=== PATIENT | female | born 1985 | race Caucasian/White ===

== ENCOUNTER 2020-06-10 09:20 | Emergency (ER) | payer BC, OTHER ==
--- OUTSIDE RECORDS SUMMARY | 2020-06-10 09:24 | XMS REPORT | Summary of Care ---
:1985 Author Organization [facility] Address [address] [place] [id number] Care Team Providers Name Role Phone Terrence Christianson MD Primary Care Provider Reason for Referral (STAT) Status Reason Specialty Diagnoses / Referred By Referred To Procedures Contact Contact New Request Psychiatry Diagnoses Alcoholism Mixed anxiety and depressive disorder Doris Christianson Web-Psychiatry Procedures CONSULT/REFERRAL PSYCHOLOGY MD Terrence Staff [address] [place] [address] [address] [facility], [address] [address] [place], [place] Phone: [phone] Phone: Fax: (STAT) Status Reason Specialty Diagnoses / Referred By Referred To Procedures Contact Contact New Request Psychiatry Diagnoses Alcoholism Mixed anxiety and depressive disorder Doris Christianson Web-Psychiatry Procedures CONSULT/REFERRAL PSYCHIATRY ADULT MD Terrence Staff [address] [place] [address] [address] [facility], [address] [address] [place], [place] Phone: [phone] Phone: Fax: Reason for Visit Reason Comments Assessment Encounter Details Date Type Department Care Team Description 05/04/2020 Telephone [facility] Family Medicine Doris Norton MD Assessment - [address] jefferson [place] [id number] [place] [address] [phone] Allergies Active Allergy Reactions Severity Noted Date Comments Cefaclor Hives 03/24/2019 Kiwi Hives 03/24/2019 documented as of this encounter (statuses as of 05/05/2020) Medications Medication Sig Dispensed Refills Start Date End Date Status insulin degludec inject 19 Units 0 Active (TRESIBA FLEXTOUCH under the skin U-100 SC) every morning. NOVOLOG U-100 INSULIN inject under the 0 Active ASPART SC skin. Per SSI (2 units for each 50 above a glucose of 200) traZODone 50 mg tablet Take 50-100 mg by 0 Active mouth at bedtime as needed for Insomnia. albuterol (PROAIR HFA) Inhale 2 Puffs 8.5 g 2 01/12/2020 Active 90 mcg/actuation every 6 (six) inhalerIndications: hours as needed Uncomplicated asthma, for Wheezing or unspecified asthma Shortness of severity, unspecified Breath. whether persistent blood sugar diagnostic Use as directed 100 Strip 1 02/13/2020 Active (ACCU-CHEK JOAQUÍN PLUS for twice a day TEST STRP) blood glucose stripIndications: Type monitoring for 1 diabetes mellitus ICD E10.42 with diabetic polyneuropathy GABAPENTIN 600 mg TAKE 2 TABLETS BY 540 tablet 1 03/01/2020 Active tabletIndications: MOUTH 3 (THREE) Unspecified TIMES DAILY. mononeuropathy of bilateral lower limbs escitalopram oxalate Take 1 tablet by 30 tablet 2 03/02/2020 Active 20 mg mouth daily. tabletIndications: Mixed anxiety and depressive disorder BUSPIRONE 15 mg TAKE 1 TABLET BY 270 tablet 0 03/02/2020 Active tabletIndications: MOUTH 3 TIMES A Mixed anxiety and DAY NEEDED FOR depressive disorder ANXIETY documented as of this encounter (statuses as of 05/05/2020) Active Problems Problem Noted Date Mixed anxiety and depressive disorder 12/22/2019 Chronic diarrhea 12/22/2019 History of alcoholism 11/11/2019 Anxiety 08/22/2019 Type 1 diabetes mellitus with diabetic polyneuropathy 04/01/2019 Asthma documented as of this encounter (statuses as of 05/05/2020) Resolved Problems Problem Noted Date Resolved Date Alcohol abuse 11/11/2019 12/22/2019 documented as of this encounter (statuses as of 05/05/2020) Social History Tobacco Use Types Packs/Day Years Used Date Former Smoker Smokeless Tobacco: Never Used Alcohol Use Drinks/Week oz/Week Comments Not Currently sober for 3 aristides hs, history of alcoholism Sex Assigned at Date Recorded Not on file documented as of this encounter Last Filed Vital Signs Not on filedocumented in this encounter Miscellaneous Notes Telephone Encounter - Grecthen Cota - 05/05/2020 4:07 PM CDTReferral Team has already sent this for approval elephone Encounter - Doris Christianson MD - 05/05/2020 10:51 AM CDTPlease assist with these referrals. She needs to see someone soon. Please reach out to her mother if we are allowed. elephone Encounter - Diya Zepeda - 05/05/2020 10:29 AM CDTPlease review elephone Encounter - Ara Flores - 05/04/2020 4:[address] Christianson - send message under Edelmira's Chart. Her mother sent a [employer] message on behalf of her daughter Telephone Encounter - Ara Flores - 05/04/2020 4:38 PM ANGELTDr. Christianson, This message is in regards to my daughter Edelmira. Her drinking has increased. I desperately need contact information for a counselor that we can start sessions to try and identify the cause for her addiction to alcohol. I would greatly appreciate your recommendation(s). Edelmira does a great job at work, but her refusal to keep her room or herself clean is deplorable. My concern grows daily. Your adviceand recommendations would be greatly appreciated. Gratefully, Alix Stackectronically signed by Ara Flores at 05/04/2020 4:40 PM CDTdocumented in this encounter Plan of Treatment Health Maintenance Due Date Last Done Comments HgA1C 1987 VARICELLA VACCINES (1 of 2 - 2-dose 1987 childhood series) PNEUMOCOCCAL 0-64 YEARS COMBINED SERIES (1 1992 of 1 - PPSV23) EYE EXAM 1996 LDL-C 1996 URINE MICROALBUMIN 1996 Depression Screening 1998 FOOT EXAM 2004 DTaP,Tdap,and Td Vaccines (1 - Tdap) 2005 PAP SMEAR 2007 INFLUENZA VACCINE (#1) 2020 CREATININE (SERUM) 09/30/2020 09/30/2019, 03/24/2019 documented as of this encounter Results Not on filedocumented in this encounter Visit Diagnoses Diagnosis Alcoholism - Primary Other and unspecified alcohol dependence , unspecified drinking behavior Mixed anxiety and depressive disorder Dysthymic disorder documented in this encounter Insurance Payer Benefit Plan Subscriber ID Effective Dates Phone Address Type / Group BCBS OF [facility] [id number] 2018-Renzo [phone] [address] PPO/[place] - OUT OF t 7 [id number] [place] [address] documented as of this encounter
--- OUTSIDE RECORDS SUMMARY | 2020-06-10 09:24 | XMS REPORT | Summary of Care ---
:1985 Author Organization [facility] Address [address] [place] [address] Care Team Providers Name Role Phone Terrence Christianson MD Primary Care Provider Reason for Visit Reason Comments Refill Request Encounter Details Date Type Department Care Team Description 03/18/2020 Refill [facility] Pediatric and Doris Bean MD Refill Request Adult Primary Care- [address] [place] [address] [place] [address], [address] [place] [address] Allergies Active Allergy Reactions Severity Noted Date Comments Cefaclor Hives 03/24/2019 Kiwi Hives 03/24/2019 documented as of this encounter (statuses as of 03/18/2020) Medications Medication Sig Dispensed Refills Start Date [...] as of this encounter (statuses as of 03/18/2020) Active Problems Problem Noted Date Mixed anxiety and depressive disorder 12/22/2019 Chronic diarrhea 12/22/2019 History of alcoholism 11/11/2019 Anxiety 08/22/2019 Type 1 diabetes mellitus with diabetic polyneuropathy 04/01/2019 Asthma documented as of this encounter (statuses as of 03/18/2020) Resolved Problems Problem Noted Date Resolved Date Alcohol abuse 11/11/2019 12/22/2019 documented as of this encounter (statuses as of 03/18/2020) Social History Tobacco Use Types Packs/Day Years Used Date Former Smoker Smokeless Tobacco: Never Used Alcohol Use Drinks/Week oz/Week Comments Not Currently sober for 3 aristides hs, history of alcoholism Sex Assigned at Date Recorded Not on file documented as of this encounter Last Filed Vital Signs Not on filedocumented in this encounter Plan of Treatment Date Type Specialty Care Team Description 03/19/2020 Office Visit Gastroenterology Tiffany Tobar MD [address] [facility] [address] [place] [address] Health Maintenance Due Date Last Done Comments HgA1C 1987 VARICELLA VACCINES (1 of 2 - 2-dose 1987 childhood series) PNEUMOCOCCAL 0-64 YEARS COMBINED SERIES (1 1992 of 1 - PPSV23) EYE EXAM 1996 LDL-C 1996 URINE MICROALBUMIN 1996 FOOT EXAM 2004 DTaP,Tdap,and Td Vaccines (1 - Tdap) 2005 PAP SMEAR 2007 INFLUENZA VACCINE (#1) 2020 Depression Screening 04/21/2020 04/21/2019 CREATININE (SERUM) 09/30/2020 09/30/2019, 03/24/2019 documented as of this encounter Results Not on filedocumented in this encounter Visit Diagnoses Diagnosis Uncomplicated asthma, unspecified asthma severity, unspecified whether persistent documented in this encounter Insurance Payer Benefit Plan Subscriber ID Effective Dates Phone Address Type / Group BCBS OF [facility] [id number] 2018-Renzo [phone] [address] PPO/[place] - OUT OF t 7 [id number] [place] [address] documented as of this encounter
--- OUTSIDE RECORDS SUMMARY | 2020-06-10 09:24 | XMS REPORT | Summary of Care ---
:1985 Author Organization [facility] [employer] Address [address] [place] [address] Care Team Providers Name Role Phone Terrence Christianson MD Primary Care Provider Reason for Visit Reason Comments Refill Request Encounter Details Date Type Department Care Team Description 05/18/2020 Refill [facility] Family Medicine Doris Norton MD Refill Request - [address] [place] [address] [place] [address] [phone] Allergies Active Allergy Reactions Severity Noted Date Comments Cefaclor Hives 03/24/2019 Kiwi Hives 03/24/2019 documented as of this encounter (statuses as of 05/18/2020) Medications Medication Sig Dispensed Refills Start Date End Date Status insulin degludec inject 19 Units 0 Active (TRESIBA FLEXTOUCH under the skin U-100 SC) every morning. NOVOLOG U-100 inject under 0 Ac tive INSULIN ASPART SC the skin. Per SSI (2 units for each 50 above a glucose of 200) traZODone 50 mg Take 50-100 mg 0 Active tablet by mouth at bedtime as needed for Insomnia. albuterol (PROAIR Inhale 2 Puffs 8.5 g 2 01/12/2020 Active HFA) 90 every 6 (six) mcg/actuation hours as needed inhalerIndications: for Wheezing or Uncomplicated Shortness of asthma, unspecified Breath. asthma severity, unspecified whether persistent GABAPENTIN 600 mg TAKE 2 TABLETS 540 tablet 1 03/01/2020 Active tabletIndications: BY MOUTH 3 Unspecified (THREE) TIMES mononeuropathy of DAILY. bilateral lower limbs escitalopram Take 1 tablet 30 tablet 2 03/02/2020 Ac tive oxalate 20 mg by mouth daily. tabletIndications: Mixed anxiety and depressive disorder BUSPIRONE 15 mg TAKE 1 TABLET 270 tablet 0 03/02/2020 Active tabletIndications: BY MOUTH 3 Mixed anxiety and TIMES A DAY depressive disorder NEEDED FOR ANXIETY blood sugar USE DIRECTED 100 Strip 1 05/18/2020 A ctive diagnostic TWICE A DAY (ACCU-CHEK JOAQUÍN PLUS TEST STRP) stripIndications: Type 1 diabetes mellitus with diabetic polyneuropathy blood sugar Use as directed 100 Strip 1 02/13/2020 D iscontinued diagnostic for twice a day 0 (ACCU-CHEK JOAQUÍN blood glucose PLUS TEST STRP) monitoring for stripIndications: ICD E10.42 Type 1 diabetes mellitus with diabetic polyneuropathy documented as of this encounter (statuses as of 05/18/2020) Active Problems Problem Noted Date Mixed anxiety and depressive disorder 12/22/2019 Chronic diarrhea 12/22/2019 History of alcoholism 11/11/2019 Anxiety 08/22/2019 Type 1 diabetes mellitus with diabetic polyneuropathy 04/01/2019 Asthma documented as of this encounter (statuses as of 05/18/2020) Resolved Problems Problem Noted Date Resolved Date Alcohol abuse 11/11/2019 12/22/2019 documented as of this encounter (statuses as of 05/18/2020) Social History Tobacco Use Types Packs/Day Years Used Date Former Smoker Smokeless Tobacco: Never Used Alcohol Use Drinks/Week oz/Week Comments Not Currently sober for 3 aristides hs, history of alcoholism Sex Assigned at Date Recorded Not on file documented as of this encounter Last Filed Vital Signs Not on filedocumented in this encounter Plan of Treatment Health [...] filedocumented in this encounter Visit Diagnoses Diagnosis Type 1 diabetes mellitus with diabetic p olyneuropathy Type I (juvenile type) diabetes mellitus with neurological manifestations, not stated as uncontrolled documented in this encounter Insurance Payer Benefit Plan Subscriber ID Effective Dates Phone Address Type / Group BCBS OF [facility] [id number] 2018-Renzo [phone] [address] PPO/[place] - OUT OF t 7 [id number] [place] [address] documented as of this encounter
--- OUTSIDE RECORDS SUMMARY | 2020-06-10 09:25 | XMS REPORT | Continuity of Care Document ---
:1985 Author Organization [facility] t Address [address] [place] [address] Care Team Providers Name Role Phone Terrence Christianson MD Attending Clinician Rossi Rhodes Attending Clinician Amadou NARAYANAN Attending Clinician Problems This patient has no known problems. Allergies, Adverse Reactions, Alerts This patient has no known allergies or adverse reactions. Medications This patient has no known medications. Procedures This patient has no known procedures. Encounters Start End Encounter Admission Attending Care Care Encounter Source Date/Time Date/Time Type Type Clinicians Facility Department ID 2020-05-18 2020-05-18 [id number] 00:00:00 00:00:00 [facility] [id number] [place] [id number] Professio [phone] [place] [address] Office [address] One 2020-05-04 2020-05-04 Telephone Sammy [facility] [id number] 00:00:00 00:00:00 [facility] [id number] [place] [id number] Professio [phone] nal [facility] Office Building One 2020-03-18 2020-03-18 [facility] [id number] 00:00:00 00:00:00 [facility] [place] [id number] [place] [id number] Professio [phone] [address] 2020-03-02 2020-03-02 Refill Sammy, [facility] [id number] 00:00:00 00:00:00 [facility] [id number] [place] [id number] Professio [phone] [place] [address] [facility] 2020-03-02 2020-03-02 Refill Sammy, [facility] [id number] 00:00:00 00:00:00 [facility] [place] [id number] [place] [id number] Professio [phone] [address] 2020-03-01 2020-03-01 Refill Raymond, [facility] [id number] 00:00:00 00:00:00 [place] [place] [id number] [place] [id number] Professio [phone] [address] 2020-02-13 2020-02-13 Telephone Sammy, [facility] [id number] 00:00:00 00:00:00 [facility] [id number] [place] [id number] Professio [phone] [address] 2020-02-04 2020-02-04 Emergency Rosemarie De Leon [facility] [id number] 11:05:10 12:03:00 Rossi [place] [id number] [place] [id number] [place] [phone] 2020-02-03 2020-02-03 Refill Raymond, [facility] [id number] 00:00:00 00:00:00 [place] [place] [id number] [place] [id number] Professio [phone] [address] 2020-01-29 2020-01-29 Telephone [place], [facility] [id number] 00:00:00 00:00:00 Tiffany SPECIALTY [id number] CARE [id number] CENTER AT [phone] LAWANDA Davis [facility] 2020-01-29 2020-01-29 [facility] [id number] 00:00:00 00:00:00 [place] A [place] [id number] [place] [id number] Professio [phone] [place] [address] Building 2020-01-26 2020-01-26 [facility] [id number] 10:14:00 23:59:00 Encounter Tiffany SPECIALTY [id number] CARE [id number] CENTER AT [phone] LAWANDA Meek [facility] 2020-01-14 2020-01-14 [facility] 1.2.840.114 [id number] 00:00:00 00:00:00 [place] A [place] [id number] [place] [id number] Professio [phone] [address] 2020-01-13 2020-01-[address] [facility] [id number] 00:00:00 00:00:00 [facility] [id number] [place] [id number] Professio [phone] [place] [address] Office [address] One 2020-01-08 2020-01-08 [facility] [id number] 00:00:00 00:00:00 [place] A [place] [id number] [place] [id number] Professio [phone] [address] Results This patient has no known results.
[2020-06-10] MEDS ORDERED: ONDANSETRON 4 MG/2 ML VIAL ONE (10:17)
[2020-06-10] MEDS ORDERED: LORazepam 2 MG/ML VIAL ONE ×2 (10:17→11:53)
[2020-06-10] MEDS ORDERED: NA CHLORIDE 0.9% 1,000 ML ONE (10:27)
--- NOTE | 2020-06-10 11:31 | ER ---
Nurse's Notes [facility] Name: Edelmira Pal Age: 35 yrs Sex: Female : 1985 Arrival Date: 06/10/2020 Time: :22 Bed 15 Private MD: Diagnosis: Anxiety disorder, unspecified Presentation: 06/10 09:58 Chief complaint: Patient states: Been having major anxiety since 430 this morning. Took ca1 my Buspirone, no relief. Reports N/V. Coronavirus screen: Client denies travel out of the [place] in the last 14 days. nausea, vomiting. Client presents with at least one sign or symptom that may indicate coronavirus-19. Standard/surgical mask placed on the client. Provider contacted for isolation considerations. Ebola Screen: Patient negative for fever greater than or equal to 101.5 degrees Fahrenheit, and additional compatible Ebola Virus Disease symptoms Patient denies exposure to infectious person. Patient denies travel to an Ebola-affected area in the 21 days before illness onset. No symptoms or risks identified at this time. Initial Sepsis Screen: Does the patient meet any 2 criteria? No. Patient's initial sepsis screen is negative. Does the patient have a suspected source of infection? No. Patient's initial sepsis screen is negative. Risk Assessment: Do you want to hurt yourself or someone else? Patient reports no desire to harm self or others. Onset of symptoms was June 10, 2020 at 04:30. 09:58 Method Of Arrival: Ambulatory ca1 09:58 Acuity: BELTRAN 3 ca1 Triage Assessment: 10:00 General: Appears in no apparent distress. uncomfortable, Behavior is anxious. Pain: ca1 Complains of pain in all over. EENT: No deficits noted. No signs and/or symptoms were reported regarding the EENT system. Neuro: Level of Consciousness is awake, alert, obeys commands, Oriented to person, place, time, situation. Cardiovascular: Heart tones S1 S2 present Capillary refill < 3 seconds Patient's skin is warm and dry. Respiratory: Airway is patent Respiratory effort is even, unlabored, Respiratory pattern is regular, symmetrical, Breath sounds are clear bilaterally. GI: Abdomen is flat, non-distended, Bowel sounds present X 4 quads. Abd is soft and non tender X 4 quads. Reports nausea, vomiting, since 0430 today. : No signs and/or symptoms were reported regarding the genitourinary system. Derm: Skin is intact, is healthy with good turgor, Skin is pink, warm \\T\\ dry. Musculoskeletal: Circulation, motion, and sensation intact. Capillary refill < 3 seconds. Historical: - Allergies: 10:00 Ceclor; ca1 - PMHx: 10:00 Diabetes - IDDM; Anxiety; Alcoholism; Asthma; ca1 - PSHx: 10:00 None; ca1 - Immunization history:: Adult Immunizations up to date, Flu vaccine is not up to date. Patient has never been vaccinated. - Social history:: Smoking status: Patient reports the use of cigarette tobacco products, smokes one-half pack cigarettes per day. Screenin:01 Abuse screen: Denies threats or abuse. Denies injuries from another. Nutritional ca1 screening: No deficits noted. Tuberculosis screening: No symptoms or risk factors identified. Fall Risk None identified. Assessment: 10:01 Reassessment: see triage notes. ca1 11:04 Reassessment: Patient appears in no apparent distress at this time. Patient and/or ca1 family updated on plan of care and expected duration. Pain level reassessed. Patient is alert, oriented x 3, equal unlabored respirations, skin warm/dry/pink. General: Appears in no apparent distress. comfortable, Behavior is calm, cooperative, appropriate for age. 12:00 Reassessment: Patient appears in no apparent distress at this time. Patient and/or ca1 family updated on plan of care and expected duration. Pain level reassessed. Patient is alert, oriented x 3, equal unlabored respirations, skin warm/dry/pink. 12:36 Reassessment: Pt states, "I will just have Insulin shot on the belly, I will recheck my ca1 blood sugar at home and I have Novolog pen if I need it. 400 is normal to me. I really want to go home now". Vital Signs: 09:58 BP 153 / 92; Pulse 97; Resp 16 S; Temp 97.3(TE); Pulse Ox 100% on R/A; Weight 56.7 kg ca1 (R); Height 5 ft. 3 in. (160.02 cm) (R); 10:18 BP 138 / 97; ca1 11:04 BP 120 / 80; Pulse 99; Resp 16 S; Pulse Ox 99% on R/A; ca1 12:00 BP 126 / 82; Pulse 89; Resp 16 S; Pulse Ox 99% on R/A; ca1 09:58 Body Mass Index 22.14 (56.70 kg, 160.02 cm) ca1 ED Course: 09:22 Patient arrived in ED. ag5 09:57 Austyn Velasquez MD is Attending Physician. kdr 09:58 Kena Mann, ISSA is Primary Nurse. ca1 09:59 Triage completed. ca1 10:00 Arm band placed on right wrist. ca1 10:01 Patient has correct armband on for positive identification. Bed in low position. Call ca1 light in reach. Side rails up X2. Adult w/ patient. Pulse ox on. NIBP on. Door closed. Noise minimized. Lights dimmed. Warm blanket given. 10:12 Initial lab(s) drawn, by me, held in ED. Inserted saline lock: 22 gauge in right ca1 antecubital area, using aseptic technique. Blood collected. 11:30 Wilfrid Hoagn MD is Referral Physician. kdr 11:30 No provider procedures requiring assistance completed. ca1 11:45 IV discontinued, intact, bleeding controlled, No redness/swelling at site. Pressure ca1 dressing applied. Administered Medications: 10:12 Drug: Zofran (Ondansetron) 4 mg Route: IVP; Site: right antecubital; ca1 11:00 Follow up: Response: No adverse reaction; Nausea is decreased ca1 10:14 Drug: Ativan 1 mg Route: IVP; Site: right antecubital; ca1 11:00 Follow up: Response: No adverse reaction; Anxiety decreased ca1 10:18 Drug: NS 0.9% 500 ml Route: IV; Rate: bolus; Site: right antecubital; ca1 11:00 Follow up: Response: No adverse reaction; IV Status: Completed infusion; IV Intake: ca1 1000ml 12:40 Follow up: Response: No adverse reaction; IV Status: Completed infusion; IV Intake: ca1 500ml 11:40 Drug: Ativan 1 mg Route: IVP; Site: right antecubital; ca1 12:30 Follow up: Response: No adverse reaction; Marked relief of symptoms; Anxiety decreased ca1 12:30 Drug: Insulin Regular Human 10 units {Co-Signature: iw (Charis Baires RN).} Route: ca1 Sub-Q; Site: right lower abdomen; 12:40 Follow up: Response: No adverse reaction; Medication administered at discharge. ca1 Intake: 11:00 IV: 1000ml; Total: 1000ml. ca1 12:40 IV: 500ml; Total: 1500ml. ca1 Outcome: 11:31 Discharge ordered by MD. kdr 12:40 Discharged to home ambulatory, with family. ca1 12:40 Condition: stable 12:40 Discharge instructions given to patient, family, Instructed on discharge instructions, follow up and referral plans. no drinking with medication, no driving heavy equipment, medication usage, Demonstrated understanding of instructions, follow-up care, medications, Prescriptions given X 2. 12:41 Patient left the ED. ca1 Signatures: Austyn Velasquez MD MD kdr Kena Mann RN RN ca1 Marylou Costello 5 Charis Baires RN iw Corrections: (The following items were deleted from the chart) 12:39 11:30 IV discontinued, intact, bleeding controlled, No redness/swelling at site. ca1 Pressure dressing applied, ca1 12:41 12:36 Reassessment: Pt states, "I will just have Insulin shot on the belly, I will ca1 recheck my blood sugar at home and I have Novolog pen if I need it. I really want to go home now" ca1
--- NOTE | 2020-06-10 11:32 | EDPHYS ---
Physician Documentation [facility] Name: Edelmira Pal Age: 35 yrs Sex: Female : 1985 Arrival Date: 06/10/2020 Time: : Bed 15 Private MD: ED Physician Austyn Velasquez HPI: 06/10 16:33 This 35 yrs old Female presents to ER via Ambulatory with complaints of kdr Anxiety. 16:33 The patient presents to the emergency department with anxiety, over unknown kdr circumstances. Onset: The symptoms/episode began/occurred suddenly, at 04:30. Past psychiatric history: Prior diagnosis: Generalized anxiety disorder. Associated signs and symptoms: Pertinent positives; nausea, vomiting. Severity of symptoms: At their worst the symptoms were moderate incapacitating in the emergency department the symptoms are unchanged. The patient has experienced similar episodes in the past. The patient has not recently seen a physician. Historical: - Allergies: 10:00 Ceclor; ca1 - PMHx: 10:00 Diabetes - IDDM; Anxiety; Alcoholism; Asthma; ca1 - PSHx: 10:00 None; ca1 - Immunization history:: Adult Immunizations up to date, Flu vaccine is not up to date. Patient has never been vaccinated. - Social history:: Smoking status: Patient reports the use of cigarette tobacco products, smokes one-half pack cigarettes per day. ROS: 16:33 Constitutional: Negative for fever, chills, and weight loss, Eyes: Negative for injury, kdr pain, redness, and discharge, ENT: Negative for injury, pain, and discharge, Neck: Negative for injury, pain, and swelling, Cardiovascular: Negative for chest pain, palpitations, and edema, Respiratory: Negative for shortness of breath, cough, wheezing, and pleuritic chest pain, Abdomen/GI: Negative for abdominal pain, nausea, vomiting, diarrhea, and constipation, Back: Negative for injury and pain, : Negative for injury, bleeding, discharge, and swelling, MS/Extremity: Negative for injury and deformity, Skin: Negative for injury, rash, and discoloration, Neuro: Negative for headache, weakness, numbness, tingling, and seizure activity. Allergy/Immunology: Negative for hives, rash, and allergies, Endocrine: Negative for neck swelling, polydipsia, polyuria, polyphagia, and marked weight changes, Hematologic/Lymphatic: Negative for swollen nodes, abnormal bleeding, and unusual bruising. 16:33 Psych: Positive for anxiety, Negative for depression, drug dependence, alcohol dependence, auditory hallucinations, visual hallucinations, homicidal ideation, insomnia, suicide gesture, suicidal ideation. Exam: 16:37 Constitutional: This is a well developed, well nourished patient who is awake, alert, kdr and in moderate distress. Head/Face: Normocephalic, atraumatic. Eyes: Pupils equal round and reactive to light, extra-ocular motions intact. Lids and lashes normal. Conjunctiva and sclera are non-icteric and not injected. Cornea within normal limits. Periorbital areas with no swelling, redness, or edema. Neck: Trachea midline, no thyromegaly or masses palpated, and no cervical lymphadenopathy. Supple, full range of motion without nuchal rigidity, or vertebral point tenderness. No Meningismus. Chest/axilla: Normal chest wall appearance and motion. Nontender with no deformity. No lesions are appreciated. Cardiovascular: Regular rate and rhythm with a normal S1 and S2. No gallops, murmurs, or rubs. Normal PMI, no JVD. No pulse deficits. Respiratory: Lungs have equal breath sounds bilaterally, clear to auscultation and percussion. No rales, rhonchi or wheezes noted. No increased work of breathing, no retractions or nasal flaring. Abdomen/GI: Soft, non-tender, with normal bowel sounds. No distension or tympany. No guarding or rebound. No evidence of tenderness throughout. Back: No spinal tenderness. No costovertebral tenderness. Full range of motion. Skin: Warm, dry with normal turgor. Normal color with no rashes, no lesions, and no evidence of cellulitis. MS/ Extremity: Pulses equal, no cyanosis. Neurovascular intact. Full, normal range of motion. Neuro: Awake and alert, GCS 15, oriented to person, place, time, and situation. Cranial nerves II-XII grossly intact. Motor strength 5/5 in all extremities. Sensory grossly intact. Cerebellar exam normal. Normal gait. 16:37 Psych: Behavior/mood is cooperative, anxious, inappropriate for age, Affect is animated, Oriented to person, place, time, Patient has no thoughts/intents to harm self or others. Judgement / Insight is normal. Memory is normal. Delusions/hallucinations are not present. Vital Signs: 09:58 BP 153 / 92; Pulse 97; Resp 16 S; Temp 97.3(TE); Pulse Ox 100% on R/A; Weight 56.7 kg ca1 (R); Height 5 ft. 3 in. (160.02 cm) (R); 10:18 BP 138 / 97; ca1 11:04 BP 120 / 80; Pulse 99; Resp 16 S; Pulse Ox 99% on R/A; ca1 12:00 BP 126 / 82; Pulse 89; Resp 16 S; Pulse Ox 99% on R/A; ca1 09:58 Body Mass Index 22.14 (56.70 kg, 160.02 cm) ca1 MDM: 11:31 Patient medically screened. kdr 16:37 Data reviewed: vital signs, nurses notes, lab test result(s), radiologic studies. kdr Counseling: I had a detailed discussion with the patient and/or guardian regarding: the historical points, exam findings, and any diagnostic results supporting the discharge/admit diagnosis, lab results, the need for outpatient follow up. 16:37 ED course: The patient refused to wait for any intervention with regard to her blood kdr sugar.. 11 10:30 Order name: Glucose, Ancillary Testing EDMS 06/10 12:01 Order name: Glucose, Ancillary Testing EDMS Administered Medications: 10:12 Drug: Zofran (Ondansetron) 4 mg Route: IVP; Site: right antecubital; ca1 11:00 Follow up: Response: No adverse reaction; Nausea is decreased ca1 10:14 Drug: Ativan 1 mg Route: IVP; Site: right antecubital; ca1 11:00 Follow up: Response: No adverse reaction; Anxiety decreased ca1 10:18 Drug: NS 0.9% 500 ml Route: IV; Rate: bolus; Site: right antecubital; ca1 11:00 Follow up: Response: No adverse reaction; IV Status: Completed infusion; IV Intake: ca1 1000ml 12:40 Follow up: Response: No adverse reaction; IV Status: Completed infusion; IV Intake: ca1 500ml 11:40 Drug: Ativan 1 mg Route: IVP; Site: right antecubital; ca1 12:30 Follow up: Response: No adverse reaction; Marked relief of symptoms; Anxiety decreased ca1 12:30 Drug: Insulin Regular Human 10 units {Co-Signature: iw (Charis Baires RN).} Route: ca1 Sub-Q; Site: right lower abdomen; 12:40 Follow up: Response: No adverse reaction; Medication administered at discharge. ca1 Disposition: 06/10/20 11:31 Discharged to Home. Impression: Anxiety disorder, unspecified. - Condition is Stable. - Discharge Instructions: Panic Attacks, [id number], Generalized Anxiety Disorder. - Prescriptions for Ativan 1 mg Oral Tablet - take 1 tablet by ORAL route every 8 hours As needed; 6 tablet. Zofran 4 mg Oral Tablet - take 1 tablet by ORAL route every 4-6 hours As needed; 12 tablet. - Medication Reconciliation Form, Thank You Letter form. - Follow up: Private Physician; When: 2 - 3 days; Reason: If symptoms return, Further diagnostic work-up, Recheck today's complaints, Continuance of care, Re-evaluation by your physician. Follow up: Wilfrid Hogan MD; When: 2 - 3 days; Reason: If symptoms return, Further diagnostic work-up, Recheck today's complaints, Continuance of care, Re-evaluation by your physician. - Problem is an acute exacerbation. - Symptoms have improved. Signatures: Dispatcher [employer] EDMS Austyn Velasquez MD MD [facility] Kena Mann RN RN ca1 Charis valero Corrections: (The following items were deleted from the chart) 12:41 11:31 06/10/2020 11:31 Discharged to Home. Impression: Anxiety disorder, unspecified. ca1 Condition is Stable. Forms are Medication Reconciliation Form, Thank You Letter, Antibiotic Education, Prescription Opioid Use. Follow up: Private Physician; When: 2 - 3 days; Reason: If symptoms return, Further diagnostic work-up, Recheck today's complaints, Continuance of care, Re-evaluation by your physician. Follow up: Wilfrid Hogan; When: 2 - 3 days; Reason: If symptoms return, Further diagnostic work-up, Recheck today's complaints, Continuance of care, Re-evaluation by your physician. Problem is an acute exacerbation. Symptoms have improved. kdr
[2020-06-10] MEDS ORDERED: INSULIN -REGULAR HUMAN 50 UNIT/0.5 ML ML ONE (12:14)
[2020-06-10 13:49] VITALS: TEMP 97.3
[2020-06-10 13:52] VITALS: O2SAT 99
[2020-06-10 13:54] VITALS: BP 126/82
== END 2020-06-10 12:41 | disposition home or self-care (01) ==
LOC: ER 09:20
DX: F41.9 Anxiety disorder, unspecified (principal); F10.20 Alcohol dependence, uncomplicated; F17.210 Nicotine dependence, cigarettes, uncomplicated; Z88.1 Allergy status to other antibiotic agents
CPT/HCPCS: 96361; 82947 ×2; 96375; 96372; 96374; 99284; J7030; J2405

== ENCOUNTER 2020-06-20 05:22 | Emergency (ER) | payer BC ==
--- OUTSIDE RECORDS SUMMARY | 2020-06-20 05:24 | XMS REPORT | Summary of Care ---
:1985 Author Organization [facility] - [facility] Address [address] [place] [id number] Care Team Providers Name Role Phone Terrence Amaro MD Primary Care Provider Reason for Referral (STAT) Status Reason Specialty Diagnoses / Procedures Referred By Darell angulo To Contact Contact New Request Gastroenterology Diagnoses Chronic diarrhea Chronic abdominal pain Ulcerative colitis with complication, unspecified location Incontinence of feces with fecal urgency Sammy, Procedures CONSULT/REFERRAL GASTROENTEROLOGY Doris Ocampo MD [address] [place] [address] [facility] [place] [place] [address] Reason for Visit Reason Comments Depression Anxiety Diarrhea Encounter Details Date Type Department Care Team Description 06/11/2020 Office Visit [facility] Family Doris Amaro [employer] zhane diarrhea (Primary Dx); [facility] - Ana Ocampo MD Anxiety and depression; [address] [place] [address] Chronic abdominal pain; [address] [place], [place] Ulcerative colitis with comp lication, unspecified location; [place] [address] Incontinence of feces with fecal urgency ; [id number] History of alcoholism [phone] Allergies Active Allergy Reactions Severity Noted Date Comments Cefaclor Hives 03/24/2019 Kiwi Hives 03/24/2019 documented as of this encounter (statuses as of 06/13/2020) Medications Medication Sig Dispensed Refills Start Date [...] Shortness of severity, unspecified Breath. whether persistent GABAPENTIN 600 mg TAKE 2 TABLETS BY [...] and DAY NEEDED FOR depressive disorder ANXIETY blood sugar diagnostic USE DIRECTED 100 Strip 1 05/18/2020 Active (ACCU-CHEK JOAQUÍN PLUS TWICE A DAY TEST STRP) stripIndications: Type 1 diabetes mellitus with diabetic polyneuropathy LORazepam 1 mg Take 1 tablet by 10 tablet 0 06/11/2020 Active tabletIndications: mouth every 8 Anxiety and depression (eight) hours as needed for Anxiety or Agitation. DR. AMARO WILL NOT REFILL. documented as of this encounter (statuses as of 06/13/2020) Active Problems Problem Noted Date Ulcerative colitis with complication, unspecified loca tion 06/13/2020 Incontinence of feces with fecal urgency 06/13/2020 Mixed anxiety and depressive disorder 12/22/2019 Chronic diarrhea 12/22/2019 History of alcoholism 11/11/2019 Anxiety 08/22/2019 Type 1 diabetes mellitus with diabetic polyneuropathy 04/01/2019 Asthma documented as of this encounter (statuses as of 06/13/2020) Resolved Problems Problem Noted Date Resolved Date Alcohol abuse 11/11/2019 12/22/2019 documented as of this encounter (statuses as of 06/13/2020) Social History Tobacco Use Types Packs/Day Years Used Date Former Smoker Smokeless Tobacco: Never Used Alcohol Use Drinks/Week oz/Week Comments Not Currently sober for 3 aristides hs, history of alcoholism Sex Assigned at Date Recorded Not on file documented as of this encounter Last Filed Vital Signs Vital Sign Reading Time Taken Comments Blood Pressure 133/92 06/11/2020 1:17 PM TAPE STRINGER Pulse 104 06/11/2020 1:17 PM TAPE STRINGER Temperature 37.1 C (98.7 F) 06/11/2020 1:17 PM TAPE STRINGER Respiratory Rate 20 06/11/2020 1:17 PM TAPE STRINGER Oxygen Saturation - - Inhaled Oxygen Concentration - - Weight 64.5 kg (142 lb 3.2 oz) 06/11/2020 1:17 PM TAPE STRINGER Height 160 cm (5' 3") 06/11/2020 1:17 PM TAPE STRINGER Body Mass Index 25.19 06/11/2020 1:17 PM TAPE STRINGER documented in this encounter Patient Instructions Patient InstructionsDoris Amaro MD - 06/11/2020 1:00 PM [facility] [address] [place] [id number] [email or web address] Patient Education Depression: Tips to Help Yourself As your healthcare providers help treat your depression, you can also help yourself. Keep in mind that your illness affects you emotionally, physically, mentally, and socially. So full recovery will take time. Take care of your body and your soul, and be patient with yourself as you get better. Self-care Educate yourself. Read about treatment and medicine options. If you have the energy, attend localconferences or support groups. Keep a list of useful websites and helpful books and use them as needed. This illness is not your fault. Dont blame yourself for your depression. Manage early symptoms. If you notice symptoms returning, experience triggers, or identify other factors that may lead to a depressive episode, get help as soon as possible. Ask trusted friends and family to monitor your behavior and let you know if they see anything of concern. Work with your provider. Find a provider you can trust. Communicate honestly with that person andshare information on your treatment for depression and your reaction to medicines. Be prepared for a crisis. Know what to do if you experience a crisis. Keep the phone number of a crisis hotline and know the location of your community's urgent care centers and the closest emergency department. Hold off on big decisions. Depression can cloud your judgment. So wait until you feel better before making major life decisions, such as changing jobs, moving, or getting or . Be patient. Recovering from depression is a process. Dont be discouraged if it takes some timeto feel better. Keep it simple. Depression saps your energy and concentration. So you wont be able to do all the things you used to do. Set small goals and do what you can. Be with others. Dont isolate yourselfyoull only feel worse. Try to be with other people.And take part in fun activities when you can. Go to a movie, Basysgame, muslim service, or social event. Talk openly with people you can trust. And accept help when its offered. Take care of your body People with depression often lose the desire to take care of themselves. That only makes their problems worse. During treatment and afterward, make a point to: Exercise. Its a great way to take care of your body. And studies have shown that exercise helps fight depression. Aim for 30 minutes of moderate activity a day. Walking in small blocks of time (5-10 minutes) is a good way to start, but anything that gets you moving (gardening, house cleaning) counts. Don't use drugs and alcohol. These may ease the pain in the short term. But theyll only make your problems worse in the long run. Get relief from stress. Ask your healthcare provider for relaxation exercises and techniques to help relieve stress. Consider activities like meditation, yoga, or Delvin Chi. Eat right. A balanced and healthy diet helps keep your body healthy. Get adequate sleep. Aim for 8 hours per night. Too much or too little sleep can cause other physical and emotional problems. LookIt last reviewed this educational content on 07/06/201919990514-6354 The [employer]. All rights reserved. This information is not intended as a substitute for professional medical care. Always follow your healthcare professional's instructions. STRINGER documented in this encounter Progress Notes Leatha Rick - 06/11/2020 1:00 PM CSTSatab Pal is a 35 year old female comes to clinic independent in ambulation for depression, anxiety and diarrhea. Pt comes accompanied by mother . Pt in NAD w/ pain reported 0/10. Pt preferred language is Kinyarwanda. Pt. denies fall in last 12 months. Allergies and medications reviewed and updated. [id number] [place], [place] - [facility] [address] [facility] Leatha Rick 06/11/2020 1:17 PM Doris Shoemaker MD - 06/11/2020 1:00 PM CST CC: Chief Complaint Patient presents with Depression Anxiety Diarrhea HPI Edelmira Pal is a 35 year old female who presents for anxiety/depression and diarrhea. She is accompanied by her mother for today's visit. Anxiety/Depression, History of alcoholism follow-up Psychotropic medications and their effectiveness: Escitalopram, buspirone, and trazodone have not been controlling her anxiety. She reports severe anxiety lately including restlessness, fidgeting, nervousness, and panic attacks. She recently went to the ER at [facility] and was prescribed lorazepam 1mg q8hrs PRN which actually calms her enough that she is able to function somewhat. She says she wouldn't have been able to come to today's appointment if she didn't take the lorazepam. She only has about 3-4 pills left and requests a refill so she can use it until she is able to get in with a Psychiatrist. Current psychosocial stressors: She is trying to stay sober (h/o alcoholism s/p rehab s tila in the late Summer/early Fall). Current support: Mother. In counseling?: No. Denies manic symptoms, delusions, hallucinations, SI or HI. She has been referred to Psychiatry multiple times butshe has not made an appointment. Diarrhea Quality: Watery, copious, mucous and bloody Severity: Severe Duration: over a year. Timing: Constant Progression: Worsening Relieved by: None tried Ineffective treatments: None tried Associated symptoms: abdominal pain (severe cramping) Associated symptoms: no arthralgias, no chills, no recent cough, no diaphoresis, no fever, no headaches, no myalgias, no URI and no vomiting Associated symptoms comment: + fecal incontinence and fecal urgency Risk factors: no suspicious food intake and no travel to endemic areas She went to [facility] on 05/21/20 with severe diarrhea. Labs and a CT of her abdomen were performed and she was diagnosed with "ulcerative colitis". She was told to see a GI specialist. Allergies Allergen Reactions Ceclor [Cefaclor] Hives Kiwi Hives Current Outpatient Medications: LORazepam 1 mg tablet, Take 1 tablet by mouth every 8 (eight) hours as needed for Anxiety or Agitation., Disp: tablet, Rfl: 0 blood sugar diagnostic (ACCU-CHEK JOAQUÍN PLUS TEST STRP) strip, USE DIRECTED TWICE A DAY, Disp: 100 Strip, Rfl: 1 BUSPIRONE 15 mg tablet, TAKE 1 TABLET BY MOUTH 3 TIMES A DAY NEEDED FOR ANXIETY, Disp: 270 tablet, Rfl: 0 escitalopram oxalate 20 mg tablet, Take 1 tablet by mouth daily., Disp: 30 tablet, Rfl: 2 GABAPENTIN 600 mg tablet, TAKE 2 TABLETS BY MOUTH 3 (THREE) TIMES DAILY., Disp: 540 tablet, Rfl: 1 albuterol (PROAIR HFA) 90 mcg/actuation inhaler, Inhale 2 Puffs every 6 (six) hours as needed for Wheezing or Shortness of Breath., Disp: 8.5 g, Rfl: 2 traZODone 50 mg tablet, Take 50-100 mg by mouth at bedtime as needed for Insomnia., Disp: , Rfl: insulin degludec (TRESIBA FLEXTOUCH U-100 SC), inject 19 Units under the skin every morning., Disp: , Rfl: NOVOLOG U-100 INSULIN ASPART SC, inject under the skin. Per SSI (2 units for each 50 above a glucose of 200), Disp: , Rfl: Past Medical History: Diagnosis Date Anxiety 08/22/2019 Asthma History of alcoholic gastritis History of alcoholism 11/11/2019 Type 1 diabetes mellitus with diabetic polyneuropathy 04/01/2019 History reviewed. No pertinent surgical history. Family History Problem Relation Age of Onset No Significant Medical Problems Father Diabetes Mother Hypertension Mother Hyperlipidemia Mother Coronary Heart Disease Mother Social History Socioeconomic History Marital status: Single Spouse name: Not on file Number of children: Not on file Years of education: Not on file Highest education level: Not on file Occupational History Not on file Social Needs Financial resource strain: Not on file Food insecurity Worry: Not on file Inability: Not on file Transportation needs Medical: Not on file Non-medical: Not on file Tobacco Use Smoking status: Former Smoker Smokeless tobacco: Never Used Substance and Sexual Activity Alcohol use: Not Currently Comment: sober for 3 months, history of alcoholism Drug use: Not Currently Sexual activity: Not on file Lifestyle Physical activity Days per week: Not on file Minutes per session: Not on file Stress: Not on file Relationships Social connections Talks on phone: Not on file Gets together: Not on file Attends muslim service: Not on file Active member of club or organization: Not on file Attends meetings of clubs or organizations: Not on file Relationship status: Not on file Intimate partner violence Fear of current or ex partner: Not on file Emotionally abused: Not on file Physically abused: Not on file Forced sexual activity: Not on file Other Topics Concern Not on file Social History Narrative 12/22/2019: Recently moved from [place] to [place] where her mother resides. Review of Systems Constitutional: Negative. Negative for chills, diaphoresis and fever. HENT: Negative. Eyes: Negative. Respiratory: Negative. Cardiovascular: Negative. Gastrointestinal: Positive for abdominal pain (severe cramping) and diarrhea. Negative for vomiting. Genitourinary: Negative. Musculoskeletal: Negative. Negative for arthralgias and myalgias. Skin: Negative. Neurological: Negative. Negative for headaches. Psychiatric/Behavioral: Positive for agitation, decreased concentration and sleep disturbance. The patient is nervous/anxious. Endocrine: Endocrine negative Vital signs BP (!) 133/92 (BP Location: Left arm, Patient Position: Sitting, BP CUFF SIZE: Adult Medium) | Pulse 104 | Temp 37.1 C (98.7 F) (Oral) | Resp 20 | Ht 5' 3" (1.6 m) | Wt 142 lb 3.2 oz (64.5 kg) | BMI 25.19 kg/m Physical Exam Vitals signs and nursing note reviewed. Constitutional: Appearance: She is well-developed. Eyes: General: No scleral icterus. Conjunctiva/sclera: Conjunctivae normal. Pupils: Pupils are equal, round, and reactive to light. Neck: Musculoskeletal: Neck supple. Thyroid: No thyromegaly. Vascular: No carotid bruit. Cardiovascular: Rate and Rhythm: Normal rate and regular rhythm. Heart sounds: Normal heart sounds. No murmur. No friction rub. No gallop. Pulmonary: Effort: Pulmonary effort is normal. Breath sounds: Normal breath sounds. No wheezing, rhonchi or rales. Abdominal: General: Bowel sounds are normal. There is no distension. Palpations: Abdomen is soft. There is no mass. Tenderness: There is no abdominal tenderness. Musculoskeletal: Right lower leg: No edema. Left lower leg: No edema. Lymphadenopathy: Cervical: No cervical adenopathy. Skin: General: Skin is warm and dry. Coloration: Skin is not jaundiced or pale. Findings: No rash. Neurological: General: No focal deficit present. Mental Status: She is alert and oriented to person, place, and time. Psychiatric: Attention and Perception: Attention and perception normal. Mood and Affect: Mood is anxious and depressed. Thought Content: Thought content normal. Cognition and Memory: Cognition and memory normal. Judgment: Judgment normal. LABS: CBC CMP WBC (10*3/L) Date Value 02/04/2020 8.67 NA (mmol/L) Date Value 09/30/2019 135 RBC (10*6/L) Date Value 02/04/2020 4.20 K (mmol/L) Date Value 09/30/2019 2.8 (LL) PLT (10*3/L) Date Value 02/04/2020 522 (H) CALCIUM (mg/dL) Date Value 09/30/2019 9.0 HGB (g/dL) Date Value 02/04/2020 12.4 CL (mmol/L) Date Value 09/30/2019 97 (L) HCT (%) Date Value 02/04/2020 38.6 BUN (mg/dL) Date Value 09/30/2019 5 (L) LIPID PANEL CREATININE (mg/dL) Date Value 09/30/2019 0.55 No results found for: CHOL GLUCOSE (mg/dL) Date Value 09/30/2019 152 (H) No results found for: LDL CO2 TOTAL (mmol/L) Date Value 09/30/2019 29 No results found for: HDL ALBUMIN Date Value Ref Range Status 09/30/2019 4.0 3.5 - 5.0 g/dL Final No results found for: TRIG T PROTEIN Date Value Ref Range Status 09/30/2019 7.0 6.3 - 8.2 g/dL Final TSH TOTAL BILI Date Value Ref Range Status 09/30/2019 0.8 0.1 - 1.1 mg/dL Final No results found for: TSH No components found for: BILIUNCOM BILI CONJ Date Value Ref Range Status 03/24/2019 0.0 0.0 - 0.3 mg/dL Final ALT(SGPT) Date Value Ref Range Status 03/24/2019 35 9 - 51 U/L Final ALTv Date Value Ref Range Status 09/30/2019 15 5 - 35 U/L Final AST(SGOT) Date Value Ref Range Status 09/30/2019 27 13 - 40 U/L Final ALK PHOS Date Value Ref Range Status 09/30/2019 69 34 - 122 U/L Final ASSESSMENT/PLAN Diagnoses and all orders for this visit: Chronic diarrhea; Chronic abdominal pain; Ulcerative colitis with complication, unspecified location; Incontinence of feces with fecal urgency I recommended evaluation and management by a GI specialist and a referral was initiated. - CONSULT/REFERRAL GASTROENTEROLOGY Anxiety and depression, History of alcoholism A refill of lorazepam was granted given the patient has failed other non- controlled medications and shows no evidence of abuse/misuse or diversion of controlled substances (the patient's controlled substance prescription medication history was reviewed in the [place] [employer] system). The patient voiced understanding that lorazepam has habit-forming potential and other possible serious side effects, and she agrees to use it only as needed. I explicitly explained to the patient and her mother that I will not refill this medication. She has to take control of her situation and get established with an outpatient Psychiatrist as I have recommended multiple times in the past. She voiced understanding. - LORazepam 1 mg tablet; Take 1 tablet by mouth every 8 (eight) hours as needed for Anxiety or Agitation. DR. AMARO WILL NOT REFILL. Plan of care, desired health behaviors, goals, Ddx, and any prescribed medications were discussed with the patient. This visit did not involve counseling and coordination that comprised more than 50% of the visit time. Education resources and self-management tools were provided/reviewed with the AVS. Patient/guardian/family verbalized understanding and agrees to the plan of care. Barriers to care: None. Ability to manage care: Good. Advanced care planning (living will) information was not given/offered to the patient to review for discussion at a future visit. If applicable, the [place] PMPdatabase was accessed to review any controlled substance prescription claims data. If the patient is taking prescribed medications, the [employer] prescription claims data in [employer] was reviewed to assess patient compliance with the medication treatment plan. Follow-up: Return if symptoms worsen or fail to improve. Recommended an annual wellness physical for preventive health maintenance. Scribe Attestation Hung, Yessi Haynes , am scribing for, and in the presence of, Doris Amaro MD who performed the services described here-in. Yessi Haynes, June 11, 2020, 1:09 PM Physician Attestation I, Doris Amaro MD, personally performed the services described in this documentation , as scribed by, Yessi Haynes in my presence and it is both accurate and complete. Doris Amaro MD June 11, 2020, 1:09 PM STRINGER documented in this encounter Plan of Treatment Date Type Specialty Care Team Description 06/28/2020 Office Visit Gastroenterology Gou, Ihsan mccallum MD [address] [place] [address] 555 Health Maintenance Due Date Last Done Comments HgA1C 1987 VARICELLA VACCINES (1 of 2 - 1987 2-dose childhood series) PNEUMOCOCCAL 0-64 YEARS 1992 COMBINED SERIES (1 of 1 - PPSV23) EYE EXAM 1996 LDL-C 1996 URINE MICROALBUMIN 1996 FOOT EXAM 2004 DTaP,Tdap,and Td Vaccines (1 2005 - Tdap) PAP SMEAR 2007 CREATININE (SERUM) 09/30/2020 09/30/2019, 03/24/2019 INFLUENZA VACCINE (#1) 2021 Postponed from 04/06/2020 (Refused) Depression Screening 06/11/2021 06/11/2020, 06/11/2020 documented as of this encounter Results Not on filedocumented in this encounter Visit Diagnoses Diagnosis Chronic diarrhea - Primary Diarrhea Anxiety and depression Dysthymic disorder Chronic abdominal pain Abdominal pain, unspecified site Ulcerative colitis with complication, un specified location Incontinence of feces with fecal urgency History of alcoholism Personal history of alcoholism documented in this encounter Insurance Payer Benefit Plan Subscriber ID Effective Dates Phone Address Type / Group BCBS [facility] [id number] 2018-Renzo [phone] [address] P[place] - OUT OF t [id number] [place] [address] [phone] [id number] (Work) documented as of this encounter
--- OUTSIDE RECORDS SUMMARY | 2020-06-20 05:24 | XMS REPORT | Summary of Care ---
:1985 Author Organization [facility] - [facility] Address [address] [place] [id number] Care Team Providers Name Role Phone Terrence Amaro MD Primary Care Provider Reason for Referral (STAT) Status Reason Specialty Diagnoses / Procedures Referred By Darell angulo To Contact Contact New Request Gastroenterology Diagnoses Chronic diarrhea Chronic abdominal pain Ulcerative colitis with complication, unspecified location Incontinence of feces with fecal urgency Sammy, Procedures CONSULT/REFERRAL GASTROENTEROLOGY Doris Ocapmo MD [address] [place] [address] [facility] [place] [place] [address] Reason for Visit Reason Comments Depression Anxiety Diarrhea Encounter Details Date Type Department Care Team Description 06/11/2020 Office Visit [facility] Family Doris Amaro Pipeline Superintendent Division zhane diarrhea (Primary Dx); [facility] - Ana Ocampo MD Anxiety and depression; [address] [place] [address] Chronic abdominal pain; [address] [place], [place] Ulcerative colitis with comp lication, unspecified location; [place] [address] Incontinence of feces with fecal urgency ; [id number] History of alcoholism [phone] Allergies Active Allergy Reactions Severity Noted Date [...] Comments Blood Pressure 133/92 06/11/2020 1:17 PM MERCHANDISE PRESENTATION MANAGER Pulse 104 06/11/2020 1:17 PM MERCHANDISE PRESENTATION MANAGER Temperature 37.1 C (98.7 F) 06/11/2020 1:17 PM MERCHANDISE PRESENTATION MANAGER Respiratory Rate 20 06/11/2020 1:17 PM MERCHANDISE PRESENTATION MANAGER Oxygen Saturation - - Inhaled Oxygen Concentration - - Weight 64.5 kg (142 lb 3.2 oz) 06/11/2020 1:17 PM MERCHANDISE PRESENTATION MANAGER Height 160 cm (5' 3") 06/11/2020 1:17 PM MERCHANDISE PRESENTATION MANAGER Body Mass Index 25.19 06/11/2020 1:17 PM MERCHANDISE PRESENTATION MANAGER documented in this encounter Patient Instructions Patient InstructionsDoris Amaro MD - 06/11/2020 1:00 PM [facility] [address] [place] [id number] [email or web address] Patient Education Depression: Tips to Help Yourself [...] when you can. Go to a movie, [employer], restorationist service, or social event. Talk openly with [...] can cause other physical and emotional problems. [employer] last reviewed this educational content on 07/06/201919993390-4032 [employer]. All rights reserved. This information is not intended as a substitute for professional medical care. Always follow your healthcare professional's instructions. HANDISE PRESENTATION MANAGER documented in this encounter Progress Notes Leatha Rick - 06/11/2020 1:00 PM CSTSatab Pal is a 35 year old female comes to clinic independent in ambulation for depression, anxiety and diarrhea. Pt comes accompanied by mother . Pt in NAD w/ pain reported 0/10. Pt preferred language is Armenian. Pt. denies fall in last 12 months. Allergies and medications reviewed and updated. [id number] [place], [place] - [facility] [address] AT [facility] Leatha Rick 06/11/2020 1:17 PM Doris Shoemaker [...] She recently went to the ER at [facility] and was prescribed lorazepam 1mg q8hrs PRN [...] travel to endemic areas She went to [facility] on 05/21/20 with severe diarrhea. [...] file Gets together: Not on file Attends restorationist service: Not on file Active member of [...] Social History Narrative 12/22/2019: Recently moved from [place] to [place] where her mother resides. Review of Systems [...] prescription medication history was reviewed in the [place] [employer] system). The patient voiced understanding that lorazepam [...] at a future visit. If applicable, the [place] PMPdatabase was accessed to review any controlled substance prescription claims data. If the patient is taking prescribed medications, the [employer] prescription claims data in [employer] was reviewed to assess patient compliance with [...] Amaro MD June 11, 2020, 1:09 PM HANDISE PRESENTATION MANAGER documented in this encounter Plan of Treatment Date Type Specialty Care Team Description 06/28/2020 Office Visit Gastroenterology Gou, Ihsan mccallum MD [address] [place] [address] 555 Health Maintenance Due Date Last Done [...] Dates Phone Address Type / Group BCBS [facility] [id number] 2018-Renzo [phone] [address] PPO/POS [place] - OUT OF t 7 [id number] [place] [address] [phone] (Work) documented as of this encounter
--- OUTSIDE RECORDS SUMMARY | 2020-06-20 05:25 | XMS REPORT | Summary of Care ---
:1985 Author Organization [facility] Address [address] [place] [address] Care Team Providers Name Role Phone Terrence Amaro MD Primary Care Provider Reason for Visit Reason Comments Refill Request Encounter Details Date Type Department Care Team Description 06/15/2020 Telephone [facility] Family Marizol Amaro MD Refill Request [address] [place] [address] [place] [address] [phone] Allergies Active Allergy Reactions Severity Noted Date Comments Cefaclor Hives 03/24/2019 Kiwi Hives 03/24/2019 documented as of this encounter (statuses as of 06/16/2020) Medications Medication Sig Dispensed Refills Start Date [...] as of this encounter (statuses as of 06/16/2020) Active Problems Problem Noted Date Ulcerative colitis with complication, unspecified loca tion 06/13/2020 Incontinence of feces with fecal urgency 06/13/2020 Mixed anxiety and depressive disorder 12/22/2019 Chronic diarrhea 12/22/2019 History of alcoholism 11/11/2019 Anxiety 08/22/2019 Type 1 diabetes mellitus with diabetic polyneuropathy 04/01/2019 Asthma documented as of this encounter (statuses as of 06/16/2020) Resolved Problems Problem Noted Date Resolved Date Alcohol abuse 11/11/2019 12/22/2019 documented as of this encounter (statuses as of 06/16/2020) Social History Tobacco Use Types Packs/Day Years Used Date Former Smoker Smokeless Tobacco: Never Used Alcohol Use Drinks/Week oz/Week Comments Not Currently sober for 3 aristides hs, history of alcoholism Sex Assigned at Date Recorded Not on file documented as of this encounter Last Filed Vital Signs Not on filedocumented in this encounter Miscellaneous Notes Telephone Encounter - Diya Zepeda - 06/16/2020 2:38 PM CSTPatient notified and verbalized understanding elephone Encounter - Doris Amaro MD - 06/15/2020 5:21 PM CSTShe needs to stretch the pills I gave her. I indicated I can not refill them. elephone Encounter - Lima Potter - 06/15/2020 10:03 AM CSTPatient is requesting 5 pills of the Lorazepam, she will run out before her appointment 06/24/[address] Xiao [id number] - [place], [place] - [address] AT [address] [address] documented in this encounter Plan of Treatment Date Type Specialty Care Team Description 06/28/2020 Office Visit Gastroenterology Gou, Ihsan mccallum MD [address] [place] [address] 77 555 Health Maintenance Due Date Last Done [...] Results Not on filedocumented in this encounter Insurance Payer Benefit Plan Subscriber ID Effective Dates Phone Address Type / Group BCBS OF [employer] [place] [id number] 2018-Renzo [phone] [address] [place] PPO/[place] - OUT OF t 7 [id number] [place] [address] documented as of this encounter
[2020-06-20] MEDS ORDERED: LORazepam 2 MG/ML VIAL ONE ×2 (06:08→08:04)
[2020-06-20] MEDS ORDERED: NA CHLORIDE 0.9% 1,000 ML ONE ×2 (06:09→09:06)
[2020-06-20] MEDS ORDERED: PROMETHAZINE INJ 25 MG/ML AMP ONE (06:09)
[2020-06-20 06:16] LABS: Absolute Lymphocytes (CBC) 1.6 K/uL (0.7-4.9); Basophils % 0.5 % (0-1.3); Hematocrit 39.2 % (36.0-45.0); Lymphocytes % 15.2 % (15.3-44.8); MPV 7.1 fL (7.6-11.3); RBC Red Blood Cell Count 4.35 M/uL (3.86-4.86)
[2020-06-20 06:31] LABS: ALT/SGPT 22 U/L (12-78); AST/SGOT 15 U/L (15-37); Albumin 3.5 g/dL (3.4-5.0); Alkaline Phosphatase 81 U/L (45-117); BUN Blood Urea Nitrogen 12 mg/dL (7-18); Bicarbonate 24 mmol/L (21-32); Bilirubin Direct < 0.1 mg/dL (0-0.2); Bilirubin Total 0.2 mg/dL (0.2-1.0); Glucose Level 283 mg/dL (74-106); Lipase 92 U/L (73-393); Protein, Total 8.7 g/dL (6.4-8.2); Sodium Level 138 mmol/L (136-145)
[2020-06-20 06:55] LABS: Urine Blood 2+ (NEG); Urine Glucose 2+ (NEG); Urine Protein NEGATIVE (NEG); Urine Specific Gravity 1.015 (1.005-1.030)
[2020-06-20 06:57] LABS: Urine Specific Gravity 1.015 (1.005-1.030)
[2020-06-20 07:04] LABS: Barbiturates NEGATIVE (NEGATIVE); Benzodiazepines NEGATIVE (NEGATIVE); Cocaine NEGATIVE (NEGATIVE); METHAMPHETAM NEGATIVE (NEGATIVE); Methadone NEGATIVE (NEGATIVE); Opiates NEGATIVE (NEGATIVE); Phencyclidine NEGATIVE (NEGATIVE); THC Cannibis NEGATIVE (NEGATIVE)
[2020-06-20] MEDS ORDERED: AZITHROMYCIN 250 MG TAB ONE (07:39)
[2020-06-20] MEDS ORDERED: ACYCLOVIR 400 MG TABLET ONE (07:39)
[2020-06-20] MEDS ORDERED: HYDROCODONE/APAP 10/325 TAB ONE (08:13)
--- NOTE | 2020-06-20 09:01 | RAD REPORT ---
EXAM DESCRIPTION: CT - Abdomen Pelvis W Contrast - 06/20/2020 8:31 am CLINICAL HISTORY: Abdominal pain COMPARISON: none. TECHNIQUE: Computed axial tomography of the abdomen pelvis was obtained. 100 cc Isovue-300 was admin istered intravenously. Oral contrast was not requested which limits evaluation of bowel. All CT scans are performed using dose optimization technique as appropriate and may include automated exposure control or mA/KV adjustment according to patient size. FINDINGS: The liver, spleen, pancreas, adrenal and kidneys appear unremarkable. There is no evidence of diverticulitis. Normal appendix 2 centimeter irregularly-shaped right ovarian cyst without significant free fluid Cholelithiasis IMPRESSION: 2 centimeter irregularly-shaped right ovarian cyst without significant free fluid Cholelithiasis
--- NOTE | 2020-06-20 09:33 | ER ---
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 Coronavirus screen: Client denies travel out of the [place] in the last 14 days. At this time, the client does not indicate any symptoms associated with coronavirus-19. Ebola Screen: No symptoms or risks identified at this time. Initial Sepsis Screen: Does the patient meet any 2 criteria? No. Patient's initial sepsis screen is negative. Does the patient have a suspected source of infection? No. Patient's initial sepsis screen is negative. Risk Assessment: Do you want to hurt yourself or someone else? Patient reports no desire to harm self or others. Onset of symptoms was June 19, 2020. 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 - Social history:: Smoking status: Patient reports the use of cigarette tobacco products, smokes one-half pack cigarettes per day. Screenin:52 Abuse screen: Denies threats or abuse. Denies injuries from another. Nutritional lp1 screening: No deficits noted. Tuberculosis screening: No symptoms or risk factors identified. Fall Risk None identified. Assessment: 05:50 General: Appears uncomfortable, Behavior is anxious, crying. Pain: Complains of pain in lp1 groin Pain currently is 10 out of 10 on a pain scale. Noted to be crying, restless. Neuro: Level of Consciousness is awake, alert, obeys commands, Oriented to person, place, time, situation. Cardiovascular: Patient's skin is warm and dry. Respiratory: Respiratory effort is even, Respiratory pattern is hyperventilation. GI: Abdomen is non-distended. : Reports burning with urination, inability to void, vaginal itching. EENT: No signs and/or symptoms were reported regarding the EENT system. Derm: Skin is pink, warm \T\ dry. Musculoskeletal: No deficits noted. 06:00 Reassessment: Provider notified of patient with anxiety, crying, hyperventilating; lp1 verbal order for Ativan 1mg IV now. 07:00 General: Appears in no apparent distress. uncomfortable, Behavior is cooperative, sv anxious. Pain: Complains of pain in anus and vaginal area Pain currently is 10 out of 10 on a pain scale. Neuro: Level of Consciousness is awake, alert, obeys commands, Oriented to person, place, time, situation, Moves all extremities. Full function. Respiratory: Respiratory effort is even, unlabored, Respiratory pattern is regular, symmetrical. Derm: Skin is pink, warm \T\ dry. 07:50 Reassessment: Informed Dr Waggoner pt is c/o anxiety and is requesting anxiety meds. sv Medication order received. 07:57 Reassessment: Patient appears in no apparent distress at this time. No changes from sv previously documented assessment. Patient and/or family updated on plan of care and expected duration. Pain level reassessed. Patient is alert, oriented x 3, equal unlabored respirations, skin warm/dry/pink. 08:50 Reassessment: Patient appears in no apparent distress at this time. Patient and/or sv family updated on plan of care and expected duration. Pain level reassessed. Pt asleep on entry to the room. Mother at the bedside. Pt reports that her anxiety has decreased but is still hurting in her rectal area. Vital Signs: 05:46 BP 134 / 94; Pulse 116; Resp 20; Temp 98.5(O); Pulse Ox 98% on R/A; Weight 64.41 kg lp1 (R); Height 5 ft. 3 in. (160.02 cm); Pain 10/10; 08:00 BP 140 / 100; Pulse 99; Resp 20; Pulse Ox 100% ; sv 08:50 BP 81 / 48; Pulse 102; Resp 16; Pulse Ox 95% ; sv 09:27 BP 99 / 63; Pulse 88; Resp 16; Pulse Ox 100% ; sv 05:46 Body Mass Index 25.15 (64.41 kg, 160.02 cm) lp1 08:[address] Waggoner of vitals, medication order received. sv ED Course: 05:23 Patient arrived in ED. am2 05:29 Wild Hanks MD is Attending Physician. mh7 05:46 Alissa Zepeda, RN is Primary Nurse. lp1 05:48 Triage completed. lp1 05:48 Arm band placed on. lp1 05:52 Patient has correct armband on for positive identification. lp1 06:05 Inserted saline lock: 22 gauge in right forearm, using aseptic technique. Blood ds4 collected. 06:30 Assist provider with pelvic exam: Set up pelvic tray. Performed by Wild Hanks MD. lp1 08:07 Primary Nurse role handed off by Alissa Zepeda, RN sv 08:07 Verona Pennington, ISSA is Primary Nurse. sv 08:26 CT Abd/Pelvis - IV Contrast Only Sent. sv 08:32 CT Abd/Pelvis - IV Contrast Only In Process Unspecified. EDMS 08:44 Awaiting radiology results. Awaiting re-evaluation by ER provider. sv 09:29 Attending Physician role handed off by Wild Hanks MD rn 09:29 Jeff Waggoner MD is Attending Physician. rn 09:49 IV discontinued, intact, bleeding controlled, No redness/swelling at site. Pressure sv dressing applied. Administered Medications: 06:10 Drug: NS 0.9% 1000 ml Route: IV; Rate: 1000 ml; Site: right forearm; lp1 07:00 Follow up: Response: No adverse reaction; IV Status: Completed infusion; IV Intake: sv 1000ml 06:10 Drug: Phenergan 12.5 mg Route: IVP; Site: right forearm; lp1 07:00 Follow up: Response: No adverse reaction sv 06:10 Drug: Ativan 1 mg {Note: Verbal order per Dr. Hanks.} Route: IVP; Site: right forearm; lp1 07:00 Follow up: Response: No adverse reaction sv 07:56 Drug: AZITHromycin 1 grams Route: PO; sv 08:04 Follow up: Response: No adverse reaction sv 07:56 Drug: Acyclovir 400 mg Route: PO; sv 08:04 Follow up: Response: No adverse reaction sv 07:57 Drug: Ativan 1 mg Route: IVP; Site: right forearm; sv 08:04 Follow up: Response: No adverse reaction sv 08:04 Drug: [place] 10 mg-325 mg 1 tabs {Note: rass2.} Route: PO; sv 08:56 Follow up: Response: No adverse reaction; RASS: Light sedation (-2) sv 08:56 Drug: NS 0.9% 1000 ml Route: IV; Rate: 1000 ml; Site: left forearm; sv 09:49 Follow up: Response: No adverse reaction; IV Status: Completed infusion; IV Intake: sv 500ml Intake: 07:00 IV: 1000ml; Total: 1000ml. sv 09:49 IV: 500ml; Total: 1500ml. sv Outcome: 09:32 Discharge ordered by . rn 09:49 Patient left the ED. sv 09:49 Discharged to home ambulatory, with family. sv 09:49 Condition: stable 09:49 Discharge instructions given to patient, Instructed on discharge instructions, follow up and referral plans. no drinking with medication, no driving heavy equipment, medication usage, Demonstrated understanding of instructions, follow-up care, medications, Prescriptions given X 3. Signatures: Dispatcher [employer] EDMS Verona Pennington RN RN sv Jeff Waggoner MD MD rn Pena, Laura, RN RN lp1 Swanson, Donovan ds4 Dania Gonzales Maurice, MD MD mh7 Corrections: (The following items were deleted from the chart) 07:32 06:42 URINE DRUG SCREEN+CHEM UR.LAB.BRZ drawn and sent. ds4 EDMS 09:27 08:00 BP 140 / 100; Resp 20bpm; Pulse Ox 100%; sv sv
--- NOTE | 2020-06-20 09:33 | EDPHYS ---
Physician Documentation [facility] Name: Edelmira Pal Age: 35 yrs Sex: Female : 1985 Arrival Date: 06/20/2020 Time: 05:23 Bed 18 Private MD: ED Physician Jeff Waggoner HPI: 06/20 06:04 This 35 yrs old Female presents to ER via Ambulatory with complaints of mh7 Vaginal Pain - rash, Anxiety. 06:04 The patient presents with Vaginal Pain. Onset: The symptoms/episode began/occurred 3 mh7 day(s) ago. Modifying factors: The symptoms are alleviated by nothing, the symptoms are aggravated by nothing. Associated signs and symptoms: Pertinent positives: constipation, dysuria, nausea, vaginal discharge, vomiting, Pertinent negatives: cramping, diarrhea, dyspareunia, fever, hematuria, urinary frequency, vaginal bleeding. Severity of symptoms: At their worst the symptoms were moderate, yesterday, in the emergency department the symptoms are unchanged. 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 - Social history:: Smoking status: Patient reports the use of cigarette tobacco products, smokes one-half pack cigarettes per day. ROS: 06:04 Constitutional: Negative for fever, chills, and weight loss, Eyes: Negative for injury, mh7 pain, redness, and discharge, ENT: Negative for injury, pain, and discharge, Neck: Negative for injury, pain, and swelling, Cardiovascular: Negative for chest pain, palpitations, and edema, Respiratory: Negative for shortness of breath, cough, wheezing, and pleuritic chest pain, Back: Negative for injury and pain, MS/Extremity: Negative for injury and deformity, Neuro: Negative for headache, weakness, numbness, tingling, and seizure, Allergy/Immunology: Negative for hives, rash, and allergies, Endocrine: Negative for neck swelling, polydipsia, polyuria, polyphagia, and marked weight changes, Hematologic/Lymphatic: Negative for swollen nodes, abnormal bleeding, and unusual bruising. Exam: 06:04 Head/Face: Normocephalic, atraumatic. Eyes: Pupils equal round and reactive to light, mh7 extra-ocular motions intact. Lids and lashes normal. Conjunctiva and sclera are non-icteric and not injected. Cornea within normal limits. Periorbital areas with no swelling, redness, or edema. Neck: Trachea midline, no thyromegaly or masses palpated, and no cervical lymphadenopathy. Supple, full range of motion without nuchal rigidity, or vertebral point tenderness. No Meningismus. Chest/axilla: Normal chest wall appearance and motion. Nontender with no deformity. No lesions are appreciated. 06:04 Respiratory: Lungs have equal breath sounds bilaterally, clear to auscultation and percussion. No rales, rhonchi or wheezes noted. No increased work of breathing, no retractions or nasal flaring. Back: No spinal tenderness. No costovertebral tenderness. Full range of motion. MS/ Extremity: Pulses equal, no cyanosis. Neurovascular intact. Full, normal range of motion. Neuro: Awake and alert, GCS 15, oriented to person, place, time, and situation. Cranial nerves II-XII grossly intact. Motor strength 5/5 in all extremities. Sensory grossly intact. Cerebellar exam normal. Normal gait. 06:04 Constitutional: The patient appears in no acute distress, alert, awake, anxious, uncomfortable. 06:04 Cardiovascular: Rate: tachycardic, Rhythm: regular, Pulses: no pulse deficits are appreciated, Heart sounds: normal, normal S1and S2, Edema: is not appreciated, JVD: is not appreciated. 06:04 Psych: Behavior/mood is cooperative, anxious, Affect is animated, Oriented to person, place, time, Patient has no thoughts/intents to harm self or others. Judgement / Insight is normal. Memory is normal. Delusions/hallucinations are not present. 06/21 02:13 : CVA tenderness, is absent, Pelvic Exam: External exam: erythema is noted, herpes mh7 lesions noted, Speculum exam: cervicitis present, os that is closed, bimanual exam reveals no cervical motion tenderness, os that is closed, discharge, white, the nurse was present for the exam, Bladder: is normal, Rectal exam: is refused by patient or guardian. Vital Signs: 06/20 05:46 BP 134 / 94; Pulse 116; Resp 20; Temp 98.5(O); Pulse Ox 98% on R/A; Weight 64.41 kg lp1 (R); Height 5 ft. 3 in. (160.02 cm); Pain 10/10; 08:00 BP 140 / 100; Pulse 99; Resp 20; Pulse Ox 100% ; sv 08:50 BP 81 / 48; Pulse 102; Resp 16; Pulse Ox 95% ; sv 09:27 BP 99 / 63; Pulse 88; Resp 16; Pulse Ox 100% ; sv 05:46 Body Mass Index 25.15 (64.41 kg, 160.02 cm) lp1 08:[address] Waggoner of [facility], medication order received. sv MDM: 05:42 Patient medically screened. mh7 09:29 Differential diagnosis: kidney stone, ovarian cyst, pelvic inflammatory disease, rn urinary tract infection, vaginosis, herpes. Data reviewed: vital signs, nurses notes, lab test result(s), radiologic studies, CT scan, and as a result, I will discharge patient. Counseling: I had a detailed discussion with the patient and/or guardian regarding: the historical points, exam findings, and any diagnostic results supporting the discharge/admit diagnosis, lab results, radiology results, the need for outpatient follow up, to return to the emergency department if symptoms worsen or persist or if there are any questions or concerns that arise at home. Response to treatment: the patient's symptoms have markedly improved after treatment, and as a result, I will discharge patient. Special discussion: I discussed with the patient/guardian in detail that at this point there is no indication for admission to the hospital. It is understood, however, that if the symptoms persist or worsen the patient needs to return immediately for re-evaluation. Based on the history and exam findings, there is no indication for further emergent testing or inpatient evaluation. I discussed with the patient/guardian the need to see the OB Gyne specialist for further evaluation of the symptoms. I discussed with the patient/guardian the need to see the primary care provider for further evaluation of the symptoms. ED course: Anastasiya dout to me by Dr. Hanks pending ct imaging of abdomen. CT no acute findings. Shows gallstones and ovarian cyst, patient denies abd pain. Reports came in for rash and pain in perineum. Plan per Dr. Hanks was to dc home with acyclovir if ct abdomen neg.. 06/20 05:47 Order name: Basic Metabolic Panel; Complete Time: 06:34 7 06/20 05:47 Order name: CBC with Diff; Complete Time: 06:34 7 06/20 05:47 Order name: Hepatic Function; Complete Time: 06:34 7 06/20 05:47 Order name: Lipase; Complete Time: 06:34 [facility] 06/20 06:42 Order name: Urine Dipstick--Ancillary (enter results); Complete Time: 07:01 ds4 06/20 06:47 Order name: CT Abd/Pelvis - IV Contrast Only; Complete Time: 09:11 7 06/20 06:52 Order name: Urine Drug Screen; Complete Time: 07:11 EDMS 06/20 06:52 Order name: Urine --Ancillary (enter results); Complete Time: 07:01 sg 06/20 07:01 Order name: Ketone, Serum; Complete Time: 09:11 7 06/20 05:47 Order name: IV Saline Lock; Complete Time: 06:13 7 06/20 05:47 Order name: Labs collected and sent; Complete Time: 06:13 7 06/20 05:47 Order name: Urine Dipstick-Ancillary (obtain specimen); Complete Time: 06:41 7 06/20 05:47 Order name: Urine Test (obtain specimen); Complete Time: 06:41 mh7 Administered Medications: 06:10 Drug: NS 0.9% 1000 ml Route: IV; Rate: 1000 ml; Site: right forearm; lp1 07:00 Follow up: Response: No adverse reaction; IV Status: Completed infusion; IV Intake: sv 1000ml 06:10 Drug: Phenergan 12.5 mg Route: IVP; Site: right forearm; lp1 07:00 Follow up: Response: No adverse reaction sv 06:10 Drug: Ativan 1 mg {Note: Verbal order per Dr. Hanks.} Route: IVP; Site: right forearm; lp1 07:00 Follow up: Response: No adverse reaction sv 07:56 Drug: AZITHromycin 1 grams Route: PO; sv 08:04 Follow up: Response: No adverse reaction sv 07:56 Drug: Acyclovir 400 mg Route: PO; sv 08:04 Follow up: Response: No adverse reaction sv 07:57 Drug: Ativan 1 mg Route: IVP; Site: right forearm; sv 08:04 Follow up: Response: No adverse reaction sv 08:04 Drug: Leola 10 mg-325 mg 1 tabs {Note: rass2.} Route: PO; sv 08:56 Follow up: Response: No adverse reaction; RASS: Light sedation (-2) sv 08:56 Drug: NS 0.9% 1000 ml Route: IV; Rate: 1000 ml; Site: left forearm; sv 09:49 Follow up: Response: No adverse reaction; IV Status: Completed infusion; IV Intake: sv 500ml Disposition: 06/20/20 09:32 Discharged to Home. 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 - Condition is Stable. - Discharge Instructions: Genital Herpes, Ovarian Cyst, Cholelithiasis. - Prescriptions for Acyclovir 200 mg Oral Capsule - take 1 capsule by ORAL route 5 times per day; 50 capsule. Diflucan 150 mg Oral Tablet - take 1 tablet by ORAL route once daily for 3 days; 3 tablet. Tylenol- Codeine #3 300-30 mg Oral Tablet - take 1 tablet by ORAL route every 6 hours As needed; 15 tablet. - Medication Reconciliation Form, Thank You Letter, Antibiotic Education, Prescription Opioid Use, Work release form form. - Follow up: Private Physician; When: As needed; Reason: Recheck today's complaints, Re-evaluation by your physician. - Problem is new. - Symptoms have improved. Signatures: Dispatcher [employer] Verona Knapp RN RN sv Nieto, Roman, MD MD rn Pena, Laura, RN RN lp1 Wild Hanks MD MD mh7 Corrections: (The following items were deleted from the chart) 07:32 05:47 URINE DRUG SCREEN+CHEM UR.LAB.BRZ ordered. EDMS EDMS 09:49 09:32 06/20/2020 09:32 Discharged to Home. Impression: Herpesviral infection of sv perianal skin and rectum; Unspecified ovarian cysts; Cholelithiasis. Condition is Stable. Forms are Medication Reconciliation Form, Thank You Letter, Antibiotic Education, Prescription Opioid Use. Follow up: Private Physician; When: As needed; Reason: Recheck today's complaints, Re-evaluation by your physician. Problem is new. Symptoms have improved. rn
[2020-06-20 10:31] VITALS: TEMP 98.5
[2020-06-20 10:38] VITALS: BP 99/63; O2SAT 100
== END 2020-06-20 09:49 | disposition home or self-care (01) ==
LOC: ER 05:22
DX: A60.1 Herpesviral infection of perianal skin and rectum (principal); N83.209 Unspecified ovarian cyst, unspecified side; K80.20 Calculus of gallbladder without cholecystitis without obstruction; Z88.1 Allergy status to other antibiotic agents; J45.909 Unspecified asthma, uncomplicated; F41.9 Anxiety disorder, unspecified; E11.9 Type 2 diabetes mellitus without complications; F17.210 Nicotine dependence, cigarettes, uncomplicated
CPT/HCPCS: 96361; 85025; 80048; 36415; 82010; 81025; 80076; 80307 ×8; 81003; 83690; 74177; 96375; 96374; 99284; Q9967; J2550; J7030 ×2

== ENCOUNTER 2020-06-22 08:11 | Emergency (ER) | payer BC ==
[2020-06-22] MEDS ORDERED: PROMETHAZINE INJ 25 MG/ML AMP ONE (08:41)
[2020-06-22] MEDS ORDERED: NA CHLORIDE 0.9% 1,000 ML ONE (08:41)
[2020-06-22] MEDS ORDERED: LORazepam 2 MG/ML VIAL ONE (08:41)
--- NOTE | 2020-06-22 10:34 | ER ---
Nurse's Notes [facility] Name: Edelmira Pal Age: 35 yrs Sex: Female : 1985 Arrival Date: 06/22/2020 Time: 08:13 Bed 20 Private MD: Diagnosis: Alcohol abuse;Alcohol abuse with intoxication;Anxiety disorder, unspecified;Nausea and vomiting Presentation: 06/22 08:22 Chief complaint: Patient states: i am having some withdrawals, i havent drank in tw2 several months but i drank last night \\T\\ my anxiety is acting up, i just need some ativan and zofran, i have a psychiatrist appt on with Dr. Xiao. Coronavirus screen: At this time, the client does not indicate any symptoms associated with coronavirus-19. Ebola Screen: Patient denies travel to an Ebola-affected area in the 21 days before illness onset. Initial Sepsis Screen: Does the patient meet any 2 criteria? HR > 90 bpm. No. Patient's initial sepsis screen is negative. Does the patient have a suspected source of infection? No. Patient's initial sepsis screen is negative. Risk Assessment: Do you want to hurt yourself or someone else? Patient reports no desire to harm self or others. Onset of symptoms was June 22, 2020. 08:22 Method Of Arrival: Ambulatory tw2 08:22 Acuity: BELTRAN 3 tw2 08:24 Note provider at bedside at this time. tw2 Triage Assessment: 08:23 General: Appears slender, well groomed, Behavior is anxious. Pain: Complains of pain in tw2 abdomen. GI: Reports nausea. 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 - Social history:: Smoking status: . Screenin:26 Abuse screen: Denies threats or abuse. Nutritional screening: No deficits noted. tw2 Tuberculosis screening: No symptoms or risk factors identified. Fall Risk None identified. Assessment: 08:40 General: Appears in no apparent distress. slender, well groomed, Behavior is anxious. tw2 Neuro: Level of Consciousness is awake, alert, obeys commands, Oriented to person, place, time, situation. Cardiovascular: Heart tones S1 S2 Patient's skin is warm and dry. Respiratory: Airway is patent Respiratory effort is even, unlabored, Respiratory pattern is regular, symmetrical, Breath sounds are clear bilaterally. GI: Abdomen is flat, Bowel sounds present X 4 quads. Reports nausea. : No signs and/or symptoms were reported regarding the genitourinary system. EENT: No signs and/or symptoms were reported regarding the EENT system. Derm: No signs and/or symptoms reported regarding the dermatologic system. Musculoskeletal: Range of motion: intact in all extremities. 09:26 Reassessment: No changes from previously documented assessment. Patient and/or family tw2 updated on plan of care and expected duration. Pain level reassessed. Patient is alert, oriented x 3, equal unlabored respirations, skin warm/dry/pink. provider notified pt reports "my anxiety is still bad" Patient states symptoms have not improved. 09:28 Reassessment: lab at bedside for recollect lab work at this time. tw2 09:40 Reassessment: senior label specialist notified me that pt refused 2nd attempt for blood at this time, tw2 provider notified and medicated as ordered. 09:44 Reassessment: pt agreeable to addition attempts for blood at this time, tech states tw2 will send another tech down to try again, charge nurse Ariadna and provider notified. 10:00 Reassessment: lab at bedside attempting bloodwork, x1 attempt, pt refusing further tw2 attempts states "i just am ready for discharge", provider notified. 10:12 Reassessment: pt encouraged to let lab continue for blood attempt at this time. pt tw2 refusing, states "im just ready for discharge" provider notified. 10:20 Reassessment: No changes from previously documented assessment. Patient and/or family tw2 updated on plan of care and expected duration. Pain level reassessed. Patient is alert, oriented x 3, equal unlabored respirations, skin warm/dry/pink. charge nurse ISSA Rosenthal at bedside at this time, unable to get IV to draw blood at this time, pt states "i am just anxious in my mind, can you let him know", provider notified. 10:29 Reassessment: ISSA Boyd at bedside at this time attempting blood work recollect, tw2 provider aware of situation. 11:42 Reassessment: Patient appears in no apparent distress at this time. Patient and/or tw2 family updated on plan of care and expected duration. Pain level reassessed. Patient is alert, oriented x 3, equal unlabored respirations, skin warm/dry/pink. 11:42 Reassessment: Patient states feeling better. tw2 11:46 Reassessment: provider at bedside at this time., provider aware urine still tw2 outstanding, provider states its not needed at this time. Vital Signs: 08:22 BP 125 / 82; Pulse 95; Resp 17; Temp 98.5(O); Pulse Ox 100% on R/A; Weight 64.41 kg tw2 (R); Height 5 ft. 3 in. (160.02 cm); Pain 8/10; 09:26 BP 133 / 93; Pulse 91; Resp 16; Pulse Ox 100% on R/A; tw2 10:26 BP 129 / 84; Pulse 64; Resp 17; Pulse Ox 100% on R/A; tw2 11:42 BP 121 / 84; Pulse 95; Resp 17; Pulse Ox 97% on R/A; tw2 08:22 Body Mass Index 25.15 (64.41 kg, 160.02 cm) tw2 ED Course: 08:13 Patient arrived in ED. mr 08:17 Bed in low position. Call light in reach. clerical support on. Pulse ox on. NIBP on. tw2 Warm blanket given. 08:19 Austyn Velasquez MD is Attending Physician. kdr 08:22 Sharri Moreno, ISSA is Primary Nurse. tw2 08:23 Triage completed. tw2 08:24 Arm band placed on. tw2 08:45 Missed attempt(s): 20 gauge in left antecubital area. Bleeding controlled, band aid tw2 applied, catheter tip intact. Missed attempt(s): 22 gauge in right antecubital area. blood collected. Bleeding controlled, band aid applied, catheter tip intact. 08:52 Inserted saline lock: 24 gauge in right hand, using aseptic technique. tw2 10:41 EKG done, by ED staff, reviewed by Austyn Vealsquez MD. mh5 10:44 Lab(s) recollected, by ED staff, sent to lab. tw2 10:46 Awaiting lab results, Awaiting: prior to discharge. tw2 11:37 Missed attempt(s): 22 gauge in left forearm. Bleeding controlled, band aid applied, tw2 catheter tip intact. Inserted saline lock: 24 gauge in left forearm, using aseptic technique. Blood collected. 11:50 No provider procedures requiring assistance completed. IV discontinued, intact, tw2 bleeding controlled, No redness/swelling at site. Pressure dressing applied. Administered Medications: 08:50 Drug: Phenergan 12.5 mg Route: IVP; Site: right hand; tw2 09:12 Follow up: Response: No adverse reaction; Nausea is decreased tw2 08:52 Drug: Ativan 1 mg Route: IVP; Site: right hand; tw2 09:12 Follow up: Response: No adverse reaction; No change in condition; No change in tw2 condition, provider notified 08:52 Drug: NS 0.9% 1000 ml Route: IV; Rate: 1 bolus; Site: right hand; tw2 10:46 Follow up: Response: No adverse reaction; IV Status: Completed infusion; IV Intake: tw2 1000ml 09:40 Drug: Ativan 1 mg Route: IVP; Site: right hand; tw2 10:46 Follow up: Response: No adverse reaction; No change in condition; No change in tw2 condition, provider aware 10:43 Drug: Librium - chlordiazePOXIDE 50 mg Route: PO; tw2 11:49 Follow up: Response: No adverse reaction; Marked relief of symptoms tw2 Intake: 10:46 IV: 1000ml; Total: 1000ml. tw2 Outcome: 10:34 Discharge ordered by . kdr 11:50 Discharged to home ambulatory, with significant other. tw2 11:50 Condition: stable 11:50 Discharge instructions given to patient, significant other, Instructed on discharge instructions, follow up and referral plans. no drinking with medication, no driving heavy equipment, medication usage, Demonstrated understanding of instructions, follow-up care, medications, Prescriptions given X 3. 11:50 Patient left the ED. tw2 Signatures: Austyn Velasquez MD MD [facility] HagenGrace mr Sharri Moreno RN RN 2 Diya Long [facility] Corrections: (The following items were deleted from the chart) 10:30 10:20 Reassessment: Patient appears in no apparent distress at this time. Patient tw2 and/or family updated on plan of care and expected duration. Pain level reassessed. Patient is alert, oriented x 3, equal unlabored respirations, skin warm/dry/pink. charge nurse ISSA Rosenthal at bedside at this time, unable to get IV to draw blood at this time, provider notified. tw2
--- NOTE | 2020-06-22 10:34 | EDPHYS ---
Physician Documentation [facility] Name: Edelmira Pal Age: 35 yrs Sex: Female : 1985 Arrival Date: 06/22/2020 Time: 08:13 Bed 20 Private MD: ED Physician Austyn Velasquez HPI: 06/22 08:27 This 35 yrs old Female presents to ER via Ambulatory with complaints of kdr Alcohol Withdrawal. 08:27 The patient has a history of alcohol abuse and withdrawal. States that she drank last kdr night ( a handle) and now feels very anxious and can't stop vomiting. Onset: The symptoms/episode began/occurred this morning, at 04:00. Severity of symptoms: At their worst the symptoms were moderate severe incapacitating in the emergency department the symptoms are unchanged. The patient has experienced similar episodes in the past, several times. The patient has not recently seen a physician. 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 - Social history:: Smoking status: . ROS: 08:27 Constitutional: Negative for fever, chills, and weight loss, Eyes: Negative for injury, kdr pain, redness, and discharge, ENT: Negative for injury, pain, and discharge, Neck: Negative for injury, pain, and swelling, Cardiovascular: Negative for chest pain, palpitations, and edema, Respiratory: Negative for shortness of breath, cough, wheezing, and pleuritic chest pain, Back: Negative for injury and pain, : Negative for injury, bleeding, discharge, and swelling, MS/Extremity: Negative for injury and deformity, Skin: Negative for injury, rash, and discoloration, Neuro: Negative for headache, weakness, numbness, tingling, and seizure activity. Allergy/Immunology: Negative for hives, rash, and allergies, Endocrine: Negative for neck swelling, polydipsia, polyuria, polyphagia, and marked weight changes, Hematologic/Lymphatic: Negative for swollen nodes, abnormal bleeding, and unusual bruising. 08:27 Abdomen/GI: Positive for nausea and vomiting, Negative for 08:27 Psych: Positive for anxiety. Exam: 08:27 Constitutional: This is a well developed, well nourished patient who is awake, alert, kdr and in mild distress. Head/Face: Normocephalic, atraumatic. Eyes: Pupils equal round and reactive to light, extra-ocular motions intact. Lids and lashes normal. Conjunctiva and sclera are non-icteric and not injected. Cornea within normal limits. Periorbital areas with no swelling, redness, or edema. Neck: Trachea midline, no thyromegaly or masses palpated, and no cervical lymphadenopathy. Supple, full range of motion without nuchal rigidity, or vertebral point tenderness. No Meningismus. Chest/axilla: Normal chest wall appearance and motion. Nontender with no deformity. No lesions are appreciated. Cardiovascular: Regular rate and rhythm with a normal S1 and S2. No gallops, murmurs, or rubs. Normal PMI, no JVD. No pulse deficits. Respiratory: Lungs have equal breath sounds bilaterally, clear to auscultation and percussion. No rales, rhonchi or wheezes noted. No increased work of breathing, no retractions or nasal flaring. Abdomen/GI: Soft, non-tender, with normal bowel sounds. No distension or tympany. No guarding or rebound. No evidence of tenderness throughout. Back: No spinal tenderness. No costovertebral tenderness. Full range of motion. Skin: Warm, dry with normal turgor. Normal color with no rashes, no lesions, and no evidence of cellulitis. MS/ Extremity: Pulses equal, no cyanosis. Neurovascular intact. Full, normal range of motion. Neuro: Awake and alert, GCS 15, oriented to person, place, time, and situation. Cranial nerves II-XII grossly intact. Motor strength 5/5 in all extremities. Sensory grossly intact. Cerebellar exam normal. Normal gait. 08:27 Psych: Behavior/mood is cooperative, anxious, Affect is flat, Oriented to person, kdr place, time, Patient has no thoughts/intents to harm self or others. Judgement / Insight is normal. Memory is normal. Delusions/hallucinations are not present. 09:20 ECG was reviewed by the Attending Physician. kdr Vital Signs: 08:22 BP 125 / 82; Pulse 95; Resp 17; Temp 98.5(O); Pulse Ox 100% on R/A; Weight 64.41 kg tw2 (R); Height 5 ft. 3 in. (160.02 cm); Pain 8/10; 09:26 BP 133 / 93; Pulse 91; Resp 16; Pulse Ox 100% on R/A; tw2 10:26 BP 129 / 84; Pulse 64; Resp 17; Pulse Ox 100% on R/A; tw2 11:42 BP 121 / 84; Pulse 95; Resp 17; Pulse Ox 97% on R/A; tw2 08:22 Body Mass Index 25.15 (64.41 kg, 160.02 cm) tw2 MDM: 10:12 ED course: Nurses and lab were unable to get blood that was sufficient to analyze. The kdr patient was feeling better and wanted to be discharged without further treatment or intervention. Nursing was going to try and get blood from the current IV. 10:34 Patient medically screened. kdr 11:45 Data reviewed: vital signs, nurses notes, lab test result(s). Counseling: I had a kdr detailed discussion with the patient and/or guardian regarding: the historical points, exam findings, and any diagnostic results supporting the discharge/admit diagnosis, lab results, the need for outpatient follow up. 06/22 08:20 Order name: Acetaminophen [facility] 06/22 08:20 Order name: Basic Metabolic Panel [facility] 06/22 08:20 Order name: CBC with Diff kdr 06/22 08:20 Order name: ETOH Level kdr 06/22 08:20 Order name: Hepatic Function [facility] 06/22 08:20 Order name: PT-INR kdr 06/22 08:20 Order name: Ptt, Activated kdr 06/22 08:20 Order name: Salicylate kdr 06/22 08:50 Order name: Glucose, Ancillary Testing; Complete Time: 09:20 EDMS 06/22 08:20 Order name: EKG; Complete Time: 08:21 kdr 06/22 08:20 Order name: EKG - Nurse/Tech; Complete Time: 09:25 kdr 06/22 08:20 Order name: IV Saline Lock; Complete Time: 09:25 kdr 06/22 08:20 Order name: Labs collected and sent; Complete Time: 08:55 kdr 06/22 08:56 Order name: Labs - recollect needed: recollect all labs; Complete Time: 10:46 bd EC:20 Rate is 81 beats/min. Rhythm is regular, Normal Sinus Rhythm with No ectopy, PACs. QRS kdr [place] is Normal. SD interval is normal. QRS interval is normal. QT interval is normal. Clinical impression: NSR w/ Non-specific ST/T Changes and Sinus arrythmia. Administered Medications: 08:50 Drug: Phenergan 12.5 mg Route: IVP; Site: right hand; tw2 09:12 Follow up: Response: No adverse reaction; Nausea is decreased tw2 08:52 Drug: Ativan 1 mg Route: IVP; Site: right hand; tw2 09:12 Follow up: Response: No adverse reaction; No change in condition; No change in tw2 condition, provider notified 08:52 Drug: NS 0.9% 1000 ml Route: IV; Rate: 1 bolus; Site: right hand; tw2 10:46 Follow up: Response: No adverse reaction; IV Status: Completed infusion; IV Intake: tw2 1000ml 09:40 Drug: Ativan 1 mg Route: IVP; Site: right hand; tw2 10:46 Follow up: Response: No adverse reaction; No change in condition; No change in tw2 condition, provider aware 10:43 Drug: Librium - chlordiazePOXIDE 50 mg Route: PO; tw2 11:49 Follow up: Response: No adverse reaction; Marked relief of symptoms tw2 Disposition: 06/22/20 10:34 Discharged to Home. Impression: Alcohol abuse, Alcohol abuse with intoxication, Anxiety disorder, unspecified, Nausea and vomiting. - Condition is Stable. - Discharge Instructions: Panic Attacks, Alcohol Use Disorder, Nausea and Vomiting, Adult, Mqpo-[id number]-Wrxs, Alcohol Abuse and Nutrition, Alcohol Withdrawal, Eymz-bi-Rtav, Generalized Anxiety Disorder. - Prescriptions for chlordiazepoxide HCl 25 mg Oral capsule - take 2 capsule by ORAL route 3-4 times daily As needed up to 300 mg/day; 20 capsule. Pepcid 20 mg Oral Tablet - take 1 tablet by ORAL route once daily; 20 tablet. promethazine 25 mg Oral Tablet - take 1 tablet by ORAL route every 6 hours As needed; 20 tablet. - Medication Reconciliation Form, Thank You Letter form. - Follow up: Private Physician; When: 2 - 3 days; Reason: If symptoms return, Further diagnostic work-up, Recheck today's complaints, Continuance of care, Re-evaluation by your physician. - Problem is new. - Symptoms have improved. Signatures: Dispatcher [employer] EDMS Fatmata Dugan Kevin, MD MD kdr Sharri Moreno RN RN tw2 Corrections: (The following items were deleted from the chart) 08:33 08:27 Constitutional: This is a well developed, well nourished patient who is awake, kdr alert, and in mild distress. Head/Face: Normocephalic, atraumatic. Eyes: Pupils equal round and reactive to light, extra-ocular motions intact. Lids and lashes normal. Conjunctiva and sclera are non-icteric and not injected. Cornea within normal limits. Periorbital areas with no swelling, redness, or edema. Neck: Trachea midline, no thyromegaly or masses palpated, and no cervical lymphadenopathy. Supple, full range of motion without nuchal rigidity, or vertebral point tenderness. No Meningismus. Chest/axilla: Normal chest wall appearance and motion. Nontender with no deformity. No lesions are appreciated. Cardiovascular: Regular rate and rhythm with a normal S1 and S2. No gallops, murmurs, or rubs. Normal PMI, no JVD. No pulse deficits. Respiratory: Lungs have equal breath sounds bilaterally, clear to auscultation and percussion. No rales, rhonchi or wheezes noted. No increased work of breathing, no retractions or nasal flaring. Abdomen/GI: Soft, non-tender, with normal bowel sounds. No distension or tympany. No guarding or rebound. No evidence of tenderness throughout. Back: No spinal tenderness. No costovertebral tenderness. Full range of motion. Skin: Warm, dry with normal turgor. Normal color with no rashes, no lesions, and no evidence of cellulitis. MS/ Extremity: Pulses equal, no cyanosis. Neurovascular intact. Full, normal range of motion. Neuro: Awake and alert, GCS 15, oriented to person, place, time, and situation. Cranial nerves II-XII grossly intact. Motor strength 5/5 in all extremities. Sensory grossly intact. Cerebellar exam normal. Normal gait. Psych: Awake, alert, with orientation to person, place and time. Behavior, mood, and affect are within normal limits. kdr 11:50 10:34 06/22/2020 10:34 Discharged to Home. Impression: Alcohol abuse; Alcohol abuse tw2 with intoxication; Anxiety disorder, unspecified; Nausea and vomiting. Condition is Stable. Forms are Medication Reconciliation Form, Thank You Letter, Antibiotic Education, Prescription Opioid Use. Follow up: Private Physician; When: 2 - 3 days; Reason: If symptoms return, Further diagnostic work-up, Recheck today's complaints, Continuance of care, Re-evaluation by your physician. Problem is new. Symptoms have improved. kdr
[2020-06-22 10:54] LABS: Absolute Lymphocytes (CBC) 1.7 K/uL (0.7-4.9); Basophils % 0.6 % (0-1.3); Hematocrit 39.2 % (36.0-45.0); Lymphocytes % 11.6 % (15.3-44.8); MPV 7.2 fL (7.6-11.3); RBC Red Blood Cell Count 4.35 M/uL (3.86-4.86)
[2020-06-22] MEDS ORDERED: chlordiazePOXIDE HCl 25 MG CAP ONE (10:54)
[2020-06-22 10:57] LABS: Protime INR 1.07
[2020-06-22 11:21] LABS: ALT/SGPT 19 U/L (12-78); AST/SGOT 16 U/L (15-37); Albumin 3.3 g/dL (3.4-5.0); Alkaline Phosphatase 70 U/L (45-117); BUN Blood Urea Nitrogen 12 mg/dL (7-18); Bicarbonate 24 mmol/L (21-32); Bilirubin Direct < 0.1 mg/dL (0-0.2); Bilirubin Total 0.3 mg/dL (0.2-1.0); Glucose Level 99 mg/dL (74-106); Potassium 3.6 mmol/L (3.5-5.1); Protein, Total 8.2 g/dL (6.4-8.2); Sodium Level 139 mmol/L (136-145)
--- NOTE | 2020-06-22 12:33 | EKG ---
Test Date: 2020-06-22 Test Time: 09:13:58 Flux Plant Operator: JAIDEN MEASUREMENT RESULTS: Intervals: Rate: 81 WI: 156 QRSD: 66 QT: 382 QTc: 443 Dola: P: 59 WI: 156 QRS: 68 T: 71 INTERPRETIVE STATEMENTS: Sinus rhythm with marked sinus arrhythmia Low voltage QRS Borderline ECG No previous ECG available for comparison Electronically Signed On 06-22-20 12:33:00 ADVERTISING TRAFFIC MANAGER by Miguel Hardy
[2020-06-22 16:31] VITALS: TEMP 98.5
[2020-06-22 16:39] VITALS: BP 121/84; O2SAT 97
== END 2020-06-22 11:50 | disposition home or self-care (01) ==
LOC: ER 08:11
DX: F10.229 Alcohol dependence with intoxication, unspecified (principal); F41.9 Anxiety disorder, unspecified; E11.9 Type 2 diabetes mellitus without complications; Z88.1 Allergy status to other antibiotic agents
CPT/HCPCS: 96361; 93005; 85025; 80048; 36415; 80320; 80329 ×2; 85610; 82947; 80076; 85730; 96375; 96374; 99284; J2550; J7030

== ENCOUNTER 2020-07-29 01:27 | Emergency (ER) | payer BC, SELFPAY ==
--- OUTSIDE RECORDS SUMMARY | 2020-07-29 01:31 | XMS REPORT | Summary of Care ---
:1985 Author Organization [facility] Address [address] [place] [address] Care Team Providers Name Role Phone Terrence Amaro MD Primary Care Provider Reason for Visit Reason Comments Refill Request Encounter Details Date Type Department Care Team Description 07/05/2020 Refill [facility] Pediatric and Doris Bean MD Refill Request Adult Primary Care- [address] [place] [address] [place] [address], [phone] [address] [place] [address] Allergies Active Allergy Reactions Severity Noted Date Comments Cefaclor Hives 03/24/2019 Kiwi Hives 03/24/2019 documented as of this encounter (statuses as of 07/05/2020) Medications Medication Sig Dispensed Refills Start Date End Date Status insulin degludec inject 19 0 Act ronny (TRESIBA FLEXTOUCH Units under U-100 SC) the skin every morning. NOVOLOG U-100 inject under 0 Ac tive INSULIN ASPART SC the skin. Per SSI (2 units for each 50 above a glucose of 200) traZODone 50 mg Take 50-100 mg 0 Active tablet by mouth at bedtime as needed for Insomnia. GABAPENTIN 600 mg TAKE 2 TABLETS 540 tablet 1 03/01/2020 Active tabletIndications: BY MOUTH 3 Unspecified (THREE) TIMES mononeuropathy of DAILY. bilateral lower limbs escitalopram oxalate Take 1 tablet 30 tablet 2 03/02/2020 Active 20 mg by mouth tabletIndications: daily. Mixed anxiety and depressive disorder blood sugar USE 100 Strip 1 05/18/2020 Active diagnostic DIRECTED TWICE (ACCU-CHEK JOAQUÍN A DAY PLUS TEST STRP) stripIndications: Type 1 diabetes mellitus with diabetic polyneuropathy LORazepam 1 mg Take 1 tablet 10 tablet 0 06/11/2020 Active tabletIndications: by mouth every Anxiety and 8 (eight) depression hours as needed for Anxiety or Agitation. DR. AMARO WILL NOT REFILL. BUSPIRONE 15 mg TAKE 1 TABLET 15 tablet 0 06/21/2020 Active tabletIndications: BY MOUTH 3 Mixed anxiety and TIMES A DAY depressive disorder NEEDED FOR ANXIETY ALBUTEROL 90 INHALE 2 PUFFS 1 Each 1 07/05/2020 A ctive mcg/actuation BY MOUTH EVERY inhalerIndications: 6 HOURS Uncomplicated NEEDED FOR asthma, unspecified WHEEZE OR FOR asthma severity, SHORTNESS OF unspecified whether BREATH persistent albuterol (PROAIR Inhale 2 Puffs 8.5 g 2 01/12/2020 Discontinued HFA) 90 every 6 (six) 0 mcg/actuation hours as inhalerIndications: needed for Uncomplicated Wheezing or asthma, unspecified Shortness of asthma severity, Breath. unspecified whether persistent documented as of this encounter (statuses as of 07/05/2020) Active Problems Problem Noted Date Ulcerative colitis with complication, unspecified loca tion 06/13/2020 Incontinence of feces with fecal urgency 06/13/2020 Mixed anxiety and depressive disorder 12/22/2019 Chronic diarrhea 12/22/2019 History of alcoholism 11/11/2019 Anxiety 08/22/2019 Type 1 diabetes mellitus with diabetic polyneuropathy 04/01/2019 Asthma documented as of this encounter (statuses as of 07/05/2020) Resolved Problems Problem Noted Date Resolved Date Alcohol abuse 11/11/2019 12/22/2019 documented as of this encounter (statuses as of 07/05/2020) Social History Tobacco Use Types Packs/Day Years Used Date Former Smoker Smokeless Tobacco: Never Used Alcohol Use Drinks/Week oz/Week Comments Not Currently sober for 3 aristides hs, history of alcoholism Sex Assigned at Date Recorded Not on file documented as of this encounter Last Filed Vital Signs Not on filedocumented in this encounter Plan of Treatment Date Type Specialty Care Team Description 08/02/2020 Office Visit Gastroenterology Gou, Ihsan Winso ns, MD [address] [place], [place] [address] [phone] Health Maintenance Due Date Last Done Comments [...] Effective Dates Phone Address Type / Group [facility] [id number] 2018-Renzo [phone] [address] PPO/POS [place] - OUT OF t 7 [id number] [place] [address] documented as of this encounter
--- OUTSIDE RECORDS SUMMARY | 2020-07-29 01:31 | XMS REPORT | Summary of Care ---
:1985 Author Organization [facility] Address [address] [place] [address] Care Team Providers Name Role Phone Terrence Amaro MD Primary Care Provider Encounter Details Date Type Department Care Team Description 06/25/2020 Orders Only [facility] Doctor Unassigned, No [address] [facility] [place] [address] [address] [place] [id number] Allergies Active Allergy Reactions Severity Noted Date Comments Cefaclor Hives 03/24/2019 Kiwi Hives 03/24/2019 documented as of this encounter (statuses as of 06/25/2020) Medications Medication Sig Dispensed Refills Start Date [...] daily. tabletIndications: Mixed anxiety and depressive disorder blood sugar diagnostic USE DIRECTED 100 Strip [...] REFILL. BUSPIRONE 15 mg TAKE 1 TABLET BY 15 tablet 0 06/21/2020 Active tabletIndications: MOUTH 3 TIMES A Mixed anxiety and DAY NEEDED FOR depressive disorder ANXIETY documented as of this encounter (statuses as of 06/25/2020) Active Problems Problem Noted Date Ulcerative colitis with complication, unspecified loca tion 06/13/2020 Incontinence of feces with fecal urgency 06/13/2020 Mixed anxiety and depressive disorder 12/22/2019 Chronic diarrhea 12/22/2019 History of alcoholism 11/11/2019 Anxiety 08/22/2019 Type 1 diabetes mellitus with diabetic polyneuropathy 04/01/2019 Asthma documented as of this encounter (statuses as of 06/25/2020) Resolved Problems Problem Noted Date Resolved Date Alcohol abuse 11/11/2019 12/22/2019 documented as of this encounter (statuses as of 06/25/2020) Social History Tobacco Use Types Packs/Day Years [...] Office Visit Gastroenterology Gou, Ihsan mccallum MD [address] [place] [address] Health Maintenance Due Date Last Done [...] 06/11/2020, 06/11/2020 documented as of this encounter Procedures Procedure Name Priority Date/Time Associated Diagnosis Comme nts EXTERNAL PROVIDER Routine 06/25/2020 12:01 AM 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
--- OUTSIDE RECORDS SUMMARY | 2020-07-29 01:31 | XMS REPORT | Continuity of Care Document ---
:1985 Author Organization [facility] Address [address] [place] [address] Phone Care Team Providers Name Role Phone [facility] PHYSICIAN, OUT OF Primary Care Provider Unavailable [facility] Emergency Provider Allergies, Adverse Reactions, Alerts No known allergies. Medications No medication information available. Problems No problem information available. Procedures No procedure information available. Relevant Diagnostic Tests and/or Laboratory Data Laboratory Results Test Date/Time Result Interpretation Reference Result Comment Performing Range Site Bedside June 335 mg/dL 70-100 *[facility] - ER Services, [address] Glucose 2019 [place] [address] 8:40am Sodium Level June 140 136-145 [facility] StJ oseph [facility], [address] 2019 mmol/[place] [address] 6:00am Potassium June 3.6 3.5-5.1 [facility], [address] Level 2019 mmol/[place] [address] 6:00am Chloride Level June 104 98-107 [facility] tJoseph [facility], [address] 2019 mmol/[place] [address] 6:00am Carbon Dioxide June 17 mmol/L 22-29 [facility] S tJoseph [facility], [address] Level 2019 [place] [address] 6:00am Anion Gap June 23 mmol/L 10-20 [facility], [address] 2019 [place] [address] 6:00am Blood Urea June 7 mg/dL 7.0-18.7 [facility], [address] Nitrogen 2019 [place] [address] 6:00am Creatinine June 0.88 0.6-1.1 [facility] eph [facility], [address] 2019 mg/[place] [address] 6:00am Estimated GFR June 74 Reference Range [facility], [address] (MDRD) 2019 [place] [address] 6:00am GFR: Greater than 90 mL/min/1.73 m2 NOTE:The MDRD equation has not been validated for use with theelderly (over 70 years of age), women, patientswith serious comorbid condition or persons with extremes ofbody size, muscle mass, or nutritional status. Glucose Level June 396 mg/dL 70-105 [facility], [address] 2019 [facility] [address] 6:00am Calcium Level June 8.9 mg/dL 7.8-10.44 [facility], [address] 2019 [facility] [address] 6:00am Total June 0.3 mg/dL 0.2-1.2 [facility], [address] Bilirubin 2019 [facility] [address] 6:00am Serum Total June 8.6 g/dL 6.0-8.3 [facility], [address] Protein 2019 [facility] [address] 6:00am Albumin June 4.1 g/dL 3.5-5.0 [facility] Lab, [address] 2019 [facility] [address] 6:00am Globulin June 4.5 g/dL 2.4-3.5 [facility], [address] 2019 [facility] [address] 6:00am Albumin/Globul June 0.9 g/dL 1.2-2.2 [facility] S tJoseph [facility], [address] in Ratio 2019 [facility] [address] 6:00am Alkaline June 84 U/L 40-110 [facility] Lab, [address] Phosphatase 2019 [place] x [address] 6:00am Aspartate June 20 U/L 5-34 [facility], [address] Amino Transf 2019 [place] [address] (AST/SGOT) 6:00am Alanine June 20 U/L 8-55 [facility] Lab, [address] Aminotransfera 2019 [place] [address] se (ALT/SGPT) 6:00am Lipase June 26 U/L 8-78 [facility] Lab, [address] [place] [address] 6:00am Serum November Negative NEGATIVE Method of [facility] Lab, [address] 2019 [place] [address] Test, 6:00am Indeterminant: Qualitative results should be repeated after 48-72 hrs Positive: results may be detected as early as 1 day after the first missed menses. Acetaminophen June Less than 10.0-30.0 Therapeutic [facility], [address] Level 2019 6.0 Range: 10.0 [place] [address] 6:00am mcg/mL 30.0 ug/mLToxic Range: Possible toxicity: 150 - 200 ug/mL Probable toxicity: Greater than 200 ug/mL*IMPORTANT TESTING INFORMATION* The half-life of NAC is 2 hours. The total NAC clearance is 5.6 hours for adults and 11 hours for Newborns. Testing acetaminophen levels prior to a reasonable time frame for clearance can cause falsely decreased acetaminophen levels. Plasma Alcohol June 162 mg/dL Less than The [facility], [address] 2019 [address] [place] [address] 6:00am response to blood alcohol levels may vary from individual to individual. Negative: Less than 10 mg/dL Toxic: 50 - 100 mg/dL Depression of [employer]ATOR: Greater than 100 mg/dL Fatalities reported: Greater than 400 mg/dL Salicylates November Less than 15.0-30.0 [facility], [address] Level 2019 8.0 [place] [address] 6:00am mg/dL White Blood June 12.5 4.8-10.8 [facility], [address] Count 2019 thou/[place] [address] 6:00am Red Blood June 4.72 4.20-5.40 [facility], [address] Count 2019 mill/[place] [address] 6:00am Hemoglobin June 14.2 g/dL 12.0-16.0 [facility], [address] [place] [address] 6:00am Hematocrit June 43.0 % 36.0-47.0 [facility] Lab, [address] [place] [address] 6:00am Mean June 91.1 fL 78.0-98.0 [facility], [address] Corpuscular 2019 [place] x [address] Volume 6:00am Mean June 30.1 pg 27.0-31.0 [facility], [address] Corpuscular 2019 [place] [address] Hemoglobin 6:00am Mean June 33.0 g/dL 32.0-36.0 [facility] Lab, [address] Corpuscular 2019 [place] x [address] Hemoglobin 6:00am Concent Red Cell June 11.9 % 11.5-14.5 [facility] Lab, [address] Distribution 2019 [place] [address] Width 6:00am Platelet Count June 617 130-400 [facility] Lab, [address] 2019 thou/[place] [address] 6:00am Mean Platelet June 6.4 fL 7.4-10.4 [facility] Lab, [address] Volume 2019 [place] [address] 6:00am Neutrophils % June 74.5 % 42.0-75.0 [facility], [address] [place] [address] 6:00am Lymphocytes % November 18.9 % 21.0-51.0 [facility], [address] [facility] [address] 6:00am Monocytes % November 3.9 % 0.0-10.0 [facility] Lab, [address] [facility] [address] 6:00am Eosinophils % November 1.8 % 0.0-10.0 [facility], [address] [facility] [address] 6:00am Basophils % November 0.9 % 0.0-1.0 [facility], [address] [facility] [address] 6:00am Neutrophils # June 9.3 1.40-6.50 [facility], [address] 2019 [facility] [address] 6:00am Lymphocytes # June 2.4 1.20-3.40 [facility], [address] [facility] [address] 6:00am Monocytes # June 0.5 0.11-0.59 [facility] Lab, [address] [facility] [address] 6:00am Eosinophils # June 0.2 0.0-0.7 [facility], [address] [facility] [address] 6:00am Basophils # June 0.1 0.0-0.2 [facility], [address] [facility] [address] 6:00am Urine Color June Light-Yel Yellow [facility] Lab, [address] 2019 [facility] [address] 6:55am Urine Clarity June Clear Clear [facility], [address] [facility] [address] 6:55am Urine Specific November 1.035 1.002-1.03 [facility] Lab, [address] 2019 6 [facility] [address] 6:55am Urine pH June 5.5 5.0-9.[address] [facility], [address] [place] [address] 6:55am Urine November Negative Negative [facility], [address] Leukocyte 2019 Nick/[place] [address] Esterase 6:55am Urine Nitrite November Negative Negative [facility] Lab, [address] [place] [address] 6:55am Urine Protein June Negative Neg-Trace [facility], [address] 2019 mg/[place] [address] 6:55am Urine Glucose June Greater Negative [facility] Lab, [address] (UA) 2019 than [address] [place] [address] 6:55am mg/dL Urine Ketones June 10 mg/dL Negative [facility], [address] 2019 [facility] [address] 6:55am Urine November Normal Less than [facility] StJose ph [facility], [address] Urobilinogen 2019 mg/dL 2 [place] [address] 6:55am Urine November Negative Negative [facility], [address] Bilirubin 2019 [place] [address] 6:55am Urine Blood November Negative Negative [facility], [address] 2019 [place] [address] 6:55am Bedside Venous November 7.390 7.320-7.43 *[facility] - ER Services, [address] pH 2019 [address] [place] [address] 8:47am Venous Blood November 33.0 mmHg 40.0-50.0 *[facility] ER Services, [address] Partial 2019 [place] [address] Pressure CO2 8:47am Venous Blood November 24.3 mmHg 35.0-45.0 *[facility] ER Services, [address] Partial [address] [place] [address] Pressure O2 8:47am POC June 20.0 22.0-28.0 *[facility] - ER Services, [address] Bicarbonate 2019 mmol/[place] [address] Calc (Blood 8:47am Gas) Bedside Venous November -4.2 -2.0-3.0 *[facility] ER Services, [address] Blood Base 2019 mmol/[place] [address] Excess 8:47am POC Venous O2 November 43.9 % 60.0-85.0 *[facility] - ER Services, [address] Saturation 2019 [place] [address] (Calc) 8:47am POC Venous November 38.0 % 36.0-47.0 *[facility] ER Services, [address] Hematocrit 2019 [place] [address] 8:47am POC Venous June 12.8 g/dL 12.0-16.0 *[facility] ER Services, [address] Hemoglobin 2019 [place] [address] (Calc) 8:47am POC Venous June 142 138-145 *[facility] - ER Services, [address] Sodium 2019 mmol/[place] [address] 8:47am POC Venous November 3.3 3.5-5.1 *[facility] ER Services, [address] Potassium 2019 mmol/[place] [address] 8:47am POC Venous June 110 98-107 *[facility] - ER Services, [address] Chloride 2019 mmol/[place] [address] 8:47am POC Venous November 21.0 22.0-28.0 *[facility] - ER Services, [address] Blood CO2 2019 mmol/[place] [address] (Calc) 8:47am POC Venous June 1.01 1.15-1.33 *[facility] - ER Services, [address] Ionized 2019 mmol/[place] [address] Calcium 8:47am POC Venous June 15 mmol/L 10-20 *[facility] - ER Services, [address] Anion Gap 2019 [place] [address] Calculation 8:47am Health Concerns Health Concerns may be documented in an alternate section. Encounters Encounter Location(s) Arrival/Admit Date Discharge/Depart Date Provider(s) Departed [place] July 01, July 01, 2020 [facility] 2019 5:25am 9:45am Ctr-EMERGENCY SERVICES Assessments No Assessments Information Available Functional Status No Functional Status information available Goals Goals may be documented in an alternate section. Immunizations No Immunization Information Available Mental Status No Mental Status Information Available Medical Equipment No Medical Equipment Information available Insurance Providers Payer Policy Id Coverage Id Subscriber's Subscriber Id Effective E xpiration Name Date Date UNINSURED [id number] 2020 Social History Assigned Sex Female Vital Signs No vital signs result information available.
--- OUTSIDE RECORDS SUMMARY | 2020-07-29 01:31 | XMS REPORT | Summary of Care ---
:1985 Author Organization [facility] Address [address] [place] [address] Care Team Providers Name Role Phone Terrence Amaro MD Primary Care Provider Reason for Visit Reason Comments Refill Request Encounter Details Date Type Department Care Team Description 06/19/2020 Refill [facility] Pediatric and Doris Bean MD Refill Request Adult Primary Care- [address] [place] [address] [place] [address], [phone] [address] [place] [address] Allergies Active Allergy Reactions Severity Noted Date Comments Cefaclor Hives 03/24/2019 Kiwi Hives 03/24/2019 documented as of this encounter (statuses as of 06/21/2020) Medications Medication Sig Dispensed Refills Start Date [...] 90 every 6 (six) mcg/actuation hours as inhalerIndications: needed for Uncomplicated Wheezing or asthma, unspecified Shortness of asthma severity, Breath. unspecified whether persistent GABAPENTIN 600 mg TAKE [...] A DAY depressive disorder NEEDED FOR ANXIETY BUSPIRONE 15 mg TAKE 1 TABLET 270 tablet 0 03/02/2020 06/21/20 2 Discontinued tabletIndications: BY MOUTH 3 0 Mixed anxiety and TIMES A DAY depressive disorder NEEDED FOR ANXIETY documented as of this encounter (statuses as of 06/21/2020) Active Problems Problem Noted Date Ulcerative colitis with complication, unspecified loca tion 06/13/2020 Incontinence of feces with fecal urgency 06/13/2020 Mixed anxiety and depressive disorder 12/22/2019 Chronic diarrhea 12/22/2019 History of alcoholism 11/11/2019 Anxiety 08/22/2019 Type 1 diabetes mellitus with diabetic polyneuropathy 04/01/2019 Asthma documented as of this encounter (statuses as of 06/21/2020) Resolved Problems Problem Noted Date Resolved Date Alcohol abuse 11/11/2019 12/22/2019 documented as of this encounter (statuses as of 06/21/2020) Social History Tobacco Use Types Packs/Day Years Used Date Former Smoker Smokeless Tobacco: Never Used Alcohol Use Drinks/Week oz/Week Comments Not Currently sober for 3 aristides hs, history of alcoholism Sex Assigned at Date Recorded Not on file documented as of this encounter Last Filed Vital Signs Not on filedocumented in this encounter Miscellaneous Notes Telephone Encounter - Heydi Herzog MA - 06/21/2020 8:20 AM CSTPlease review and sign if appropriate. GER BILLING documented in this encounter Plan of Treatment Date Type Specialty Care Team Description 06/28/2020 Office Visit Gastroenterology Gou, Ihsan mccallum MD [address] [place] [address] 77 555 [phone] Health Maintenance Due Date Last Done Comments [...] filedocumented in this encounter Visit Diagnoses Diagnosis Mixed anxiety and depressive disorder Dysthymic disorder documented in this encounter Insurance Payer Benefit Plan Subscriber ID Effective Dates Phone Address Type / Group BCBS OF [facility] [id number] 2018-Renzo [phone] [address] PPO/POS [place] - OUT OF t [id number] [place] [address] documented as of this encounter
[2020-07-29] MEDS ORDERED: ONDANSETRON 4 MG/2 ML VIAL ONE (01:56)
[2020-07-29] MEDS ORDERED: LORazepam 2 MG/ML VIAL ONE (01:56)
[2020-07-29] MEDS ORDERED: NA CHLORIDE 0.9% 1,000 ML ONE (02:54)
--- NOTE | 2020-07-29 02:56 | EDPHYS ---
Physician Documentation [facility] Name: Edelmira Pal Age: 35 yrs Sex: Female : 1985 Arrival Date: 07/29/2020 Time: 01:28 Bed 2 Private MD: ED Physician Chuy Mackey HPI: 07/29 01:54 This 35 yrs old Female presents to ER via Ambulatory with complaints of ma2 Anxiety, Alcohol Withdrawal. 01:54 Onset: The symptoms/episode began/occurred gradually, 1 week(s) ago. Severity of ma2 symptoms: At their worst the symptoms were moderate in the emergency department the symptoms are unchanged. The patient has not experienced similar symptoms in the past. HHA: 03:04 lmp ynknown mg2 Historical: - Allergies: 01:41 Ceclor; mg2 - Home Meds: 01:41 Novolog 100 unit/mL Sub-Q soln [Active]; Albuterol Inhl [Active]; Tresiba FlexTouch mg2 U-100 100 unit/mL (3 mL) subcutaneous inpn 24 unit daily [Active]; Buspirone Oral [Active]; - PMHx: 01:41 Alcoholism; Anxiety; Asthma; Diabetes - IDDM; mg2 - PSHx: 01:41 left knee sx; mg2 - Immunization history:: Flu vaccine status is unknown. - Social history:: Smoking status: unknown Patient uses alcohol, Patient uses Patient/guardian denies using alcohol, street drugs, The patient lives with family. - Family history:: not pertinent. ROS: 01:54 Constitutional: Negative for fever, chills, and weight loss. ma2 01:54 All other systems are negative. Exam: 01:54 Constitutional: This is a well developed, well nourished patient who is awake, alert, ma2 and in no acute distress. Chest/axilla: Normal chest wall appearance and motion. Nontender with no deformity. No lesions are appreciated. Cardiovascular: Regular rate and rhythm with a normal S1 and S2. No gallops, murmurs, or rubs. Normal PMI, no JVD. No pulse deficits. Respiratory: Lungs have equal breath sounds bilaterally, clear to auscultation and percussion. No rales, rhonchi or wheezes noted. No increased work of breathing, no retractions or nasal flaring. Abdomen/GI: Soft, non-tender, with normal bowel sounds. No distension or tympany. No guarding or rebound. No evidence of tenderness throughout. MS/ Extremity: Pulses equal, no cyanosis. Neurovascular intact. Full, normal range of motion. Neuro: Awake and alert, GCS 15, oriented to person, place, time, and situation. Cranial nerves II-XII grossly intact. Motor strength 5/5 in all extremities. Sensory grossly intact. Cerebellar exam normal. Normal gait. Vital Signs: 01:37 BP 131 / 93; Pulse 120; Resp 18; Temp 98; Pulse Ox 99% on R/A; Weight 64.41 kg; Height mg2 5 ft. 3 in. (160.02 cm); Pain 0/10; 02:37 BP 118 / 82; Pulse 120 RA; Resp 18; Pulse Ox 100% on R/A; mg2 03:03 Pulse 105; mg2 01:37 Body Mass Index 25.15 (64.41 kg, 160.02 cm) mg2 MDM: 01:54 Patient medically screened. ma2 01:54 Differential Diagnosis anxiety vs alcohol withdrawal . ma2 02:55 Data reviewed: vital signs, nurses notes. Counseling: I had a detailed discussion with ma2 the patient and/or guardian regarding: the historical points, exam findings, and any diagnostic results supporting the discharge/admit diagnosis, the presence of at least one elevated blood pressure reading (>120/80) during this emergency department visit, the need for outpatient follow up. Response to treatment: the patient's symptoms have markedly improved after treatment. Administered Medications: 01:51 Drug: Ativan 1 mg Route: IVP; Site: left wrist; rv 02:37 Follow up: Response: No adverse reaction; Marked relief of symptoms mg2 01:51 Drug: Zofran (Ondansetron) 4 mg Route: IVP; Site: right wrist; rv 02:37 Follow up: Response: No adverse reaction; Marked relief of symptoms mg2 02:38 Drug: NS 0.9% 1000 ml Route: IV; Rate: 1000 ml; Site: right hand; mg2 03:02 Follow up: Response: No adverse reaction; IV Status: Order to discontinue infusion; IV mg2 Intake: 300ml Disposition: 07/29/20 02:55 Discharged to Home. Impression: Anxiety disorder, unspecified. - Condition is Stable. - Prescriptions for Zofran 4 mg Oral Tablet - take 1 tablet by ORAL route every 12 hours As needed; 20 tablet. - Medication Reconciliation Form, Thank You Letter, Antibiotic Education, Prescription Opioid Use form. - Follow up: Private Physician; When: Tomorrow; Reason: If symptoms return, Continuance of care. Signatures: Chuy Mackey MD MD ma2 Roderick Malhotra RN RN mg2 Mono Hernandez RN RN rv Corrections: (The following items were deleted from the chart) 03:04 02:55 07/29/2020 02:55 Discharged to Home. Impression: Anxiety disorder, unspecified. mg2 Condition is Stable. Prescriptions for Zofran 4 mg Oral Tablet - take 1 tablet by ORAL route every 12 hours As needed; 20 tablet. and Forms are Medication Reconciliation Form, Thank You Letter, Antibiotic Education, Prescription Opioid Use. Follow up: Private Physician; When: Tomorrow; Reason: If symptoms return, Continuance of care. [email or web address]
--- NOTE | 2020-07-29 02:56 | ER ---
Nurse's Notes [facility] Name: Edelmira Pal Age: 35 yrs Sex: Female : 1985 Arrival Date: 07/29/2020 Time: 01:28 Bed 2 Private MD: Diagnosis: Anxiety disorder, unspecified Presentation: 07/29 01:37 Chief complaint: Patient states: i have anxiety attack yesterday and I had fireball and mg2 6 shots \T\ 2 pm yesterday and now i have nausea,vomiting and dizziness. denies pain. i only need zofran and ativan and i will be ok. Coronavirus screen: Client denies travel out of the [place] in the last 14 days. At this time, the client does not indicate any symptoms associated with coronavirus-19. Ebola Screen: No symptoms or risks identified at this time. Initial Sepsis Screen: Does the patient meet any 2 criteria? No. Patient's initial sepsis screen is negative. Does the patient have a suspected source of infection? No. Patient's initial sepsis screen is negative. Risk Assessment: Do you want to hurt yourself or someone else? Patient reports no desire to harm self or others. Onset of symptoms was July 28, 2020. 01:37 Method Of Arrival: Ambulatory mg2 01:37 Acuity: BELTRAN 3 mg2 Triage Assessment: 01:41 General: Appears in no apparent distress. comfortable, Behavior is anxious. Pain: mg2 Denies pain. EENT: No signs and/or symptoms were reported regarding the EENT system. Neuro: Level of Consciousness is awake, alert, obeys commands, Oriented to person, place, time, situation. Cardiovascular: Capillary refill < 3 seconds Patient's skin is warm and dry. Respiratory: Airway is patent Respiratory effort is even, unlabored, Respiratory pattern is regular, symmetrical. GI: Reports nausea, vomiting. : No signs and/or symptoms were reported regarding the genitourinary system. Derm: Skin is intact, is healthy with good turgor. Musculoskeletal: Circulation, motion, and sensation intact. Capillary refill < 3 seconds. 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 - Social history:: Smoking status: unknown Patient uses alcohol, Patient uses Patient/guardian denies using alcohol, street drugs, The patient lives with family. - Family history:: not pertinent. Screenin:42 Abuse screen: Denies threats or abuse. Denies injuries from another. Nutritional mg2 screening: No deficits noted. Tuberculosis screening: No symptoms or risk factors identified. Fall Risk IV access (20 points). Assessment: 01:42 General: see triage assessment. mg2 03:00 Reassessment: Patient states feeling better. Patient states symptoms have improved. mg2 Vital Signs: 01:37 BP 131 / 93; Pulse 120; Resp 18; Temp 98; Pulse Ox 99% on R/A; Weight 64.41 kg; Height mg2 5 ft. 3 in. (160.02 cm); Pain 0/10; 02:37 BP 118 / 82; Pulse 120 RA; Resp 18; Pulse Ox 100% on R/A; mg2 03:03 Pulse 105; mg2 01:37 Body Mass Index 25.15 (64.41 kg, 160.02 cm) mg2 ED Course: 01:28 Patient arrived in ED. bp1 01:33 Mono Hernandez RN is Primary Nurse. rv 01:40 Triage completed. mg2 01:41 Arm band placed on. mg2 01:42 Patient has correct armband on for positive identification. Door closed. Warm blanket mg2 given. 01:43 No provider procedures requiring assistance completed. mg2 01:50 Inserted saline lock: 22 gauge in right wrist, using aseptic technique. rv 01:54 Chuy Mackey MD is Attending Physician. ma2 03:03 IV discontinued, intact, bleeding controlled, No redness/swelling at site. Pressure mg2 dressing applied. Administered Medications: 01:51 Drug: Ativan 1 mg Route: IVP; Site: left wrist; rv 02:37 Follow up: Response: No adverse reaction; Marked relief of symptoms mg2 01:51 Drug: Zofran (Ondansetron) 4 mg Route: IVP; Site: right wrist; rv 02:37 Follow up: Response: No adverse reaction; Marked relief of symptoms mg2 02:38 Drug: NS 0.9% 1000 ml Route: IV; Rate: 1000 ml; Site: right hand; mg2 03:02 Follow up: Response: No adverse reaction; IV Status: Order to discontinue infusion; IV mg2 Intake: 300ml Intake: 03:02 IV: 300ml; Total: 300ml. mg2 Outcome: 01:50 Condition: good rv 02:55 Discharge ordered by . neal 03:03 Discharged to home ambulatory. mg2 03:03 Discharge instructions given to patient, Instructed on discharge instructions, follow up and referral plans. medication usage, Demonstrated understanding of instructions, follow-up care, medications, Prescriptions given X 1. 03:04 Patient left the ED. mg2 Signatures: Chuy Mackey MD MD nd2 Roderick Malhotra RN RN mg2 Mono Hernandez RN RN rv Ana Paulino
[2020-07-29 03:17] VITALS: TEMP 98
[2020-07-29 03:18] VITALS: BP 118/82; O2SAT 100
== END 2020-07-29 03:04 | disposition home or self-care (01) ==
LOC: ER 01:27
DX: F41.9 Anxiety disorder, unspecified (principal); F10.20 Alcohol dependence, uncomplicated; E11.9 Type 2 diabetes mellitus without complications; Z79.4 Long term (current) use of insulin; Z88.8 Allergy status to other drugs, medicaments and biological substances
CPT/HCPCS: 99283; J2405; J7030

== ENCOUNTER 2020-08-17 08:05 | Emergency (ER) | payer SELFPAY ==
--- NOTE | 2020-08-17 10:46 | ER ---
Nurse's Notes [facility] Name: Edelmira aPl Age: 35 yrs Sex: Female : 1985 Arrival Date: 08/17/2020 Time: 08:07 Bed Waiting Private MD: Diagnosis: Presentation: 08/17 08:22 Chief complaint: Patient states: "I had a few drinks last night for the first time in two months and I am having a little bit of withdrawal and anxiety. I usually just take some Zofran and Ativan and I'm fine." Pt reports she does not have Zofran or Ativan at home, but took a Temazepam last night, but it did not seem to help. Coronavirus screen: Client denies travel out of the [place] in the last 14 days. Ebola Screen: Patient denies exposure to infectious person. Patient denies travel to an Ebola-affected area in the 21 days before illness onset. Initial Sepsis Screen: Does the patient meet any 2 criteria? No. Patient's initial sepsis screen is negative. Does the patient have a suspected source of infection? No. Patient's initial sepsis screen is negative. Risk Assessment: Do you want to hurt yourself or someone else? Patient reports no desire to harm self or others. Onset of symptoms was August 16, 2020. 08:22 Method Of Arrival: Ambulatory 08:22 Acuity: BELTRAN 3 ss Historical: - Allergies: 08:25 Ceclor; ss - PMHx: 08:25 Alcoholism; Anxiety; Asthma; Diabetes - IDDM; ss - PSHx: 08:25 left knee sx; ss - Immunization history:: Adult Immunizations up to date. - Social history:: Smoking status: Patient reports the use of cigarette tobacco products, denies chronic smoking, but will smoke occasionally, Patient uses alcohol, had drink last night first time in two months. . Assessment: 10:44 Reassessment: ED registration staff reports that patient decided to leave for unknown reason 1 hour ago. Vital Signs: 08: BP 133 / 97; Pulse 104; Resp 18; Temp 97.7(TE); Pulse Ox 100% on R/A; Weight 63.5 kg; ss Height 5 ft. 3 in. (160.02 cm); Pain 0/10; 08:22 Body Mass Index 24.80 (63.50 kg, 160.02 cm) ss ED Course: 08:07 Patient arrived in ED. as 08:24 Triage completed. ss 08:25 Arm band placed on right wrist. ss 09:06 Angelika Eduardo FNP-C is [facility]. kb 09:06 Chapito Sanders MD is Attending Physician. kb 10:43 No provider procedures requiring assistance completed. ss Administered Medications: No medications were administered Outcome: 10:45 Eloped from waiting room. ss 10:45 unknown 10:45 Patient left the ED. ss Signatures: Angelika Eduardo FNP-C FNP-Ckb Martinez, Amelia as Smirch, Shelby, RN RN ss
[2020-08-17 10:52] VITALS: BP 133/97; TEMP 97.7; O2SAT 100
== END 2020-08-17 10:45 | disposition left against medical advice (07) ==
LOC: ER 08:05
DX: Z02.9 Encounter for administrative examinations, unspecified (principal)
CPT/HCPCS: 99281

== ENCOUNTER 2020-09-10 07:48 | Emergency (ER) | payer SELFPAY ==
--- NOTE | 2020-09-10 08:22 | ER ---
Nurse's Notes [facility] Name: Edelmira Pal Age: 35 yrs Sex: Female : 1985 Arrival Date: 09/10/2020 Time: 07:49 Bed Waiting Private MD: Diagnosis: ED Course: 09/10 07:49 Patient arrived in ED. as 08:21 Charis Baires, RN is Primary Nurse. iw Administered Medications: No medications were administered Outcome: 08:21 Eloped from waiting room. iw 08:22 Patient left the ED. iw Signatures: Sienna Long as Charis Baires, RN RN iw
== END 2020-09-10 08:22 | disposition left against medical advice (07) ==
LOC: ER 07:48
DX: Z02.9 Encounter for administrative examinations, unspecified (principal)

== ENCOUNTER 2020-09-11 01:03 | Emergency (ER) | payer OTHER, SELFPAY ==
[2020-09-11 01:47] LABS: Absolute Lymphocytes (CBC) 2.8 K/uL (0.7-4.9); Basophils % 0.8 % (0-1.3); Lymphocytes % 18.3 % (15.3-44.8); MPV 7.5 fL (7.6-11.3)
[2020-09-11] MEDS ORDERED: LORazepam 2 MG/ML VIAL ONE (01:57)
[2020-09-11] MEDS ORDERED: NA CHLORIDE 0.9% 1,000 ML ONE ×2 (01:57→02:58)
[2020-09-11] MEDS ORDERED: ONDANSETRON 4 MG/2 ML VIAL ONE (01:57)
[2020-09-11 02:06] LABS: ALT/SGPT 15 U/L (12-78); AST/SGOT 11 U/L (15-37); Alkaline Phosphatase 98 U/L (45-117); BUN Blood Urea Nitrogen 12 mg/dL (7-18); Bicarbonate 28 mmol/L (21-32); Bilirubin Direct < 0.1 mg/dL (0-0.2); Bilirubin Total 0.3 mg/dL (0.2-1.0); Glucose Level 192 mg/dL (74-106); Lipase 73 U/L (73-393); Potassium 3.3 mmol/L (3.5-5.1); Protein, Total 9.1 g/dL (6.4-8.2); Sodium Level 140 mmol/L (136-145)
[2020-09-11 02:56] LABS: Urine Blood NEGATIVE (NEG); Urine Glucose TRACE (NEG); Urine Protein 2+ (NEG)
[2020-09-11] MEDS ORDERED: FAMOTIDINE 20 MG/2 ML VIAL IV ONE (02:58)
--- NOTE | 2020-09-11 03:51 | EDPHYS ---
Physician Documentation [facility] Name: Edelmira Pal Age: 35 yrs Sex: Female : 1985 Arrival Date: 09/11/2020 Time: 01:04 Bed 19 Private MD: ED Physician Wild Hanks HPI: 09/11 01:54 This 35 yrs old Female presents to ER via Ambulatory with complaints of mh7 Alcohol Withdrawal, Anxiety. 01:54 The patient presents to the emergency department with nausea, that is moderate, mh7 vomiting, that is intermittent. Onset: The symptoms/episode began/occurred yesterday. Possible causes: Alcohol Use. The symptoms are aggravated by alcohol, The symptoms are alleviated by nothing. Associated signs and symptoms: Pertinent positives: nausea, vomiting, Anxiety, Pertinent negatives: abdominal pain, anorexia, belching, constipation, diarrhea, dysuria, fever, flatulence, GI bleeding, hematuria, vaginal discharge. Severity of symptoms: At their worst the symptoms were moderate yesterday, in the emergency department the symptoms are unchanged. The patient has experienced similar episodes in the past, multiple times. States that she drank several shots of Fireball yesterday but before that has not drank in over a month. States that she has been feeling anxious.. 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 - Social history:: Smoking status: Patient reports the use of cigarette tobacco products, denies chronic smoking, but will smoke occasionally. ROS: 01:54 Constitutional: Negative for fever, chills, and weight loss, Eyes: Negative for injury, mh7 pain, redness, and discharge, ENT: Negative for injury, pain, and discharge, Neck: Negative for injury, pain, and swelling, Cardiovascular: Negative for chest pain, palpitations, and edema, Respiratory: Negative for shortness of breath, cough, wheezing, and pleuritic chest pain, Back: Negative for injury and pain, : Negative for injury, bleeding, discharge, and swelling, MS/Extremity: Negative for injury and deformity, Skin: Negative for injury, rash, and discoloration, Neuro: Negative for headache, weakness, numbness, tingling, and seizure, Allergy/Immunology: Negative for hives, rash, and allergies. 01:54 Endocrine: Negative for neck swelling, polydipsia, polyuria, polyphagia, and marked weight changes, Hematologic/Lymphatic: Negative for swollen nodes, abnormal bleeding, and unusual bruising. 01:54 Psych: Negative for depression, auditory hallucinations, visual hallucinations, homicidal ideation, insomnia, suicide gesture, suicidal ideation. Exam: 01:54 Head/Face: Normocephalic, atraumatic. Eyes: Pupils equal round and reactive to light, mh7 extra-ocular motions intact. Lids and lashes normal. Conjunctiva and sclera are non-icteric and not injected. Cornea within normal limits. Periorbital areas with no swelling, redness, or edema. Neck: Trachea midline, no thyromegaly or masses palpated, and no cervical lymphadenopathy. Supple, full range of motion without nuchal rigidity, or vertebral point tenderness. No Meningismus. Chest/axilla: Normal chest wall appearance and motion. Nontender with no deformity. No lesions are appreciated. 01:54 Respiratory: Lungs have equal breath sounds bilaterally, clear to auscultation and percussion. No rales, rhonchi or wheezes noted. No increased work of breathing, no retractions or nasal flaring. Abdomen/GI: Soft, non-tender, with normal bowel sounds. No distension or tympany. No guarding or rebound. No evidence of tenderness throughout. Back: No spinal tenderness. No costovertebral tenderness. Full range of motion. Skin: Warm, dry with normal turgor. Normal color with no rashes, no lesions, and no evidence of cellulitis. MS/ Extremity: Pulses equal, no cyanosis. Neurovascular intact. Full, normal range of motion. Neuro: Awake and alert, GCS 15, oriented to person, place, time, and situation. Cranial nerves II-XII grossly intact. Motor strength 5/5 in all extremities. Sensory grossly intact. Cerebellar exam normal. Normal gait. 01:54 Constitutional: The patient appears in no acute distress, alert, awake, anxious. 01:54 Cardiovascular: Rate: tachycardic, Rhythm: regular, Pulses: no pulse deficits are appreciated, Heart sounds: normal, normal S1and S2, Edema: is not appreciated, JVD: is not appreciated. 01:54 Psych: Behavior/mood is anxious, Affect is calm, Oriented to person, place, time, Patient has no thoughts/intents to harm self or others. Judgement / Insight is normal. Memory is normal. Delusions/hallucinations are not present. Vital Signs: 01:24 BP 140 / 92; Pulse 131; Resp 18; Temp 98.2(O); Pulse Ox 99% on R/A; Weight 58.97 kg lp1 (R); Height 5 ft. 3 in. (160.02 cm); 01:30 BP 122 / 99; Pulse 120; Resp 20; Pulse Ox 99% ; sf 02:00 BP 123 / 100; Pulse 106; Resp 18; Pulse Ox 100% ; sf 02:31 BP 122 / 106; Pulse 99; Resp 18; Pulse Ox 99% ; sf 03:00 BP 148 / 118; Pulse 100; Resp 16; Pulse Ox 98% ; sf 03:30 BP 107 / 62; Pulse 107; Resp 16; Pulse Ox 100% ; sf 01:24 Body Mass Index 23.03 (58.97 kg, 160.02 cm) lp1 MDM: 03:48 Differential diagnosis: gastritis. Data reviewed: vital signs, nurses notes, [facility] medical records, lab test result(s), CBC, electrolytes, urinalysis, UPT: negative EKG. Data interpreted: Pulse oximetry: on room air is 100 %. Interpretation: normal. Counseling: I had a detailed discussion with the patient and/or guardian regarding: the historical points, exam findings, and any diagnostic results supporting the discharge/admit diagnosis, lab results, to return to the emergency department if symptoms worsen or persist or if there are any questions or concerns that arise at home. Response to treatment: the patient's symptoms have resolved after treatment, the patient's blood pressure is in an acceptable range, mental status has returned to baseline, the patient no longer shows bradycardia, the patient is not short of breath, the patient is not tachycardic, the patient's pain is gone, the patient's temperature has normalized. 03:51 Patient medically screened. 7 09/11 01:32 Order name: CBC with Diff; Complete Time: 02:14 7 09/11 01:32 Order name: Basic Metabolic Panel; Complete Time: 02:30 7 09/11 01:32 Order name: LFT's; Complete Time: 02:30 7 09/11 01:32 Order name: Lipase; Complete Time: 02:30 7 09/11 02:32 Order name: ETOH Level; Complete Time: 03:37 7 09/11 02:42 Order name: Urine --Ancillary (enter results) ds4 09/11 02:42 Order name: Urine Dipstick--Ancillary (enter results) 4 09/11 02:43 Order name: Urine --Ancillary; Complete Time: 03:01 EDMS 09/11 02:43 Order name: Urine Dipstick-Ancillary; Complete Time: 03:01 EDMS 09/11 01:32 Order name: Urine Dipstick-Ancillary (obtain specimen); Complete Time: 02:41 7 09/11 01:32 Order name: Urine Test (obtain specimen); Complete Time: 02:41 7 09/11 01:32 Order name: EKG - Nurse/Tech; Complete Time: 01:59 mh7 Administered Medications: 01:41 Drug: NS 0.9% 1000 ml Route: IV; Rate: 1000 ml; Site: right antecubital; sf 02:00 Follow up: IV Status: Completed infusion; IV Intake: 1000ml sf 01:43 Drug: Zofran (Ondansetron) 4 mg Route: IVP; Site: right antecubital; sf 01:43 Drug: Ativan 1 mg Route: IVP; Site: right antecubital; sf 02:40 Follow up: Response: No adverse reaction; Anxiety decreased sf 02:41 Drug: NS 0.9% 1000 ml Route: IV; Rate: 1 bolus; Site: right antecubital; sf 03:30 Follow up: Response: No adverse reaction; IV Status: Completed infusion; IV Intake: sf 1000ml 02:42 Drug: Ativan 1 mg Route: IVP; Site: right antecubital; sf 03:30 Follow up: Response: No adverse reaction; Anxiety decreased sf 02:43 Drug: Pepcid 20 mg Route: IVP; Site: right antecubital; sf 03:30 Follow up: Response: No adverse reaction sf 03:52 Drug: Cipro 500 mg Route: PO; sf 04:00 Follow up: Response: No adverse reaction sf Disposition: 09/11/20 03:51 Discharged to Home. Impression: Alcohol abuse, Anxiety disorder, unspecified, Urinary tract infection, site not specified, Nausea and vomiting. - Condition is Stable. - Discharge Instructions: Alcohol Use Disorder, Urinary Tract Infection, Adult, [id number], Generalized Anxiety Disorder. - Prescriptions for Zofran ODT 4 mg Oral tablet,disintegrating - place 1 tablet by TRANSLINGUAL route every 8 hours As needed; 6 tablet. Cipro 500 mg Oral Tablet - take 1 tablet by ORAL route every 12 hours for 7 days; 14 tablet. - Medication Reconciliation Form, Thank You Letter, Antibiotic Education, Prescription Opioid Use form. - Follow up: Private Physician; When: 1 - 2 days; Reason: Worsening of condition, Recheck today's complaints, Continuance of care, Re-evaluation by your physician. - Problem is an acute exacerbation. - Symptoms have improved. Signatures: Dispatcher [employer] EDMS Alissa Zepeda RN RN lp1 Wild Hanks MD MD 7 Gabriel Leblanc RN RN sf Corrections: (The following items were deleted from the chart) 04:03 03:51 09/11/2020 03:51 Discharged to Home. Impression: Alcohol abuse; Anxiety disorder, sf unspecified; Urinary tract infection, site not specified; Nausea and vomiting. Condition is Stable. Forms are Medication Reconciliation Form, Thank You Letter, Antibiotic Education, Prescription Opioid Use. Follow up: Private Physician; When: 1 - 2 days; Reason: Worsening of condition, Recheck today's complaints, Continuance of care, Re-evaluation by your physician. Problem is an acute exacerbation. Symptoms have improved. mh7
--- NOTE | 2020-09-11 03:51 | ER ---
Nurse's Notes [facility] Name: Edelmira Pal Age: 35 yrs Sex: Female : 1985 Arrival Date: 09/11/2020 Time: 01:04 Bed 19 Private MD: Diagnosis: Alcohol abuse;Anxiety disorder, unspecified;Urinary tract infection, site not specified;Nausea and vomiting Presentation: 09/11 01:19 Acuity: BELTRAN 2 lp1 01:24 Chief complaint: Patient states: Reports drinking 7-8 shots of fireball whiskey about lp1 24hrs ago after being sober since 07/30/20; Denies any other drugs. Reports feeling nauseous, shaky, heart racing since 0800 this morning; States "I just need some Zofran and Ativan and I am going to go back to rehab". Coronavirus screen: Client denies travel out of the [place] in the last 14 days. At this time, the client does not indicate any symptoms associated with coronavirus-19. Ebola Screen: No symptoms or risks identified at this time. Initial Sepsis Screen: Does the patient meet any 2 criteria? HR > 90 bpm. Does the patient have a suspected source of infection? No. Patient's initial sepsis screen is negative. Risk Assessment: Do you want to hurt yourself or someone else? Patient reports no desire to harm self or others. Onset of symptoms was September 11, 2020. 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 - Social history:: Smoking status: Patient reports the use of cigarette tobacco products, denies chronic smoking, but will smoke occasionally. Screenin:32 Abuse screen: Denies threats or abuse. Denies injuries from another. Nutritional lp1 screening: No deficits noted. Tuberculosis screening: No symptoms or risk factors identified. Fall Risk None identified. Assessment: 01:30 General: Appears uncomfortable, well developed, well nourished, Behavior is sf cooperative, agitated, anxious, restless, Smells of alcohol. Pain: Denies pain. Neuro: Level of Consciousness is awake, alert, Oriented to person, place, time, situation, Appropriate for age Reports headache. Cardiovascular: Capillary refill < 3 seconds Patient's skin is warm and dry. Rhythm is sinus tachycardia. Respiratory: No deficits noted. Airway is patent Respiratory effort is even, unlabored, Respiratory pattern is regular, symmetrical. GI: Abdomen is non-distended, Reports nausea, vomiting. 01:42 Reassessment: CIWA-Ar: Nausea/Vomiting (2), Tremor (1), Paroxysmal sweats (0), Tactile sf disturbance (0), Auditory Disturbance (0), Visual disturbance (0), Anxiety (7), Agitation (4), Headache, fullness in head (2), Orientation and clouding of sensorium (0); TOTAL SCORE: 16. 02:30 Reassessment: Patient appears in no apparent distress at this time. Patient and/or sf family updated on plan of care and expected duration. Pain level reassessed. Patient reports resolution of nausea, no vomiting during visit. Patient appears less anxious and less restless. Updated on plan of care. Given ice chips and water with extra blanket per request. Patient states feeling better. Patient states symptoms have improved. 03:30 Reassessment: Patient appears in no apparent distress at this time. Patient and/or sf family updated on plan of care and expected duration. Pain level reassessed. CIWA-Ar: Nausea/Vomiting (0), Tremor (0), Paroxysmal sweats (0), Tactile disturbance (0), Auditory disturbance (0), Visual disturbance (0), Anxiety (2), Agitation (1), Headache, fullness in head (0), Orientation and clouding of sensorium (0); TOTAL SCORE: 3 Patient states feeling better. Patient states symptoms have improved. Vital Signs: 01:24 BP 140 / 92; Pulse 131; Resp 18; Temp 98.2(O); Pulse Ox 99% on R/A; Weight 58.97 kg lp1 (R); Height 5 ft. 3 in. (160.02 cm); 01:30 BP 122 / 99; Pulse 120; Resp 20; Pulse Ox 99% ; sf 02:00 BP 123 / 100; Pulse 106; Resp 18; Pulse Ox 100% ; sf 02:31 BP 122 / 106; Pulse 99; Resp 18; Pulse Ox 99% ; sf 03:00 BP 148 / 118; Pulse 100; Resp 16; Pulse Ox 98% ; sf 03:30 BP 107 / 62; Pulse 107; Resp 16; Pulse Ox 100% ; sf 01:24 Body Mass Index 23.03 (58.97 kg, 160.02 cm) lp1 Vitals: 03:00 Cardiac Rhythm Assessment Sinus rhythm. sf ED Course: 01:04 Patient arrived in ED. am2 01:18 Gabriel Leblanc, ISSA is Primary Nurse. sf 01:19 Wild Hanks MD is Attending Physician. [facility] 01:19 Triage completed. lp1 01:29 Arm band placed on. lp1 01:30 Inserted saline lock: 20 gauge in right antecubital area, using aseptic technique. sf 01:30 Initial lab(s) drawn, by ny, sent to lab. sf 01:35 Placed in gown. Bed in low position. Call light in reach. Side rails up X 1. Cardiac sf monitor on. Pulse ox on. NIBP on. 01:55 EKG done, by ED staff, reviewed by Wild Hanks MD. sf 02:00 Door closed. Noise minimized. Lights dimmed. Warm blanket given. sf 02:30 Urine collected: clean catch specimen, cloudy. sf 02:48 Urine Dipstick--Ancillary (enter results) Sent. sf 02:48 Urine --Ancillary (enter results) Sent. sf 02:55 Warm blanket given. PO fluids given. Verbal reassurance given. sf 03:54 No provider procedures requiring assistance completed. IV discontinued, intact, sf bleeding controlled, No redness/swelling at site. Pressure dressing applied. Administered Medications: 01:41 Drug: NS 0.9% 1000 ml Route: IV; Rate: 1000 ml; Site: right antecubital; sf 02:00 Follow up: IV Status: Completed infusion; IV Intake: 1000ml sf 01:43 Drug: Zofran (Ondansetron) 4 mg Route: IVP; Site: right antecubital; sf 01:43 Drug: Ativan 1 mg Route: IVP; Site: right antecubital; sf 02:40 Follow up: Response: No adverse reaction; Anxiety decreased sf 02:41 Drug: NS 0.9% 1000 ml Route: IV; Rate: 1 bolus; Site: right antecubital; sf 03:30 Follow up: Response: No adverse reaction; IV Status: Completed infusion; IV Intake: sf 1000ml 02:42 Drug: Ativan 1 mg Route: IVP; Site: right antecubital; sf 03:30 Follow up: Response: No adverse reaction; Anxiety decreased sf 02:43 Drug: Pepcid 20 mg Route: IVP; Site: right antecubital; sf 03:30 Follow up: Response: No adverse reaction sf 03:52 Drug: Cipro 500 mg Route: PO; sf 04:00 Follow up: Response: No adverse reaction sf Intake: 02:00 IV: 1000ml; Total: 1000ml. sf 03:30 IV: 1000ml; Total: 2000ml. sf Outcome: 03:51 Discharge ordered by . Sherri 04:01 Discharged to home ambulatory. sf 04:01 Condition: stable 04:01 Discharge instructions given to patient, Instructed on discharge instructions, follow up and referral plans. safety practices, Demonstrated understanding of instructions, follow-up care, medications, Prescriptions given X 2. 04:03 Patient left the ED. sf Signatures: Alissa Zepeda RN RN lp1 Dania Gonzales am2 Wild Hanks MD MD 7 Gabriel Leblanc RN RN sf Corrections: (The following items were deleted from the chart) 01:29 01:24 Chief complaint: Patient states: Reports drinking 7-8 shots of fireball whiskey lp1 about 24hrs ago after being sober since 07/30/20. Reports feeling nauseous, shaky, heart racing since 0800 this morning; States "I just need some Zofran and Ativan and I am going to go back to rehab" lp1 02:13 01:30 Neuro: Level of Consciousness is awake, alert, Oriented to person, place, time, sf situation, Appropriate for age sf
[2020-09-11] MEDS ORDERED: CIPROFLOXACIN HCL 500 MG TAB ONE (04:04)
[2020-09-11 04:07] VITALS: TEMP 98.2
[2020-09-11 04:13] VITALS: BP 107/62; O2SAT 100
== END 2020-09-11 04:03 | disposition home or self-care (01) ==
LOC: ER 01:03
DX: F10.20 Alcohol dependence, uncomplicated (principal); N39.0 Urinary tract infection, site not specified; R11.2 Nausea with vomiting, unspecified; E11.9 Type 2 diabetes mellitus without complications; F17.210 Nicotine dependence, cigarettes, uncomplicated; Z79.4 Long term (current) use of insulin; Z88.1 Allergy status to other antibiotic agents
CPT/HCPCS: 36415; 80048; 80076; 80320; 81003; 81025; 83690; 85025; 93005; 96361; 96374; 96375; 99284; J2405; J7030

== ENCOUNTER 2020-09-24 09:25 | Emergency (ER) | payer OTHER, SELFPAY ==
[2020-09-24 10:23] LABS: Absolute Lymphocytes (CBC) 1.4 K/uL (0.7-4.9); Basophils % 0.3 % (0-1.3); Hematocrit 42.1 % (36.0-45.0); Lymphocytes % 10.2 % (15.3-44.8); MPV 7.5 fL (7.6-11.3); RBC Red Blood Cell Count 4.82 M/uL (3.86-4.86)
[2020-09-24 10:25] LABS: Urine Blood NEGATIVE (NEG); Urine Glucose 3+ (NEG); Urine Protein TRACE (NEG); Urine Specific Gravity 1.025 (1.005-1.030)
[2020-09-24 10:32] LABS: Protime INR 0.9
[2020-09-24] MEDS ORDERED: NA CHLORIDE 0.9% 1,000 ML ONE (10:36)
[2020-09-24] MEDS ORDERED: ONDANSETRON 4 MG/2 ML VIAL ONE ×2 (10:36→11:52)
[2020-09-24] MEDS ORDERED: LORazepam 2 MG/ML VIAL ONE (10:36)
[2020-09-24 10:38] LABS: Barbiturates NEGATIVE (NEGATIVE); Benzodiazepines NEGATIVE (NEGATIVE); Cocaine NEGATIVE (NEGATIVE); METHAMPHETAM NEGATIVE (NEGATIVE); Methadone NEGATIVE (NEGATIVE); Opiates NEGATIVE (NEGATIVE); Phencyclidine NEGATIVE (NEGATIVE); THC Cannibis NEGATIVE (NEGATIVE)
[2020-09-24 10:40] LABS: ALT/SGPT 18 U/L (12-78); AST/SGOT 14 U/L (15-37); Albumin 4.3 g/dL (3.4-5.0); Alkaline Phosphatase 91 U/L (45-117); BUN Blood Urea Nitrogen 10 mg/dL (7-18); Bicarbonate 25 mmol/L (21-32); Bilirubin Direct < 0.1 mg/dL (0-0.2); Bilirubin Total 0.2 mg/dL (0.2-1.0); Glucose Level 282 mg/dL (74-106); Potassium 3.9 mmol/L (3.5-5.1); Protein, Total 9.3 g/dL (6.4-8.2); Sodium Level 140 mmol/L (136-145)
--- NOTE | 2020-09-24 12:02 | EDPHYS ---
Physician Documentation [facility] Name: Edelmira Pal Age: 35 yrs Sex: Female : 1985 Arrival Date: 09/24/2020 Time: 09:27 Bed 18 Private MD: ED Physician Austyn Velasquez HPI: 09/24 09:44 This 35 yrs old Female presents to ER via Ambulatory with complaints of kb Alcohol Withdrawal, Anxiety. 09:44 Onset: The symptoms/episode began/occurred gradually, today, and became worse this kb morning. Associated signs and symptoms: Pertinent positives: vomiting, Dizziness. Patient reports drinking for past 2 days after a duration of sobriety. She states she has anxiety, dizziness, and vomiting that is only fixed with ativan and zofran. She reports that she does not want to start drinking again to fix current condition. . 11:17 Modifying factors: The patient symptoms are alleviated by nothing, the patient symptoms kb are aggravated by nothing. The patient has experienced similar episodes in the past, several times. The patient has been recently seen at the [facility], a couple of weeks ago, for similar complaints labs were performed. 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 - Social history:: Smoking status: Patient reports the use of cigarette tobacco products, denies chronic smoking, but will smoke occasionally. ROS: 09:47 Respiratory: Negative for shortness of breath, cough, wheezing, and pleuritic chest kb pain. 09:47 Cardiovascular: Negative for chest pain, palpitations, and edema. 09:47 Abdomen/GI: Positive for nausea, vomiting. 09:52 Neuro: Positive for dizziness. kb 11:17 Constitutional: Negative for fever, chills, and weight loss, MS/Extremity: Negative for kb injury and deformity, Skin: Negative for injury, rash, and discoloration. 11:17 Psych: Positive for anxiety, Negative for depression, auditory hallucinations, visual hallucinations, suicide gesture, suicidal ideation. Exam: 09:49 MS/ Extremity: Pulses equal, no cyanosis. Neurovascular intact. Full, normal range kb of motion. Neuro: Awake and alert, GCS 15, oriented to person, place, time, and situation. Cranial nerves II-XII grossly intact. Motor strength 5/5 in all extremities. Sensory grossly intact. Cerebellar exam normal. Normal gait. 09:49 Head/Face: Normocephalic, atraumatic. Abdomen/GI: Soft, non-tender, with normal bowel sounds. No distension or tympany. No guarding or rebound. No evidence of tenderness throughout. Skin: Warm, dry with normal turgor. Normal color with no rashes, no lesions, and no evidence of cellulitis. MS/ Extremity: Pulses equal, no cyanosis. Neurovascular intact. Full, normal range of motion. 09:49 Cardiovascular: Rate: tachycardic, Rhythm: regular, Pulses: Heart sounds: normal. 09:49 Respiratory: the patient does not display signs of respiratory distress, Respirations: tachypnea, 24 11:17 Constitutional: The patient appears alert, awake, anxious. Vital Signs: 10:00 BP 134 / 92; Pulse 82; Resp 16; Temp 97.8; Pulse Ox 98% on R/A; iw 11:00 BP 109 / 67; Pulse 93; Resp 16; Pulse Ox 98% on R/A; iw MDM: 09:38 Patient medically screened. 09:52 Data reviewed: vital signs, nurses notes, lab test result(s), EKG. kb 11:19 Data interpreted: Pulse oximetry: on room air is 98 %. Interpretation: normal. kb 12:00 Counseling: I had a detailed discussion with the patient and/or guardian regarding: the historical points, exam findings, and any diagnostic results supporting the discharge/admit diagnosis, lab results, the need for outpatient follow up, a family practitioner, to return to the emergency department if symptoms worsen or persist or if there are any questions or concerns that arise at home. ED course: Pt requests her discharge papers. States 2 doses of medication is normally all she needs and her boyfriend is already here to pick her up. . 09/24 09:46 Order name: Acetaminophen; Complete Time: 10:50 kb 09/24 09:46 Order name: Basic Metabolic Panel; Complete Time: 10:50 kb 09/24 09:46 Order name: CBC with Diff; Complete Time: 10:31 kb 09/24 09:46 Order name: ETOH Level; Complete Time: 10:31 kb 09/24 09:46 Order name: Hepatic Function; Complete Time: 10:50 kb 09/24 09:46 Order name: PT-INR; Complete Time: 10:33 kb 09/24 09:46 Order name: Ptt, Activated; Complete Time: 10:33 kb 09/24 09:46 Order name: Salicylate; Complete Time: 10:52 kb 09/24 09:46 Order name: Urine Drug Screen; Complete Time: 10:50 kb 09/24 10:19 Order name: Urine Dipstick--Ancillary (enter results); Complete Time: 10:31 eb 09/24 10:19 Order name: Urine --Ancillary (enter results); Complete Time: 10:31 eb 09/24 09:46 Order name: EKG; Complete Time: 09:47 kb 09/24 09:46 Order name: EKG - Nurse/Tech kb 09/24 09:46 Order name: IV Saline Lock; Complete Time: 10:30 kb 09/24 09:46 Order name: Labs collected and sent; Complete Time: 10:30 kb 09/24 09:46 Order name: Urine Dipstick-Ancillary (obtain specimen); Complete Time: 10:30 kb Administered Medications: 10:26 Drug: Ativan 1 mg Route: IVP; Site: right antecubital; iw 10:28 Drug: NS 0.9% 1000 ml Route: IV; Rate: 1000 ml; Site: right antecubital; iw 10:28 Drug: Zofran (Ondansetron) 4 mg Route: IVP; Site: right antecubital; iw 11:39 Drug: Ativan 1 mg Route: IVP; Site: right antecubital; iw 11:39 Drug: Zofran (Ondansetron) 4 mg Route: IVP; Site: right antecubital; iw Disposition: 12:28 Co-signature as Attending Physician, Austyn Velasquez MD I agree with the assessment and kdr plan of care. Disposition: 09/24/20 12:01 Discharged to Home. Impression: Anxiety disorder, unspecified. - Condition is Stable. - Discharge Instructions: Panic Attacks, [id number]. - Medication Reconciliation Form, Thank You Letter, Antibiotic Education, Prescription Opioid Use form. - Follow up: Emergency Department; When: As needed; Reason: Worsening of condition. Follow up: Private Physician; When: 2 - 3 days; Reason: Recheck today's complaints, Continuance of care, Re-evaluation by your physician. Signatures: Dispatcher [employer] EDMS Angelika Eduardo, SPECIALTY FINISHING UTILITY PERSON-C SPECIALTY FINISHING UTILITY PERSON-Ckb Austyn Velasquez MD MD kdr Charis Baires RN RN iw Bridgett Goldman RN RN aa5 Corrections: (The following items were deleted from the chart) 11:18 09:47 Cardiovascular: Positive for kb kb 11:19 09:49 Abdomen/GI: Soft, non-tender, with normal bowel sounds. No distension or tympany. kb No guarding or rebound. No evidence of tenderness throughout. Skin: Warm, dry with normal turgor. Normal color with no rashes, no lesions, and no evidence of cellulitis. MS/ Extremity: Pulses equal, no cyanosis. Neurovascular intact. Full, normal range of motion. kb 12:06 12:01 09/24/2020 12:01 Discharged to Home. Impression: Anxiety disorder, unspecified. iw Condition is Stable. Forms are Medication Reconciliation Form, Thank You Letter, Antibiotic Education, Prescription Opioid Use. Follow up: Emergency Department; When: As needed; Reason: Worsening of condition. Follow up: Private Physician; When: 2 - 3 days; Reason: Recheck today's complaints, Continuance of care, Re-evaluation by your physician. kb
--- NOTE | 2020-09-24 12:02 | ER ---
Nurse's Notes [facility] Name: Edelmira Pal Age: 35 yrs Sex: Female : 1985 Arrival Date: 09/24/2020 Time: 09:27 Bed 18 Private MD: Diagnosis: Anxiety disorder, unspecified Presentation: 09/24 09:38 Chief complaint: Patient states: "I am a recovering alcoholic and I drank the last 2 aa5 nights and now I am having anxiety, I feel like I am sweaty and like I am going to pass out and I know I need Ativan and Zofran". Pt also reports nausea and vomiting. 09:38 Onset of symptoms was September 24, 2020. aa5 09:38 Acuity: BELTRAN 2 aa5 09:38 Method Of Arrival: Ambulatory aa5 10:00 Coronavirus screen: At this time, the client does not indicate any symptoms associated iw with coronavirus-19. Ebola Screen: Patient negative for fever greater than or equal to 101.5 degrees Fahrenheit, and additional compatible Ebola Virus Disease symptoms Patient denies exposure to infectious person. Patient denies travel to an Ebola-affected area in the 21 days before illness onset. No symptoms or risks identified at this time. Initial Sepsis Screen: Does the patient meet any 2 criteria? No. Patient's initial sepsis screen is negative. Does the patient have a suspected source of infection? No. Patient's initial sepsis screen is negative. Risk Assessment: Do you want to hurt yourself or someone else? Patient reports no desire to harm self or others. 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 - Social history:: Smoking status: Patient reports the use of cigarette tobacco products, denies chronic smoking, but will smoke occasionally. Screenin:31 Abuse screen: Denies threats or abuse. Denies injuries from another. Nutritional iw screening: No deficits noted. Tuberculosis screening: No symptoms or risk factors identified. Fall Risk None identified. Assessment: 10:30 General: Appears in no apparent distress. Behavior is anxious, restless. Pain: Denies iw pain. Neuro: Level of Consciousness is awake, alert, obeys commands, Oriented to person, place, time, situation, Moves all extremities. Full function. Cardiovascular: Patient's skin is warm and dry. Respiratory: Respiratory effort is even, unlabored, Respiratory pattern is regular, symmetrical. GI: Abdomen is flat, non-distended, Reports nausea, vomiting. Derm: Skin is intact, is healthy with good turgor. Musculoskeletal: Range of motion: intact in all extremities. 11:02 Reassessment: pt still very anxious, new orders placed. iw Vital Signs: 10:00 BP 134 / 92; Pulse 82; Resp 16; Temp 97.8; Pulse Ox 98% on R/A; iw 11:00 BP 109 / 67; Pulse 93; Resp 16; Pulse Ox 98% on R/A; iw ED Course: 09:27 Patient arrived in ED. ag5 09:38 Angel[facility] Eduardo [facility]C [facility] kb 09:38 Austyn Velasquez MD is Attending Physician. kb 09:38 Arm band placed on Patient placed in an exam room, on a stretcher. aa5 09:51 Triage completed. aa5 09:51 Charis Baires, RN is Primary Nurse. iw 10:10 Initial lab(s) drawn, by me, sent to lab. Urine collected: clean catch specimen, clear. iw Inserted saline lock: 20 gauge in right antecubital area, using aseptic technique. Blood collected. 10:32 Patient has correct armband on for positive identification. Bed in low position. Pulse iw ox on. NIBP on. 12:03 No provider procedures requiring assistance completed. IV discontinued, intact, iw bleeding controlled, No redness/swelling at site. Pressure dressing applied. Administered Medications: 10:26 Drug: Ativan 1 mg Route: IVP; Site: right antecubital; iw 10:28 Drug: NS 0.9% 1000 ml Route: IV; Rate: 1000 ml; Site: right antecubital; iw 10:28 Drug: Zofran (Ondansetron) 4 mg Route: IVP; Site: right antecubital; iw 11:39 Drug: Ativan 1 mg Route: IVP; Site: right antecubital; iw 11:39 Drug: Zofran (Ondansetron) 4 mg Route: IVP; Site: right antecubital; iw Outcome: 12:01 Discharge ordered by . guerita 12:05 Discharged to home ambulatory, with family. iw 12:05 Condition: good 12:05 Discharge instructions given to patient, Instructed on discharge instructions, follow up and referral plans. Demonstrated understanding of instructions, follow-up care. 12:06 Patient left the ED. iw Signatures: Angelika Eduardo, BRIDGE CREW MEMBER-C BRIDGE CREW MEMBER-CkCharis Morris RN RN Bridgett Magallon RN RN aa5 Marylou Costello 5
[2020-09-24 12:10] VITALS: TEMP 97.8; O2SAT 98
[2020-09-24 12:11] VITALS: BP 109/67
== END 2020-09-24 12:06 | disposition home or self-care (01) ==
LOC: ER 09:25
DX: F41.9 Anxiety disorder, unspecified (principal); Z88.1 Allergy status to other antibiotic agents; F10.20 Alcohol dependence, uncomplicated; F17.210 Nicotine dependence, cigarettes, uncomplicated
CPT/HCPCS: 36415; 80048; 80076; 80307; 80320; 80329; 81003; 81025; 85025; 85610; 85730; 96374; 96375; 99284; J2405; J7030

== ENCOUNTER 2020-10-12 22:14 | Emergency (ER) | payer SELFPAY ==
[2020-10-12] MEDS ORDERED: ONDANSETRON 4 MG/2 ML VIAL ONE (22:44)
[2020-10-12] MEDS ORDERED: DIAZEPAM 10 MG/2 ML INJ SYRINGE ONE (22:44)
[2020-10-12] MEDS ORDERED: NA CHLORIDE 0.9% 1,000 ML ONE (22:44)
[2020-10-12 22:57] LABS: Absolute Lymphocytes (CBC) 3.3 K/uL (0.7-4.9); Basophils % 0.6 % (0-1.3); Lymphocytes % 21.6 % (15.3-44.8); MPV 7.6 fL (7.6-11.3); RBC Red Blood Cell Count 4.86 M/uL (3.86-4.86)
[2020-10-12] MEDS ORDERED: LORazepam 2 MG/ML VIAL ONE (23:15)
[2020-10-12 23:41] LABS: ALT/SGPT 23 U/L (12-78); AST/SGOT 15 U/L (15-37); Albumin 4.2 g/dL (3.4-5.0); Alkaline Phosphatase 90 U/L (45-117); BUN Blood Urea Nitrogen 11 mg/dL (7-18); Bicarbonate 24 mmol/L (21-32); Bilirubin Direct < 0.1 mg/dL (0-0.2); Bilirubin Total 0.2 mg/dL (0.2-1.0); Glucose Level 237 mg/dL (74-106); Potassium 3.5 mmol/L (3.5-5.1); Protein, Total 9.2 g/dL (6.4-8.2); Sodium Level 140 mmol/L (136-145)
--- NOTE | 2020-10-13 00:22 | ER ---
Nurse's Notes [facility] Name: Edelmira Pal Age: 35 yrs Sex: Female : 1985 Arrival Date: 10/12/2020 Time: 22:15 Bed 2 Private MD: Diagnosis: Anxiety disorder, unspecified;Alcohol abuse Presentation: 10/12 22:25 Chief complaint: Patient states: I am having anxiety attack, vomiting all day, tremors rr5 and having alcohol withdrawal. I have been drinking for 4 days, my last intake was 0200H today. I have been sober for 2 months. 22:25 Coronavirus screen: Client denies travel out of the [place] in the last 14 days. At this rr5 time, the client does not indicate any symptoms associated with coronavirus-19. Ebola Screen: Patient negative for fever greater than or equal to 101.5 degrees Fahrenheit, and additional compatible Ebola Virus Disease symptoms Patient denies exposure to infectious person. Patient denies travel to an Ebola-affected area in the 21 days before illness onset. Initial Sepsis Screen: Does the patient meet any 2 criteria? No. Patient's initial sepsis screen is negative. Does the patient have a suspected source of infection? No. Patient's initial sepsis screen is negative. Risk Assessment: Do you want to hurt yourself or someone else? Patient reports no desire to harm self or others. Onset of symptoms was October 12, 2020. 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 - Social history:: Smoking status: Patient reports the use of cigarette tobacco products, denies chronic smoking, but will smoke occasionally, Patient uses alcohol, patient/guardian reports recent binge of alcohol consumption. Patient/guardian denies using street drugs. Screenin:33 Abuse screen: Denies threats or abuse. Denies injuries from another. Nutritional rr5 screening: No deficits noted. Tuberculosis screening: No symptoms or risk factors identified. Fall Risk IV access (20 points). Total Strauss Fall Scale indicates No Risk (0-24 pts). Assessment: 22:35 General: Appears in no apparent distress. uncomfortable, Behavior is anxious. Pain: rr5 Denies pain. Neuro: Level of Consciousness is awake, alert, obeys commands, Oriented to person, place, time, situation. Cardiovascular: Capillary refill < 3 seconds Patient's skin is warm and dry. Respiratory: Airway is patent Respiratory effort is even, unlabored, Respiratory pattern is regular, symmetrical. GI: Reports nausea, vomiting. : No signs and/or symptoms were reported regarding the genitourinary system. EENT: No signs and/or symptoms were reported regarding the EENT system. Derm: Skin is intact, is healthy with good turgor, Skin temperature is warm. Musculoskeletal: Capillary refill < 3 seconds, mild tremors. 10/13 00:18 Reassessment: Patient appears in no apparent distress at this time. patient is calmer. mg2 00:34 Reassessment: Patient denies pain at this time. Patient states feeling better. Patient mg2 states symptoms have improved. Vital Signs: 10/12 22:25 BP 140 / 105; Pulse 132; Resp 20; Temp 98.8; Pulse Ox 99% ; Weight 58.97 kg; Height 5 rr5 ft. 3 in. (160.02 cm); Pain 0/10; 23:38 Pulse 122; Resp 20; Pulse Ox 100% on R/A; mg2 10/13 00:17 BP 122 / 84; Pulse 109; Resp 18; Pulse Ox 100% on R/A; mg2 10/12 22:25 Body Mass Index 23.03 (58.97 kg, 160.02 cm) rr5 ED Course: 10/12 22:15 Patient arrived in ED. cl3 22:20 Marquez Mora PA is PHCP. jmm 22:21 Wild Hanks MD is Attending Physician. [facility] 22:27 Rolan Coley, ISSA is Primary Nurse. rr5 22:30 Triage completed. rr5 22:30 EKG done, by ED staff, reviewed by Marquez SAN. rr5 22:32 Arm band placed on right wrist. rr5 22:32 No provider procedures requiring assistance completed. Inserted saline lock: 20 gauge rr5 in left antecubital area, using aseptic technique. ,using aseptic technique. inserted linda PARSONS Blood collected. 22:36 Patient has correct armband on for positive identification. Placed in gown. Bed in low rr5 position. Call light in reach. Side rails up X2. potline monitor on. Pulse ox on. NIBP on. 23:32 Warm blanket given. PO fluids given. Verbal reassurance given. jp3 03 00:34 IV discontinued, intact, bleeding controlled, No redness/swelling at site. Pressure mg2 dressing applied. Administered Medications: 03 22:32 Drug: Zofran (Ondansetron) 4 mg Route: IVP; Site: left antecubital; rr5 03 00:34 Follow up: Response: No adverse reaction mg2 03 22:34 Drug: NS 0.9% 1000 ml Route: IV; Rate: 1 bolus; Site: left antecubital; rr5 10/13 00:34 Follow up: Response: No adverse reaction; IV Status: Completed infusion; IV Intake: mg2 1000ml 03 22:35 Drug: Valium 5 mg Route: IVP; Site: left antecubital; rr5 10/13 00:34 Follow up: Response: No adverse reaction; Marked relief of symptoms mg2 10/12 23:00 Drug: Ativan 1 mg Route: IVP; Site: left antecubital; mg2 10/13 00:33 Follow up: Response: No adverse reaction; Marked relief of symptoms mg2 10/12 23:34 Drug: Ativan 1 mg Route: IVP; Site: left antecubital; mg2 10/13 00:33 Follow up: Response: No adverse reaction; Marked relief of symptoms mg2 00:11 Drug: Ativan 0.5 mg Route: IVP; Site: left antecubital; mg2 00:33 Follow up: Response: No adverse reaction; Marked relief of symptoms mg2 00:17 Drug: Zofran (Ondansetron) 4 mg Route: IVP; Site: left antecubital; mg2 00:33 Follow up: Response: No adverse reaction mg2 Intake: 00:34 IV: 1000ml; Total: 1000ml. mg2 Outcome: 00:21 Discharge ordered by MD. klein 00:34 Discharged to home via wheelchair. mg2 00:34 Condition: stable 00:34 Discharge instructions given to patient, Instructed on discharge instructions, follow up and referral plans. medication usage, Demonstrated understanding of instructions, follow-up care, medications, Prescriptions given X 2. 00:35 Patient left the ED. mg2 Signatures: Marquez Mora PA PA jmm Gardose, Michele, RN RN mg2 Pete Colvin jp3 Rolan Coley RN RN rr5 Melly Flores cl3
--- NOTE | 2020-10-13 00:22 | EDPHYS ---
Physician Documentation [facility] Name: Edelmira Pal Age: 35 yrs Sex: Female : 1985 Arrival Date: 10/12/2020 Time: 22:15 Bed 2 Private MD: ED Physician Wild Hanks HPI: 10/12 22:46 This 35 yrs old Female presents to ER via Ambulatory with complaints of jmm Alcohol Withdrawal, Anxiety. 22:46 Onset: The symptoms/episode began/occurred today. Associated signs and symptoms: jmm Pertinent positives: nausea, anxiety. Modifying factors: The patient symptoms are alleviated by nothing, the patient symptoms are aggravated by nothing. This is a 35 year old female with a history of alcoholism, anxiety, asthma, DM, that presents to the ED with complaints of nausea. Patient states she last drank around 11 am. Patient states alcohol helps her with anxiety. . 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 - Social history:: Smoking status: Patient reports the use of cigarette tobacco products, denies chronic smoking, but will smoke occasionally, Patient uses alcohol, patient/guardian reports recent binge of alcohol consumption. Patient/guardian denies using street drugs. ROS: 22:46 Constitutional: Negative for fever, chills, and weight loss, Cardiovascular: Negative jmm for chest pain, palpitations, and edema, Respiratory: Negative for shortness of breath, cough, wheezing, and pleuritic chest pain. 22:46 Abdomen/GI: Positive for nausea. 22:46 All other systems are negative. Exam: 22:46 Constitutional: This is a well developed, well nourished patient who is awake, alert, jmm and in no acute distress. Head/Face: atraumatic. Eyes: EOMI, no conjunctival erythema appreciated ENT: Moist Mucus Membranes Neck: Trachea midline, Supple Chest/axilla: Normal chest wall appearance and motion. Cardiovascular: Regular rate and rhythm. No edema appreciated Respiratory: Normal respirations, no respiratory distress appreciated Abdomen/GI: Non distended, soft Back: Normal ROM Skin: General appearance color normal MS/ Extremity: Moves all extremities, no obvious deformities appreciated, no edema noted to the lower extremities Neuro: Awake and alert, normal gait Psych: Behavior is normal, Mood is normal, Patient is cooperative and pleasant Vital Signs: 22:25 BP 140 / 105; Pulse 132; Resp 20; Temp 98.8; Pulse Ox 99% ; Weight 58.97 kg; Height 5 rr5 ft. 3 in. (160.02 cm); Pain 0/10; 23:38 Pulse 122; Resp 20; Pulse Ox 100% on R/A; mg2 10/13 00:17 BP 122 / 84; Pulse 109; Resp 18; Pulse Ox 100% on R/A; mg2 10/12 22:25 Body Mass Index 23.03 (58.97 kg, 160.02 cm) rr5 MDM: 10/12 22:30 Patient medically screened. [facility] 10/13 00:19 Data reviewed: vital signs, nurses notes. Counseling: I had a detailed discussion with latoya the patient and/or guardian regarding: the historical points, exam findings, and any diagnostic results supporting the discharge/admit diagnosis, lab results, the need for outpatient follow up, to return to the emergency department if symptoms worsen or persist or if there are any questions or concerns that arise at home. ED course: Patient states feeling much better. Will follow up with her counselor. Patient is otherwise given strict return precautions. Patient understood and agrees with the plan of care. . 10/12 22:36 Order name: Acetaminophen; Complete Time: 23:48 mg2 10/12 22:36 Order name: Basic Metabolic Panel; Complete Time: 23:48 mg2 10/12 22:36 Order name: CBC with Diff; Complete Time: 23:16 mg2 10/12 22:36 Order name: ETOH Level; Complete Time: 23:29 mg2 10/12 22:36 Order name: Hepatic Function; Complete Time: 23:48 mg2 10/12 22:36 Order name: Salicylate; Complete Time: 23:29 mg2 10/12 22:45 Order name: Glucose, Ancillary Testing; Complete Time: 22:48 EDMS 10/12 22:35 Order name: EKG - Nurse/Tech; Complete Time: 22:35 rr5 10/12 22:36 Order name: EKG; Complete Time: 22:38 mg2 10/12 22:36 Order name: IV Saline Lock; Complete Time: 22:37 mg2 10/12 22:36 Order name: Labs collected and sent; Complete Time: 22:37 mg2 Administered Medications: 10/12 22:32 Drug: Zofran (Ondansetron) 4 mg Route: IVP; Site: left antecubital; rr5 10/13 00:34 Follow up: Response: No adverse reaction mg2 10/12 22:34 Drug: NS 0.9% 1000 ml Route: IV; Rate: 1 bolus; Site: left antecubital; rr5 10/13 00:34 Follow up: Response: No adverse reaction; IV Status: Completed infusion; IV Intake: mg2 1000ml 10/12 22:35 Drug: Valium 5 mg Route: IVP; Site: left antecubital; rr5 03 00:34 Follow up: Response: No adverse reaction; Marked relief of symptoms mg2 10/12 23:00 Drug: Ativan 1 mg Route: IVP; Site: left antecubital; mg2 03 00:33 Follow up: Response: No adverse reaction; Marked relief of symptoms mg2 10/12 23:34 Drug: Ativan 1 mg Route: IVP; Site: left antecubital; mg2 03 00:33 Follow up: Response: No adverse reaction; Marked relief of symptoms mg2 00:11 Drug: Ativan 0.5 mg Route: IVP; Site: left antecubital; mg2 00:33 Follow up: Response: No adverse reaction; Marked relief of symptoms mg2 00:17 Drug: Zofran (Ondansetron) 4 mg Route: IVP; Site: left antecubital; mg2 00:33 Follow up: Response: No adverse reaction mg2 Disposition: 07:16 Co-signature as Attending Physician, Wild Hanks MD. mh7 Disposition: 10/13/20 00:21 Discharged to Home. Impression: Anxiety disorder, unspecified, Alcohol abuse. - Condition is Stable. - Discharge Instructions: Panic Attacks, Alcohol Abuse and Nutrition. - Prescriptions for Zofran ODT 4 mg Oral tablet,disintegrating - place 1 tablet by TRANSLINGUAL route every 4-6 hours; 20 tablet. Hydroxyzine HCl 50 mg Oral Tablet - take 1 tablet by ORAL route every 8 hours As needed; 20 tablet. - Medication Reconciliation Form, Thank You Letter, Antibiotic Education, Prescription Opioid Use form. - Follow up: Private Physician; When: 2 - 3 days; Reason: Recheck today's complaints, Continuance of care, Re-evaluation by your physician. Signatures: Dispatcher [employer] EDMS Marquez Mora PA PA jmm Gardose, Michele RN RN mg2 Rolan Coley RN RN rr5 Wild Hanks MD MD 7 Corrections: (The following items were deleted from the chart) 00:35 00:21 10/13/2020 00:21 Discharged to Home. Impression: Anxiety disorder, unspecified; mg2 Alcohol abuse. Condition is Stable. Forms are Medication Reconciliation Form, Thank You Letter, Antibiotic Education, Prescription Opioid Use. Follow up: Private Physician; When: 2 - 3 days; Reason: Recheck today's complaints, Continuance of care, Re-evaluation by your physician. latoya
[2020-10-13] MEDS ORDERED: LORazepam 2 MG/ML VIAL ONE (00:24)
[2020-10-13] MEDS ORDERED: ONDANSETRON 4 MG/2 ML VIAL ONE (00:30)
[2020-10-13 16:13] VITALS: TEMP 98.8
[2020-10-13 16:14] VITALS: O2SAT 100
[2020-10-13 16:15] VITALS: BP 122/84
--- NOTE | 2020-10-14 05:16 | EKG ---
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
== END 2020-10-13 00:35 | disposition home or self-care (01) ==
LOC: ER 22:14
DX: F10.20 Alcohol dependence, uncomplicated (principal); F41.9 Anxiety disorder, unspecified; F17.210 Nicotine dependence, cigarettes, uncomplicated; E11.9 Type 2 diabetes mellitus without complications; Z79.4 Long term (current) use of insulin; J45.909 Unspecified asthma, uncomplicated; Y90.6 Blood alcohol level of 120-199 mg/100 ml
CPT/HCPCS: 36415; 80048; 80076; 80320; 80329; 82947; 85025; 93005; 96361; 96374; 96375; 99284; J2405; J3360; J7030

== ENCOUNTER 2020-10-23 09:29 | Emergency (ER) | payer OTHER, SELFPAY ==
[2020-10-23] MEDS ORDERED: HYDROCODONE/APAP 7.5/325 MG TAB ONE (10:22)
--- NOTE | 2020-10-23 11:16 | RAD REPORT ---
EXAM DESCRIPTION: RAD - Tib Fib Right - 10/23/2020 10:36 am CLINICAL HISTORY: fall;Pain COMPARISON: No comparisons FINDINGS: Oblique fracture is seen involving the distal fibula. Small knee joint effusion is present .
--- NOTE | 2020-10-23 11:24 | ER ---
Nurse's Notes [facility] Name: Edelmira Pal Age: 35 yrs Sex: Female : 1985 Arrival Date: 10/23/2020 Time: 09:31 Bed 19 Private MD: Diagnosis: Sprain of other specified parts of right knee;Nondisplaced fracture of lateral malleolus of right fibula Presentation: 10/23 09:48 Chief complaint: Chief complaint: Patient states: right ankle and right knee pain after aa5 fall last night. 09:48 Onset of symptoms was October 23, 2020. aa5 09:48 Acuity: BELTRAN 4 aa5 09:48 Method Of Arrival: Ambulatory aa 09:48 Coronavirus screen: At this time, the client does not indicate any symptoms associated aa5 with coronavirus-19. Ebola Screen: Patient negative for fever greater than or equal to 101.5 degrees Fahrenheit, and additional compatible Ebola Virus Disease symptoms. Initial Sepsis Screen: Does the patient meet any 2 criteria? No. Patient's initial sepsis screen is negative. Does the patient have a suspected source of infection? No. Patient's initial sepsis screen is negative. Risk Assessment: Do you want to hurt yourself or someone else? Patient reports no desire to harm self or others. Historical: - Allergies: 09:55 Ceclor; aa5 09:55 kiwi; aa5 - PMHx: 09:55 Alcoholism; Anxiety; Asthma; Type 1 Diabetes; aa5 - PSHx: 09:55 Knee surgery; aa5 - Immunization history:: Adult Immunizations unknown. - Social history:: Smoking status: Patient reports the use of cigarette tobacco products, denies chronic smoking, but will smoke occasionally. Screenin:55 Abuse screen: Denies threats or abuse. Nutritional screening: No deficits noted. rb3 Tuberculosis screening: No symptoms or risk factors identified. Fall Risk Fall in past 12 months (25 points). Secondary diagnosis (15 points) impaired mobility, No IV (0 pts). Ambulatory Aid- None/Bed Rest/Nurse Assist (0 pts). Gait- Impaired (20 pts.). Mental Status- Oriented to own ability (0 pts). Total Strauss Fall Scale indicates High Risk Score (45 or more points). Fall prevention measures have been instituted. Side Rails Up X 2 As available patient and family educated on Fall Prevention Program and Strategies. Assessment: 09:55 General: Appears uncomfortable, Behavior is calm, cooperative. Pain: Complains of pain rb3 in right ankle, right knee Pain currently is 9 out of 10 on a pain scale. Neuro: Level of Consciousness is awake, alert, obeys commands, Oriented to person, place, time, situation. Cardiovascular: Capillary refill < 3 seconds is brisk toes Patient's skin is warm and dry. Respiratory: Airway is patent Respiratory effort is even, unlabored, Respiratory pattern is regular, symmetrical. GI: No signs and/or symptoms were reported involving the gastrointestinal system. : No signs and/or symptoms were reported regarding the genitourinary system. Musculoskeletal: Range of motion: limited in right ankle Reports pain when bearing weight. 10:22 Reassessment: X-ray at the bedside. rb3 11:21 Reassessment: Patient appears in no apparent distress at this time. Patient and/or rb3 family updated on plan of care and expected duration. Pain level reassessed. Patient is alert, oriented x 3, equal unlabored respirations, skin warm/dry/pink. 12:00 Reassessment: Patient appears in no apparent distress at this time. No changes from rb3 previously documented assessment. Vital Signs: 09:48 BP 126 / 86; Pulse 98; Resp 18 S; Temp 98.0(TE); Pulse Ox 100% on R/A; Weight 63.5 kg aa5 (R); Height 5 ft. 3 in. (160.02 cm) (R); Pain 9/10; 10:00 BP 125 / 100; Pulse 95; Resp 16; Pulse Ox 100% ; rb3 11:03 BP 115 / 93; Pulse 59; Pulse Ox 99% on R/A; rb3 12:00 BP 117 / 95; Pulse 71; Resp 17; Pulse Ox 100% ; rb3 09:48 Body Mass Index 24.80 (63.50 kg, 160.02 cm) aa5 ED Course: 09:31 Patient arrived in ED. am2 09:47 Chapito Whipple PA is PHCP. cp 09:48 Chapito Sanders MD is Attending Physician. cp 09:48 Arm band placed on Patient placed in an exam room, on a stretcher. aa5 09:51 Triage completed. aa5 09:55 Patient has correct armband on for positive identification. Bed in low position. Call rb3 light in reach. Side rails up X 1. Warm blanket given. 10:02 Sharon Morataya, RN is Primary Nurse. rb3 10:36 XRAY Tib Fib RIGHT In Process Unspecified. EDMS 11:22 XRAY Ankle RIGHT 3 view In Process Unspecified. EDMS 11:22 Ruddy Jean MD is Referral Physician. cp 12:01 Crutch training done. Orthoglass splint: Posterior long leg splint applied on right mh5 leg. stirrup splint applied on right leg. 12:10 No provider procedures requiring assistance completed. Patient did not have IV access rb3 during this emergency room visit. Administered Medications: 10:09 Drug: Hydrocodone-Acetaminophen (7.5 mg-325 mg) 1 tabs Route: PO; rb3 10:47 Follow up: Response: No adverse reaction; Pain is decreased rb3 Outcome: 11:24 Discharge ordered by MD. cp 12:10 Discharged to home via wheelchair, with crutches. rb3 12:10 Condition: stable 12:10 Discharge instructions given to patient, Instructed on discharge instructions, follow up and referral plans. medication usage, Demonstrated understanding of instructions, follow-up care, medications, Prescriptions given X 2. 12:15 Patient left the ED. rb3 Signatures: Dispatcher [employer] Bridgett Machado, RN RN aa5 Chapito Whipple PA PA cp Martinez, [facility] Dania Gonzales [facility] Sharon Morataya, RN RN rb3
--- NOTE | 2020-10-23 11:25 | EDPHYS ---
Physician Documentation [facility] Name: Edelmira Pal Age: 35 yrs Sex: Female : 1985 Arrival Date: 10/23/2020 Time: 09:31 Bed 19 Private MD: PHILOMENA Physician Chapito Sanders HPI: 10/23 09:56 This 35 yrs old Female presents to ER via Ambulatory with complaints of Ankle cp Injury, Knee Injury. 09:56 The patient presents with an injury, pain, that is acute. The complaints affect the cp right knee and right ankle. Context: resulted from the patient falling, the patient is not able to bear weight, must have assistance. Onset: The symptoms/episode began/occurred last night. Associated signs and symptoms: Pertinent negatives numbness. Treatment prior to arrival includes: no previous treatment. Historical: - Allergies: 09:55 Ceclor; aa5 09:55 kiwi; aa5 - PMHx: 09:55 Alcoholism; Anxiety; Asthma; Type 1 Diabetes; aa5 - PSHx: 09:55 Knee surgery; aa5 - Immunization history:: Adult Immunizations unknown. - Social history:: Smoking status: Patient reports the use of cigarette tobacco products, denies chronic smoking, but will smoke occasionally. ROS: 10:00 MS/extremity: Positive for pain, tenderness, of the right lower leg, injury, Negative cp for decreased range of motion, deformity, paresthesias. 10:00 Constitutional: Negative for fever, poor PO intake. cp 10:00 All other systems are negative. Exam: 10:10 Constitutional: The patient appears in no acute distress, alert, awake, well developed, cp well nourished, uncomfortable. 10:10 Head/Face: Normocephalic, atraumatic. cp 10:10 Neck: ROM/movement: is normal, is supple, without pain, no range of motions limitations. 10:10 Chest/axilla: Inspection: normal. 10:10 Cardiovascular: Rate: normal. 10:10 Respiratory: the patient does not display signs of respiratory distress, Respirations: normal, no use of accessory muscles. 10:10 Abdomen/GI: Inspection: abdomen appears normal. 10:10 Back: pain, is absent, ROM is normal. 10:10 Musculoskeletal/extremity: Extremities: grossly normal except: noted in the right ankle and right knee: pain, swelling, tenderness, painful ROM, There is no evidence of deformity, Pulses: noted to be 2+ in the right dorsalis pedis artery, Sensation intact. No pain to palpation noted proximal right fifth metatarsal, Achilles tendon palpated and intact. 10:10 Neuro: Orientation: to person, place \T\ time. Mentation: is normal. Vital Signs: 09:48 BP 126 / 86; Pulse 98; Resp 18 S; Temp 98.0(TE); Pulse Ox 100% on R/A; Weight 63.5 kg aa5 (R); Height 5 ft. 3 in. (160.02 cm) (R); Pain 9/10; 10:00 BP 125 / 100; Pulse 95; Resp 16; Pulse Ox 100% ; rb3 11:03 BP 115 / 93; Pulse 59; Pulse Ox 99% on R/A; rb3 12:00 BP 117 / 95; Pulse 71; Resp 17; Pulse Ox 100% ; rb3 09:48 Body Mass Index 24.80 (63.50 kg, 160.02 cm) aa5 Procedures: 12:10 Splinting: Splint applied to right lower extremity using Orthoglass splint, posterior cp long leg and stirrup type. applied by tech. Examined by me, post splint application: neurovascular intact, Patient tolerated well. 12:10 Crutch training provided to patient and/or family. Return demonstration given. cp MDM: 09:49 Patient medically screened. cp 11:00 Differential diagnosis: dislocation, closed fracture, sprain, strain. cp 11:11 Data reviewed: vital signs, nurses notes, radiologic studies, plain films. Test cp interpretation: by ED physician or midlevel provider: xrays of ankle show distal right fibula fracture. Counseling: I had a detailed discussion with the patient and/or guardian regarding: the historical points, exam findings, and any diagnostic results supporting the discharge/admit diagnosis, radiology results, the need for outpatient follow up, for definitive care, a orthopedic surgeon, to return to the emergency department if symptoms worsen or persist or if there are any questions or concerns that arise at home. 11:29 ED course: Review of [place] prescription website: narcotic score of 240, sedative score cp of 341 and overdose risk score of 400. 10/23 09:56 Order name: XRAY Tib Fib RIGHT cp 10/23 10:51 Order name: XRAY Ankle RIGHT 3 view cp 10/23 11:10 Order name: Splint - Long Leg: Posterior w/ Stirrup; Complete Time: 12:01 cp 10/23 11:10 Order name: Crutches; Complete Time: 12:01 cp Administered Medications: 10:09 Drug: Hydrocodone-Acetaminophen (7.5 mg-325 mg) 1 tabs Route: PO; rb3 10:47 Follow up: Response: No adverse reaction; Pain is decreased rb3 Disposition: 12:20 Chart complete. cp 10/24 01:18 Co-signature as Attending Physician, Chapito Sanders MD I agree with the assessment and jamel plan of care. Disposition: 10/23/20 11:24 Discharged to Home. Impression: Sprain of other specified parts of right knee, Nondisplaced fracture of lateral malleolus of right fibula. - Condition is Stable. - Discharge Instructions: Fibular Ankle Fracture Treated With or Without Immobilization, Adult, Knee Sprain. - Prescriptions for Ibuprofen 800 mg Oral Tablet - take 1 tablet by ORAL route every 8 hours As needed take with food; 30 tablet. Tylenol- Codeine #3 300-30 mg Oral Tablet - take 2 tablets by ORAL route every 4-6 hours As needed; 20 tablet. - Medication Reconciliation Form, Thank You Letter, Antibiotic Education, Prescription Opioid Use form. - Follow up: Ruddy Jean MD; When: 2 - 3 days; Reason: right distal fibula fracture. Signatures: Dispatcher [employer] Chapito Lopez MD MD cha Calderon, Audri, RN RN aa5 Chapito Whipple PA PA cp Barber, Rebecca, RN RN rb3 Corrections: (The following items were deleted from the chart) 10/23 12:15 11:24 10/23/2020 11:24 Discharged to Home. Impression: Sprain of other specified parts rb3 of right knee; Nondisplaced fracture of lateral malleolus of right fibula. Condition is Stable. Forms are Medication Reconciliation Form, Thank You Letter, Antibiotic Education, Prescription Opioid Use. Follow up: Ruddy Jean; When: 2 - 3 days; Reason: right distal fibula fracture. cp
--- NOTE | 2020-10-23 11:30 | RAD REPORT ---
EXAM DESCRIPTION: RAD - Ankle Right 3 View - 10/23/2020 11:22 am CLINICAL HISTORY: Pain;Swelling COMPARISON: No comparisons FINDINGS: Oblique fracture is seen involving the distal fibula. Mild soft tissue swelling is present involving the ankle. No dislocation evident.
[2020-10-23 12:19] VITALS: TEMP 98
[2020-10-23 12:23] VITALS: BP 117/95; O2SAT 100
== END 2020-10-23 12:15 | disposition home or self-care (01) ==
LOC: ER 09:29
PROC: 2W3LX1Z Immobilization of Right Lower Extremity using Splint (ICD-10-PCS; principal; 2020-10-23)
DX: S82.64XA Nondisplaced fracture of lateral malleolus of right fibula, initial encounter for closed fracture (principal); W19.XXXA Unspecified fall, initial encounter; Y93.9 Activity, unspecified; Y92.9 Unspecified place or not applicable; F10.20 Alcohol dependence, uncomplicated; F17.210 Nicotine dependence, cigarettes, uncomplicated; Z88.1 Allergy status to other antibiotic agents; Z91.018 Allergy to other foods
CPT/HCPCS: 99284

== ENCOUNTER 2020-11-02 04:42 | Emergency (ER) | payer OTHER, SELFPAY ==
[2020-11-02] MEDS ORDERED: NA CHLORIDE 0.9% 1,000 ML ONE ×2 (05:11→07:12)
[2020-11-02] MEDS ORDERED: LORazepam 2 MG/ML VIAL ONE ×2 (05:11→07:12)
[2020-11-02 05:14] LABS: Absolute Lymphocytes (CBC) 1.6 K/uL (0.7-4.9); Basophils % 0.9 % (0-1.3); Hematocrit 37.8 % (36.0-45.0); Lymphocytes % 15.9 % (15.3-44.8); MPV 7.1 fL (7.6-11.3); RBC Red Blood Cell Count 4.23 M/uL (3.86-4.86)
[2020-11-02] MEDS ORDERED: ONDANSETRON 4 MG/2 ML VIAL ONE (05:32)
[2020-11-02 05:35] LABS: Protime INR 1.03
[2020-11-02 05:42] LABS: ALT/SGPT 21 U/L (12-78); AST/SGOT 16 U/L (15-37); Albumin 3.6 g/dL (3.4-5.0); Alkaline Phosphatase 73 U/L (45-117); BUN Blood Urea Nitrogen 9 mg/dL (7-18); Bicarbonate 24 mmol/L (21-32); Bilirubin Direct < 0.1 mg/dL (0-0.2); Bilirubin Total 0.2 mg/dL (0.2-1.0); Glucose Level 282 mg/dL (74-106); Potassium 4.1 mmol/L (3.5-5.1); Protein, Total 8.7 g/dL (6.4-8.2); Sodium Level 142 mmol/L (136-145)
--- NOTE | 2020-11-02 07:09 | ER ---
Nurse's Notes [facility] Name: Edelmira Pal Age: 35 yrs Sex: Female : 1985 Arrival Date: 11/02/2020 Time: 04:44 Bed 7 Private MD: Diagnosis: Anxiety disorder, unspecified;Alcohol abuse;Alcohol abuse with intoxication Presentation: 11/02 04:45 Chief complaint: EMS states: called out for someone having an anxiety attack, hx of em drinking, last had whiskey at 1600 yesterday, reports Ativan helps her anxiety. Coronavirus screen: Client denies travel out of the [place] in the last 14 days. Ebola Screen: Patient negative for fever greater than or equal to 101.5 degrees Fahrenheit, and additional compatible Ebola Virus Disease symptoms Patient denies exposure to infectious person. Patient denies travel to an Ebola-affected area in the 21 days before illness onset. No symptoms or risks identified at this time. Initial Sepsis Screen: Does the patient meet any 2 criteria? HR > 90 bpm. No. Patient's initial sepsis screen is negative. Does the patient have a suspected source of infection? No. Patient's initial sepsis screen is negative. Risk Assessment: Do you want to hurt yourself or someone else? Patient reports no desire to harm self or others. Onset of symptoms was November 02, 2020. 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 - Social history:: Smoking status: Patient denies any tobacco usage or history of. Screenin:49 Abuse screen: Denies threats or abuse. Nutritional screening: No deficits noted. em Tuberculosis screening: No symptoms or risk factors identified. Fall Risk Fall in past 12 months (25 points). Secondary diagnosis (15 points) impaired mobility, Total Strauss Fall Scale indicates Low Risk Score (25-44 pts). Side Rails Up X 2 Placed close to Nursing Station. Assessment: 04:48 General: Appears uncomfortable, Behavior is anxious, restless. General: Smells of ea alcohol. Pain: Complains of pain in abdomen. Neuro: Level of Consciousness is awake, alert, obeys commands, Oriented to person, place, time. Respiratory: Airway is patent Respiratory effort is even, unlabored, Respiratory pattern is regular, symmetrical. Derm: Skin is pink, warm \T\ dry. 07:00 Reassessment: RECD REPORT FROM LEXIS PARSONS. 35YO WF P/W ETOH ABUSE AND ANXIETY. DISPO rr5 PENDING. 08:32 Reassessment: Patient appears in no apparent distress at this time. No changes from tw2 previously documented assessment. Patient and/or family updated on plan of care and expected duration. Pain level reassessed. Patient is alert, oriented x 3, equal unlabored respirations, skin warm/dry/pink. Vital Signs: 04:45 BP 127 / 84; Pulse 130; Resp 18; Temp 98.9; Pulse Ox 100% on R/A; Weight 65.77 kg; em Height 5 ft. 3 in. (160.02 cm); Pain 7/10; 05:24 Pulse 112; Resp 18; Pulse Ox 99% on R/A; ea 04:45 Body Mass Index 25.69 (65.77 kg, 160.02 cm) em ED Course: 04:44 Patient arrived in ED. ea 04:47 Triage completed. em 04:48 Arm band placed on. em 04:49 Arya Laura MD is Attending Physician. tw4 04:49 Patient has correct armband on for positive identification. Placed in gown. Bed in low em position. Call light in reach. Side rails up X2. Seizure precautions initiated. Pulse ox on. NIBP on. 04:52 Lexis Lynch RN is Primary Nurse. ea 05:21 Inserted saline lock: 18 gauge in right hand, using aseptic technique. ,using aseptic ea technique. per Vikas PARSONS. 07:15 Awaiting: completion of IV fluids prior to discharge. tw2 07:18 Primary Nurse role handed off by Lexis Lynch RN 08:19 Sharri Moreno, RN is Primary Nurse. tw2 08:19 No provider procedures requiring assistance completed. tw2 08:32 IV discontinued, intact, bleeding controlled, No redness/swelling at site. Pressure tw2 dressing applied. Administered Medications: 04:59 Drug: NS 0.9% 1000 ml Route: IV; Rate: 1000 ml; Site: right hand; ea 05:00 Drug: Ativan 1 mg Route: IVP; Site: right hand; ea 05:18 Follow up: Response: No adverse reaction ea 05:17 Drug: Zofran (Ondansetron) 4 mg Route: IVP; Site: right hand; ea 05:18 Follow up: Response: No adverse reaction ea 05:17 CANCELLED (Duplicate Order): Zofran (Ondansetron) 4 mg IVP once; over 2 minutes ea 06:59 Drug: Ativan 1 mg Route: IVP; Site: right hand; ea 08:00 Follow up: Response: No adverse reaction tw2 06:59 Drug: NS 0.9% 1000 ml Route: IV; Rate: 1 bolus; Site: right hand; ea 08:00 Follow up: Response: No adverse reaction; IV Status: Completed infusion; IV Intake: tw2 1000ml Intake: 08:00 IV: 1000ml; Total: 1000ml. tw2 Outcome: 07:08 Discharge ordered by . tw4 08:32 Discharged to home via wheelchair. tw2 08:32 Condition: stable 08:32 Discharge instructions given to patient, Instructed on discharge instructions, follow up and referral plans. Demonstrated understanding of instructions, follow-up care. 08:32 Patient left the ED. tw2 Signatures: Fatmata Dguan Edgar RN ISSA em Sharri Moreno RN RN tw2 Lexis Lynch, Arya Corona RN, ea, MD MD tw4 Rolan Coley RN RN rr5
--- NOTE | 2020-11-02 07:09 | EDPHYS ---
Physician Documentation [facility] Name: Edelmira Pal Age: 35 yrs Sex: Female : 1985 Arrival Date: 11/02/2020 Time: 04:44 Bed 7 Private MD: ED Physician Arya Laura HPI: 11/02 06:49 This 35 yrs old Female presents to ER via EMS with complaints of anxiety tw4 alcohol wihtdrawal. 06:49 This 35 yrs old Female presents to ER via EMS with unknown complaint. tw4 06:49 This 35 yrs old Female presents to ER via EMS with complaints of anxiety and tw4 alcohol withdrawal. 06:49 The patient presents to the emergency department with anxiety, over unknown tw4 circumstances, a history of substance abuse, Type: vodka. Onset: The symptoms/episode began/occurred just prior to arrival, today. Past psychiatric history: Prior diagnosis: no previous psychiatric diagnosis known. The patient has experienced similar episodes in the past, multiple times. 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 - Social history:: Smoking status: Patient denies any tobacco usage or history of. ROS: 06:49 Constitutional: Negative for fever, chills, and weight loss, Eyes: Negative for injury, tw4 pain, redness, and discharge, Cardiovascular: Negative for chest pain, palpitations, and edema, Respiratory: Negative for shortness of breath, cough, wheezing, and pleuritic chest pain, Abdomen/GI: Negative for abdominal pain, nausea, vomiting, diarrhea, and constipation, Back: Negative for injury and pain, MS/Extremity: Negative for injury and deformity, Skin: Negative for injury, rash, and discoloration, Neuro: Negative for headache, weakness, numbness, tingling, and seizure. 06:49 Psych: Positive for anxiety, alcohol dependence. Exam: 06:49 Head/Face: Normocephalic, atraumatic. Chest/axilla: Normal chest wall appearance and tw4 motion. Nontender with no deformity. No lesions are appreciated. 06:49 Respiratory: Lungs have equal breath sounds bilaterally, clear to auscultation and percussion. No rales, rhonchi or wheezes noted. No increased work of breathing, no retractions or nasal flaring. Abdomen/GI: Soft, non-tender, with normal bowel sounds. No distension or tympany. No guarding or rebound. No evidence of tenderness throughout. Back: No spinal tenderness. No costovertebral tenderness. Full range of motion. MS/ Extremity: Pulses equal, no cyanosis. Neurovascular intact. Full, normal range of motion. Neuro: Awake and alert, GCS 15, oriented to person, place, time, and situation. Cranial nerves II-XII grossly intact. Motor strength 5/5 in all extremities. Sensory grossly intact. Cerebellar exam normal. Normal gait. 06:49 Constitutional: The patient appears anxious, in obvious distress, mildly distressed. 06:49 Cardiovascular: Rate: tachycardic, actual rate is 123 bpm, Rhythm: regular. 06:49 Psych: Behavior/mood is cooperative, anxious, Affect is animated, Oriented to person, place, time, Patient has no thoughts/intents to harm self or others. Vital Signs: 04:45 BP 127 / 84; Pulse 130; Resp 18; Temp 98.9; Pulse Ox 100% on R/A; Weight 65.77 kg; em Height 5 ft. 3 in. (160.02 cm); Pain 7/10; 05:24 Pulse 112; Resp 18; Pulse Ox 99% on R/A; ea 04:45 Body Mass Index 25.69 (65.77 kg, 160.02 cm) em MDM: 04:49 Patient medically screened. tw4 11/02 04:50 Order name: Acetaminophen 11/02 04:50 Order name: Basic Metabolic Panel 11/02 04:50 Order name: CBC with Diff 11/02 04:50 Order name: ETOH Level; Complete Time: 05:52 ea 11/02 05:52 Interpretation: Abnormal: ETOH 117. tw4 11/02 04:50 Order name: Hepatic Function; Complete Time: 05:52 ea 11/02 05:52 Interpretation: Normal except: TP 8.7; GLOB 5.1; A/G 0.7. tw4 11/02 04:50 Order name: PT-INR; Complete Time: 05:52 ea 11/02 05:52 Interpretation: Within normal limits: PT 11.9. 11/02 04:50 Order name: Ptt, Activated; Complete Time: 05:52 ea 11/02 05:53 Interpretation: Within normal limits: PTT 25.8. 11/02 04:51 Order name: Acetaminophen Level; Complete Time: 05:52 EDMS 11/02 05:52 Interpretation: Within normal limits: ACETA < 2.0. 11/02 04:51 Order name: Basic Metabolic Panel; Complete Time: 05:52 EDMS 11/02 05:52 Interpretation: Normal except: GLUC 282; GFR 79. 11/02 04:51 Order name: CBC with Automated Diff; Complete Time: 05:52 EDMS 11/02 05:52 Interpretation: Normal except: MPV 7.1; RENE% 77.2; PLT 541. 4 11/02 07:38 Order name: Urine Dipstick--Ancillary (enter results) em1 11/02 07:39 Order name: Urine Dipstick-Ancillary EDKS 11/02 04:50 Order name: EKG; Complete Time: 04:51 ea 11/02 04:50 Order name: EKG - Nurse/Tech; Complete Time: 05:13 ea 11/02 04:50 Order name: IV Saline Lock; Complete Time: 05:00 ea 11/02 04:50 Order name: Labs collected and sent; Complete Time: 05:00 ea 11/02 04:50 Order name: Urine Dipstick-Ancillary (obtain specimen); Complete Time: 07:37 ea EC:47 Rate is 120 beats/min. Rhythm is regular. QRS [place] is Normal. OR interval is normal. tw4 QRS interval is normal. QT interval is normal. No Q waves. T waves are Normal. No ST changes noted. Clinical impression: Sinus tachycardia. Interpreted by me. Reviewed by me. Administered Medications: 04:59 Drug: NS 0.9% 1000 ml Route: IV; Rate: 1000 ml; Site: right hand; ea 05:00 Drug: Ativan 1 mg Route: IVP; Site: right hand; ea 05:18 Follow up: Response: No adverse reaction ea 05:17 Drug: Zofran (Ondansetron) 4 mg Route: IVP; Site: right hand; ea 05:18 Follow up: Response: No adverse reaction ea 05:17 CANCELLED (Duplicate Order): Zofran (Ondansetron) 4 mg IVP once; over 2 minutes ea 06:59 Drug: Ativan 1 mg Route: IVP; Site: right hand; ea 08:00 Follow up: Response: No adverse reaction tw2 06:59 Drug: NS 0.9% 1000 ml Route: IV; Rate: 1 bolus; Site: right hand; ea 08:00 Follow up: Response: No adverse reaction; IV Status: Completed infusion; IV Intake: tw2 1000ml Disposition: 11/02/20 07:08 Discharged to Home. Impression: Anxiety disorder, unspecified, Alcohol abuse, Alcohol abuse with intoxication. - Condition is Stable. - Discharge Instructions: Alcohol Intoxication, Alcohol Abuse and Nutrition, Social Anxiety Disorder, Generalized Anxiety Disorder. - Work release form, Medication Reconciliation Form, Thank You Letter, Antibiotic Education, Prescription Opioid Use form. - Follow up: Private Physician; When: Upon discharge from the Emergency Department; Reason: Recheck today's complaints, Continuance of care, Re-evaluation by your physician. - Problem is new. - Symptoms have improved. Signatures: Dispatcher [employer] EDMahad Castillo RN Sharri Acevedo RN RN tw2 Lexis Lynch RN RN ea Wadley, Terrence, MD MD tw4 Corrections: (The following items were deleted from the chart) 05:17 05:14 Zofran (Ondansetron) 4 mg IVP once; over 2 minutes ordered. tw4 ea 06:51 06:47 Constitutional: This is a well developed, well nourished patient who is awake, tw4 alert, and in no acute distress. Head/Face: Normocephalic, atraumatic. Chest/axilla: Normal chest wall appearance and motion. Nontender with no deformity. No lesions are appreciated. Cardiovascular: Regular rate and rhythm with a normal S1 and S2. No gallops, murmurs, or rubs. Normal PMI, no JVD. No pulse deficits. Skin: Warm, dry with normal turgor. Normal color with no rashes, no lesions, and no evidence of cellulitis. MS/ Extremity: Pulses equal, no cyanosis. Neurovascular intact. Full, normal range of motion. Neuro: Awake and alert, GCS 15, oriented to person, place, time, and situation. Cranial nerves II-XII grossly intact. Motor strength 5/5 in all extremities. Sensory grossly intact. Cerebellar exam normal. Normal gait. tw4 08:32 07:08 11/02/2020 07:08 Discharged to Home. Impression: Anxiety disorder, unspecified; tw2 Alcohol abuse; Alcohol abuse with intoxication. Condition is Stable. Discharge Instructions: Alcohol Intoxication, Alcohol Abuse and Nutrition, Social Anxiety Disorder, Generalized Anxiety Disorder. Forms are Medication Reconciliation Form, Thank You Letter, Antibiotic Education, Prescription Opioid Use. Follow up: Private Physician; When: Upon discharge from the Emergency Department; Reason: Recheck today's complaints, Continuance of care, Re-evaluation by your physician. Problem is new. Symptoms have improved. tw4
[2020-11-02 08:05] LABS: Urine Blood NEGATIVE (Negative); Urine Glucose 2+ (Negative); Urine Protein NEGATIVE (NEG); Urine pH 7.5 (5.0-7.0)
[2020-11-02 08:37] VITALS: BP 127/84; TEMP 98.9
[2020-11-02 08:39] VITALS: O2SAT 99
--- NOTE | 2020-11-03 17:04 | EKG ---
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
== END 2020-11-02 08:32 | disposition home or self-care (01) ==
LOC: ER 04:42
DX: F10.229 Alcohol dependence with intoxication, unspecified (principal); E10.9 Type 1 diabetes mellitus without complications; Z79.4 Long term (current) use of insulin; Z88.1 Allergy status to other antibiotic agents; Z91.018 Allergy to other foods
CPT/HCPCS: 36415; 80048; 80076; 80320; 80329; 81003; 85025; 85610; 85730; 93005; 96361; 96374; 96375; 99284; J2405; J7030

== ENCOUNTER 2020-11-14 23:30 | Emergency (ER) | payer OTHER, SELFPAY ==
[2020-11-15] MEDS ORDERED: ONDANSETRON 4 MG/2 ML VIAL ONE (00:13)
[2020-11-15] MEDS ORDERED: NA CHLORIDE 0.9% 1,000 ML ONE (00:13)
[2020-11-15] MEDS ORDERED: LORazepam 2 MG/ML VIAL ONE ×2 (00:13→06:35)
[2020-11-15 00:19] LABS: ALT/SGPT 20 U/L (12-78); AST/SGOT 12 U/L (15-37); Alkaline Phosphatase 87 U/L (45-117); BUN Blood Urea Nitrogen 10 mg/dL (7-18); Bicarbonate 26 mmol/L (21-32); Bilirubin Direct < 0.1 mg/dL (0-0.2); Bilirubin Total 0.2 mg/dL (0.2-1.0); Glucose Level 189 mg/dL (74-106); Potassium 3.4 mmol/L (3.5-5.1); Protein, Total 9.3 g/dL (6.4-8.2); Sodium Level 138 mmol/L (136-145)
[2020-11-15 00:21] LABS: Absolute Lymphocytes (CBC) 3.8 K/uL (0.7-4.9); Basophils % 1.1 % (0-1.3); Hematocrit 42.5 % (36.0-45.0); Lymphocytes % 33.2 % (15.3-44.8); MPV 7.1 fL (7.6-11.3); RBC Red Blood Cell Count 4.82 M/uL (3.86-4.86)
[2020-11-15 00:27] LABS: Protime INR 1.01
[2020-11-15] MEDS ORDERED: POTASSIUM 25 MEQ EFFERV TAB ONE (01:36)
[2020-11-15 05:18] LABS: Urine Blood Negative (Negative); Urine Glucose Trace (Negative); Urine Protein Trace (Negative); Urine Specific Gravity 1.025 (1.005-1.030)
[2020-11-15 05:49] LABS: Barbiturates NEGATIVE (NEGATIVE); Benzodiazepines NEGATIVE (NEGATIVE); Cocaine NEGATIVE (NEGATIVE); METHAMPHETAM NEGATIVE (NEGATIVE); Methadone NEGATIVE (NEGATIVE); Opiates NEGATIVE (NEGATIVE); Phencyclidine NEGATIVE (NEGATIVE); THC Cannibis NEGATIVE (NEGATIVE)
[2020-11-15 06:00] LABS: Urine Specific Gravity/Preg 1.025 (1.005-1.030)
--- NOTE | 2020-11-15 06:16 | EDPHYS ---
Physician Documentation [facility] Name: Edelmira Pal Age: 35 yrs Sex: Female : 1985 Arrival Date: 11/14/2020 Time: 23:32 Bed 17 Private MD: ED Physician Chuy Mackey HPI: 11/14 23:42 This 35 yrs old Female presents to ER via Unassigned with complaints of cp Alcohol Intoxication. 23:42 The patient presents to the emergency department with a history of substance abuse, cp Type: whisky, suicide ideation, but the patient has no formulated plan. Onset: The symptoms/episode began/occurred today. Past psychiatric history: Prior diagnosis: addiction history, alcohol. 23:42 Associated signs and symptoms: Pertinent positives; anxiety, suicide ideation, cp Pertinent negatives: abdominal pain, delusions, hallucinations, homicidal ideation. 23:42 Severity of symptoms: in the emergency department the symptoms are unchanged despite cp EMS interventions. 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 - Social history:: Smoking status: Patient denies any tobacco usage or history of. Patient uses alcohol, on a daily basis. Patient/guardian denies using street drugs, IV drugs. ROS: 23:45 Constitutional: Negative for fever. cp 23:45 Cardiovascular: Negative for chest pain. cp 23:45 Respiratory: Negative for cough, shortness of breath, wheezing. 23:45 Abdomen/GI: Negative for abdominal pain, vomiting, diarrhea, constipation. 23:45 Neuro: Negative for altered mental status, headache, seizure activity, weakness. 23:45 Psych: Positive for anxiety, alcohol dependence, suicidal ideation. 23:45 All other systems are negative. Exam: 23:50 Constitutional: The patient appears in no acute distress, alert, awake, cp non-diaphoretic, non-toxic, well developed, well nourished. 23:50 Head/Face: Normocephalic, atraumatic. cp 23:50 Eyes: Periorbital structures: appear normal, Pupils: equal, round, and reactive to light and accomodation, Extraocular movements: intact throughout, Conjunctiva: normal, no exudate, no injection, Sclera: no appreciated abnormality, Lids and lashes: appear normal, bilaterally. 23:50 ENT: External ear(s): are unremarkable, Nose: is normal, Mouth: Lips: moist, Oral mucosa: moist, Posterior pharynx: Airway: no evidence of obstruction, patent. 23:50 Chest/axilla: Inspection: normal. 23:50 Cardiovascular: Rate: tachycardic, Rhythm: regular. 23:50 Respiratory: the patient does not display signs of respiratory distress, Respirations: normal, no use of accessory muscles, no retractions, labored breathing, is not present, Breath sounds: are clear throughout, no decreased breath sounds. 23:50 Abdomen/GI: Exam negative for discomfort, distension, guarding, Inspection: abdomen appears normal. 23:50 Neuro: Orientation: to person, place, situation, Mentation: able to follow commands, Motor: moves all fours, strength is normal. 23:50 Psych: Behavior/mood is anxious, Affect is animated, Judgement / Insight is impaired. Delusions/hallucinations are not present. 11/15 00:52 ECG was reviewed by the Attending Physician. cp Vital Signs: 11/14 23:33 BP 122 / 87; Pulse 120; Resp 20; Temp 98.6; Pulse Ox 99% ; Weight 63.5 kg; Height 5 ft. sf 3 in. (160.02 cm); Pain 0/10; 11/15 06:55 BP 114 / 90; Pulse 98; Resp 16; Temp 98.5; Pulse Ox 99% ; sf 11/14 23:33 Body Mass Index 24.80 (63.50 kg, 160.02 cm) sf MDM: 11/14 23:33 Patient medically screened. cp 11/15 01:16 Differential diagnosis: drug withdrawal. acute psychotic break, depression, psychosis cp secondary to non-compliance. Data reviewed: vital signs, nurses notes, lab test result(s), EKG. Response to treatment: the patient's symptoms have markedly improved after treatment. 11/14 23:33 Order name: Acetaminophen cp 11/14 23:33 Order name: Basic Metabolic Panel cp 11/14 23:33 Order name: CBC with Diff 11/14 23:33 Order name: ETOH Level cp 11/14 23:33 Order name: Hepatic Function; Complete Time: 01:10 cp 11/15 01:11 Interpretation: Normal except: AST 12; TP 9.3; GLOB 5.3; A/G 0.8. cp 11/14 23:33 Order name: PT-INR; Complete Time: 01:10 cp 11/14 23:33 Order name: Ptt, Activated; Complete Time: 01:10 cp 11/14 23:33 Order name: Salicylate; Complete Time: 01:10 cp 11/14 23:33 Order name: Urine Drug Screen; Complete Time: 06:13 cp 11/14 23:34 Order name: Acetaminophen Level; Complete Time: 01:10 EDMS 11/14 23:34 Order name: Basic Metabolic Panel; Complete Time: 01:10 EDMS 11/15 01:11 Interpretation: Normal except: K 3.4; GLUC 189. cp 11/14 23:34 Order name: CBC with Automated Diff; Complete Time: 01:10 EDMS 11/15 01:11 Interpretation: Normal except: WBC 11.40; PLT 763; MPV 7.1. 11/14 23:34 Order name: Alcohol Serum/Plasma; Complete Time: 01:10 EDMS 11/15 01:11 Interpretation: Abnormal: ETOH 314. 11/14 23:33 Order name: Suicide Precautions; Complete Time: 23:52 11/14 23:33 Order name: Urine Test (obtain specimen); Complete Time: 05:20 cp 11/14 23:33 Order name: EKG; Complete Time: 23:34 cp 11/14 23:33 Order name: EKG - Nurse/Tech; Complete Time: 00:54 cp 11/15 01:08 Order name: SARS-COV-2 RT PCR; Complete Time: 01:10 EDMS 11/15 05:18 Order name: Urine Dipstick-Ancillary EDUT 11/15 05:18 Order name: Urine --Ancillary (enter results); Complete Time: 06:13 mw2 11/15 05:34 Order name: ETOH Level bb 04/12 05:35 Order name: Alcohol Serum/Plasma; Complete Time: 06:13 EDMS 11/14 23:33 Order name: IV Saline Lock; Complete Time: 23:52 cp 11/14 23:33 Order name: Labs collected and sent; Complete Time: 23:52 cp 11/14 23:33 Order name: Suicide Screening ([place]); Complete Time: 23:52 cp 11/14 23:33 Order name: Urine Dipstick-Ancillary (obtain specimen); Complete Time: 05:20 cp EC:52 Rate is 101 beats/min. Rhythm is regular. NH interval is normal. QRS interval is cp normal. QT interval is normal. T waves are Inverted in lead aVR. Interpreted by me. Reviewed by me. Administered Medications: 00:00 Drug: NS 0.9% 1000 ml Route: IV; Rate: 1 bolus; Site: right antecubital; sf 01:00 Follow up: IV Status: Completed infusion; IV Intake: 1000ml sf 01:00 Follow up: Response: No adverse reaction sf 00:00 Drug: Zofran (Ondansetron) 4 mg Route: IVP; Site: right antecubital; sf 00:54 Follow up: Response: No adverse reaction; Nausea is decreased sf 00:00 Drug: Ativan 1 mg Route: IVP; Site: right antecubital; sf 00:54 Follow up: Response: No adverse reaction; Anxiety unchanged sf 00:53 Drug: Ativan 1 mg Route: IVP; Site: right antecubital; sf 01:23 Follow up: Response: No adverse reaction sf 01:23 Drug: Potassium Effervescent Tablet 50 mEq Route: PO; sf 02:00 Follow up: Response: No adverse reaction sf 06:19 Drug: Ativan 0.5 mg Route: IVP; Site: right antecubital; sf 06:45 Follow up: Response: No adverse reaction; Anxiety decreased sf 07:20 Drug: Valium (diazepam) 5 mg Route: IVP; Site: right antecubital; jd3 07:51 Follow up: Response: No adverse reaction jd3 Disposition: 06:15 Co-signature as Attending Physician, Chuy Mackey MD. ma2 Disposition: 11/15/20 06:14 Discharged to Home. Impression: Anxiety disorder, unspecified, Alcohol abuse with alcohol-induced anxiety disorder. - Condition is Stable. - Discharge Instructions: Alcohol Use Disorder, Generalized Anxiety Disorder. - Prescriptions for buspirone 5 mg Oral tablet - take 1 tablet by ORAL route 3 times per day; 60 tablet. - Medication Reconciliation Form, Thank You Letter, Antibiotic Education, Prescription Opioid Use form. - Follow up: Private Physician; When: Tomorrow; Reason: If symptoms return, Continuance of care. Signatures: Dispatcher [employer] [facility] [place] Chapito Whipple PA PA cp Davies, Jonathon, RN RN jd3 Chuy Mackey MD MD ma2 Gabriel Leblanc RN RN sf Corrections: (The following items were deleted from the chart) 00:13 11/14 23:35 CORONAVIRUS+MR.LAB.BRZ ordered. [facility] 11/15 07:51 06:14 11/15/2020 06:14 Discharged to Home. Impression: Anxiety disorder, unspecified; jd3 Alcohol abuse with alcohol-induced anxiety disorder. Condition is Stable. Forms are Medication Reconciliation Form, Thank You Letter, Antibiotic Education, Prescription Opioid Use. Follow up: Private Physician; When: Tomorrow; Reason: If symptoms return, Continuance of care. ma2
--- NOTE | 2020-11-15 06:16 | ER ---
Nurse's Notes [facility] Name: Edelmira Pal Age: 35 yrs Sex: Female : 1985 Arrival Date: 11/14/2020 Time: 23:32 Bed 17 Private MD: Diagnosis: Anxiety disorder, unspecified;Alcohol abuse with alcohol-induced anxiety disorder Presentation: 11/14 23:33 Chief complaint: EMS states: Has been drinking and is feeling suicidal, hx alcohol sf abuse and SI without intent or plan. Coronavirus screen: Client denies travel out of the [place] in the last 14 days. At this time, the client does not indicate any symptoms associated with coronavirus-19. Ebola Screen: Patient negative for fever greater than or equal to 101.5 degrees Fahrenheit, and additional compatible Ebola Virus Disease symptoms Patient denies exposure to infectious person. Patient denies travel to an Ebola-affected area in the 21 days before illness onset. No symptoms or risks identified at this time. Initial Sepsis Screen: Does the patient meet any 2 criteria? No. Patient's initial sepsis screen is negative. Does the patient have a suspected source of infection? No. Patient's initial sepsis screen is negative. Risk Assessment: Do you want to hurt yourself or someone else? Patient reports desire/thoughts of hurting themselves or someone else. Provider notified. Onset of symptoms was November 14, 2020. 23:33 Method Of Arrival: EMS: [facility] 23:33 Acuity: BELTRAN 2 sf Triage Assessment: 23:33 General: Appears distressed, Behavior is cooperative, anxious, restless, Smells of sf alcohol. Pain: Denies pain. EENT: No deficits noted. No signs and/or symptoms were reported regarding the EENT system. Neuro: No deficits noted. Level of Consciousness is awake, alert, Oriented to person, place, time, situation. Cardiovascular: Patient's skin is warm and dry. Rhythm is sinus tachycardia. Respiratory: No deficits noted. Airway is patent Respiratory effort is even, unlabored, Respiratory pattern is regular, symmetrical. GI: No deficits noted. No signs and/or symptoms were reported involving the gastrointestinal system. : No deficits noted. No signs and/or symptoms were reported regarding the genitourinary system. Derm: No deficits noted. No signs and/or symptoms reported regarding the dermatologic system. Musculoskeletal: No deficits noted. No signs and/or symptoms reported regarding the musculoskeletal system. 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 - Social history:: Smoking status: Patient denies any tobacco usage or history of. Patient uses alcohol, on a daily basis. Patient/guardian denies using street drugs, IV drugs. Screenin:33 Abuse screen: Denies threats or abuse. Denies injuries from another. Nutritional sf screening: No deficits noted. Tuberculosis screening: No symptoms or risk factors identified. Never had TB. Possible symptoms: recent fever, Risk factors: None. Fall Risk Fall in past 12 months (25 points). No secondary diagnosis (0 pts). IV access (20 points). Ambulatory Aid- None/Bed Rest/Nurse Assist (0 pts). Gait- Impaired (20 pts.). Mental Status- Oriented to own ability (0 pts). Total Strauss Fall Scale indicates High Risk Score (45 or more points). Fall prevention measures have been instituted. Side Rails Up X 2 Placed Close to Nursing Station Frequent Obs/Assessments Occuring. Assessment: 23:30 Reassessment: See paper Frit Maker Observation Form for Patients at Risk of Harm sf to Self or Others; Sitter with patient. 23:33 Reassessment: SEE TRIAGE ASSESSMENT. sf 11/15 01:10 Reassessment: Patient appears in no apparent distress at this time. Patient and/or sf family updated on plan of care and expected duration. Pain level reassessed. Patient sleeping. 01:50 Reassessment: Patient appears in no apparent distress at this time. No changes from sf previously documented assessment. Patient and/or family updated on plan of care and expected duration. Pain level reassessed. Patient is alert, oriented x 3, equal unlabored respirations, skin warm/dry/pink. Patient states feeling better. Patient states symptoms have improved. 02:48 Reassessment: Patient appears in no apparent distress at this time. No changes from sf previously documented assessment. Patient and/or family updated on plan of care and expected duration. Pain level reassessed. Patient is alert, oriented x 3, equal unlabored respirations, skin warm/dry/pink. 03:55 Reassessment: Patient appears in no apparent distress at this time. No changes from sf previously documented assessment. Patient and/or family updated on plan of care and expected duration. Pain level reassessed. Patient is alert, oriented x 3, equal unlabored respirations, skin warm/dry/pink. Patient sleeping Patient states feeling better. Patient states symptoms have improved. 05:00 Reassessment: Patient and/or family updated on plan of care and expected duration. Pain sf level reassessed. Patient is alert, oriented x 3, equal unlabored respirations, skin warm/dry/pink. Patient awake, ambulatory to restroom without difficulty, reports "anxiety at about a 9 right now". 05:15 Reassessment: Patient appears in no apparent distress at this time. Patient resting sf quietly at this time. 06:08 Reassessment: Patient and/or family updated on plan of care and expected duration. Pain sf level reassessed. Patient is alert, oriented x 3, equal unlabored respirations, skin warm/dry/pink. Patient now appears restless, reporting anxiety, Dr. Mackey notified. 06:44 Reassessment: Patient appears in no apparent distress at this time. Patient and/or sf family updated on plan of care and expected duration. Pain level reassessed. Patient is alert, oriented x 3, equal unlabored respirations, skin warm/dry/pink. Patient more relaxed, ready for discharge. 06:58 Reassessment: Patient denies suicidal ideation and homicidal ideation, reports anxiety, sf states "I don't feel like I can go home feeling this way" Dr. Mackey notified and at bedside to speak with patient. 07:20 General: Appears in no apparent distress. comfortable, Behavior is cooperative, jd3 appropriate for age, anxious, Reports anxiety Denies suicidal or homicidal thoughts at this time. Pain: Denies pain. Neuro: Level of Consciousness is awake, alert, obeys commands, Oriented to person, place, time, situation. Cardiovascular: Denies chest pain, Capillary refill < 3 seconds Patient's skin is warm and dry. Respiratory: Airway is patent Respiratory effort is even, unlabored, Respiratory pattern is regular, symmetrical, Denies cough, shortness of breath. GI: No signs and/or symptoms were reported involving the gastrointestinal system. : No signs and/or symptoms were reported regarding the genitourinary system. EENT: No signs and/or symptoms were reported regarding the EENT system. Derm: Skin is intact, Skin is dry, Skin is normal, Skin temperature is warm. Musculoskeletal: Circulation, motion, and sensation intact. Range of motion: intact in all extremities. 07:21 Reassessment: awaiting a decrease in pt anxiety prior to discharge. jd3 07:50 Reassessment: Patient appears in no apparent distress at this time. Patient and/or jd3 family updated on plan of care and expected duration. Pain level reassessed. Patient is alert, oriented x 3, equal unlabored respirations, skin warm/dry/pink. pt reported understanding of discharge instructions, even and steady gait to ER lobby to wait for ride. Patient states feeling better. Vital Signs: 11/14 23:33 BP 122 / 87; Pulse 120; Resp 20; Temp 98.6; Pulse Ox 99% ; Weight 63.5 kg; Height 5 ft. sf 3 in. (160.02 cm); Pain 0/10; 11/15 06:55 BP 114 / 90; Pulse 98; Resp 16; Temp 98.5; Pulse Ox 99% ; sf 11/14 23:33 Body Mass Index 24.80 (63.50 kg, 160.02 cm) ED Course: 11/14 23:32 Patient arrived in ED. mw2 23:32 Chapito Whipple PA is PHCP. cp 23:32 Chuy Mackey MD is Attending Physician. cp 23:33 Safety Checks: Personal items have been removed. The door is open or patient has been sf placed in a hallway bed/chair. There are no family/friend visitors at this time Sitter present at this time. 23:33 Arm band placed on. EKG completed in triage. Results shown to MD. sf 23:33 Patient has correct armband on for positive identification. Bed in low position. Call sf light in reach. Side rails up X2. Door closed. Noise minimized. Visitors limited. Lights dimmed. Warm blanket given. Verbal reassurance given. 23:35 Initial lab(s) drawn, by ED staff, sent to lab. COVID swab sent to lab. Inserted saline sf lock: 22 gauge in right antecubital area, using aseptic technique. Blood collected. 23:40 Gabriel Leblanc, RN is Primary Nurse. sf 23:42 Triage completed. sf 23:52 Acetaminophen Sent. sf 23:52 Basic Metabolic Panel Sent. sf 23:52 CBC with Diff Sent. sf 23:52 ETOH Level Sent. sf 04/12 00:00 Awaiting lab results, Awaiting radiology results. sf 00:45 EKG done, by ED staff, reviewed by Chapito SAN. sf 02:00 Awaiting disposition. sf 03:00 Awaiting disposition. sf 04:00 Awaiting disposition. sf 05:00 Awaiting disposition. sf 05:10 Urine collected: clean catch specimen, cloudy. sf 06:05 Awaiting disposition. sf 06:05 No provider procedures requiring assistance completed. sf 06:08 ETOH Level Sent. sf 07:05 Report given to ISSA Mendez. sf 07:19 Matt Bro, RN is Primary Nurse. jd3 07:51 IV discontinued, intact, bleeding controlled, No redness/swelling at site. Pressure jd3 dressing applied. Administered Medications: 00:00 Drug: NS 0.9% 1000 ml Route: IV; Rate: 1 bolus; Site: right antecubital; sf 01:00 Follow up: IV Status: Completed infusion; IV Intake: 1000ml sf 01:00 Follow up: Response: No adverse reaction sf 00:00 Drug: Zofran (Ondansetron) 4 mg Route: IVP; Site: right antecubital; sf 00:54 Follow up: Response: No adverse reaction; Nausea is decreased sf 00:00 Drug: Ativan 1 mg Route: IVP; Site: right antecubital; sf 00:54 Follow up: Response: No adverse reaction; Anxiety unchanged sf 00:53 Drug: Ativan 1 mg Route: IVP; Site: right antecubital; sf 01:23 Follow up: Response: No adverse reaction sf 01:23 Drug: Potassium Effervescent Tablet 50 mEq Route: PO; sf 02:00 Follow up: Response: No adverse reaction sf 06:19 Drug: Ativan 0.5 mg Route: IVP; Site: right antecubital; sf 06:45 Follow up: Response: No adverse reaction; Anxiety decreased sf 07:20 Drug: Valium (diazepam) 5 mg Route: IVP; Site: right antecubital; jd3 07:51 Follow up: Response: No adverse reaction jd3 Intake: 01:00 IV: 1000ml; Total: 1000ml. sf Outcome: 06:14 Discharge ordered by . neal 07:51 Discharged to home ambulatory. jd3 07:51 Condition: stable 07:51 Discharge instructions given to patient, Instructed on discharge instructions, follow up and referral plans. medication usage, Demonstrated understanding of instructions, follow-up care, medications, Prescriptions given X 1. 07:51 Patient left the ED. jd3 Signatures: Chapito Whipple PA PA cp Davies, Jonathon, RN RN jd3 Chuy Mackey MD MD ma2 Carmenza Sesay 2 Gabriel Leblanc RN RN sf Corrections: (The following items were deleted from the chart) 00:03 04/11 23:35 Inserted saline lock: 20 gauge in right antecubital area, using aseptic sf technique. Blood collected. sf 11/15 03:55 01:50 Reassessment: Patient appears in no apparent distress at this time. No changes sf from previously documented assessment. Patient and/or family updated on plan of care and expected duration. Pain level reassessed. Patient is alert, oriented x 3, equal unlabored respirations, skin warm/dry/pink. sf 06:06 05:45 Primary Nurse role handed off by Gabriel Leblanc RN mw2 sf 06:06 06:04 Gabriel Leblanc, ISSA is Primary Nurse. sf sf
--- NOTE | 2020-11-15 07:14 | EKG ---
Test Date: 2020-11-15 Test Time: 00:45:57 Supervisor Cell Maintenance: FLAQUITA MEASUREMENT RESULTS: Intervals: Rate: 101 UT: 162 QRSD: 76 QT: 348 QTc: 451 [place]: P: 44 UT: 162 QRS: 51 T: 65 INTERPRETIVE STATEMENTS: Sinus tachycardia Low voltage QRS Borderline ECG Compared to ECG 11/02/2020 05:06:11 Low QRS voltage now present Electronically Signed On 11-15-20 07:13:52 CDT by Miguel Hardy
[2020-11-15] MEDS ORDERED: DIAZEPAM 10 MG/2 ML INJ SYRINGE ONE (07:28)
[2020-11-15 08:10] VITALS: O2SAT 99
[2020-11-15 08:11] VITALS: BP 114/90; TEMP 98.5
== END 2020-11-15 07:51 | disposition home or self-care (01) ==
LOC: ER 23:30
DX: F10.280 Alcohol dependence with alcohol-induced anxiety disorder (principal); R45.851 Suicidal ideations; E10.9 Type 1 diabetes mellitus without complications; Z20.822 Contact with and (suspected) exposure to COVID-19; Z79.4 Long term (current) use of insulin; Z88.1 Allergy status to other antibiotic agents; Z91.018 Allergy to other foods
CPT/HCPCS: 36415; 80048; 80076; 80307; 80320; 80329; 81003; 81025; 85025; 85610; 85730; 93005; 96361; 96374; 96375; 99284; J3360; U0003

== ENCOUNTER 2021-03-21 05:23 | Emergency (ER) | payer OTHER ==
[2021-03-21] MEDS ORDERED: LORazepam 2 MG/ML VIAL ONE ×2 (06:53→07:51)
[2021-03-21] MEDS ORDERED: NA CHLORIDE 0.9% 1,000 ML ONE (07:03)
[2021-03-21] MEDS ORDERED: ONDANSETRON 4 MG/2 ML VIAL ONE (07:03)
[2021-03-21] MEDS ORDERED: THIAMINE 200 MG/2 ML INJ ONE (07:03)
[2021-03-21] MEDS ORDERED: FOLIC ACID 5 MG/ML VIAL ONE (07:04)
[2021-03-21] MEDS ORDERED: MULTIVITAMINS 10 ML VIAL (INJ) IV ONE (07:04)
[2021-03-21 07:05] LABS: Basophils % 0.3 % (0-1.3); Hematocrit 42.7 % (36.0-45.0); Lymphocytes % 12.2 % (15.3-44.8); MPV 6.9 fL (7.6-11.3); RBC Red Blood Cell Count 4.69 M/uL (3.86-4.86)
[2021-03-21 07:11] LABS: Protime INR 1.04
[2021-03-21 07:34] LABS: ALT/SGPT 25 U/L (12-78); AST/SGOT 31 U/L (15-37); Albumin 3.8 g/dL (3.4-5.0); Alkaline Phosphatase 84 U/L (45-117); BUN Blood Urea Nitrogen 10 mg/dL (7-18); Bicarbonate 24 mmol/L (21-32); Bilirubin Direct < 0.1 mg/dL (0-0.2); Bilirubin Total 0.2 mg/dL (0.2-1.0); Glucose Level 247 mg/dL (74-106); Potassium 3.6 mmol/L (3.5-5.1); Protein, Total 8.8 g/dL (6.4-8.2); Sodium Level 138 mmol/L (136-145)
--- NOTE | 2021-03-21 09:21 | EDPHYS ---
Physician Documentation [facility] Name: Edelmira Pal Age: 35 yrs Sex: Female : 1985 Arrival Date: 03/21/2021 Time: 05:26 Bed 12 Private MD: ED Physician Wild Hanks HPI: 03/21 06:22 This 35 yrs old Female presents to ER via EMS with complaints of Anxiety. pm1 06:22 The patient presents to the emergency department with anxiety. Onset: The pm1 symptoms/episode began/occurred yesterday. Past psychiatric history: Prior diagnosis: Anxiety and alcoholism, Psychiatric medications include: none. Associated signs and symptoms: Pertinent positives; nausea, vomiting, Pertinent negatives: abdominal pain, chest pain, fever, shortness of breath. Severity of symptoms: Pain is currently a 0 / 10. The patient has experienced similar episodes in the past, several times. The patient has not recently seen a physician, has an appointment scheduled, Psychiatrist. Patient presents to the ER with complaints of anxiety. Patient reports she is not currently taking anything for anxiety. Reports history of alcoholism and drinks alcohol for her anxiety. Reports being sober for many months until last night where she felt over anxious and drank 6 shots of alcohol. 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 - Social history:: Smoking status: Patient reports the use of cigarette tobacco products, denies chronic smoking, but will smoke occasionally, Patient uses alcohol, on a daily basis. Patient/guardian denies using street drugs. ROS: 06:22 Constitutional: Negative for fever, chills, and weight loss, Cardiovascular: Negative pm1 for chest pain, palpitations, and edema, Respiratory: Negative for shortness of breath, cough, wheezing, and pleuritic chest pain. 06:22 Back: Negative for injury and pain, : Negative for injury, bleeding, discharge, and swelling, MS/Extremity: Negative for injury and deformity, Skin: Negative for injury, rash, and discoloration, Neuro: Negative for headache, weakness, numbness, tingling, and seizure. 06:22 Abdomen/GI: Positive for nausea, vomiting, Negative for abdominal pain, diarrhea, constipation. 06:22 All other systems are negative. Exam: 06:22 Constitutional: This is a well developed, well nourished patient who is awake, alert, pm1 and in no acute distress. Head/Face: Normocephalic, atraumatic. 06:22 Back: No spinal tenderness. No costovertebral tenderness. Full range of motion. Skin: Warm, dry with normal turgor. Normal color with no rashes, no lesions, and no evidence of cellulitis. MS/ Extremity: Pulses equal, no cyanosis. Neurovascular intact. Full, normal range of motion. 06:22 Eyes: Exam is negative for acute changes, Extraocular movements: intact throughout, Conjunctiva: no acute changes, no injection. 06:22 ENT: Exam is negative for acute changes, Mouth: Lips: normal, Oral mucosa: normal, pink and intact, moist. 06:22 Cardiovascular: Exam negative for acute changes, Rate: tachycardic, actual rate is 101 bpm, Rhythm: regular, Pulses: no pulse deficits are appreciated, Heart sounds: normal, normal S1and S2, Edema: is not appreciated. 06:22 Respiratory: Exam negative for acute changes, respiratory distress, shortness of breath, Breath sounds: are clear throughout. 06:22 Abdomen/GI: Exam negative for acute changes, Inspection: abdomen appears normal, Palpation: abdomen is soft and non-tender, in all quadrants. 06:22 Neuro: Exam negative for acute changes, Orientation: is normal, Mentation: is normal, Motor: is normal, moves all fours, Abnormal movements: intention tremor, is not present, resting tremor, is not present. Vital Signs: 05:56 BP 130 / 100; Pulse 101; Resp 18 S; Temp 98.5(O); Pulse Ox 96% on R/A; Weight 68.04 kg bb (R); Height 5 ft. 3 in. (160.02 cm) (R); Pain 3/10; 07:57 BP 123 / 86; Pulse 100; Resp 17; ll1 09:54 Pulse 88; Resp 16; Pulse Ox 97% ; Pain 0/10; ll1 05:56 Body Mass Index 26.57 (68.04 kg, 160.02 cm) bb MDM: 06:13 Patient medically screened. pm1 09:18 Data reviewed: vital signs. Data interpreted: Pulse oximetry: on room air is 96 %. pm1 Interpretation: normal. Counseling: I had a detailed discussion with the patient and/or guardian regarding: the historical points, exam findings, and any diagnostic results supporting the discharge/admit diagnosis, lab results, the need for outpatient follow up, to return to the emergency department if symptoms worsen or persist or if there are any questions or concerns that arise at home. 09:41 ED course: Reviewed prior ER visit and patient was given a prescription for buspirone. pm1 Asked the patient if buspirone helped her with her anxiety and she reported positive results. Asked if she would like a prescription for buspirone and she would like one. 03/21 06:13 Order name: Acetaminophen pm1 03/21 06:13 Order name: Basic Metabolic Panel pm1 03/21 06:13 Order name: CBC with Diff pm1 03/21 06:13 Order name: ETOH Level; Complete Time: 08:03 pm1 03/21 06:13 Order name: Hepatic Function; Complete Time: 08:03 pm1 03/21 06:13 Order name: PT-INR; Complete Time: 07:15 pm1 03/21 06:13 Order name: Ptt, Activated; Complete Time: 07:15 pm1 03/21 06:14 Order name: Acetaminophen Level; Complete Time: 08:03 EDMS 03/21 06:14 Order name: Basic Metabolic Panel; Complete Time: 08:03 EDMS 03/21 06:14 Order name: CBC with Automated Diff; Complete Time: 07:15 EDMS 03/21 06:13 Order name: EKG; Complete Time: 06:14 pm1 03/21 06:13 Order name: EKG - Nurse/Tech; Complete Time: 09:57 pm1 03/21 06:13 Order name: IV Saline Lock; Complete Time: 06:56 pm1 03/21 06:13 Order name: Labs collected and sent; Complete Time: 06:56 pm1 03/21 06:13 Order name: Suicide Screening ([place]); Complete Time: 09:57 pm1 Administered Medications: 06:36 Drug: Ativan (LORazepam) 1 mg Route: IVP; Site: right antecubital; bb 07:57 Follow up: Response: No adverse reaction; Anxiety unchanged ll1 06:56 Drug: Banana Bag - (NS 0.9% 1000 ml, foLIC Acid 1 mg, Thiamine 100 mg, Multivitamin 1 bb amp) Route: IV; Rate: calculated rate; Site: right antecubital; 09:56 Follow up: Response: No adverse reaction; IV Status: Completed infusion; IV Intake: ll1 1000ml 06:56 Drug: Zofran (Ondansetron) 4 mg Route: IVP; Site: right antecubital; bb 07:57 Follow up: Response: No adverse reaction ll1 07:45 Drug: Ativan (LORazepam) 1 mg Route: IVP; Site: right antecubital; ll1 09:04 Follow up: Response: No adverse reaction ll1 08:55 Drug: Ativan (LORazepam) 1 mg Route: IVP; Site: left antecubital; ll1 09:04 Follow up: Response: No adverse reaction ll1 Disposition Summary: 03/21/21 09:20 Discharge Ordered Location: Home pm1 Problem: new pm1 Symptoms: have improved pm1 Condition: Stable pm1 Diagnosis - Alcohol abuse pm1 - Alcohol use, unspecified with alcohol-induced anxiety disorder pm1 Followup: pm1 - With: Emergency Department - When: As needed - Reason: Worsening of condition Followup: pm1 - With: Private Physician - When: 2 - 3 days - Reason: Recheck today's complaints, Continuance of care, Re-evaluation by your physician Discharge Instructions: - Discharge Summary Sheet pm1 - Alcohol Use Disorder pm1 - Alcohol Abuse and Nutrition pm1 - Managing Anxiety, Adult pm1 - Generalized Anxiety Disorder, Adult pm1 Forms: - Medication Reconciliation Form pm1 - Thank You Letter pm1 - Antibiotic Education pm1 - Prescription Opioid Use pm1 Prescriptions: - buspirone 5 mg Oral tablet - take 1 tablet by ORAL route 3 times per day; 60 tablet; Refills: 0, Product pm1 Selection Permitted Signatures: Dispatcher [employer] EDMS Pollock, Kathryn, RN RN bb Alec Chow, BEHAVIORAL THERAPY COORDINATOR BEHAVIORAL THERAPY COORDINATOR pm1 Deb Flores RN RN ll1 Corrections: (The following items were deleted from the chart) 05:59 05:57 PMHx: Type 1 Diabetes; judy kim 09:22 09:20 Anxiety disorder, unspecified 1 1 57 06:13 Urine Dipstick-Ancillary ordered. [facility]1 06:13 Urine Test ordered. 1 1
--- NOTE | 2021-03-21 09:21 | ER ---
Nurse's Notes [facility] Name: Edelmira Pal Age: 35 yrs Sex: Female : 1985 Arrival Date: 03/21/2021 Time: 05:26 Bed 12 Private MD: Diagnosis: Alcohol abuse;Alcohol use, unspecified with alcohol-induced anxiety disorder Presentation: 03/21 05:56 Chief complaint: Patient states: she is having severe anxiety since 2200 last night bb with possible alcohol withdrawal, vomiting. Coronavirus screen: At this time, the client does not indicate any symptoms associated with coronavirus-19. Ebola Screen: No symptoms or risks identified at this time. Initial Sepsis Screen: Does the patient meet any 2 criteria? No. Patient's initial sepsis screen is negative. Does the patient have a suspected source of infection? No. Patient's initial sepsis screen is negative. Risk Assessment: Do you want to hurt yourself or someone else? Patient reports no desire to harm self or others. Onset of symptoms was March 20, 2021. 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 - Social history:: Smoking status: Patient reports the use of cigarette tobacco products, denies chronic smoking, but will smoke occasionally, Patient uses alcohol, on a daily basis. Patient/guardian denies using street drugs. Screenin:57 Abuse screen: Denies threats or abuse. Nutritional screening: No deficits noted. ll1 Tuberculosis screening: No symptoms or risk factors identified. Fall Risk IV access (20 points). Total Strauss Fall Scale indicates No Risk (0-24 pts). Assessment: 07:00 General: Appears distressed, Behavior is cooperative, appropriate for age, anxious. ll1 Pain: Denies pain. Neuro: Level of Consciousness is awake, alert, obeys commands, Oriented to person, place, time, situation, Appropriate for age Plush Finisher are equal bilaterally Moves all extremities. Full function Gait is steady, Speech is normal, Facial symmetry appears normal, Reports dizziness, headache weakness. Cardiovascular: No deficits noted. Respiratory: No deficits noted. GI: Abdomen is flat, Bowel sounds present X 4 quads. Abd is soft and non tender X 4 quads. Reports nausea, vomiting. 08:00 Reassessment: No changes from previously documented assessment. Patient and/or family ll1 updated on plan of care and expected duration. Pain level reassessed. Patient is alert, oriented x 3, equal unlabored respirations, skin warm/dry/pink. 09:00 Reassessment: No changes from previously documented assessment. Patient and/or family ll1 updated on plan of care and expected duration. Pain level reassessed. Patient is alert, oriented x 3, equal unlabored respirations, skin warm/dry/pink. 09:56 Reassessment: No changes from previously documented assessment. Patient and/or family ll1 updated on plan of care and expected duration. Pain level reassessed. Patient is alert, oriented x 3, equal unlabored respirations, skin warm/dry/pink. Vital Signs: 05:56 BP 130 / 100; Pulse 101; Resp 18 S; Temp 98.5(O); Pulse Ox 96% on R/A; Weight 68.04 kg bb (R); Height 5 ft. 3 in. (160.02 cm) (R); Pain 3/10; 07:57 BP 123 / 86; Pulse 100; Resp 17; ll1 09:54 Pulse 88; Resp 16; Pulse Ox 97% ; Pain 0/10; ll1 05:56 Body Mass Index 26.57 (68.04 kg, 160.02 cm) bb ED Course: 05:26 Patient arrived in ED. mw2 05:57 Triage completed. bb 05:57 Arm band placed on Patient placed in an exam room, on a stretcher, on pulse oximetry. bb 06:12 Alec Chow NP is PHCP. pm1 06:12 Wild Hanks MD is Attending Physician. pm1 06:30 Accessed peripheral vein via ultrasound, utilizing dynamic ultrasound technique using bb 20 g 8 cm power glide. Missed attempt(s): 20 gauge antecubital area. Bleeding controlled, band aid applied, catheter tip intact. 07:20 Deb Flores RN is Primary Nurse. ll1 09:56 No provider procedures requiring assistance completed. IV discontinued, intact, ll1 bleeding controlled, No redness/swelling at site. Pressure dressing applied. 09:57 Patient has correct armband on for positive identification. Call light in reach. Side ll1 rails up X 1. Administered Medications: 06:36 Drug: Ativan (LORazepam) 1 mg Route: IVP; Site: right antecubital; bb 07:57 Follow up: Response: No adverse reaction; Anxiety unchanged ll1 06:56 Drug: Banana Bag - (NS 0.9% 1000 ml, foLIC Acid 1 mg, Thiamine 100 mg, Multivitamin 1 bb amp) Route: IV; Rate: calculated rate; Site: right antecubital; 09:56 Follow up: Response: No adverse reaction; IV Status: Completed infusion; IV Intake: ll1 1000ml 06:56 Drug: Zofran (Ondansetron) 4 mg Route: IVP; Site: right antecubital; bb 07:57 Follow up: Response: No adverse reaction ll1 07:45 Drug: Ativan (LORazepam) 1 mg Route: IVP; Site: right antecubital; ll1 09:04 Follow up: Response: No adverse reaction ll1 08:55 Drug: Ativan (LORazepam) 1 mg Route: IVP; Site: left antecubital; ll1 09:04 Follow up: Response: No adverse reaction ll1 Intake: 09:56 IV: 1000ml; Total: 1000ml. ll1 Outcome: 09:20 Discharge ordered by . pm1 09:57 Discharged to home ambulatory. ll1 09:57 Condition: stable 09:57 Discharge instructions given to patient, Instructed on discharge instructions, follow up and referral plans. medication usage, Demonstrated understanding of instructions, follow-up care, medications, Prescriptions given X 1. 09:58 Patient left the ED. ll1 Signatures: Kathryn Pollock RN RN bb Alec Chow, CINDY TECHNICAL SUPPORT ASSISTANT pm1 Carmenza Sesay 2 Deb Flores RN RN ll1 Corrections: (The following items were deleted from the chart) 05:59 05:57 PMHx: Type 1 Diabetes; bb bb
[2021-03-21 10:05] VITALS: TEMP 98.5
[2021-03-21 10:06] VITALS: BP 123/86
[2021-03-21 10:10] VITALS: O2SAT 97
== END 2021-03-21 09:58 | disposition home or self-care (01) ==
LOC: ER 05:23
DX: F10.280 Alcohol dependence with alcohol-induced anxiety disorder (principal); E11.9 Type 2 diabetes mellitus without complications; F17.210 Nicotine dependence, cigarettes, uncomplicated; Z79.4 Long term (current) use of insulin; Z88.1 Allergy status to other antibiotic agents; Z91.018 Allergy to other foods
CPT/HCPCS: 93005; 85025; 80048; 36415; 80320; 80329; 85610; 80076; 85730; 99284; J3411; J7030; J2405

== ENCOUNTER 2021-03-23 01:46 | Emergency (ER) | payer OTHER ==
--- NOTE | 2021-03-23 04:40 | ER ---
Nurse's Notes [facility] Name: Edelmira Pal Age: 35 yrs Sex: Female : 1985 Arrival Date: 03/23/2021 Time: 01:49 Bed Waiting Private MD: Diagnosis: Alcohol abuse;Anxiety disorder, unspecified Presentation: 03/23 04:20 Chief complaint: Patient states: her anxiety is worse than it was when she was here bb Sunday she has psych appt tomorrow but needs some ativan now. Coronavirus screen: At this time, the client does not indicate any symptoms associated with coronavirus-19. Ebola Screen: No symptoms or risks identified at this time. Initial Sepsis Screen: Does the patient meet any 2 criteria? No. Patient's initial sepsis screen is negative. Does the patient have a suspected source of infection? No. Patient's initial sepsis screen is negative. Risk Assessment: Do you want to hurt yourself or someone else? Patient reports no desire to harm self or others. Onset of symptoms is unknown. 04:20 Method Of Arrival: Ambulatory bb 04:20 Acuity: BELTRAN 5 bb Triage Assessment: 04:22 General: Appears uncomfortable, unkempt, Behavior is agitated, anxious. Neuro: Level of bb Consciousness is awake, alert, obeys commands, Oriented to person, place, time, situation. Cardiovascular: Capillary refill < 3 seconds Patient's skin is warm and dry. Respiratory: Airway is patent Respiratory effort is even, unlabored, Respiratory pattern is regular. GI: Reports nausea. Derm: Skin is dry, Skin is flushed, Skin temperature is warm. Musculoskeletal: Circulation, motion, and sensation intact. Historical: - Allergies: 04:22 Ceclor; bb 04:22 kiwi; bb - Home Meds: 04:22 Albuterol Inhl [Active]; Buspirone Oral [Active]; gabapentin Oral [Active]; Novolog 100 bb unit/mL Sub-Q soln [Active]; temazepam Oral [Active]; Tresiba FlexTouch U-100 subcutaneous [Active]; - PMHx: 04:22 Alcoholism; Anxiety; Asthma; Diabetes - IDDM; bb - Immunization history:: Adult Immunizations unknown. - Social history:: Smoking status: unknown Patient uses alcohol. - Family history:: not pertinent. Assessment: 05:07 Reassessment: pt seen by Dr Sanders in triage, treated and discharged. Pt is A\T\O x 4, bb resp unlabored, verbalized understanding of and agrees to plan of care discharge instructions given pt ambulated with steady gait to exit accompanied by friend. Vital Signs: 04:20 BP 100 / 80; Pulse 102; Resp 20 S; Temp 97.4(TE); Pulse Ox 100% on R/A; Weight 68.04 kg bb (R); Height 5 ft. 3 in. (160.02 cm) (R); 04:20 Body Mass Index 26.57 (68.04 kg, 160.02 cm) bb ED Course: 01:49 Patient arrived in ED. wm 04:22 Triage completed. bb 04:[address] band placed on Dr Sanders in triage for pt evaluation. bb 04:33 Chapito Sanders MD is Attending Physician. jamel 04:38 Wilfrid Hogan MD is Referral Physician. jamel 05:08 No provider procedures requiring assistance completed. Patient did not have IV access bb during this emergency room visit. Administered Medications: 04:51 Drug: Ativan (LORazepam) 2 mg Route: PO; bb 05:08 Follow up: Response: No adverse reaction bb Outcome: 04:39 Discharge ordered by . [facility] 05:08 Discharged to home ambulatory, with friend. bb 05:08 Condition: stable 05:08 Instructed on discharge instructions, follow up and referral plans. medication usage. 05:09 Patient left the ED. bb Signatures: Chapito Sanders MD MD cha Ballard, Brenda, RN RN Cheri Parekh
--- NOTE | 2021-03-23 04:40 | EDPHYS ---
Physician Documentation [facility] Name: Edelmira Pal Age: 35 yrs Sex: Female : 1985 Arrival Date: 03/23/2021 Time: 01:49 Bed Waiting Private MD: PHILOMENA Physician Chapito Sanders HPI: 03/23 04:33 This 35 yrs old Female presents to ER via Ambulatory with complaints of jamel Anxiety. 04:33 The patient presents to the emergency department with anxiety, depression. Onset: The jamel symptoms/episode began/occurred 1 day(s) ago. Past psychiatric history: Prior diagnosis: addiction history, alcohol, Psychiatric medications include: none. Associated signs and symptoms: Pertinent positives; anxiety. Severity of symptoms: At their worst the symptoms were moderate in the emergency department the symptoms are unchanged. The patient has experienced similar episodes in the past, multiple times. Historical: - Allergies: 04:22 Ceclor; bb 04:22 kiwi; bb - Home Meds: 04:22 Albuterol Inhl [Active]; Buspirone Oral [Active]; gabapentin Oral [Active]; Novolog 100 bb unit/mL Sub-Q soln [Active]; temazepam Oral [Active]; Tresiba FlexTouch U-100 subcutaneous [Active]; - PMHx: 04:22 Alcoholism; Anxiety; Asthma; Diabetes - IDDM; bb - Immunization history:: Adult Immunizations unknown. - Social history:: Smoking status: unknown Patient uses alcohol. - Family history:: not pertinent. ROS: 04:33 Constitutional: Negative for fever, chills, and weight loss, Eyes: Negative for injury, jamel pain, redness, and discharge, ENT: Negative for injury, pain, and discharge, Neck: Negative for injury, pain, and swelling, Cardiovascular: Negative for chest pain, palpitations, and edema, Respiratory: Negative for shortness of breath, cough, wheezing, and pleuritic chest pain, Abdomen/GI: Negative for abdominal pain, nausea, vomiting, diarrhea, and constipation, Back: Negative for injury and pain, : Negative for injury, bleeding, discharge, and swelling, MS/Extremity: Negative for injury and deformity, Skin: Negative for injury, rash, and discoloration, Neuro: Negative for headache, weakness, numbness, tingling, and seizure, Allergy/Immunology: Negative for hives, rash, and allergies, Endocrine: Negative for neck swelling, polydipsia, polyuria, polyphagia, and marked weight changes, Hematologic/Lymphatic: Negative for swollen nodes, abnormal bleeding, and unusual bruising. 04:33 Psych: Positive for anxiety. Exam: 04:33 Constitutional: This is a well developed, well nourished patient who is awake, alert, jamel and in no acute distress. Head/Face: Normocephalic, atraumatic. Eyes: Pupils equal round and reactive to light, extra-ocular motions intact. Lids and lashes normal. Conjunctiva and sclera are non-icteric and not injected. Cornea within normal limits. Periorbital areas with no swelling, redness, or edema. ENT: Nares patent. No nasal discharge, no septal abnormalities noted. Tympanic membranes are normal and external auditory canals are clear. Oropharynx with no redness, swelling, or masses, exudates, or evidence of obstruction, uvula midline. Mucous membranes moist. Neck: Trachea midline, no thyromegaly or masses palpated, and no cervical lymphadenopathy. Supple, full range of motion without nuchal rigidity, or vertebral point tenderness. No Meningismus. Chest/axilla: Normal chest wall appearance and motion. Nontender with no deformity. No lesions are appreciated. Cardiovascular: Regular rate and rhythm with a normal S1 and S2. No gallops, murmurs, or rubs. Normal PMI, no JVD. No pulse deficits. Respiratory: Lungs have equal breath sounds bilaterally, clear to auscultation and percussion. No rales, rhonchi or wheezes noted. No increased work of breathing, no retractions or nasal flaring. Abdomen/GI: Soft, non-tender, with normal bowel sounds. No distension or tympany. No guarding or rebound. No evidence of tenderness throughout. Back: No spinal tenderness. No costovertebral tenderness. Full range of motion. Pelvic Exam: Normal external genitalia. Speculum exam with closed cervical os, no discharge or bleeding noted. Bimanual exam with normal adnexa, no adnexal or cervical motion tenderness. Normal uterus. Female : Normal external genitalia. Skin: Warm, dry with normal turgor. Normal color with no rashes, no lesions, and no evidence of cellulitis. MS/ Extremity: Pulses equal, no cyanosis. Neurovascular intact. Full, normal range of motion. Neuro: Awake and alert, GCS 15, oriented to person, place, time, and situation. Cranial nerves II-XII grossly intact. Motor strength 5/5 in all extremities. Sensory grossly intact. Cerebellar exam normal. Normal gait. 04:33 Psych: Behavior/mood is anxious, Affect is animated, Oriented to person, place, time, Not oriented to person place, time, Patient has no thoughts/intents to harm self or others. Judgement / Insight is normal. Memory is normal. Delusions/hallucinations are not present. Vital Signs: 04:20 BP 100 / 80; Pulse 102; Resp 20 S; Temp 97.4(TE); Pulse Ox 100% on R/A; Weight 68.04 kg bb (R); Height 5 ft. 3 in. (160.02 cm) (R); 04:20 Body Mass Index 26.57 (68.04 kg, 160.02 cm) bb MDM: 04:36 Differential diagnosis: drug withdrawal. acute psychotic break, depression, psychosis jamel secondary to non-compliance. Data reviewed: vital signs, nurses notes, lab test result(s), EKG, radiologic studies, CT scan, plain films. 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 Test interpretation: by ED physician or midlevel provider:. Counseling: I had a detailed discussion with the patient and/or guardian regarding: the historical points, exam findings, and any diagnostic results supporting the discharge/admit diagnosis. 04:39 Patient medically screened. jamel Administered Medications: 04:51 Drug: Ativan (LORazepam) 2 mg Route: PO; bb 05:08 Follow up: Response: No adverse reaction bb Disposition Summary: 03/23/21 04:39 Discharge Ordered Location: Home jamel Problem: new jamel Symptoms: have improved jamel Condition: Stable jamel Diagnosis - Alcohol abuse jamel - Anxiety disorder, unspecified jamel Followup: jamel - With: Private Physician - When: 1 - 2 days - Reason: Recheck today's complaints, Continuance of care, Re-evaluation by your physician Followup: jamel - With: Wilfrid Hogan MD - When: As needed - Reason: Recheck today's complaints, Continuance of care, Re-evaluation by your physician Discharge Instructions: - Discharge Summary Sheet jamel - Alcohol Intoxication jamel - Panic Attack jamel - Alcohol Abuse and Nutrition jamel - Panic Attack, [id number] jamel Forms: - Medication Reconciliation Form jamel - Thank You Letter jamel - Antibiotic Education jamel - Prescription Opioid Use jamel Prescriptions: - Hydroxyzine HCl 25 mg Oral Tablet - take 1 tablet by ORAL route every 6 hours As needed; 30 tablet; Refills: 0, jamel Product Selection Permitted Signatures: Chapito Sanders MD MD cha Ballard, Brenda RN RN bb
[2021-03-23 05:14] VITALS: BP 100/80; TEMP 97.4; O2SAT 100
[2021-03-23] MEDS ORDERED: LORAZEPAM 1 MG TABLET ONE (05:16)
== END 2021-03-23 05:09 | disposition home or self-care (01) ==
LOC: ER 01:46
DX: F10.20 Alcohol dependence, uncomplicated (principal); E11.9 Type 2 diabetes mellitus without complications; Z79.4 Long term (current) use of insulin; Z88.1 Allergy status to other antibiotic agents; Z91.018 Allergy to other foods
CPT/HCPCS: 99283

== ENCOUNTER 2021-03-27 15:53 | Emergency (ER) | payer OTHER | END 2021-03-27 17:17 | disposition left against medical advice (07) | LOC: ER 15:53 | DX: Z02.9 Encounter for administrative examinations, unspecified (principal) ==

== ENCOUNTER 2021-03-27 18:09 | Emergency (ER) | payer OTHER ==
[2021-03-27 19:27] LABS: Urine Blood Negative (Negative); Urine Glucose 2+ (Negative); Urine Protein Negative (Negative)
[2021-03-27] MEDS ORDERED: ONDANSETRON 4 MG (ODT) TAB ONE (19:28)
--- NOTE | 2021-03-27 20:59 | RAD REPORT ---
EXAM DESCRIPTION: RAD - Chest Single View - 03/27/2021 8:42 pm CLINICAL HISTORY: SOB, fever, possible COVID COMPARISON: None TECHNIQUE: AP portable chest image was obtained 03/27/2021 8:42 pm . FINDINGS: Lungs are clear. No COVID specific lung parenchymal findings. Heart and vasculature are no rmal. No measurable pleural effusion and no pneumothorax. No acute bony abnormality seen. No acute ao rtic findings suspected. IMPRESSION: No acute cardiopulmonary process.
[2021-03-27] MEDS ORDERED: NA CHLORIDE 0.9% 1,000 ML ONE (22:20)
[2021-03-27] MEDS ORDERED: DIAZEPAM 10 MG/2 ML INJ SYRINGE ONE (22:20)
[2021-03-27 22:24] LABS: Absolute Lymphocytes (CBC) 2.5 K/uL (0.7-4.9); Basophils % 1.4 % (0-1.3); Hematocrit 40.7 % (36.0-45.0); Lymphocytes % 36.3 % (15.3-44.8); MPV 6.8 fL (7.6-11.3); RBC Red Blood Cell Count 4.48 M/uL (3.86-4.86)
[2021-03-27 22:55] LABS: ALT/SGPT 36 U/L (12-78); Albumin 3.9 g/dL (3.4-5.0); Alkaline Phosphatase 75 U/L (45-117); BUN Blood Urea Nitrogen 5 mg/dL (7-18); Bicarbonate 29 mmol/L (21-32); Bilirubin Direct < 0.1 mg/dL (0-0.2); Bilirubin Total 0.4 mg/dL (0.2-1.0); Glucose Level 343 mg/dL (74-106); Lipase 107 U/L (73-393); Sodium Level 136 mmol/L (136-145)
--- NOTE | 2021-03-27 22:59 | ER ---
Nurse's Notes [facility] Name: Edelmira Pal Age: 35 yrs Sex: Female : 1985 Arrival Date: 03/27/2021 Time: 18:09 Bed DX1 Private MD: Diagnosis: Presentation: 03/27 18:54 Chief complaint: Patient states: Fever, chills, nausea, vomiting x 7 days. Coronavirus kg screen: Client denies travel out of the [place] in the last 14 days. At this time, unable to obtain information related to travel outside the [place] At this time, the client does not indicate any symptoms associated with coronavirus-19. Ebola Screen: Patient negative for fever greater than or equal to 101.5 degrees Fahrenheit, and additional compatible Ebola Virus Disease symptoms Patient denies exposure to infectious person. Patient denies travel to an Ebola-affected area in the 21 days before illness onset. No symptoms or risks identified at this time. Initial Sepsis Screen: Does the patient meet any 2 criteria? No. Patient's initial sepsis screen is negative. Does the patient have a suspected source of infection? No. Patient's initial sepsis screen is negative. Risk Assessment: Do you want to hurt yourself or someone else? Patient reports no desire to harm self or others. Onset of symptoms was March 19, 2021. 18:54 Method Of Arrival: Ambulatory kg 18:54 Acuity: BELTRAN 4 kg Triage Assessment: 18:58 General: Appears in no apparent distress. Behavior is anxious, crying. Pain: Complains kg of pain in abdomen Pain currently is 4 out of 10 on a pain scale. at worst was 8 out of 10 on a pain scale. Respiratory: Reports shortness of breath at rest on exertion cough that is productive, Onset: The symptoms/episode began/occurred gradually, the patient has mild shortness of breath. 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 - Social history:: Smoking status: Patient reports the use of cigarette tobacco products, smokes one-half pack cigarettes per day, Patient uses street drugs, marijuana. Screenin:02 Abuse screen: Denies threats or abuse. Denies injuries from another. Nutritional kg screening: No deficits noted. Tuberculosis screening: No symptoms or risk factors identified. Fall Risk None identified. Assessment: 19:02 Respiratory: Airway Respiratory effort is even, unlabored, relaxed. kg Vital Signs: 18:54 BP 124 / 96; Pulse 110; Resp 20; Temp 99.1(O); Pulse Ox 97% on R/A; Weight 70.76 kg kg (R); Height 5 ft. 3 in. (160.02 cm) (R); Pain 3/10; 18:54 Body Mass Index 27.63 (70.76 kg, 160.02 cm) kg ED Course: 18:09 Patient arrived in ED. am2 18:58 Triage completed. kg 18:58 Arm band placed on left wrist. kg 19:02 Patient has correct armband on for positive identification. kg 20:43 Chest Single View In Process Unspecified. EDMS 21:07 Marquez Mora PA is PHCP. m 21:07 Wild Hanks MD is Attending Physician. [facility] 21:19 Mahad Crocker, RN is Primary Nurse. em 22:00 Initial lab(s) drawn, by me, sent to lab. Inserted saline lock: 20 gauge in right em antecubital area, using aseptic technique. Blood collected. Administered Medications: 19:07 Drug: Ondansetron 4 mg Route: PO; kg 21:51 Follow up: Response: No adverse reaction em 22:05 Drug: NS 0.9% 1000 ml Route: IV; Rate: 1 bolus; Site: right antecubital; em 22:58 Follow up: IV Status: Completed infusion; IV Intake: 1000ml em 22:05 Drug: Valium (diazepam) 5 mg Route: IVP; Site: right antecubital; em 22:58 Follow up: Response: No adverse reaction em Intake: 22:58 IV: 1000ml; Total: 1000ml. em Outcome: :58 Patient left the ED. em Signatures: Dispatcher [employer] Marquez Hernandez PA PA jmm Munoz, Edgar, RN RN em Dania Gonzales am2 Lesly Delgado RN RN kg
[2021-03-27 23:01] LABS: AST/SGOT 39 U/L (15-37); Potassium 3.4 mmol/L (3.5-5.1)
[2021-03-27 23:09] VITALS: BP 124/96; TEMP 99.1; O2SAT 97
--- NOTE | 2021-03-28 22:59 | EDPHYS ---
Physician Documentation [facility] Name: Edelmira Pal Age: 35 yrs Sex: Female : 1985 Arrival Date: 03/27/2021 Time: 18:09 Bed DX1 Private MD: ED Physician Wild Hanks HPI: 03/27 19:00 This 35 yrs old Female presents to ER via Ambulatory with complaints of jmm Breathing Difficulty, covid+, Anxiety. 19:00 The patient has shortness of breath at rest. Onset: The symptoms/episode began/occurred jmm gradually, 7 day(s) ago. Duration: The symptoms are continuous. The patient's shortness of breath is aggravated by nothing, is alleviated by nothing. 19:00 This is a 35-year-old female with a history of alcoholism, asthma, diabetes mellitus jmm that presents emerged part with complaints of cough and progressively worsening shortness of breath over the past week. Patient states she was diagnosed with coronavirus and has never felt this short of breath before.. 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 - Social history:: Smoking status: Patient reports the use of cigarette tobacco products, smokes one-half pack cigarettes per day, Patient uses street drugs, marijuana. ROS: 19:00 Cardiovascular: Negative for chest pain, palpitations, and edema. jmm 19:00 Constitutional: Positive for body aches, chills. 19:00 Respiratory: Positive for cough, shortness of breath. 19:00 All other systems are negative. Exam: 19:00 Head/Face: atraumatic. Eyes: EOMI, no conjunctival erythema appreciated ENT: Moist jmm Mucus Membranes Neck: Trachea midline, Supple Chest/axilla: Normal chest wall appearance and motion. Cardiovascular: Regular rate and rhythm. No edema appreciated 19:00 Back: Normal ROM Skin: General appearance color normal 19:00 Neuro: Awake and alert, normal gait Psych: Behavior is normal, Mood is normal, Patient is cooperative and pleasant 19:00 Constitutional: The patient appears alert, awake, anxious. 19:00 Respiratory: mild respiratory distress is noted, Respirations: normal, Breath sounds: are clear throughout. 19:00 Musculoskeletal/extremity: ROM: intact in all extremities. Vital Signs: 18:54 BP 124 / 96; Pulse 110; Resp 20; Temp 99.1(O); Pulse Ox 97% on R/A; Weight 70.76 kg kg (R); Height 5 ft. 3 in. (160.02 cm) (R); Pain 3/10; 18:54 Body Mass Index 27.63 (70.76 kg, 160.02 cm) kg MDM: 21:35 Patient medically screened. [facility] 03/28 00:19 Data reviewed: vital signs, nurses notes. Counseling: I had a detailed discussion with [facility] the patient and/or guardian regarding:. ED course: Patient left against medical advice. 03/27 19:27 Order name: Urine Dipstick-Ancillary; Complete Time: 21:26 [facility] 03/27 19:33 Order name: Urine --Ancillary (enter results) [facility] 03/27 19:33 Order name: Urine --Ancillary; Complete Time: 21:26 [facility] 03/27 21:36 Order name: Basic Metabolic Panel [facility] 03/27 21:36 Order name: CBC with Diff; Complete Time: 22:28 [facility] 03/27 21:36 Order name: Hepatic Function [facility] 03/27 19:13 Order name: Chest Single View; Complete Time: 21:26 [facility] 03/27 19:33 Order name: Urine Dipstick-Ancillary (obtain specimen); Complete Time: 19:33 [facility] 03/27 21:36 Order name: Lipase [facility] 03/27 19:33 Order name: Urine Test (obtain specimen); Complete Time: 19:33 [facility] 03/27 21:36 Order name: IV Saline Lock; Complete Time: 22:08 [facility] 03/27 21:36 Order name: Labs collected and sent; Complete Time: 22:08 veronica Administered Medications: 03/27 19:07 Drug: Ondansetron 4 mg Route: PO; kg 21:51 Follow up: Response: No adverse reaction em 22:05 Drug: NS 0.9% 1000 ml Route: IV; Rate: 1 bolus; Site: right antecubital; em 22:58 Follow up: IV Status: Completed infusion; IV Intake: 1000ml em 22:05 Drug: Valium (diazepam) 5 mg Route: IVP; Site: right antecubital; em 22:58 Follow up: Response: No adverse reaction em Disposition: 03/28 06:36 Co-signature as Attending Physician, Wild Hanks MD. [email or web address] Disposition Summary: 03/27/21 22:58 Left Against Medical Advice Location: Home em Condition: Stable em Signatures: Dispatcher [employer] EDMS Marquez Mora PA PA jmm Munoz, Edgar, RN RN Carmenza Sesay 2 Wild Hanks MD MD 7 Lesly Delgado, ISSA RN kg Corrections: (The following items were deleted from the chart) 03/27 19:13 19:07 Chest Pa And Lat (2 Views)+[email or web address] ordered. PHILOMENATN PHILOMENATN
== END 2021-03-27 22:58 | disposition left against medical advice (07) ==
LOC: ER 18:09
DX: R06.02 Shortness of breath (principal); F41.9 Anxiety disorder, unspecified; F10.20 Alcohol dependence, uncomplicated; E11.9 Type 2 diabetes mellitus without complications; F17.210 Nicotine dependence, cigarettes, uncomplicated; Z86.16 Personal history of COVID-19; Z79.4 Long term (current) use of insulin; Z88.1 Allergy status to other antibiotic agents
CPT/HCPCS: 96361; 85025; 80048; 36415; 81025; 80076; 81003; 83690; 71045; 96374; 99284; J3360; J7030

== ENCOUNTER 2021-03-30 18:48 | Emergency (ER) | payer OTHER ==
--- NOTE | 2021-03-30 22:42 | ER ---
Nurse's Notes [facility] Name: Edelmira Pal Age: 35 yrs Sex: Female : 1985 Arrival Date: 03/30/2021 Time: 18:51 Bed DIS2 Private MD: Diagnosis: Presentation: 03/30 19:03 Chief complaint: EMS states: called out for anxiety. Pt COVID + 3 days ago. Coronavirus sv screen: Client denies travel out of the [place] in the last 14 days. Client reports previous positive COVID test result. Ebola Screen: No symptoms or risks identified at this time. Risk Assessment: Do you want to hurt yourself or someone else? Patient reports no desire to harm self or others. Onset of symptoms was March 30, 2021. 19:03 Method Of Arrival: EMS: [facility] sv 19:03 Acuity: BELTRAN 5 sv 19:04 Initial Sepsis Screen: Does the patient meet any 2 criteria? RR > 20 per min. HR > 90 sv bpm. Yes Does the patient have a suspected source of infection? Yes: Other: COVID. Triage Assessment: 19:04 General: Appears in no apparent distress. comfortable, well developed, Behavior is sv calm, cooperative, appropriate for age. Pain: Denies pain. Neuro: Level of Consciousness is awake, alert, obeys commands, Oriented to person, place, time, situation. Respiratory: Respiratory effort is even, unlabored. Historical: - Allergies: 19:04 Ceclor; sv - PMHx: 19:04 Alcoholism; Anxiety; Asthma; Diabetes - IDDM; sv - PSHx: 19:04 right ankle sx; sv - Immunization history:: Client reports having NOT received the Covid vaccine. - Social history:: Smoking status: Patient reports the use of cigarette tobacco products, denies chronic smoking, but will smoke occasionally. Vital Signs: 19:04 BP 123 / 88; Pulse 94; Resp 22; Temp 98.2(O); Pulse Ox 99% ; Weight 68.04 kg; Height 5 sv ft. 3 in. (160.02 cm); Pain 0/10; 19:04 Body Mass Index 26.57 (68.04 kg, 160.02 cm) sv ED Course: 18:51 Patient arrived in ED. as 19:03 Arm band placed on. sv 19:04 Triage completed. sv 21:45 Ramírez Mccauley MD is Attending Physician. pkl 22:34 Chapito Whipple PA is PHCP. cp 22:34 Ramírez Mccauley MD is Attending Physician. cp 22:41 Patient's name was called from ER lobby. No response. Unable to locate patient. Will bb disposition as left without being seen by a provider. Administered Medications: No medications were administered Outcome: 22:42 Patient left the ED. bb Signatures: Verona Pennington RN RN Ramírez Mccauley MD MD pkSienna Flores as Kathryn oPllock RN RN bb Chapito Whipple PA PA cp Corrections: (The following items were deleted from the chart) 19:05 19:04 68.04 kg; Height 5 ft. 3 in.; BMI: 26.5; Pain 0/10; sv sv 19:06 19:04 68.04 kg; Height 5 ft. 3 in.; BMI: 26.5; Pain 0/10; sv sv 19:06 19:04 BP 123 / 88; Pulse 94bpm; Resp 22bpm; Pulse Ox 99%; 68.04 kg; Height 5 ft. 3 in.; sv BMI: 26.5; Pain 0/10; sv
[2021-03-30 22:56] VITALS: BP 123/88; TEMP 98.2; O2SAT 99
== END 2021-03-30 22:42 | disposition left against medical advice (07) ==
LOC: ER 18:48
DX: Z53.21 Procedure and treatment not carried out due to patient leaving prior to being seen by health care provider (principal)
CPT/HCPCS: 99282

== ENCOUNTER 2021-04-22 01:41 | Emergency (ER) | payer OTHER ==
[2021-04-22 02:27] LABS: Absolute Lymphocytes (CBC) 1.7 K/uL (0.7-4.9); Basophils % 0.4 % (0-1.3); Hematocrit 46.5 % (36.0-45.0); MPV 7.4 fL (7.6-11.3); RBC Red Blood Cell Count 5.11 M/uL (3.86-4.86)
[2021-04-22] MEDS ORDERED: LORazepam 2 MG/ML VIAL ONE ×2 (02:43→05:38)
[2021-04-22] MEDS ORDERED: PROMETHAZINE INJ 25 MG/ML AMP ONE ×2 (02:43→04:41)
[2021-04-22] MEDS ORDERED: NA CHLORIDE 0.9% 1,000 ML ONE (02:44)
[2021-04-22] MEDS ORDERED: METOPROLOL TARTRATE 5 MG/5 ML INJ IV ONE ×2 (02:44→04:10)
[2021-04-22 02:56] LABS: Protime INR 0.98
[2021-04-22 03:00] LABS: ALT/SGPT 48 U/L (12-78); Albumin 4.2 g/dL (3.4-5.0); Alkaline Phosphatase 101 U/L (45-117); BUN Blood Urea Nitrogen 9 mg/dL (7-18); Bicarbonate 32 mmol/L (21-32); Bilirubin Direct 0.1 mg/dL (0-0.2); Bilirubin Total 0.5 mg/dL (0.2-1.0); Glucose Level 173 mg/dL (74-106); Protein, Total 10.1 g/dL (6.4-8.2); Sodium Level 135 mmol/L (136-145)
[2021-04-22 03:01] LABS: AST/SGOT 43 U/L (15-37)
[2021-04-22 03:04] LABS: Potassium 2.8 mmol/L (3.5-5.1)
[2021-04-22 03:16] LABS: Urine Blood Trace-intact (Negative); Urine Glucose Negative (Negative); Urine Protein 3+ (Negative); Urine Specific Gravity >=1.030 (1.005-1.030)
[2021-04-22 03:29] LABS: Urine Specific Gravity/Preg >1.030 (1.005-1.030)
[2021-04-22 03:45] LABS: Barbiturates NEGATIVE (NEGATIVE); Benzodiazepines POSITIVE (NEGATIVE); Cocaine NEGATIVE (NEGATIVE); METHAMPHETAM NEGATIVE (NEGATIVE); Methadone NEGATIVE (NEGATIVE); Opiates NEGATIVE (NEGATIVE); Phencyclidine NEGATIVE (NEGATIVE); THC Cannibis NEGATIVE (NEGATIVE)
[2021-04-22] MEDS ORDERED: ONDANSETRON 4 MG/2 ML VIAL ONE (04:10)
[2021-04-22] MEDS ORDERED: KCL 20 MEQ/100 mL IVPB 20 MEQ/100 ML BAG IV ONE (04:11)
[2021-04-22] MEDS ORDERED: POTASSIUM CL SA 10 MEQ TAB PO ONE (04:56)
[2021-04-22] MEDS ORDERED: POTASSIUM 25 MEQ EFFERV TAB ONE (05:38)
[2021-04-22] MEDS ORDERED: LABETALOL HCL 100 MG/20 ML ONE (06:32)
--- NOTE | 2021-04-22 06:33 | EDPHYS ---
Physician Documentation [facility] Name: Edelmira Pal Age: 35 yrs Sex: Female : 1985 Arrival Date: 04/22/2021 Time: 01:42 Bed 20 Private MD: ED Physician Ramírez Mccauley HPI: 04/22 01:57 This 35 yrs old Female presents to ER via EMS with unknown complaint. pkl 01:57 The patient presents to the emergency department with nausea, that is moderate, pkl vomiting. Onset: The symptoms/episode began/occurred 3 day(s) ago. Possible causes: Patient said she is having alcohol withdrawal. Patient said she last drank alcohol 5 days ago. Patient said she is scheduled for detox next week. The patient has experienced similar episodes in the past, several times. MANAGER RELIABILITY: 06:49 Verified kc4 Historical: - Allergies: 01:46 Ceclor; em - PMHx: 01:46 Alcoholism; Anxiety; Asthma; Diabetes - IDDM; em - PSHx: 01:46 right ankle sx; em - Immunization history:: Adult Immunizations up to date. - Social history:: Patient uses alcohol, on a daily basis. Smoking status: Patient reports the use of cigarette tobacco products, denies chronic smoking, but will smoke occasionally, Patient uses alcohol, on a daily basis. ROS: 01:57 Eyes: Negative for injury, pain, redness, and discharge, ENT: Negative for injury, pkl pain, and discharge, Neck: Negative for injury, pain, and swelling. 01:57 Cardiovascular: Positive for palpitations. 01:57 Respiratory: Negative for cough, shortness of breath. 01:57 Abdomen/GI: Positive for nausea and vomiting. 01:57 Back: Negative for acute changes. 01:57 : Negative for urinary symptoms. 01:57 MS/extremity: Negative for acute changes. 01:57 Skin: Negative for rash. 01:57 Neuro: Negative for altered mental status, loss of consciousness. Exam: 01:57 Head/Face: Normocephalic, atraumatic. Eyes: Pupils equal round and reactive to light, pkl extra-ocular motions intact. Lids and lashes normal. Conjunctiva and sclera are non-icteric and not injected. Cornea within normal limits. Periorbital areas with no swelling, redness, or edema. ENT: Nares patent. No nasal discharge, no septal abnormalities noted. Tympanic membranes are normal and external auditory canals are clear. Oropharynx with no redness, swelling, or masses, exudates, or evidence of obstruction, uvula midline. Mucous membranes moist. Neck: Trachea midline, no thyromegaly or masses palpated, and no cervical lymphadenopathy. Supple, full range of motion without nuchal rigidity, or vertebral point tenderness. No Meningismus. Chest/axilla: Normal chest wall appearance and motion. Nontender with no deformity. No lesions are appreciated. Cardiovascular: Regular rate and rhythm with a normal S1 and S2. No gallops, murmurs, or rubs. Normal PMI, no JVD. No pulse deficits. Respiratory: Lungs have equal breath sounds bilaterally, clear to auscultation and percussion. No rales, rhonchi or wheezes noted. No increased work of breathing, no retractions or nasal flaring. Abdomen/GI: Soft, non-tender, with normal bowel sounds. No distension or tympany. No guarding or rebound. No evidence of tenderness throughout. Back: No spinal tenderness. No costovertebral tenderness. Full range of motion. Skin: Warm, dry with normal turgor. Normal color with no rashes, no lesions, and no evidence of cellulitis. MS/ Extremity: Pulses equal, no cyanosis. Neurovascular intact. Full, normal range of motion. Neuro: Awake and alert, GCS 15, oriented to person, place, time, and situation. Cranial nerves II-XII grossly intact. Motor strength 5/5 in all extremities. Sensory grossly intact. Cerebellar exam normal. Normal gait. Vital Signs: 01:43 BP 148 / 118; Pulse 130; Resp 24; Temp 98.2; Pulse Ox 97% on R/A; em 02:35 BP 130 / 109; Pulse 108; Resp 20; Temp 98.8; Pulse Ox 100% on R/A; kc4 04:29 BP 139 / 106; Pulse 108; Resp 20; Temp 98.8; Pulse Ox 100% on R/A; kc4 05:24 BP 138 / 101; Pulse 98; Resp 20; Temp 98.8; Pulse Ox 100% on R/A; kc4 05:57 BP 121 / 105; Pulse 104; Resp 20; Temp 98.8(O); Pulse Ox 100% on R/A; kc4 06:47 BP 120 / 83; Pulse 100; Resp 18; Temp 98.7; Pulse Ox 100% on R/A; Pain 0/10; kc4 [place] Coma Score: 02:35 Eye Response: spontaneous(4). Verbal Response: oriented(5). Motor Response: obeys kc4 commands(6). Total: 15. MDM: 01:44 Patient medically screened. pkl 03:37 Data reviewed: vital signs, nurses notes, lab test result(s), EKG, radiologic studies, pkl plain films. 06:29 ED course: Patient feeling better. Advised patient to follow up with her PCP in 1 to 2 pkl days. To keep her appt. for detox next week. Patient understood instructions. 04/22 01:56 Order name: Acetaminophen pkl 04/22 01:56 Order name: Basic Metabolic Panel; Complete Time: 03:36 pk 04/22 01:56 Order name: CBC with Diff; Complete Time: 03:36 pk 04/22 01:56 Order name: ETOH Level; Complete Time: 03:36 pk 04/22 01:56 Order name: Hepatic Function; Complete Time: 03:36 pk 04/22 01:56 Order name: PT-INR; Complete Time: 03:36 pk 04/22 01:56 Order name: Ptt, Activated; Complete Time: 03:36 pk 04/22 01:56 Order name: Salicylate; Complete Time: 03:36 pk 04/22 01:56 Order name: Urine Drug Screen; Complete Time: 03:46 pk 04/22 01:56 Order name: Acetaminophen Level; Complete Time: 03:36 EDTN 04/22 03:12 Order name: Urine --Ancillary (enter results) tt3 04/22 03:13 Order name: Urine --Ancillary; Complete Time: 03:36 EDTN 04/22 03:16 Order name: Urine Dipstick-Ancillary EDTN 04/22 01:56 Order name: XRAY CXR (1 view) pk 04/22 04:18 Order name: CT Abd/Pelvis - IV Contrast Only pkl 04/22 01:56 Order name: EKG; Complete Time: 01:57 pk 04/22 01:56 Order name: EKG - Nurse/Tech; Complete Time: 02:52 [facility] 04/22 01:56 Order name: IV Saline Lock; Complete Time: 02:34 [facility] 04/22 01:56 Order name: Labs collected and sent; Complete Time: 02:34 [facility] 04/22 01:56 Order name: Suicide Screening ([place]) [facility] 04/22 01:56 Order name: Urine Dipstick-Ancillary (obtain specimen); Complete Time: 03:12 [facility] 04/22 03:10 Order name: Urine Test (obtain specimen); Complete Time: 03:12 tt3 Administered Medications: 02:32 Drug: Ativan (LORazepam) 1 mg Route: IVP; Site: right antecubital; kc4 03:19 Follow up: Response: No adverse reaction em 04:28 Follow up: Response: No adverse reaction kc4 06:53 Follow up: Response: No adverse reaction kc4 06:54 Follow up: Response: No adverse reaction kc4 02:33 Drug: NS 0.9% 1000 ml Route: IV; Rate: 1000 ml; Site: right antecubital; kc4 02:33 Drug: Phenergan (promethazine) 25 mg Route: IVP; Site: right antecubital; kc4 06:46 Follow up: Response: No adverse reaction kc4 02:33 Drug: Lopressor (metoprolol) 5 mg Route: IVP; Site: right antecubital; kc4 02:38 Drug: Lopressor (metoprolol) 5 mg Route: IVP; Site: right antecubital; em 02:40 Drug: Lopressor (metoprolol) 5 mg Route: IVP; Site: right antecubital; em 06:46 Follow up: Response: Blood pressure is elevated kc4 03:53 Drug: Potassium Chloride 20 mEq Route: IV; Rate: calculated rate; Site: right kc4 antecubital; 05:24 Follow up: Response: No adverse reaction kc4 03:53 Drug: Zofran (Ondansetron) 4 mg Route: IVP; Site: right antecubital; kc4 05:24 Follow up: Response: No adverse reaction kc4 03:53 Drug: Lopressor (metoprolol) 5 mg Route: IVP; Site: right antecubital; kc4 05:23 Follow up: Response: No adverse reaction kc4 04:28 Drug: Phenergan (promethazine) 25 mg Route: IVP; Site: right antecubital; kc4 05:23 Follow up: Response: No adverse reaction kc4 05:07 CANCELLED (Duplicate Order): K-Dur (potassium chloride) 40 mEq PO once pkl 05:22 Drug: Ativan (LORazepam) 1 mg Route: IVP; Site: right antecubital; kc4 05:57 Follow up: BP 121 / 105; Pulse 104 bpm; Resp 20 bpm; Temp 98.8 Oral; Pulse Ox 100% RA; kc4 Response: No adverse reaction 06:31 Follow up: Response: No adverse reaction em 05:23 Drug: K-Lyte (potassium) Effervescent Tablet 50 mEq Route: PO; kc4 06:37 Follow up: Response: No adverse reaction em 06:28 CANCELLED (Duplicate Order): Labetalol 20 mg IVP once over 2 mins pkl Disposition Summary: 04/22/21 06:33 Discharge Ordered Location: Home pkl Problem: new pkl Symptoms: have improved pkl Condition: Stable pkl Diagnosis - Recurrent vomiting. Hypokalemia. Alcohol abuse. Anxiety disorder pkl Followup: pkl - With: Private Physician - When: 1 - 2 days - Reason: Re-evaluation by your physician Discharge Instructions: - Discharge Summary Sheet pkl Forms: - Medication Reconciliation Form pkl - Thank You Letter pkl - Antibiotic Education pkl - Prescription Opioid Use pkl - Work release form eb Prescriptions: - Metoprolol Tartrate 50 mg Oral Tablet - take 1 tablet by ORAL route 2 times per day take with meal; 30 tablet; Refills: pkl 0, Product Selection Permitted - promethazine 25 mg Oral Tablet - take 1 tablet by ORAL route every 6 hours As needed; 20 tablet; Refills: 0, pkl Product Selection Permitted Signatures: Dispatcher [employer] Ramírez Hastings MD MD pkl Mahad Crocker RN RN em Vikas Ng3 Ana Hogan kc4 Corrections: (The following items were deleted from the chart) 05:07 03:38 K-Dur (potassium chloride) 40 mEq PO once ordered. pkl pkl 06:28 06:01 Labetalol 20 mg IVP once over 2 mins ordered. pkl pkl 06:30 05:08 CBC+H.LAB.BRZ ordered. EDMS EDMS 06:30 05:08 BASIC METABOLIC PANEL+C.LAB.BRZ ordered. EDMS EDMS
--- NOTE | 2021-04-22 06:33 | ER ---
Nurse's Notes [facility] Name: Edelmira Pal Age: 35 yrs Sex: Female : 1985 Arrival Date: 04/22/2021 Time: 01:42 Bed 20 Private MD: Diagnosis: Recurrent vomiting. Hypokalemia. Alcohol abuse. Anxiety disorder Presentation: 04/22 01:43 Chief complaint: EMS states: DT, ETOH withdrawal, vomiting. Coronavirus screen: Client em denies travel out of the [place] in the last 14 days. At this time, the client does not indicate any symptoms associated with coronavirus-19. Ebola Screen: No symptoms or risks identified at this time. Initial Sepsis Screen: Does the patient meet any 2 criteria? No. Patient's initial sepsis screen is negative. Does the patient have a suspected source of infection? No. Patient's initial sepsis screen is negative. Risk Assessment: Do you want to hurt yourself or someone else? Patient reports no desire to harm self or others. Onset of symptoms was April 16, 2021. 01:43 Method Of Arrival: EMS: [facility] em 01:43 Acuity: BELTRAN 3 em 05:25 Note pt has increased symptoms of DTs. MD notified for something for anxiety and kc4 vomiting. Triage Assessment: 01:46 General: Appears distressed, unkempt, Behavior is anxious. Pain: Complains of pain in em abdomen. SLIP MAKER: 06:49 Verified kc4 Historical: - Allergies: 01:46 Ceclor; em - PMHx: 01:46 Alcoholism; Anxiety; Asthma; Diabetes - IDDM; em - PSHx: 01:46 right ankle sx; em - Immunization history:: Adult Immunizations up to date. - Social history:: Patient uses alcohol, on a daily basis. Smoking status: Patient reports the use of cigarette tobacco products, denies chronic smoking, but will smoke occasionally, Patient uses alcohol, on a daily basis. Screenin:35 Abuse screen: Denies threats or abuse. Nutritional screening: No deficits noted. Has kc4 had N/V for 3 or more days. Tuberculosis screening: No symptoms or risk factors identified. Never had TB. Possible symptoms: None Risk factors: None. Fall Risk None identified. No fall in past 12 months (0 pts). No secondary diagnosis (0 pts). IV access (20 points). Ambulatory Aid- None/Bed Rest/Nurse Assist (0 pts). Gait- Normal/Bed Rest/Wheelchair (0 pts) Mental Status- Oriented to own ability (0 pts). Total Strauss Fall Scale indicates No Risk (0-24 pts). Assessment: 02:35 General: Appears distressed, uncomfortable, unkempt, Behavior is cooperative, kc4 appropriate for age, restless, Smells of alcohol, Reports chills for fever for feeling ill for fatigue for 12-24 hours. Pain: Denies pain. Neuro: Level of Consciousness is awake, alert, obeys commands, Oriented to person, place, time, situation, Appropriate for age Blast Setter are equal bilaterally Moves all extremities. Gait is steady, Speech is normal, Facial symmetry appears normal, Pupils are PERRLA, Intact Cardiovascular: No deficits noted. Respiratory: No deficits noted. GI: No deficits noted. GI: Abdomen is distended, Pt is actively vomiting bile. : No deficits noted. EENT: No deficits noted. Derm: No deficits noted. Musculoskeletal: No deficits noted. Vital Signs: 01:43 BP 148 / 118; Pulse 130; Resp 24; Temp 98.2; Pulse Ox 97% on R/A; em 02:35 BP 130 / 109; Pulse 108; Resp 20; Temp 98.8; Pulse Ox 100% on R/A; kc4 04:29 BP 139 / 106; Pulse 108; Resp 20; Temp 98.8; Pulse Ox 100% on R/A; kc4 05:24 BP 138 / 101; Pulse 98; Resp 20; Temp 98.8; Pulse Ox 100% on R/A; kc4 05:57 BP 121 / 105; Pulse 104; Resp 20; Temp 98.8(O); Pulse Ox 100% on R/A; kc4 06:47 BP 120 / 83; Pulse 100; Resp 18; Temp 98.7; Pulse Ox 100% on R/A; Pain 0/10; kc4 [place] Coma Score: 02:35 Eye Response: spontaneous(4). Verbal Response: oriented(5). Motor Response: obeys kc4 commands(6). Total: 15. ED Course: 01:42 Patient arrived in ED. em 01:43 Ramírez Mccauley MD is Attending Physician. pkl 01:44 Ana Hogan is Primary Nurse. kc4 01:46 Triage completed. em 02:34 Acetaminophen Sent. kc4 02:40 No provider procedures requiring assistance completed. Inserted saline lock: 20 gauge kc4 in right antecubital area, using aseptic technique. Blood collected. 02:40 Patient has correct armband on for positive identification. Placed in gown. Bed in low kc4 position. Call light in reach. Side rails up X 1. 02:51 XRAY CXR (1 view) Sent. df1 02:55 XRAY CXR (1 view) In Process Unspecified. EDMS 03:15 Urine --Ancillary (enter results) Sent. em 03:15 Urine --Ancillary Sent. em 04:50 CT Abd/Pelvis - IV Contrast Only In Process Unspecified. EDMS 06:47 IV discontinued, intact, bleeding controlled, No redness/swelling at site. Pressure kc4 dressing applied. 06:49 Arm band placed on Emesis basin given. kc4 Administered Medications: 02:32 Drug: Ativan (LORazepam) 1 mg Route: IVP; Site: right antecubital; kc4 03:19 Follow up: Response: No adverse reaction em 04:28 Follow up: Response: No adverse reaction kc4 06:53 Follow up: Response: No adverse reaction kc4 06:54 Follow up: Response: No adverse reaction kc4 02:33 Drug: NS 0.9% 1000 ml Route: IV; Rate: 1000 ml; Site: right antecubital; kc4 02:33 Drug: Phenergan (promethazine) 25 mg Route: IVP; Site: right antecubital; kc4 06:46 Follow up: Response: No adverse reaction kc4 02:33 Drug: Lopressor (metoprolol) 5 mg Route: IVP; Site: right antecubital; kc4 02:38 Drug: Lopressor (metoprolol) 5 mg Route: IVP; Site: right antecubital; em 02:40 Drug: Lopressor (metoprolol) 5 mg Route: IVP; Site: right antecubital; em 06:46 Follow up: Response: Blood pressure is elevated kc4 03:53 Drug: Potassium Chloride 20 mEq Route: IV; Rate: calculated rate; Site: right kc4 antecubital; 05:24 Follow up: Response: No adverse reaction kc4 03:53 Drug: Zofran (Ondansetron) 4 mg Route: IVP; Site: right antecubital; kc4 05:24 Follow up: Response: No adverse reaction kc4 03:53 Drug: Lopressor (metoprolol) 5 mg Route: IVP; Site: right antecubital; kc4 05:23 Follow up: Response: No adverse reaction kc4 04:28 Drug: Phenergan (promethazine) 25 mg Route: IVP; Site: right antecubital; kc4 05:23 Follow up: Response: No adverse reaction kc4 05:07 CANCELLED (Duplicate Order): K-Dur (potassium chloride) 40 mEq PO once pkl 05:22 Drug: Ativan (LORazepam) 1 mg Route: IVP; Site: right antecubital; kc4 05:57 Follow up: BP 121 / 105; Pulse 104 bpm; Resp 20 bpm; Temp 98.8 Oral; Pulse Ox 100% RA; kc4 Response: No adverse reaction 06:31 Follow up: Response: No adverse reaction em 05:23 Drug: K-Lyte (potassium) Effervescent Tablet 50 mEq Route: PO; kc4 06:37 Follow up: Response: No adverse reaction em 06:28 CANCELLED (Duplicate Order): Labetalol 20 mg IVP once over 2 mins pkl Outcome: 06:33 Discharge ordered by . pkl 06:48 Discharged to home ambulatory. kc4 06:48 Condition: stable 06:48 Discharge instructions given to patient, Instructed on discharge instructions, follow up and referral plans. medication usage. 06:54 Patient left the ED. kc4 Signatures: Dispatcher [employer] Ramírez Hastings MD MD pkl Mahad Crocker, RN RN Ana Guzmán kc4 Alice Julian df1
[2021-04-22 07:04] VITALS: O2SAT 100
[2021-04-22 07:10] VITALS: BP 120/83; TEMP 98.7
--- NOTE | 2021-04-22 08:13 | EKG ---
Test Date: 2021-04-22 Test Time: 02:46:54 Senior Staff Consultant: ARLENE MEASUREMENT RESULTS: Intervals: Rate: 100 HI: 162 QRSD: 76 QT: 360 QTc: 464 Sheldahl: P: 64 HI: 162 QRS: 86 T: 75 INTERPRETIVE STATEMENTS: Normal sinus rhythm Normal ECG Compared to ECG 03/21/2021 09:32:05 Sinus tachycardia no longer present Electronically Signed On 04-22-21 08:12:49 CDT by Miguel Hardy
--- NOTE | 2021-04-22 08:42 | RAD REPORT ---
EXAM DESCRIPTION: RAD - Chest Single View - 04/22/2021 2:55 am CLINICAL HISTORY: vomiting COMPARISON: March 27 TECHNIQUE: AP portable chest image was obtained 04/22/2021 2:55 am . FINDINGS: Lungs are clear of focal mass or consolidation. Interstitial pattern matches comparison. H eart and vasculature are normal. No measurable pleural effusion and no pneumothorax. No acute bony ab normality seen. No acute aortic findings suspected. IMPRESSION: No acute cardiopulmonary process. No significant change from comparison study.
--- NOTE | 2021-04-22 11:10 | RAD REPORT ---
EXAM DESCRIPTION: CT - Abdomen Pelvis W Contrast - 04/22/2021 4:50 am COMPARISON: CT abdomen pelvis June 20, 2020 CLINICAL HISTORY: [facility] recurrent vomiting TECHNIQUE: CT of the abdomen and pelvis was acquired with IV contrast material. Coronal and sagitt al reconstructions were obtained. Automated exposure control was utilized on this examination as a dose lowering technique. FINDINGS: Lung bases: Clear. Liver: Mild hepatic steatosis. Gallbladder and biliary: 1.5 cm gallstone. Unremarkable biliary tree. Pancreas: Normal. Spleen: Normal. Adrenal glands: Normal adrenal glands. Kidneys: Normal kidneys Stomach and Small Bowel: Small hiatal hernia. Normal small bowel. Urinary bladder: Normal. Uterus and Adnexa: Normal. Colon and Appendix: Mild colonic wall thickening is present. No evidence of appendicitis. Retroperitoneum and lymph nodes: Normal. Vascular: Unremarkable. Peritoneal cavity: No ascites or free air. Musculoskeletal and soft tissues: Soft tissues are unremarkable. No aggressive bone lesions. No com pression fracture. IMPRESSION: 1. Mild colonic wall thickening may be due to decompression or mild infectious or inflam matory colitis. 2. Mild hepatic steatosis. 3. Cholelithiasis. Electronically signed by: Darrick Zuleta MD 04/22/2021 5:48 AM CDT Due to temporary technical issues with the PACS/Fluency reporting system, reports are being signed by the in house radiologist without review as a courtesy to ensure prompt reporting. The interpreting r adiologist is fully responsible for the content of the report.
== END 2021-04-22 06:54 | disposition home or self-care (01) ==
LOC: ER 01:41
DX: E87.6 Hypokalemia (principal); F10.20 Alcohol dependence, uncomplicated; F41.9 Anxiety disorder, unspecified; F17.210 Nicotine dependence, cigarettes, uncomplicated; Z88.8 Allergy status to other drugs, medicaments and biological substances
CPT/HCPCS: 93005; 85025; 80048; 36415; 80320; 80329 ×2; 81025; 85610; 80076; 85730; 81003; 80307; 74177; 71045; 96375; 96374; 99284; Q9967; J2550 ×2; J3480; J7030; J2405

== ENCOUNTER 2021-05-03 18:48 | Emergency (ER) | payer OTHER ==
[2021-05-03 19:37] LABS: Absolute Lymphocytes (CBC) 2.1 K/uL (0.7-4.9); Basophils % 1.1 % (0-1.3); Hematocrit 44.2 % (36.0-45.0); Lymphocytes % 16.8 % (15.3-44.8); MPV 6.8 fL (7.6-11.3); RBC Red Blood Cell Count 4.76 M/uL (3.86-4.86)
[2021-05-03] MEDS ORDERED: NA CHLORIDE 0.9% 1,000 ML ONE ×3 (19:37→22:54)
[2021-05-03] MEDS ORDERED: LORazepam 2 MG/ML VIAL ONE ×2 (19:38→20:12)
[2021-05-03 19:40] LABS: Protime INR 0.99
[2021-05-03] MEDS ORDERED: FAMOTIDINE 20 MG/2 ML VIAL IV ONE (19:42)
[2021-05-03] MEDS ORDERED: PROMETHAZINE INJ 25 MG/ML AMP ONE (19:42)
[2021-05-03] MEDS ORDERED: THIAMINE 200 MG/2 ML INJ ONE (19:52)
[2021-05-03] MEDS ORDERED: MULTIVITAMINS 10 ML VIAL (INJ) IV ONE (19:53)
[2021-05-03 19:54] LABS: ALT/SGPT 76 U/L (12-78); AST/SGOT 36 U/L (15-37); Albumin 3.9 g/dL (3.4-5.0); Alkaline Phosphatase 95 U/L (45-117); BUN Blood Urea Nitrogen 12 mg/dL (7-18); Bicarbonate 24 mmol/L (21-32); Bilirubin Direct < 0.1 mg/dL (0-0.2); Bilirubin Total 0.1 mg/dL (0.2-1.0); Glucose Level 212 mg/dL (74-106); Lipase 61 U/L (73-393); Potassium 4.1 mmol/L (3.5-5.1); Protein, Total 9.3 g/dL (6.4-8.2); Sodium Level 139 mmol/L (136-145)
[2021-05-03] MEDS ORDERED: FOLIC ACID 5 MG/ML VIAL ONE (19:54)
[2021-05-03 21:28] LABS: Urine Blood Negative (Negative); Urine Glucose 1+ (Negative); Urine Protein 1+ (Negative); Urine Specific Gravity >=1.030 (1.005-1.030)
[2021-05-03 21:54] LABS: Barbiturates NEGATIVE (NEGATIVE); Benzodiazepines POSITIVE (NEGATIVE); Cocaine NEGATIVE (NEGATIVE); METHAMPHETAM NEGATIVE (NEGATIVE); Methadone NEGATIVE (NEGATIVE); Opiates NEGATIVE (NEGATIVE); Phencyclidine NEGATIVE (NEGATIVE); THC Cannibis NEGATIVE (NEGATIVE)
[2021-05-03 22:15] LABS: Urine Specific Gravity/Preg >1.030 (1.005-1.030)
[2021-05-04] MEDS ORDERED: LORazepam 2 MG/ML VIAL ONE (00:09)
--- NOTE | 2021-05-04 00:24 | EDPHYS ---
Physician Documentation [facility] Name: Edelmira Pal Age: 36 yrs Sex: Female : 1985 Arrival Date: 05/03/2021 Time: 18:50 Bed 20 Private MD: ED Physician Wild Hanks HPI: 05/03 19:12 This 36 yrs old Female presents to ER via Ambulatory with complaints of mh7 Anxiety. 19:12 The patient presents to the emergency department with anxiety, over unknown mh7 circumstances. 19:12 Onset: The symptoms/episode began/occurred today. Past psychiatric history: Prior mh7 diagnosis: addiction history, alcohol, Anxiety, Psychiatric medications include: Temazepam, Primary psychiatric physician: Dr. Hagen, the patient has not had a prior suicide gesture, the patient does not have a previous inpatient psychiatric history, the patient's last psychiatric treatment was none. Associated signs and symptoms: Pertinent positives; anxiety, nausea, vomiting, Pertinent negatives: abdominal pain, chest pain, chills, delusions, depression, fever, hallucinations, headache, homicidal ideation, night sweats, palpitations, paranoia, shortness of breath, suicide ideation, tremor. Severity of symptoms: At their worst the symptoms were moderate today, in the emergency department the symptoms are unchanged. The patient has experienced similar episodes in the past, multiple times. Historical: - Immunization history:: Adult Immunizations unknown, Client reports having NOT received the Covid vaccine. - Social history:: Smoking status: Patient uses alcohol, patient/guardian reports chronic longstanding heavy alcohol consumption. patient/guardian reports recent binge of alcohol consumption. ROS: 19:12 Constitutional: Negative for fever, chills, and weight loss, Eyes: Negative for injury, mh7 pain, redness, and discharge, ENT: Negative for injury, pain, and discharge, Neck: Negative for injury, pain, and swelling, Cardiovascular: Negative for chest pain, palpitations, and edema, Respiratory: Negative for shortness of breath, cough, wheezing, and pleuritic chest pain. 19:12 Back: Negative for injury and pain, : Negative for injury, bleeding, discharge, and swelling, MS/Extremity: Negative for injury and deformity, Skin: Negative for injury, rash, and discoloration, Neuro: Negative for headache, weakness, numbness, tingling, and seizure, Allergy/Immunology: Negative for hives, rash, and allergies, Endocrine: Negative for neck swelling, polydipsia, polyuria, polyphagia, and marked weight changes, Hematologic/Lymphatic: Negative for swollen nodes, abnormal bleeding, and unusual bruising. 19:12 Abdomen/GI: Negative for abdominal pain, diarrhea, constipation, abdominal cramps, abdominal distension, anorexia, dysphagia, hematemesis, black/tarry stool, rectal pain, rectal bleeding, bowel incontinence, flatulence. Exam: 19:12 Head/Face: Normocephalic, atraumatic. Eyes: Pupils equal round and reactive to light, mh7 extra-ocular motions intact. Lids and lashes normal. Conjunctiva and sclera are non-icteric and not injected. Cornea within normal limits. Periorbital areas with no swelling, redness, or edema. Neck: Trachea midline, no thyromegaly or masses palpated, and no cervical lymphadenopathy. Supple, full range of motion without nuchal rigidity, or vertebral point tenderness. No Meningismus. Chest/axilla: Normal chest wall appearance and motion. Nontender with no deformity. No lesions are appreciated. 19:12 Abdomen/GI: Soft, non-tender, with normal bowel sounds. No distension or tympany. No guarding or rebound. No evidence of tenderness throughout. Back: No spinal tenderness. No costovertebral tenderness. Full range of motion. Skin: Warm, dry with normal turgor. Normal color with no rashes, no lesions, and no evidence of cellulitis. MS/ Extremity: Pulses equal, no cyanosis. Neurovascular intact. Full, normal range of motion. Neuro: Awake and alert, GCS 15, oriented to person, place, time, and situation. Cranial nerves II-XII grossly intact. Motor strength 5/5 in all extremities. Sensory grossly intact. Cerebellar exam normal. Normal gait. 19:12 Constitutional: The patient appears in no acute distress, alert, awake, anxious. 19:12 Cardiovascular: Rate: tachycardic, Rhythm: regular, Pulses: no pulse deficits are appreciated, Heart sounds: normal, normal S1and S2, Edema: is not appreciated, JVD: is not appreciated. 19:12 Respiratory: the patient does not display signs of respiratory distress, Respirations: tachypnea, that is moderate, Breath sounds: are clear throughout, Respiratory rate: 40 Hyperventilating. 19:12 Psych: Behavior/mood is anxious, Affect is animated, Oriented to person, place, time, Patient has no thoughts/intents to harm self or others. Judgement / Insight is normal. Memory is normal. Delusions/hallucinations are not present. Vital Signs: 18:58 BP 108 / 80; Pulse 150; Resp 40; Temp 97.8; Pulse Ox 100% ; Pain 10/10; ch5 19:02 Weight 81.65 kg; Height 5 ft. 3 in. (160.02 cm); 5 20:00 BP 107 / 82; Pulse 125; Resp 18; Pulse Ox 99% on R/A; 3 21:00 BP 106 / 82; Pulse 128; Resp 18; Pulse Ox 99% on R/A; 3 21:00 BP 125 / 78; Pulse 121; Resp 18; Pulse Ox 98% on R/A; 3 23:04 Pulse 110; Resp 18 S; Pulse Ox 99% ; 3 23:58 Pulse 108; Resp 18; Pulse Ox 99% on R/A; [facility] 05/04 00:44 BP 128 / 90; Pulse 106; Resp 18; Pulse Ox 98% on R/A; [facility] 05/03 19:02 Body Mass Index 31.89 (81.65 kg, 160.02 cm) [facility] MDM: 00:22 Differential diagnosis: drug withdrawal. Alcohol intoxication, anxiety. Data reviewed: [facility] vital signs, nurses notes, old medical records, lab test result(s), CBC, electrolytes, urine drug screen, EKG. Data interpreted: Pulse oximetry: on room air is 99 %. Interpretation: normal. Counseling: I had a detailed discussion with the patient and/or guardian regarding: the historical points, exam findings, and any diagnostic results supporting the discharge/admit diagnosis, lab results, the need for outpatient follow up, to return to the emergency department if symptoms worsen or persist or if there are any questions or concerns that arise at home. Response to treatment: the patient's symptoms have markedly improved after treatment. 00:24 Patient medically screened. [facility] 05/03 19:10 Order name: Acetaminophen [facility] 05/03 19:10 Order name: Basic Metabolic Panel [facility] 05/03 19:10 Order name: CBC with Diff; Complete Time: 20:16 [facility] 05/03 19:10 Order name: ETOH Level; Complete Time: 20:16 [facility] 05/03 19:10 Order name: Hepatic Function; Complete Time: 20:16 [facility] 05/03 19:10 Order name: PT-INR; Complete Time: 20:16 [facility] 05/03 19:10 Order name: Ptt, Activated; Complete Time: 20:16 [facility] 05/03 19:10 Order name: Salicylate; Complete Time: 20:16 [facility] 05/03 19:10 Order name: Urine Drug Screen; Complete Time: 21:58 [facility] 05/03 19:10 Order name: Acetaminophen Level; Complete Time: 20:16 [facility] 05/03 19:10 Order name: Basic Metabolic Panel; Complete Time: 20:16 [facility] 05/03 19:11 Order name: Lipase; Complete Time: 20:16 [facility] 05/03 21:27 Order name: Urine Dipstick-Ancillary; Complete Time: 21:58 [facility] 05/03 21:28 Order name: Urine --Ancillary (enter results); Complete Time: 23:09 [facility] 05/03 19:10 Order name: EKG; Complete Time: 19:11 [facility] 05/03 19:10 Order name: EKG - Nurse/Tech; Complete Time: 19:31 [facility] 05/03 19:10 Order name: IV Saline Lock; Complete Time: 19:31 [facility] 05/03 19:10 Order name: Labs collected and sent; Complete Time: 19:31 [facility] 05/03 19:10 Order name: Suicide Screening ([place]); Complete Time: 20:24 [facility] Administered Medications: 05/03 19:25 Drug: Phenergan (promethazine) 12.5 mg Route: IVP; Site: right hand; sj1 19:27 Follow up: Response: Nausea is decreased sj1 19:25 Drug: Pepcid (famotidine) 20 mg Route: IVP; Site: right hand; sj1 19:27 Follow up: Response: Nausea is decreased sj1 19:26 Drug: NS 0.9% 1000 ml Route: IV; Rate: 1000 ml; Site: right hand; sj1 19:27 Follow up: Response: No adverse reaction sj1 19:26 Drug: Ativan (LORazepam) 1 mg Route: IVP; Site: right hand; sj1 19:27 Follow up: Response: Anxiety decreased sj1 20:00 Drug: Banana Bag - (NS 0.9% 1000 ml, foLIC Acid 1 mg, Thiamine 100 mg, Multivitamin 1 lh3 amp) Route: IV; Rate: calculated rate; Site: right forearm; 22:36 Drug: NS 0.9% 1000 ml Route: IV; Rate: 1000 ml; Site: right forearm; lh3 Disposition Summary: 05/04/21 00:24 Discharge Ordered Location: Home [facility] Problem: an acute exacerbation [facility] Symptoms: have improved [facility] Condition: Stable [facility] Diagnosis - Alcohol abuse with intoxication [facility] - 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 [facility] Followup: [facility] - With: Private Physician - When: 1 - 2 days - Reason: Worsening of condition, Recheck today's complaints, Continuance of care, Re-evaluation by your physician Followup: [facility] - With: Wilfird Hogan MD - When: 1 - 2 days - Reason: Worsening of condition, Recheck today's complaints Discharge Instructions: - Discharge Summary Sheet [facility] - Alcohol Use Disorder [facility] - Alcohol Intoxication, [id number] [facility] - Generalized Anxiety Disorder, Adult [facility] Forms: - Medication Reconciliation Form [facility] - Thank You Letter [facility] - Antibiotic Education [facility] - Prescription Opioid Use [facility] Signatures: Dispatcher [employer] Wild Roca MD MD 7 Sue Maria RN RN 3 Florin Ibanez RN RN ch5 Amada Jacobo RN RN sj1 Corrections: (The following items were deleted from the chart) 19:00 18:59 PMHx: Diabetes - IDDM; 5 5 19:00 18:59 PMHx: Anxiety; ch5 ch5 19:00 18:59 PMHx: Alcoholism; ch5 ch5 19:00 18:59 PMHx: Asthma; ch5 ch5 19:00 18:59 PSHx: right ankle sx; ch5 ch5
--- NOTE | 2021-05-04 00:24 | ER ---
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 drank last night and today and is 5 having an anxiety attack. Coronavirus screen: Vaccine status: Patient reports being unvaccinated. Client denies travel out of the [place] in the last 14 days. Client indicates they have traveled out of the [place] in the last 14 days. At this time, unable to obtain information related to travel outside the [place] Ebola Screen: Patient negative for fever greater than or equal to 101.5 degrees Fahrenheit, and additional compatible Ebola Virus Disease symptoms Patient denies exposure to infectious person. Patient denies travel to an Ebola-affected area in the 21 days before illness onset. Initial Sepsis Screen: Does the patient meet any 2 criteria? No. Patient's initial sepsis screen is negative. Does the patient have a suspected source of infection? No. Patient's initial sepsis screen is negative. Risk Assessment: Do you want to hurt yourself or someone else?. Onset of symptoms was May 03, 2021. 18:58 Method Of Arrival: Ambulatory [facility] 18:58 Acuity: BELTRAN 2 [facility] 20:05 Risk Assessment: Do you want to hurt yourself or someone else? Patient reports no [facility] desire to harm self or others. Triage Assessment: 18:59 General: Appears distressed, Behavior is anxious, crying. 5 Historical: - Immunization history:: Adult Immunizations unknown, Client reports having NOT received the Covid vaccine. - Social history:: Smoking status: Patient uses alcohol, patient/guardian reports chronic longstanding heavy alcohol consumption. patient/guardian reports recent binge of alcohol consumption. Screenin:00 Abuse screen: Denies threats or abuse. Nutritional screening: No deficits noted. 3 Tuberculosis screening: No symptoms or risk factors identified. Fall Risk IV access (20 points). Assessment: 20:00 Pain: Complains of pain in head pain. 3 20:04 Reassessment: pt denies SI and HI at this time. General: Appears in no apparent lh3 distress. Behavior is restless. Vital Signs: 18:58 BP 108 / 80; Pulse 150; Resp 40; Temp 97.8; Pulse Ox 100% ; Pain 10/10; 5 19:02 Weight 81.65 kg; Height 5 ft. 3 in. (160.02 cm); 5 20:00 BP 107 / 82; Pulse 125; Resp 18; Pulse Ox 99% on R/A; lh3 21:00 BP 106 / 82; Pulse 128; Resp 18; Pulse Ox 99% on R/A; lh3 21:00 BP 125 / 78; Pulse 121; Resp 18; Pulse Ox 98% on R/A; lh3 23:04 Pulse 110; Resp 18 S; Pulse Ox 99% ; lh3 23:58 Pulse 108; Resp 18; Pulse Ox 99% on R/A; 3 05/04 00:44 BP 128 / 90; Pulse 106; Resp 18; Pulse Ox 98% on R/A; 3 05/03 19:02 Body Mass Index 31.89 (81.65 kg, 160.02 cm) [facility] ED Course: 05/03 18:50 Patient arrived in ED. mr 18:57 Rossi Garcia, ISSA is Primary Nurse. 5 18:59 Triage completed. 5 18:59 Arm band placed on right wrist. [facility] 19:02 Wild Hanks MD is Attending Physician. 7 19:10 Sue Maria, ISSA is Primary Nurse. 3 19:44 Wild Hanks MD is Attending Physician. 7 20:00 Patient has correct armband on for positive identification. Placed in gown. Bed in low lh3 position. Call light in reach. Side rails up X 1. 20:00 No provider procedures requiring assistance completed. 3 20:00 Inserted saline lock: 20 gauge in right forearm, using aseptic technique. [facility] 05/04 00:23 Wilfrid Hogan MD is Referral Physician. [facility] 00:45 IV discontinued, bleeding controlled, No redness/swelling at site. Pressure dressing lh3 applied. Administered Medications: 05/03 19:25 Drug: Phenergan (promethazine) 12.5 mg Route: IVP; Site: right hand; sj1 19:27 Follow up: Response: Nausea is decreased sj1 19:25 Drug: Pepcid (famotidine) 20 mg Route: IVP; Site: right hand; sj1 19:27 Follow up: Response: Nausea is decreased sj1 19:26 Drug: NS 0.9% 1000 ml Route: IV; Rate: 1000 ml; Site: right hand; sj1 19:27 Follow up: Response: No adverse reaction sj1 19:26 Drug: Ativan (LORazepam) 1 mg Route: IVP; Site: right hand; sj1 19:27 Follow up: Response: Anxiety decreased sj1 20:00 Drug: Banana Bag - (NS 0.9% 1000 ml, foLIC Acid 1 mg, Thiamine 100 mg, Multivitamin 1 lh3 amp) Route: IV; Rate: calculated rate; Site: right forearm; 22:36 Drug: NS 0.9% 1000 ml Route: IV; Rate: 1000 ml; Site: right forearm; 3 Outcome: 05/04 00:24 Discharge ordered by . [facility] 00:45 Discharged to home ambulatory, with family. [facility] 00:45 Condition: good 00:45 Discharge instructions given to patient, Instructed on discharge instructions, follow up and referral plans. Demonstrated understanding of instructions, follow-up care. 00:46 Patient left the ED. [facility] Signatures: Grace Hagen Maurice, MD MD 7 Sue Maria RN RN 3 Florin Ibanez RN RN ch5 Amada Jacobo RN RN sj1 Rossi Garcia RN RN tc5 Corrections: (The following items were deleted from the chart) 05/03 19:00 18:59 PMHx: Diabetes - IDDM; ch5 ch5 19:00 18:59 PMHx: Anxiety; ch5 ch5 19:00 18:59 PMHx: Alcoholism; ch5 ch5 19:00 18:59 PMHx: Asthma; ch5 ch5 19:00 18:59 PSHx: right ankle sx; ch5 ch5
[2021-05-04 00:53] VITALS: TEMP 97.8
[2021-05-04 00:59] VITALS: BP 128/90; O2SAT 98
--- NOTE | 2021-05-04 16:59 | EKG ---
Test Date: 2021-05-03 Test Time: 20:06:50 Solder Sprayer: NANI MEASUREMENT RESULTS: Intervals: Rate: 123 MA: 148 QRSD: 66 QT: 320 QTc: 458 [place]: P: 59 MA: 148 QRS: 74 T: 71 INTERPRETIVE STATEMENTS: Sinus tachycardia with premature supraventricular complexes Low voltage QRS Borderline ECG Compared to ECG 04/22/2021 02:46:54 Atrial premature complex(es) now present Low QRS voltage now present Sinus rhythm no longer present Electronically Signed On 05-04-21 16:57:52 CDT by Miguel Hardy
== END 2021-05-04 00:46 | disposition home or self-care (01) ==
LOC: ER 18:48
DX: F10.180 Alcohol abuse with alcohol-induced anxiety disorder (principal); F10.129 Alcohol abuse with intoxication, unspecified
CPT/HCPCS: 93005; 85025; 80048; 36415; 80320; 80329 ×2; 81025; 85610; 80076; 85730; 81003; 83690; 80307; 99283; J2550; J3411; J7030 ×3

== ENCOUNTER 2021-05-29 08:27 | Emergency (ER) | payer OTHER ==
[2021-05-29] MEDS ORDERED: LORazepam 2 MG/ML VIAL ONE ×2 (09:15→10:21)
[2021-05-29] MEDS ORDERED: NA CHLORIDE 0.9% 1,000 ML ONE ×2 (09:15→10:11)
[2021-05-29 09:38] LABS: Absolute Lymphocytes (CBC) 1.5 K/uL (0.7-4.9); Basophils % 3.5 % (0-1.3); Hematocrit 43.3 % (36.0-45.0); Lymphocytes % 15.5 % (15.3-44.8); MPV 6.9 fL (7.6-11.3); RBC Red Blood Cell Count 4.69 M/uL (3.86-4.86)
[2021-05-29 10:03] LABS: Protime INR 1.06
[2021-05-29 10:12] LABS: ALT/SGPT 21 U/L (12-78); AST/SGOT 14 U/L (15-37); Albumin 3.9 g/dL (3.4-5.0); Alkaline Phosphatase 79 U/L (45-117); BUN Blood Urea Nitrogen 10 mg/dL (7-18); Bicarbonate 24 mmol/L (21-32); Bilirubin Direct < 0.1 mg/dL (0-0.2); Bilirubin Total 0.3 mg/dL (0.2-1.0); Glucose Level 311 mg/dL (74-106); Potassium 3.7 mmol/L (3.5-5.1); Protein, Total 9.1 g/dL (6.4-8.2); Sodium Level 142 mmol/L (136-145)
[2021-05-29 10:13] LABS: Urine Blood Negative (Negative); Urine Glucose 3+ (Negative); Urine Protein Negative (Negative); Urine pH 6.5 (5.0-7.0)
--- NOTE | 2021-05-29 11:24 | ER ---
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 Coronavirus screen: At this time, the client does not indicate any symptoms associated with coronavirus-19. Ebola Screen: Patient negative for fever greater than or equal to 101.5 degrees Fahrenheit, and additional compatible Ebola Virus Disease symptoms Patient denies exposure to infectious person. Patient denies travel to an Ebola-affected area in the 21 days before illness onset. No symptoms or risks identified at this time. Initial Sepsis Screen: Does the patient meet any 2 criteria? No. Patient's initial sepsis screen is negative. Does the patient have a suspected source of infection? No. Patient's initial sepsis screen is negative. Risk Assessment: Do you want to hurt yourself or someone else? Patient reports no desire to harm self or others. Onset of symptoms was May 29, 2021. 08:33 Method Of Arrival: Ambulatory iw 08:33 Acuity: BELTRAN 3 iw 09:32 Risk Assessment: Do you want to hurt yourself or someone else? Patient reports no jw6 desire to harm self or others. 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 - Social history:: Smoking status: Patient reports the use of cigarette tobacco products, Patient/guardian denies using street drugs, IV drugs. Screenin:37 Abuse screen: Denies threats or abuse. Nutritional screening: No deficits noted. sl2 Tuberculosis screening: No symptoms or risk factors identified. Fall Risk None identified. Assessment: 08:37 Pain: Denies pain. sl2 08:38 Reassessment: Patient AAO X 3, ambulatory with steady gait noted, presents to ED with sl2 c/o anxiety, states have anxiety when she drinks alcohol, states had 2 Budlight beers yesterday between 5-7pm and woke up with anxiety this morning. She denies chest pain or discomfort, denies other untoward symptoms. 08:40 General: Appears well developed, Behavior is cooperative, anxious, crying, Reports sl2 anxiety and denies any pain or physical discomfort. Pain: Denies pain. Neuro: No deficits noted. Cardiovascular: No deficits noted. Respiratory: No deficits noted. GI: No deficits noted. : No deficits noted. EENT: No deficits noted. Derm: No deficits noted. Musculoskeletal: No deficits noted. 10:09 Reassessment: Patient encouraged to provide urine specimen, ambulated to restroom with sl2 steady gait noted. 11:06 Reassessment: Patient verbalize that she feels much better and would like to be sl2 discharged, states she needs to be at work at 11:30am today. EDP notified. 11:17 Reassessment: EDP at bedside for patient re-assessment. sl2 Psych: 09:49 [place] Suicide Severity Screening: In the past month, have you wished you were sl2 or wished you could go to sleep and not wake up? Patient responds "No." "In the past month, have you actually had any thoughts of killing yourself?" Patient responds "no." "In your lifetime, have you ever done anything, started to do anything, or prepared to do anything to end your life?" Patient responds "no.". Subjective: Patient's mood is anxious Delusions are denied, Hallucinations are denied Having thoughts of denies suicidal ideation, denies homicidal ideation. Objective: Patient is cooperative, Speech is normal, Affect is appropriate, Patient has mutilated themselves by Not applicable - none noted. Patient uses 1-5 cans weekly. Last use was 15 hours ago. 11:51 Interventions: Patient placed in hospital gown. Safety Checks: Commitment: not sl2 applicable. Vital Signs: 08:30 BP 123 / 84; Pulse 138; Resp 22; Temp 97.8; Pulse Ox 99% on R/A; sl2 08:33 BP 152 / 117; Pulse 142; Resp 20 S; Temp 97.5; Pulse Ox 100% on R/A; iw 09:15 BP 120 / 98; Pulse 113; Resp 18; Temp 97.8; Pulse Ox 100% on R/A; sl2 09:46 BP 134 / 111; Pulse 125; Resp 22; Temp 97.8; Pulse Ox 99% on R/A; sl2 11:05 BP 137 / 86; Pulse 109; Resp 18; Temp 97.9; Pulse Ox 100% on R/A; sl2 Vitals: 08:40 Cardiac Rhythm Assessment Regular Sinus tach. sl2 ED Course: 08:30 Patient arrived in ED. as 08:30 Arm band placed on right wrist. sl2 08:31 Alec Chow NP is PHCP. pm1 08:31 Chapito Sanders MD is Attending Physician. pm1 08:32 Inserted saline lock: 22 gauge in right hand, using aseptic technique. sl2 08:35 Triage completed. iw 08:37 Grazyna Watson, ISSA is Primary Nurse. sl2 08:37 Patient has correct armband on for positive identification. sl2 09:25 Awaiting lab results. sl2 11:49 No apparent distress. sl2 11:49 No provider procedures requiring assistance completed. IV discontinued. sl2 Administered Medications: 08:57 Drug: NS 0.9% 1000 ml Route: IV; Rate: 1000 ml; Site: right hand; sl2 10:20 Follow up: IV Status: Completed infusion; IV Intake: 1000ml sl2 08:57 Drug: Ativan (LORazepam) 1 mg Route: IVP; Site: right hand; sl2 09:32 Follow up: Response: No adverse reaction sl2 09:53 Drug: NS 0.9% 1000 ml Route: IV; Rate: 1000 ml; Site: right hand; iw 11:20 Follow up: IV Status: Completed infusion; IV Intake: 800ml sl2 09:58 Drug: Ativan (LORazepam) 1 mg Route: IVP; Site: right hand; iw 10:30 Follow up: Response: No adverse reaction; Anxiety decreased sl2 Intake: 10:20 IV: 1000ml; Total: 1000ml. sl2 11:20 IV: 800ml; Total: 1800ml. sl2 Outcome: 11:23 Discharge ordered by . pm1 11:49 Discharged to home ambulatory. sl2 11:49 Condition: stable 11:49 Discharge instructions given to patient, Instructed on discharge instructions, follow up and referral plans. no driving heavy equipment, Alcohol cessation Demonstrated understanding of instructions, follow-up care. 11:52 Patient left the ED. sl2 Signatures: Sienna Long Irene, RN RN iw Alec Chow NP ALUMINUM POLISHER pm1 Grazyna Watson RN RN sl2 Kiara Enrique jw6
--- NOTE | 2021-05-29 11:24 | EDPHYS ---
Physician Documentation [facility] Name: Edelmira Pal Age: 36 yrs Sex: Female : 1985 Arrival Date: 05/29/2021 Time: 08:30 Bed 18 Private MD: ED Physician Chapito Sanders HPI: 05/29 08:47 This 36 yrs old Female presents to ER via Ambulatory with complaints of pm1 Anxiety. 08:47 The patient presents to the emergency department with anxiety. Onset: The pm1 symptoms/episode began/occurred yesterday. Past psychiatric history: Prior diagnosis: Anxiety, Psychiatric medications include: Temazepam, Primary psychiatric physician: Dr. Wilfrid Hagne, the patient does not have a previous inpatient psychiatric history. Associated signs and symptoms: Pertinent negatives: abdominal pain, chest pain, fever, shortness of breath. Severity of symptoms: in the emergency department the symptoms are worse. The patient has experienced similar episodes in the past, multiple times, today's symptoms are similar, to previous anxiety attacks. The patient has not recently seen a physician. Patient presenting to the ER with complaints of anxiety. Patient attributes symptoms possibly due to lack of her Restoril for anxiety. Patient drank 2 beers and 5:00 yesterday to help with anxiety reports anxiety is worse. Patient denies alcohol consumption for 1.5 months prior to yesterday. 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 - Social history:: Smoking status: Patient reports the use of cigarette tobacco products, Patient/guardian denies using street drugs, IV drugs. ROS: 08:47 Constitutional: Negative for fever, chills, and weight loss, Cardiovascular: Negative pm1 for chest pain, palpitations, and edema, Respiratory: Negative for shortness of breath, cough, wheezing, and pleuritic chest pain, Abdomen/GI: Negative for abdominal pain, nausea, vomiting, diarrhea, and constipation, Back: Negative for injury and pain, MS/Extremity: Negative for injury and deformity, Skin: Negative for injury, rash, and discoloration, Neuro: Negative for headache, weakness, numbness, tingling, and seizure. 08:47 Psych: Positive for anxiety, Negative for drug dependence, alcohol dependence, homicidal ideation, suicidal ideation. 08:47 All other systems are negative. Exam: 08:47 Constitutional: This is a well developed, well nourished patient who is awake, alert, pm1 and in no acute distress. Head/Face: Normocephalic, atraumatic. 08:47 Skin: Warm, dry with normal turgor. Normal color with no rashes, no lesions, and no evidence of cellulitis. MS/ Extremity: Pulses equal, no cyanosis. Neurovascular intact. Full, normal range of motion. 08:47 Eyes: Exam is negative for acute changes, Extraocular movements: intact throughout, Conjunctiva: no acute changes, no injection. 08:47 ENT: Exam is negative for acute changes, Mouth: no acute changes, Lips: normal, moist, Oral mucosa: normal, pink and intact, moist. 08:47 Chest/axilla: Exam negative for acute changes, Inspection: normal. 08:47 Cardiovascular: Exam negative for acute changes, Rate: tachycardic, Rhythm: regular, Pulses: no pulse deficits are appreciated, Edema: is not appreciated. 08:47 Respiratory: Exam negative for acute changes, respiratory distress, shortness of breath, Breath sounds: are clear throughout. 08:47 Neuro: Exam negative for acute changes, Orientation: is normal, Mentation: is normal, Motor: is normal, moves all fours. 08:47 Psych: Behavior/mood is anxious, Affect is animated, Oriented to person, place, time, Patient has no thoughts/intents to harm self or others. Vital Signs: 08:30 BP 123 / 84; Pulse 138; Resp 22; Temp 97.8; Pulse Ox 99% on R/A; sl2 08:33 BP 152 / 117; Pulse 142; Resp 20 S; Temp 97.5; Pulse Ox 100% on R/A; iw 09:15 BP 120 / 98; Pulse 113; Resp 18; Temp 97.8; Pulse Ox 100% on R/A; sl2 09:46 BP 134 / 111; Pulse 125; Resp 22; Temp 97.8; Pulse Ox 99% on R/A; sl2 11:05 BP 137 / 86; Pulse 109; Resp 18; Temp 97.9; Pulse Ox 100% on R/A; sl2 MDM: 08:31 Patient medically screened. pm1 08:52 Data reviewed: vital signs. Data interpreted: Pulse oximetry: on room air is 100 %. pm1 Interpretation: normal. 11:16 Refusal of service: The patient/guardian displays adequate decision making capability pm1 and despite a detailed discussion of alternatives, benefits, risks, and consequences refuses: additional fluids for treatment of tachycardia and further evaluation of tachycardia and symptoms and possible admission. Patient states that she needs to go home now so that she can go to work at 1130. 11:16 Counseling: I had a detailed discussion with the patient and/or guardian regarding: the pm1 historical points, exam findings, and any diagnostic results supporting the discharge/admit diagnosis, lab results, the need for outpatient follow up, a family practitioner, a psychiatrist, to return to the emergency department if symptoms worsen or persist or if there are any questions or concerns that arise at home. 05/29 08:36 Order name: Acetaminophen pm1 05/29 08:36 Order name: Basic Metabolic Panel pm1 05/29 08:36 Order name: CBC with Diff pm1 05/29 08:36 Order name: ETOH Level; Complete Time: 10:27 pm1 05/29 08:36 Order name: Hepatic Function; Complete Time: 10:27 pm1 05/29 08:36 Order name: PT-INR; Complete Time: 10:27 pm1 05/29 08:36 Order name: Ptt, Activated; Complete Time: 10:27 pm1 05/29 08:36 Order name: Salicylate; Complete Time: 10:27 pm1 05/29 08:36 Order name: Urine Drug Screen; Complete Time: 11:35 pm1 05/29 08:39 Order name: Acetaminophen Level; Complete Time: 10:27 EDMS 05/29 08:39 Order name: Basic Metabolic Panel; Complete Time: 10:27 EDMS 05/29 10:13 Order name: Urine Dipstick-Ancillary; Complete Time: 10:27 EDMS 05/29 10:15 Order name: Urine --Ancillary (enter results) eb 05/29 08:36 Order name: EKG; Complete Time: 08:39 pm1 05/29 08:36 Order name: EKG - Nurse/Tech; Complete Time: 10:08 pm1 05/29 08:36 Order name: IV Saline Lock; Complete Time: 09:16 pm1 05/29 08:36 Order name: Labs collected and sent; Complete Time: 09:16 pm1 05/29 08:36 Order name: Suicide Screening ([place]); Complete Time: 09:16 pm1 05/29 08:36 Order name: Urine Dipstick-Ancillary (obtain specimen) pm1 05/29 08:36 Order name: Urine Test (obtain specimen) pm1 Administered Medications: 08:57 Drug: NS 0.9% 1000 ml Route: IV; Rate: 1000 ml; Site: right hand; sl2 10:20 Follow up: IV Status: Completed infusion; IV Intake: 1000ml sl2 08:57 Drug: Ativan (LORazepam) 1 mg Route: IVP; Site: right hand; sl2 09:32 Follow up: Response: No adverse reaction sl2 09:53 Drug: NS 0.9% 1000 ml Route: IV; Rate: 1000 ml; Site: right hand; iw 11:20 Follow up: IV Status: Completed infusion; IV Intake: 800ml sl2 09:58 Drug: Ativan (LORazepam) 1 mg Route: IVP; Site: right hand; iw 10:30 Follow up: Response: No adverse reaction; Anxiety decreased sl2 Disposition: 05/30 10:29 Co-signature as Attending Physician, Chapito Sanders MD I agree with the assessment and jamel plan of care. Disposition Summary: 05/29/21 11:23 Discharge Ordered Location: Home pm1 Problem: new pm1 Symptoms: have improved pm1 Condition: Stable pm1 Diagnosis - 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 pm1 Followup: pm1 - With: Emergency Department - When: As needed - Reason: Worsening of condition Followup: pm1 - With: Private Physician - When: 2 - 3 days - Reason: Recheck today's complaints, Continuance of care, Re-evaluation by your physician Discharge Instructions: - Discharge Summary Sheet pm1 - Finding Treatment for Addiction pm1 - Alcohol Use Disorder pm1 Forms: - Medication Reconciliation Form pm1 - Thank You Letter pm1 - Antibiotic Education pm1 - Prescription Opioid Use pm1 Signatures: Dispatcher [employer] Chapito Lopez MD MD cha Williams, Irene, RN RN Alec Mora NP TRACK GRINDER OPERATOR pm1 Grazyna Watson, RN RN sl2
[2021-05-29 11:31] LABS: Barbiturates NEGATIVE (NEGATIVE); Benzodiazepines POSITIVE (NEGATIVE); Cocaine NEGATIVE (NEGATIVE); METHAMPHETAM NEGATIVE (NEGATIVE); Methadone NEGATIVE (NEGATIVE); Opiates NEGATIVE (NEGATIVE); Phencyclidine NEGATIVE (NEGATIVE); THC Cannibis NEGATIVE (NEGATIVE)
[2021-05-29 12:02] VITALS: BP 137/86; TEMP 97.9; O2SAT 100
[2021-05-29 13:56] LABS: Blood Morphology Comment NOT SEEN (NOT SEEN); White Blood Cell Scan OK (OK)
[2021-05-29 13:57] LABS: Platelet Estimate INCR
== END 2021-05-29 11:52 | disposition home or self-care (01) ==
LOC: ER 08:27
DX: F10.180 Alcohol abuse with alcohol-induced anxiety disorder (principal); F17.210 Nicotine dependence, cigarettes, uncomplicated
CPT/HCPCS: 96361; 93005; 85025; 80048; 36415; 80320; 80329 ×2; 81025; 85610; 80076; 85730; 81003; 80307; 96374; 99284; J7030 ×2

== ENCOUNTER 2021-06-07 05:24 | Emergency (ER) | payer OTHER ==
[2021-06-07] MEDS ORDERED: LORAZEPAM 1 MG TABLET ONE (06:55)
--- NOTE | 2021-06-07 07:16 | ER ---
Nurse's Notes [facility] Name: Edelmira Pal Age: 36 yrs Sex: Female : 1985 Arrival Date: 06/07/2021 Time: 05:25 Bed 13 [facility] MD: Diagnosis: Adjustment disorder with anxiety Presentation: 06/07 05:40 Chief complaint: Patient states: anxiety attack since Sunday at 2 pm, also reports em chest pain. Coronavirus screen: Vaccine status: Patient reports receiving the 2nd dose of the covid vaccine. Ebola Screen: Patient negative for fever greater than or equal to 101.5 degrees Fahrenheit, and additional compatible Ebola Virus Disease symptoms Patient denies exposure to infectious person. Patient denies travel to an Ebola-affected area in the 21 days before illness onset. No symptoms or risks identified at this time. Initial Sepsis Screen: Does the patient meet any 2 criteria? HR > 90 bpm. Does the patient have a suspected source of infection? No. Patient's initial sepsis screen is negative. Risk Assessment: Do you want to hurt yourself or someone else? Patient reports no desire to harm self or others. Onset of symptoms was June 07, 2021. 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 - Social history:: Smoking status: Patient reports the use of cigarette tobacco products, denies chronic smoking, but will smoke occasionally, Patient/guardian denies using alcohol, street drugs, The patient lives with family. - Family history:: not pertinent. Screenin:45 Abuse screen: Denies threats or abuse. Denies injuries from another. Nutritional dc2 screening: No deficits noted. Tuberculosis screening: No symptoms or risk factors identified. Never had TB. Fall Risk None identified. No fall in past 12 months (0 pts). Secondary diagnosis (15 points) No IV (0 pts). Ambulatory Aid- None/Bed Rest/Nurse Assist (0 pts). Gait- Normal/Bed Rest/Wheelchair (0 pts) Mental Status- Oriented to own ability (0 pts). Total Strauss Fall Scale indicates No Risk (0-24 pts). Assessment: 05:46 General: Appears uncomfortable, obese, unkempt, Behavior is anxious, restless, dc2 Thrashing all over bed, what appears to be deliberate shaking and jerking of whole body all over bed.. Pain: Denies pain. Neuro: Level of Consciousness is awake, alert, Oriented to person, place, time, situation. Respiratory: No deficits noted. Breath sounds are clear bilaterally. GI: No deficits noted. No signs and/or symptoms were reported involving the gastrointestinal system. : No signs and/or symptoms were reported regarding the genitourinary system. Derm: No deficits noted. No signs and/or symptoms reported regarding the dermatologic system. Musculoskeletal: No deficits noted. No signs and/or symptoms reported regarding the musculoskeletal system. Pt jerking all over bed. 06:26 Reassessment: come to desk and states pt has vomited. Pt vomited 2ooml clear dc2 fluid. ER provider informed and order for zofran received. 06:45 Reassessment: Pt states the nausea is much better, however pt is still shaking and dc2 thrashing around in bed . States anxiety is no better. Will make Provider aware. 06:53 Reassessment: Pt still very anxious, Informed that an IV would be started for dc2 additional medications. Pt informed that she would have to stop thrashing in order for IV to be established without being stuck accidently by needle. Pt voices undestanding. 07:10 Reassessment: IV attempted x2 without succcess. Oncoming nurse Lesley made aware. dc2 07:15 Neuro: Level of Consciousness is awake, alert, obeys commands, Oriented to person, sl2 place, time, situation, Concrete Mixer Operator Helper are equal bilaterally Moves all extremities. Gait is steady, Speech is normal, Facial symmetry appears normal. 07:15 Reassessment: Patient reports having an anxiety attack - states her father is moving sl2 out of state and she has emotional distress because of this situation. Cardiovascular: No deficits noted. Rhythm is sinus tachycardia. GI: Abdomen is flat, Bowel sounds present X 4 quads. Reports nausea, vomiting, Patient currently denies abdominal pain, diarrhea. : No deficits noted. No signs and/or symptoms were reported regarding the genitourinary system. EENT: No deficits noted. No signs and/or symptoms were reported regarding the EENT system. Musculoskeletal: No deficits noted. No signs and/or symptoms reported regarding the musculoskeletal system. Circulation, motion, and sensation intact. Capillary refill < 3 seconds, Range of motion: intact in all extremities. 07:40 Reassessment: Patient medicated for anxiety - ativan 2mg IVP administered as ordered - 2 see OCT. Comfort and safery measures instituted, present at bedside. Patient now lying quietly - decreased anxiety noted, will re-assess and continue to monitor. 08:20 Reassessment: Patient asleep, resting quietly, shows no signs of distress or sl2 discomfort, present at bedside. Will continue to re-assess and monitor. Vital Signs: 05:40 BP 119 / 97; Pulse 133; Resp 26; Temp 97.6; Pulse Ox 98% on R/A; Weight 68.04 kg; em Height 5 ft. 3 in. (160.02 cm); 07:30 BP 148 / 86; Pulse 97; Resp 18; Temp 97.8(O); Pulse Ox 100% on R/A; sl2 08:30 BP 123 / 80; Pulse 108; Resp 20; Temp 97.9(O); Pulse Ox 99% on R/A; sl2 05:40 Body Mass Index 26.57 (68.04 kg, 160.02 cm) ED Course: 05:25 Patient arrived in ED. ja2 05:41 Triage completed. em 05:41 Arm band placed on. em 05:44 Carmen Barrett RN is Primary Nurse. ri2 05:45 Chuy Mackey MD is Attending Physician. [facility] 05:45 Patient has correct armband on for positive identification. Bed in low position. Call dc2 light in reach. Side rails up X 1. web support engineer on. Pulse ox on. NIBP on. Door closed. Lights dimmed. 05:49 No provider procedures requiring assistance completed. dc2 07:05 Report given to ISSA Sutton. dc2 07:20 Inserted saline lock: 22 gauge in right hand, using aseptic technique. sl2 09:05 Attending Physician role handed off by Chuy Mackey MD [facility] 09:05 Chapito Sanders MD is Attending Physician. jamel 09:31 IV discontinued, intact. sl2 Administered Medications: 06:00 Drug: Ativan (LORazepam) 2 mg Route: PO; dc2 06:50 Follow up: Response: Anxiety unchanged dc2 07:48 Follow up: Response: No adverse reaction sl2 06:27 Drug: Zofran (Ondansetron) 4 mg Route: PO; dc2 07:00 Follow up: Response: Nausea is decreased dc2 07:48 Follow up: Response: No adverse reaction sl2 06:51 CANCELLED (ilia): Valium (diazepam) 10 mg IVP once ma2 07:37 Drug: Ativan (LORazepam) 2 mg Route: IVP; Site: right hand; sl2 07:55 Follow up: Response: No adverse reaction; Anxiety decreased sl2 07:40 Drug: NS 0.9% 1000 ml Route: IV; Rate: 1 bolus; Site: right hand; sl2 09:29 Follow up: IV Status: Completed infusion; IV Intake: 1000ml 2 09:30 Not Given (med not delivered ): Banana Bag - (NS 0.9% 1000 ml, foLIC Acid 1 mg, sl2 Thiamine 100 mg, Multivitamin 1 amp) IV at calculated rate once Intake: 09:29 IV: 1000ml; Total: 1000ml. 2 Outcome: 07:16 Discharge ordered by . ky2 09:30 Condition: stable sl2 09:30 Discharge instructions given to patient, family, Instructed on discharge instructions, follow up and referral plans. no driving heavy equipment, medication usage, safety practices, Demonstrated understanding of instructions, follow-up care, medications, safety practices. 09:31 Discharged to home via wheelchair, with family. 2 09:32 Patient left the ED. 2 Signatures: Chapito Sanders MD MD cha Munoz, Edgar, RN RN Chuy Mackey MD MD ma2 Alexander, Jessica ja2 Charters, Denise, RN RN dc2 Landell, Sophia, RN RN 2 Corrections: (The following items were deleted from the chart) 05:42 05:41 PSHx: None; em em 06:19 06:05 Patient moved back from [place]. ri2 dc2 09:35 07:40 Reassessment: 2 2
--- NOTE | 2021-06-07 07:16 | EDPHYS ---
Physician Documentation [facility] Name: Edelmira Pal Age: 36 yrs Sex: Female : 1985 Arrival Date: 06/07/2021 Time: 05:25 Bed 13 Private MD: PHILOMENA Physician Chapito Sanders HPI: 06/07 05:56 This 36 yrs old Female presents to ER via Ambulatory with complaints of ma2 Anxiety. 05:56 The patient presents to the emergency department with anxiety. Onset: The ma2 symptoms/episode began/occurred gradually, 2 day(s) ago. Associated signs and symptoms: Pertinent positives; anxiety, Pertinent negatives: chest pain, delusions, hallucinations, headache, homicidal ideation, shortness of breath, suicide ideation. Severity of symptoms: At their worst the symptoms were moderate in the emergency department the symptoms are unchanged. The patient has experienced similar episodes in the past. 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 - Social history:: Smoking status: Patient reports the use of cigarette tobacco products, denies chronic smoking, but will smoke occasionally, Patient/guardian denies using alcohol, street drugs, The patient lives with family. - Family history:: not pertinent. ROS: 05:56 Constitutional: Negative for fever, chills, and weight loss. ma2 05:56 All other systems are negative. Exam: 05:56 Constitutional: This is a well developed, well nourished patient who is awake, alert, ma2 and in no acute distress. ENT: Nares patent. No nasal discharge, no septal abnormalities noted. Tympanic membranes are normal and external auditory canals are clear. Oropharynx with no redness, swelling, or masses, exudates, or evidence of obstruction, uvula midline. Mucous membranes moist. Neck: Trachea midline, no thyromegaly or masses palpated, and no cervical lymphadenopathy. Supple, full range of motion without nuchal rigidity, or vertebral point tenderness. No Meningismus. Chest/axilla: Normal chest wall appearance and motion. Nontender with no deformity. No lesions are appreciated. Cardiovascular: Regular rate and rhythm with a normal S1 and S2. No gallops, murmurs, or rubs. Normal PMI, no JVD. No pulse deficits. Respiratory: Lungs have equal breath sounds bilaterally, clear to auscultation and percussion. No rales, rhonchi or wheezes noted. No increased work of breathing, no retractions or nasal flaring. Abdomen/GI: Soft, non-tender, with normal bowel sounds. No distension or tympany. No guarding or rebound. No evidence of tenderness throughout. MS/ Extremity: Pulses equal, no cyanosis. Neurovascular intact. Full, normal range of motion. Neuro: Awake and alert, GCS 15, oriented to person, place, time, and situation. Cranial nerves II-XII grossly intact. Motor strength 5/5 in all extremities. Sensory grossly intact. Cerebellar exam normal. Normal gait. Psych: Awake, alert, with orientation to person, place and time. anxious and panicing Vital Signs: 05:40 BP 119 / 97; Pulse 133; Resp 26; Temp 97.6; Pulse Ox 98% on R/A; Weight 68.04 kg; em Height 5 ft. 3 in. (160.02 cm); 07:30 BP 148 / 86; Pulse 97; Resp 18; Temp 97.8(O); Pulse Ox 100% on R/A; sl2 08:30 BP 123 / 80; Pulse 108; Resp 20; Temp 97.9(O); Pulse Ox 99% on R/A; sl2 05:40 Body Mass Index 26.57 (68.04 kg, 160.02 cm) em MDM: 05:45 Patient medically screened. pa2 05:56 Differential diagnosis: drug withdrawal. acute psychotic break, depression, psychosis ma2 secondary to non-compliance. 07:12 Data reviewed: vital signs, nurses notes. Counseling: I had a detailed discussion with ma2 the patient and/or guardian regarding: the historical points, exam findings, and any diagnostic results supporting the discharge/admit diagnosis, the presence of at least one elevated blood pressure reading (>120/80) during this emergency department visit, the need for outpatient follow up. Response to treatment: the patient's symptoms have markedly improved after treatment. Administered Medications: 06:00 Drug: Ativan (LORazepam) 2 mg Route: PO; dc2 06:50 Follow up: Response: Anxiety unchanged dc2 07:48 Follow up: Response: No adverse reaction sl2 06:27 Drug: Zofran (Ondansetron) 4 mg Route: PO; dc2 07:00 Follow up: Response: Nausea is decreased dc2 07:48 Follow up: Response: No adverse reaction sl2 06:51 CANCELLED (ilia): Valium (diazepam) 10 mg IVP once ma2 07:37 Drug: Ativan (LORazepam) 2 mg Route: IVP; Site: right hand; sl2 07:55 Follow up: Response: No adverse reaction; Anxiety decreased sl2 07:40 Drug: NS 0.9% 1000 ml Route: IV; Rate: 1 bolus; Site: right hand; sl2 09:29 Follow up: IV Status: Completed infusion; IV Intake: 1000ml sl2 09:30 Not Given (med not delivered ): Banana Bag - (NS 0.9% 1000 ml, foLIC Acid 1 mg, sl2 Thiamine 100 mg, Multivitamin 1 amp) IV at calculated rate once Disposition Summary: 06/07/21 07:16 Discharge Ordered Location: Home ma2 Condition: Stable ma2 Diagnosis - Adjustment disorder with anxiety ma2 Followup: ma2 - With: Private Physician - When: Tomorrow - Reason: Continuance of care Discharge Instructions: - Discharge Summary Sheet ma2 - Generalized Anxiety Disorder, Adult ma2 Forms: - Medication Reconciliation Form ma2 - Thank You Letter ma2 - Antibiotic Education ma2 - Prescription Opioid Use ma2 Prescriptions: - Zofran 4 mg Oral Tablet - take 1 tablet by ORAL route every 12 hours As needed; 20 tablet; Refills: 0, ma2 Product Selection Permitted Signatures: Mahad Crocker RN RN em Chuy Mackey MD MD pa2 Carmen Barrett RN RN sc2 Grazyna Watson RN RN 2 Corrections: (The following items were deleted from the chart) 05:42 05:41 PSHx: None; em em 06:51 06:51 Valium (diazepam) 10 mg IVP once ordered. ma2 ma2
[2021-06-07] MEDS ORDERED: LORazepam 2 MG/ML VIAL ONE (08:32)
[2021-06-07] MEDS ORDERED: NA CHLORIDE 0.9% 1,000 ML ONE (08:32)
[2021-06-07 09:47] VITALS: BP 148/86; TEMP 97.8; O2SAT 100
== END 2021-06-07 09:32 | disposition home or self-care (01) ==
LOC: ER 05:24
DX: F43.22 Adjustment disorder with anxiety (principal); Z72.0 Tobacco use; Z88.8 Allergy status to other drugs, medicaments and biological substances
CPT/HCPCS: 96361; 96374; 99284; J7030

== ENCOUNTER 2021-06-12 23:15 | Emergency (ER) | payer OTHER ==
[2021-06-12] MEDS ORDERED: DIAZEPAM 10 MG/2 ML INJ SYRINGE ONE (23:24)
[2021-06-12] MEDS ORDERED: NA CHLORIDE 0.9% 1,000 ML ONE (23:36)
[2021-06-13 00:17] LABS: Potassium 3.4 mmol/L (3.5-5.1)
[2021-06-13] MEDS ORDERED: LORazepam 2 MG/ML VIAL ONE ×2 (00:26→01:07)
[2021-06-13] MEDS ORDERED: ONDANSETRON 4 MG/2 ML VIAL ONE ×2 (00:27→01:08)
[2021-06-13] MEDS ORDERED: INSULIN -REGULAR HUMAN 50 UNIT/0.5 ML ML ONE (00:35)
--- NOTE | 2021-06-13 01:08 | ER ---
Nurse's Notes [facility] Name: Edelmira Pal Age: 36 yrs Sex: Female : 1985 Arrival Date: 06/12/2021 Time: 23:17 Bed 5 Private MD: Diagnosis: 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;Hyperglycemia, unspecified Presentation: 06/12 23:25 Chief complaint: Patient states: anxiety since this morning. Coronavirus screen: em Vaccine status: Patient reports receiving the 2nd dose of the covid vaccine. Ebola Screen: Patient negative for fever greater than or equal to 101.5 degrees Fahrenheit, and additional compatible Ebola Virus Disease symptoms Patient denies exposure to infectious person. Patient denies travel to an Ebola-affected area in the 21 days before illness onset. No symptoms or risks identified at this time. Initial Sepsis Screen: Does the patient meet any 2 criteria? HR > 90 bpm. No. Patient's initial sepsis screen is negative. Does the patient have a suspected source of infection? No. Patient's initial sepsis screen is negative. Risk Assessment: Do you want to hurt yourself or someone else? Patient reports no desire to harm self or others. Onset of symptoms was June 12, 2021. 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 - Social history:: Smoking status: Patient reports the use of cigarette tobacco products, denies chronic smoking, but will smoke occasionally. Screenin:30 Abuse screen: Denies threats or abuse. Denies injuries from another. Nutritional dc2 screening: No deficits noted. Tuberculosis screening: No symptoms or risk factors identified. Never had TB. Fall Risk None identified. No fall in past 12 months (0 pts). Secondary diagnosis (15 points) No IV (0 pts). Ambulatory Aid- None/Bed Rest/Nurse Assist (0 pts). Gait- Normal/Bed Rest/Wheelchair (0 pts) Mental Status- Oriented to own ability (0 pts). Total Strauss Fall Scale indicates No Risk (0-24 pts). Assessment: 23:30 General: Appears uncomfortable, unkempt, Behavior is anxious, restless, Entire body dc2 visibly shaking ? purposeful ? . General: Pt arrive to room 5, extremely anxious with visible body shaking and jerking movements. Pt reports is unable to sleep because of her anxiety, has an appt next week but could not wait. Pt reports being type 1 DM, accucheck is 376 upon arrival to room 5 , states has been running high and had covered herself with 10u regular insulin earlier in the day. . Pain: Denies pain. Neuro: Level of Consciousness is awake, alert, obeys commands, Oriented to person, place, time, situation. Respiratory: No deficits noted. Airway is patent Breath sounds are clear bilaterally. GI: No deficits noted. No signs and/or symptoms were reported involving the gastrointestinal system. Bowel sounds present X 4 quads. : No signs and/or symptoms were reported regarding the genitourinary system. Derm: No deficits noted. No signs and/or symptoms reported regarding the dermatologic system. Musculoskeletal: No deficits noted. No signs and/or symptoms reported regarding the musculoskeletal system. Vital Signs: 23:25 BP 144 / 102; Pulse 140; Resp 28; Temp 97.8; Pulse Ox 98% on R/A; Weight 68.04 kg; em Height 5 ft. 3 in. (160.02 cm); 06/13 00:45 BP 130 / 79; Pulse 112; Resp 21; Pulse Ox 100% on R/A; Pain 0/10; dc2 01:30 BP 128 / 78; Pulse 97; Resp 16; Temp 97.0; Pulse Ox 100% ; Pain 0/10; dc2 02:00 BP 125 / 73; Pulse 88; Resp 17; Pulse Ox 98% on R/A; Pain 0/10; dc2 06/12 23:25 Body Mass Index 26.57 (68.04 kg, 160.02 cm) em ED Course: 06/12 23:17 Patient arrived in ED. cf2 23:20 Marquez Mora PA is PHCP. [facility] 23:20 Wild Hanks MD is Attending Physician. [facility] 23:23 Leopoldo Crump, ISSA is Primary Nurse. mr2 23:26 Triage completed. em 23:26 Arm band placed on. em 23:35 Patient has correct armband on for positive identification. Placed in gown. Bed in low dc2 position. Call light in reach. Side rails up X 1. orchestra conductor on. Pulse ox on. NIBP on. 23:35 No provider procedures requiring assistance completed. dc2 23:48 BMP Sent. dc2 11 01:58 IV discontinued, intact, bleeding controlled, No redness/swelling at site. Pressure dc2 dressing applied. Administered Medications: 06/12 23:41 Drug: Valium (diazepam) 10 mg Route: IVP; Site: right upper arm; dc2 06/13 00:15 Follow up: Response: Marked relief of symptoms dc2 06/12 23:41 Drug: NS 0.9% 1000 ml Route: IV; Rate: 1 bolus; Infused Over: 1 hrs; Site: right upper dc2 arm; Delivery: Primary tubing; 06/13 00:30 Drug: Ativan (LORazepam) 1 mg Route: IVP; Site: right upper arm; dc2 01:12 Follow up: Response: Marked relief of symptoms dc2 00:32 Drug: Zofran (Ondansetron) 4 mg Route: IVP; Site: right upper arm; dc2 00:40 Drug: Insulin Regular Human 10 units {Co-Signature: mr2 (Leopoldo Crump RN).} Route: IVP; dc2 Site: right forearm; 01:11 Follow up: Response: No adverse reaction dc2 01:25 Drug: Ativan (LORazepam) 2 mg Route: IVP; Site: right antecubital; mr2 01:25 Drug: Zofran (Ondansetron) 4 mg Route: IVP; Site: right antecubital; mr2 Outcome: 01:07 Discharge ordered by MD. klein 01:59 Discharged to home ambulatory. dc2 01:59 Condition: stable 01:59 Discharge instructions given to patient, Instructed on discharge instructions, follow up and referral plans. Demonstrated understanding of instructions, follow-up care. 02:18 Patient left the ED. tt3 Signatures: Marquez Mora PA PA jmm Munoz, Edgar, RN RN em Olimpia Foster cf2 Vikas Ng tt3 Leopoldo Crump RN RN mr2 Carmen Barrett, RN RN dc2 Leopoldo Crump RN mr2
--- NOTE | 2021-06-13 01:09 | EDPHYS ---
Physician Documentation [facility] Name: Edelmira Pal Age: 36 yrs Sex: Female : 1985 Arrival Date: 06/12/2021 Time: 23:17 Bed 5 Private MD: ED Physician Wild Hanks HPI: 06/12 23:24 This 36 yrs old Female presents to ER via Unassigned with complaints of PANIC jmm ATTACK. 23:24 The patient presents to the emergency department with anxiety. Onset: The jmm symptoms/episode began/occurred acutely, this morning. Past psychiatric history: Psychiatric medications include: temazepam. Associated signs and symptoms: Pertinent positives; anxiety. Associated signs and symptoms: Pertinent positives; shortness of breath, Pertinent negatives: homicidal ideation, suicide ideation. The patient has experienced similar episodes in the past. 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 - Social history:: Smoking status: Patient reports the use of cigarette tobacco products, denies chronic smoking, but will smoke occasionally. ROS: 23:24 Constitutional: Negative for fever, chills, and weight loss, Cardiovascular: Negative jmm for chest pain, palpitations, and edema, Respiratory: Negative for shortness of breath, cough, wheezing, and pleuritic chest pain. 23:24 Psych: Positive for anxiety. 23:24 All other systems are negative. Exam: 23:24 Head/Face: atraumatic. Eyes: EOMI, no conjunctival erythema appreciated ENT: Moist jmm Mucus Membranes Neck: Trachea midline, Supple Chest/axilla: Normal chest wall appearance and motion. Cardiovascular: Regular rate and rhythm. No edema appreciated Respiratory: Normal respirations, no respiratory distress appreciated Abdomen/GI: Non distended, soft Back: Normal ROM Skin: General appearance color normal MS/ Extremity: Moves all extremities, no obvious deformities appreciated, no edema noted to the lower extremities Neuro: Awake and alert, normal gait Psych: Behavior is normal, Mood is normal, Patient is cooperative and pleasant 23:24 Constitutional: The patient appears alert, awake, anxious. Vital Signs: 23:25 BP 144 / 102; Pulse 140; Resp 28; Temp 97.8; Pulse Ox 98% on R/A; Weight 68.04 kg; em Height 5 ft. 3 in. (160.02 cm); 06/13 00:45 BP 130 / 79; Pulse 112; Resp 21; Pulse Ox 100% on R/A; Pain 0/10; dc2 01:30 BP 128 / 78; Pulse 97; Resp 16; Temp 97.0; Pulse Ox 100% ; Pain 0/10; dc2 02:00 BP 125 / 73; Pulse 88; Resp 17; Pulse Ox 98% on R/A; Pain 0/10; dc2 06/12 23:25 Body Mass Index 26.57 (68.04 kg, 160.02 cm) em MDM: 06/12 23:24 Patient medically screened. [facility] 06/13 00:47 Data reviewed: vital signs, nurses notes. [facility] 01:07 Counseling: I had a detailed discussion with the patient and/or guardian regarding: the [facility] historical points, exam findings, and any diagnostic results supporting the discharge/admit diagnosis, lab results, radiology results, the need for outpatient follow up, to return to the emergency department if symptoms worsen or persist or if there are any questions or concerns that arise at home. 06/12 23:27 Order name: BMP; Complete Time: 00:20 [facility] 06/12 23:38 Order name: Glucose, Ancillary Testing; Complete Time: 23:42 [facility] 06/12 23:22 Order name: Saline Lock; Complete Time: 23:48 [facility] Administered Medications: 06/12 23:41 Drug: Valium (diazepam) 10 mg Route: IVP; Site: right upper arm; dc2 06/13 00:15 Follow up: Response: Marked relief of symptoms dc2 06/12 23:41 Drug: NS 0.9% 1000 ml Route: IV; Rate: 1 bolus; Infused Over: 1 hrs; Site: right upper dc2 arm; Delivery: Primary tubing; 06/13 00:30 Drug: Ativan (LORazepam) 1 mg Route: IVP; Site: right upper arm; dc2 01:12 Follow up: Response: Marked relief of symptoms dc2 00:32 Drug: Zofran (Ondansetron) 4 mg Route: IVP; Site: right upper arm; dc2 00:40 Drug: Insulin Regular Human 10 units {Co-Signature: mr2 (Leopoldo Crump RN).} Route: IVP; dc2 Site: right forearm; 01:11 Follow up: Response: No adverse reaction dc2 01:25 Drug: Ativan (LORazepam) 2 mg Route: IVP; Site: right antecubital; mr2 01:25 Drug: Zofran (Ondansetron) 4 mg Route: IVP; Site: right antecubital; mr2 Disposition: 06:14 Co-signature as Attending Physician, Wild Hanks MD. 7 Disposition Summary: 06/13/21 01:07 Discharge Ordered Location: Home [facility] Condition: Stable jm Diagnosis - 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 jmm - Hyperglycemia, unspecified jmm Followup: jm - With: Private Physician - When: 1 - 2 days - Reason: Recheck today's complaints, Continuance of care, Re-evaluation by your physician Discharge Instructions: - Discharge Summary Sheet jm - Alcohol Use Disorder jmm - Hyperglycemia [facility] Forms: - Medication Reconciliation Form [facility] - Thank You Letter jmm - Antibiotic Education jmm - Prescription Opioid Use [facility] Signatures: Dispatcher [employer] Marquez Hernandez PA PA jmm Munoz, Edgar, RN Wild Rankin MD MD [facility] Leopoldo Crump RN RN mr2 Carmen Barrett RN RN dc2 Leopoldo Crump RN mr2
[2021-06-13 02:47] VITALS: TEMP 97
[2021-06-13 02:49] VITALS: BP 125/73; O2SAT 98
== END 2021-06-13 02:18 | disposition home or self-care (01) ==
LOC: ER 23:15
DX: F10.180 Alcohol abuse with alcohol-induced anxiety disorder (principal); E11.65 Type 2 diabetes mellitus with hyperglycemia; Z88.8 Allergy status to other drugs, medicaments and biological substances
CPT/HCPCS: 80048; 36415; 82947; 99284; J3360; J7030; J2405 ×2

== ENCOUNTER 2021-06-27 07:22 | Emergency (ER) | payer OTHER ==
[2021-06-27] MEDS ORDERED: LORazepam 2 MG/ML VIAL ONE ×2 (08:17→08:59)
[2021-06-27] MEDS ORDERED: NA CHLORIDE 0.9% 1,000 ML ONE (08:17)
[2021-06-27 08:25] LABS: Absolute Lymphocytes (CBC) 1.6 K/uL (0.7-4.9); Basophils % 0.7 % (0-1.3); Hematocrit 43.7 % (36.0-45.0); Lymphocytes % 15.8 % (15.3-44.8); MPV 6.9 fL (7.6-11.3); RBC Red Blood Cell Count 4.76 M/uL (3.86-4.86)
[2021-06-27] MEDS ORDERED: FOLIC ACID 1 MG, THIAMINE HCL 100 MG, MULTIVITAMINS INJ 10 ML in NA CHLORIDE 0.9% 1,000 ML IV ONE (08:30)
[2021-06-27 08:37] LABS: Protime INR 0.99
[2021-06-27 08:40] LABS: ALT/SGPT 22 U/L (12-78); AST/SGOT 15 U/L (15-37); Albumin 3.8 g/dL (3.4-5.0); Alkaline Phosphatase 71 U/L (45-117); BUN Blood Urea Nitrogen 10 mg/dL (7-18); Bicarbonate 24 mmol/L (21-32); Bilirubin Direct < 0.1 mg/dL (0-0.2); Bilirubin Total 0.3 mg/dL (0.2-1.0); Glucose Level 221 mg/dL (74-106); Potassium 3.9 mmol/L (3.5-5.1); Protein, Total 8.9 g/dL (6.4-8.2); Sodium Level 139 mmol/L (136-145)
[2021-06-27] MEDS ORDERED: ONDANSETRON 4 MG/2 ML VIAL ONE (09:00)
--- NOTE | 2021-06-27 10:12 | ER ---
Nurse's Notes [facility] Name: Edelmira Pal Age: 36 yrs Sex: Female : 1985 Arrival Date: 06/27/2021 Time: 07:23 Bed 8 Private MD: Diagnosis: 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 Presentation: 06/27 07:48 Chief complaint: Patient states: having an anxiety attack, takes temazepam and is due iw to see her psychiatrist next week to change her meds, started last night, has not been drinking. Coronavirus screen: At this time, the client does not indicate any symptoms associated with coronavirus-19. Ebola Screen: Patient negative for fever greater than or equal to 101.5 degrees Fahrenheit, and additional compatible Ebola Virus Disease symptoms Patient denies exposure to infectious person. Patient denies travel to an Ebola-affected area in the 21 days before illness onset. No symptoms or risks identified at this time. Initial Sepsis Screen: Does the patient meet any 2 criteria? No. Patient's initial sepsis screen is negative. Does the patient have a suspected source of infection? No. Patient's initial sepsis screen is negative. Risk Assessment: Do you want to hurt yourself or someone else? Patient reports no desire to harm self or others. Onset of symptoms was June 26, 2021. 07:48 Method Of Arrival: Ambulatory iw 07:48 Acuity: BELTRAN 3 iw Historical: - Allergies: 07:50 Ceclor; iw - PMHx: 07:50 Anxiety; Asthma; diabetes mellitus; iw - PSHx: 07:50 R ankle; Tonsillectomy; iw - Immunization history:: Client reports receiving the 2nd dose of the Covid vaccine. - Social history:: Smoking status: Patient reports the use of cigarette tobacco products, smokes one-half pack cigarettes per day. Screenin:13 Abuse screen: Denies threats or abuse. Nutritional screening: No deficits noted. as6 Tuberculosis screening: No symptoms or risk factors identified. Fall Risk None identified. Assessment: 08:00 General: Appears in no apparent distress. uncomfortable, Behavior is anxious, restless. as6 Pain: Denies pain. Neuro: Level of Consciousness is awake, alert, obeys commands, Oriented to person, place, time, situation. Cardiovascular: Capillary refill < 3 seconds Patient's skin is warm and dry. Respiratory: Airway is patent Trachea midline Respiratory effort is even, unlabored, Respiratory pattern is regular, symmetrical. GI: Reports nausea. Derm: Skin is intact, is healthy with good turgor. 10:11 Reassessment: pt reports no nausea and improved anxiety. as6 Vital Signs: 07:48 BP 134 / 96; Pulse 126; Resp 18 S; Temp 97.6; Pulse Ox 100% on R/A; Weight 68.04 kg; iw Height 5 ft. 3 in. (160.02 cm); 09:00 BP 101 / 71; Pulse 100; Resp 20 S; Pulse Ox 99% on R/A; as6 10:10 BP 112 / 78; Pulse 89; Resp 18 S; Pulse Ox 99% on R/A; as6 07:48 Body Mass Index 26.57 (68.04 kg, 160.02 cm) iw ED Course: 07:23 Patient arrived in ED. as 07:49 Triage completed. iw 07:50 Alec Chow NP is PHCP. pm1 07:50 Austyn Velasquez MD is Attending Physician. pm1 07:50 Arm band placed on. iw 08:15 Giovanni Godinez RN is Primary Nurse. as6 08:45 Inserted saline lock: 22 gauge in right wrist, using aseptic technique. Blood collected.as6 09:13 Bed in low position. Call light in reach. Side rails up X2. Pulse ox on. NIBP on. Warm as6 blanket given. 10:21 No provider procedures requiring assistance completed. IV discontinued, intact, as6 bleeding controlled, No redness/swelling at site. Pressure dressing applied. Administered Medications: 08:22 Drug: Ativan (LORazepam) 1 mg Route: IVP; Site: right wrist; as6 10:12 Follow up: Response: No adverse reaction as6 08:22 Drug: NS 0.9% 1000 ml Route: IV; Rate: 1000 ml; Site: right wrist; as6 10:13 Follow up: Response: No adverse reaction; IV Status: Completed infusion; IV Intake: as6 1000ml 08:58 Drug: Banana Bag - (NS 0.9% 1000 ml, foLIC Acid 1 mg, Thiamine 100 mg, Multivitamin 1 as6 amp) Route: IV; Rate: calculated rate; Site: right wrist; 10:12 Follow up: Response: No adverse reaction; IV Status: Completed infusion; IV Intake: as6 1000ml 09:09 Drug: Ativan (LORazepam) 2 mg Route: IVP; Site: right wrist; as6 10:13 Follow up: Response: No adverse reaction as6 09:09 Drug: Zofran (Ondansetron) 4 mg Route: IVP; Site: right wrist; as6 10:13 Follow up: Response: No adverse reaction as6 Intake: 10:12 IV: 1000ml; Total: 1000ml. as6 10:13 IV: 1000ml; Total: 2000ml. as6 Outcome: 10:11 Discharge ordered by MD. pm1 10:22 Discharged to home ambulatory. as6 10:22 Condition: stable 10:22 Discharge instructions given to patient, Instructed on discharge instructions, follow up and referral plans. Demonstrated understanding of instructions, follow-up care. 10:22 Patient left the ED. as6 Signatures: Sienna Long Irene, RN RN iw Bridgett Goldman RN RN aa5 Alec Chow NP PRODUCT DEVELOPER pm1 Giovanni Godinez RN RN as6 Corrections: (The following items were deleted from the chart) 08:10 08:00 Bridgett Goldman, ISSA is Primary Nurse. aaBianca aa5
--- NOTE | 2021-06-27 10:12 | EDPHYS ---
Physician Documentation [facility] Name: Edelmira Pal Age: 36 yrs Sex: Female : 1985 Arrival Date: 06/27/2021 Time: 07:23 Bed 8 Private MD: ED Physician Austyn Velasquez HPI: 06/27 08:07 This 36 yrs old Female presents to ER via Ambulatory with complaints of Anxiety. pm1 08:07 The patient presents to the emergency department with anxiety, stressors of taking care pm1 of father with cancer. Onset: The symptoms/episode began/occurred yesterday. Past psychiatric history: Prior diagnosis: Anxiety, Primary psychiatric physician: Dr. Cho, the patient does not have a previous inpatient psychiatric history. Associated signs and symptoms: Pertinent positives; nausea, Pertinent negatives: abdominal pain, chest pain, fever, shortness of breath, vomiting. Severity of symptoms: in the emergency department the symptoms are worse. The patient has experienced similar episodes in the past, multiple times. The patient has not recently seen a physician, has an appointment scheduled, on July 08 with psychiatrist. Patient plans to request benzodiazepine for anxiety versus current medication regiment . Patient reports last alcoholic beverage yesterday at 1700 - one cranberry and vodka. Historical: - Allergies: 07:50 Ceclor; iw - PMHx: 07:50 Anxiety; Asthma; diabetes mellitus; iw - PSHx: 07:50 R ankle; Tonsillectomy; iw - Immunization history:: Client reports receiving the 2nd dose of the Covid vaccine. - Social history:: Smoking status: Patient reports the use of cigarette tobacco products, smokes one-half pack cigarettes per day. ROS: 08:07 Constitutional: Negative for fever, chills, and weight loss, Cardiovascular: Negative pm1 for chest pain, palpitations, and edema, Respiratory: Negative for shortness of breath, cough, wheezing, and pleuritic chest pain. 08:07 MS/Extremity: Negative for injury and deformity, Skin: Negative for injury, rash, and discoloration, Neuro: Negative for headache, weakness, numbness, tingling, and seizure. 08:07 Abdomen/GI: Positive for nausea, Negative for abdominal pain, vomiting, diarrhea. 08:07 Psych: Positive for anxiety, Negative for homicidal ideation, suicidal ideation. 08:07 All other systems are negative. Exam: 08:07 Constitutional: This is a well developed, well nourished patient who is awake, alert, pm1 and in no acute distress. Head/Face: Normocephalic, atraumatic. 08:07 Skin: Warm, dry with normal turgor. Normal color with no rashes, no lesions, and no evidence of cellulitis. MS/ Extremity: Pulses equal, no cyanosis. Neurovascular intact. Full, normal range of motion. 08:07 ENT: Exam is negative for acute changes, Mouth: no acute changes, Lips: normal, moist, Oral mucosa: normal, pink and intact, moist. 08:07 Cardiovascular: Rate: tachycardic, Rhythm: regular, Pulses: no pulse deficits are appreciated, Edema: is not appreciated. 08:07 Respiratory: Exam negative for acute changes, respiratory distress, shortness of breath, Breath sounds: are clear throughout. 08:07 Abdomen/GI: Inspection: abdomen appears normal, Palpation: abdomen is soft and non-tender, in all quadrants. 08:07 Neuro: Exam negative for acute changes, Orientation: is normal, Mentation: is normal, Motor: is normal, moves all fours. 08:07 Psych: Behavior/mood is pleasant, cooperative, Affect is calm, Oriented to person, place, time, Patient has no thoughts/intents to harm self or others. Delusions/hallucinations are not present. Vital Signs: 07:48 BP 134 / 96; Pulse 126; Resp 18 S; Temp 97.6; Pulse Ox 100% on R/A; Weight 68.04 kg; iw Height 5 ft. 3 in. (160.02 cm); 09:00 BP 101 / 71; Pulse 100; Resp 20 S; Pulse Ox 99% on R/A; as6 10:10 BP 112 / 78; Pulse 89; Resp 18 S; Pulse Ox 99% on R/A; as6 07:48 Body Mass Index 26.57 (68.04 kg, 160.02 cm) iw MDM: 07:50 Patient medically screened. pm1 10:10 Data reviewed: vital signs. Data interpreted: Pulse oximetry: on room air is 100 %. pm1 Interpretation: normal. Counseling: I had a detailed discussion with the patient and/or guardian regarding: the historical points, exam findings, and any diagnostic results supporting the discharge/admit diagnosis, lab results, radiology results, the need for outpatient follow up, to return to the emergency department if symptoms worsen or persist or if there are any questions or concerns that arise at home. 06/27 08:01 Order name: Acetaminophen; Complete Time: 08:41 pm1 06/27 08:01 Order name: Basic Metabolic Panel; Complete Time: 08:41 pm1 06/27 08:01 Order name: CBC with Diff; Complete Time: 08:41 pm1 06/27 08:01 Order name: ETOH Level; Complete Time: 08:55 pm1 06/27 08:01 Order name: Hepatic Function; Complete Time: 08:41 pm1 06/27 08:01 Order name: PT-INR; Complete Time: 08:41 pm1 06/27 08:01 Order name: Ptt, Activated; Complete Time: 08:41 pm1 06/27 08:01 Order name: Salicylate; Complete Time: 08:56 pm1 06/27 08:01 Order name: EKG; Complete Time: 08:02 pm1 06/27 08:01 Order name: EKG - Nurse/Tech; Complete Time: 10:09 pm1 06/27 08:01 Order name: IV Saline Lock; Complete Time: 08:22 pm1 06/27 08:01 Order name: Labs collected and sent; Complete Time: 08:22 pm1 Administered Medications: 08:22 Drug: Ativan (LORazepam) 1 mg Route: IVP; Site: right wrist; as6 10:12 Follow up: Response: No adverse reaction as6 08:22 Drug: NS 0.9% 1000 ml Route: IV; Rate: 1000 ml; Site: right wrist; as6 10:13 Follow up: Response: No adverse reaction; IV Status: Completed infusion; IV Intake: as6 1000ml 08:58 Drug: Banana Bag - (NS 0.9% 1000 ml, foLIC Acid 1 mg, Thiamine 100 mg, Multivitamin 1 as6 amp) Route: IV; Rate: calculated rate; Site: right wrist; 10:12 Follow up: Response: No adverse reaction; IV Status: Completed infusion; IV Intake: as6 1000ml 09:09 Drug: Ativan (LORazepam) 2 mg Route: IVP; Site: right wrist; as6 10:13 Follow up: Response: No adverse reaction as6 09:09 Drug: Zofran (Ondansetron) 4 mg Route: IVP; Site: right wrist; as6 10:13 Follow up: Response: No adverse reaction as6 Disposition: 13:38 Co-signature as Attending Physician, Austyn Velasquez MD I agree with the assessment and kdr plan of care. Disposition Summary: 06/27/21 10:11 Discharge Ordered Location: Home pm1 Problem: new pm1 Symptoms: have improved pm1 Condition: Stable pm1 Diagnosis - 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 pm1 Followup: pm1 - With: Emergency Department - When: As needed - Reason: Worsening of condition Followup: pm1 - With: Private Physician - When: 2 - 3 days - Reason: Recheck today's complaints, Continuance of care, Re-evaluation by your physician Discharge Instructions: - Discharge Summary Sheet pm1 - Finding Treatment for Addiction pm1 - Alcohol Use Disorder pm1 - Substance Use Disorder pm1 - Generalized Anxiety Disorder, Adult pm1 Forms: - Medication Reconciliation Form pm1 - Thank You Letter pm1 - Antibiotic Education pm1 - Prescription Opioid Use pm1 Signatures: Dispatcher [employer] EDMS Austyn Velasquez MD MD kdr Charis Baires, ISSA RN iw Alec Chow NP INDUSTRIAL MILLWRIGHT pm1 Giovanni Godinez RN RN as6 Corrections: (The following items were deleted from the chart) 10:09 08:01 Urine Dipstick-Ancillary ordered. pm1 as6 10:09 08:01 Urine Test ordered. pm1 as6
[2021-06-27 10:31] VITALS: TEMP 97.6
[2021-06-27 10:32] VITALS: O2SAT 99
[2021-06-27 10:33] VITALS: BP 112/78
--- NOTE | 2021-06-29 08:09 | EKG ---
Test Date: 2021-06-27 Test Time: 10:04:13 Knitted Cloth Examiner: MEASUREMENT RESULTS: Intervals: Rate: 99 IA: 158 QRSD: 80 QT: 358 QTc: 459 [place]: P: 43 IA: 158 QRS: 68 T: 77 INTERPRETIVE STATEMENTS: Sinus rhythm with premature supraventricular complexes Low voltage QRS Borderline ECG Compared to ECG 05/29/2021 09:58:01 Atrial premature complex(es) now present Sinus tachycardia no longer present T-wave abnormality no longer present Electronically Signed On 06-29-21 08:03:54 EMPLOYMENT CLERK by Miguel Hardy
== END 2021-06-27 10:22 | disposition home or self-care (01) ==
LOC: ER 07:22
DX: F10.180 Alcohol abuse with alcohol-induced anxiety disorder (principal); F17.210 Nicotine dependence, cigarettes, uncomplicated; Z88.1 Allergy status to other antibiotic agents
CPT/HCPCS: 96365; 96361; 93005; 85025; 80048; 36415; 80320; 80329 ×2; 85610; 80076; 85730; 96375; 99284; J3411; J7030 ×2; J2405

== ENCOUNTER 2021-07-01 06:56 | Emergency (ER) | payer OTHER ==
[2021-07-01] MEDS ORDERED: LORazepam 2 MG/ML VIAL ONE ×2 (07:20→07:50)
--- NOTE | 2021-07-01 07:28 | ER ---
Nurse's Notes [facility] Name: Edelmira Pal Age: 36 yrs Sex: Female : 1985 Arrival Date: 07/01/2021 Time: 06:58 Bed 5 Private MD: Diagnosis: Adjustment disorder with anxiety;Generalized anxiety disorder;Abuse of other non-psychoactive substances-Alcohol and marijuana Presentation: 07/01 07:03 Chief complaint: Patient states: "I'm having a really bad anxiety attack. I was here for the same thing Sunday and y'all usually help me through it.". Coronavirus screen: Client denies travel out of the [place] in the last 14 days. Ebola Screen: Patient denies exposure to infectious person. Patient denies travel to an Ebola-affected area in the 21 days before illness onset. Initial Sepsis Screen: Does the patient meet any 2 criteria? No. Patient's initial sepsis screen is negative. Does the patient have a suspected source of infection? No. Patient's initial sepsis screen is negative. Risk Assessment: Do you want to hurt yourself or someone else? Patient reports no desire to harm self or others. Onset of symptoms was July 01, 2021. 07:03 Method Of Arrival: Ambulatory ss 07:03 Acuity: BELTRAN 4 ss Triage Assessment: 07:15 General: Appears distressed, comfortable, obese. bp 07:15 General: Behavior is cooperative, appropriate for age, agitated, anxious. Pain: Denies bp pain. EENT: No deficits noted. Neuro: Level of Consciousness is awake, alert, obeys commands, Oriented to Appropriate for age. 07:15 Cardiovascular: No deficits noted. Respiratory: No deficits noted. GI: No signs and/or bp symptoms were reported involving the gastrointestinal system. : No signs and/or symptoms were reported regarding the genitourinary system. Derm: No deficits noted. Musculoskeletal: No deficits noted. 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 - Social history:: Smoking status: Patient reports the use of cigarette tobacco products, smokes one-half pack cigarettes per day. Screenin:15 Abuse screen: Denies threats or abuse. Denies injuries from another. Nutritional bp screening: No deficits noted. Tuberculosis screening: No symptoms or risk factors identified. Fall Risk None identified. Assessment: 07:15 General: Appears distressed, comfortable, Behavior is cooperative, appropriate for age, bp agitated, anxious. Pain: Denies pain. Neuro: Level of Consciousness is awake, alert, obeys commands, Oriented to Appropriate for age. Cardiovascular: Rhythm is sinus tachycardia. Respiratory: Airway is patent Respiratory effort is even, unlabored. GI: No signs and/or symptoms were reported involving the gastrointestinal system. : No signs and/or symptoms were reported regarding the genitourinary system. EENT: No deficits noted. Derm: No deficits noted. No signs and/or symptoms reported regarding the dermatologic system. Musculoskeletal: No deficits noted. 07:30 Reassessment: No changes from previously documented assessment. Patient states symptoms bp have not improved. 08:10 Reassessment: PT D/C HOME AMBULATORY WITH FAMILY, DX WITH PANIC D/O. bp Vital Signs: 07:03 BP 141 / 101; Pulse 107; Resp 20; Temp 97.5(TE); Pulse Ox 100% on R/A; Weight 68.04 kg; ss Height 5 ft. 3 in. (160.02 cm); Pain 0/10; 07:31 BP 142 / 118; Pulse 100; Resp 19; Pulse Ox 99% ; bp 07:54 BP 130 / 96; Pulse 103; Resp 17; Pulse Ox 99% ; bp 08:11 BP 122 / 82; Pulse 95; Resp 17; Temp 97.7; Pulse Ox 99% ; bp 07:03 Body Mass Index 26.57 (68.04 kg, 160.02 cm) ED Course: 06:58 Patient arrived in ED. wm 07:05 Austyn Velasquez MD is Attending Physician. kdr 07:07 Triage completed. ss 07:07 Arm band placed on right wrist. ss 07:15 Patient has correct armband on for positive identification. Bed in low position. Call bp light in reach. Side rails up X2. 07:15 No provider procedures requiring assistance completed. bp 07:18 Lele Pink, ISSA is Primary Nurse. bp 08:11 Patient did not have IV access during this emergency room visit. bp Administered Medications: 07:30 Drug: Ativan (LORazepam) 2 mg Route: IM; Site: left gluteus; bp 07:59 Follow up: Response: Anxiety decreased bp 07:50 Drug: Ativan (LORazepam) 2 mg Route: IM; Site: left gluteus; bp 08:10 Follow up: Response: Anxiety decreased bp Outcome: 07:27 Discharge ordered by . kdr 08:11 Discharged to home via ambulance, with family. bp 08:11 Condition: stable 08:11 Discharge instructions given to patient, Instructed on discharge instructions, follow up and referral plans. the need for admit, Demonstrated understanding of instructions, follow-up care. 08:14 Patient left the ED. bp Signatures: Austyn Velasquez MD MD kdr Ariadna Park, RN RN ss Lele Pink, RN RN bp Cheri Gautam Corrections: (The following items were deleted from the chart) 07:55 07:15 General: SEE TRIAGE NOTE. bp bp
--- NOTE | 2021-07-01 07:28 | EDPHYS ---
Physician Documentation [facility] Name: Edelmira Pal Age: 36 yrs Sex: Female : 1985 Arrival Date: 07/01/2021 Time: 06:58 Bed 5 Private MD: ED Physician Austyn Velasquez HPI: 07/01 07:20 This 36 yrs old Female presents to ER via Ambulatory with complaints of Anxiety. kdr 07:20 The patient presents to the emergency department with anxiety, over unknown kdr circumstances, Patient has a history of substance abuse specifically alcohol. She states her last drink was yesterday. She indicated that she had 2 glasses of wine with her food yesterday. Onset: The symptoms/episode began/occurred gradually, yesterday. Past psychiatric history: Prior diagnosis: Anxiety. Associated signs and symptoms: The patient has no apparent associated signs or symptoms. Severity of symptoms: At their worst the symptoms were mild moderate just prior to arrival, in the emergency department the symptoms are unchanged. The patient has not experienced similar symptoms in the past, but family has similar symptoms. The patient has not recently seen a physician. 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 - Social history:: Smoking status: Patient reports the use of cigarette tobacco products, smokes one-half pack cigarettes per day. ROS: 07:20 Constitutional: Negative for fever, chills, and weight loss, Eyes: Negative for injury, kdr pain, redness, and discharge, ENT: Negative for injury, pain, and discharge, Neck: Negative for injury, pain, and swelling, Cardiovascular: Negative for chest pain, palpitations, and edema, Respiratory: Negative for shortness of breath, cough, wheezing, and pleuritic chest pain, Abdomen/GI: Negative for abdominal pain, nausea, vomiting, diarrhea, and constipation, Back: Negative for injury and pain, : Negative for injury, bleeding, discharge, and swelling, MS/Extremity: Negative for injury and deformity, Skin: Negative for injury, rash, and discoloration, Neuro: Negative for headache, weakness, numbness, tingling, and seizure activity. Allergy/Immunology: Negative for hives, rash, and allergies, Endocrine: Negative for neck swelling, polydipsia, polyuria, polyphagia, and marked weight changes, Hematologic/Lymphatic: Negative for swollen nodes, abnormal bleeding, and unusual bruising. 07:20 Cardiovascular: Positive for The patient states that she typically has chest tightness when the anxiety attacks occur. Today her symptoms are no different than her normal recurrent anxiety attacks.. 07:20 Psych: Positive for anxiety. Exam: 07:20 Constitutional: This is a well developed, well nourished patient who is awake, alert, kdr and in mild to moderate distress. 07:20 Psych: Behavior/mood is pleasant, cooperative, anxious, Patient is rocking back and forth in bed. Affect is calm, flat, Oriented to person, place, time, Patient has no thoughts/intents to harm self or others. Judgement / Insight is normal. Memory is normal. Delusions/hallucinations are not present. Vital Signs: 07:03 BP 141 / 101; Pulse 107; Resp 20; Temp 97.5(TE); Pulse Ox 100% on R/A; Weight 68.04 kg; ss Height 5 ft. 3 in. (160.02 cm); Pain 0/10; 07:31 BP 142 / 118; Pulse 100; Resp 19; Pulse Ox 99% ; bp 07:54 BP 130 / 96; Pulse 103; Resp 17; Pulse Ox 99% ; bp 08:11 BP 122 / 82; Pulse 95; Resp 17; Temp 97.7; Pulse Ox 99% ; bp 07:03 Body Mass Index 26.57 (68.04 kg, 160.02 cm) ss MDM: 07:20 Data reviewed: vital signs, nurses notes. Counseling: I had a detailed discussion with kdr the patient and/or guardian regarding: the historical points, exam findings, and any diagnostic results supporting the discharge/admit diagnosis, the need for outpatient follow up, Patient states she has had an appointment with her psychiatrist on July 06.. 07:27 Patient medically screened. kdr Administered Medications: 07:30 Drug: Ativan (LORazepam) 2 mg Route: IM; Site: left gluteus; bp 07:59 Follow up: Response: Anxiety decreased bp 07:50 Drug: Ativan (LORazepam) 2 mg Route: IM; Site: left gluteus; bp 08:10 Follow up: Response: Anxiety decreased bp Disposition Summary: 07/01/21 07:27 Discharge Ordered Location: Home kdr Problem: an acute exacerbation kdr Symptoms: have improved kdr Condition: Stable kdr Diagnosis - Adjustment disorder with anxiety kdr - Generalized anxiety disorder kdr - Abuse of other non-psychoactive substances - Alcohol and marijuana kdr Followup: kdr - With: Private Physician - When: 2 - 3 days - Reason: If symptoms return, Further diagnostic work-up, Recheck today's complaints, Continuance of care, Re-evaluation by your physician Discharge Instructions: - Discharge Summary Sheet kdr - Panic Attack, [id number] kdr - Alcohol Abuse and Dependence Information, Adult kdr - Managing Anxiety, Adult kdr Forms: - Medication Reconciliation Form kdr - Thank You Letter kdr Signatures: Austyn Velasquez MD MD kdr Ariadna Park RN RN ss Lele Pink RN RN bp
[2021-07-01 08:24] VITALS: O2SAT 99
[2021-07-01 08:27] VITALS: BP 122/82; TEMP 97.7
== END 2021-07-01 08:14 | disposition home or self-care (01) ==
LOC: ER 06:56
DX: F41.1 Generalized anxiety disorder (principal); F10.10 Alcohol abuse, uncomplicated; F12.10 Cannabis abuse, uncomplicated; F17.210 Nicotine dependence, cigarettes, uncomplicated; Z88.1 Allergy status to other antibiotic agents
CPT/HCPCS: 96372; 99284

== ENCOUNTER 2021-07-03 23:10 | Emergency (ER) | payer OTHER ==
[2021-07-03] MEDS ORDERED: LORazepam 2 MG/ML VIAL ONE (23:34)
[2021-07-04] MEDS ORDERED: LORazepam 2 MG/ML VIAL ONE (00:30)
--- NOTE | 2021-07-04 00:53 | EDPHYS ---
Physician Documentation [facility] Name: Edelmira Pal Age: 36 yrs Sex: Female : 1985 Arrival Date: 07/03/2021 Time: 23:12 Bed 17 Private MD: ED Physician Wild Hanks HPI: 07/03 23:32 This 36 yrs old Female presents to ER via Ambulatory with complaints of Anxiety. kb 23:32 The patient presents to the emergency department with anxiety. Onset: The kb symptoms/episode began/occurred today. Past psychiatric history: Prior diagnosis: anxiety. Associated signs and symptoms: Pertinent positives; anxiety, Pertinent negatives: abdominal pain, chest pain, chills, delusions, depression, fever, hallucinations, headache, homicidal ideation, nausea, night sweats, palpitations, paranoia, shortness of breath, substance abuse, suicide ideation, tremor, vomiting. Severity of symptoms: At their worst the symptoms were severe in the emergency department the symptoms are unchanged. The patient has not experienced similar symptoms in the past. The patient has not recently seen a physician. Pt states she is having an anxiety attack and cannot get it under control. . RN VASCULAR: 23:22 LMP 06/05/2021 ld1 Historical: - Allergies: 23:21 Ceclor; ld1 - Home Meds: 23:22 temazepam 7.5 mg Oral cap 1 cap every 6 hours [Active]; ld1 - PMHx: 23:21 Anxiety; Asthma; diabetes mellitus; ld1 - PSHx: 23:21 R ankle; Tonsillectomy; ld1 - Immunization history:: Adult Immunizations up to date, Client reports receiving the 2nd dose of the Covid vaccine. - Social history:: Smoking status: Patient reports the use of cigarette tobacco products, smokes one-half pack cigarettes per day, Patient uses alcohol, occasionally. Patient/guardian denies using street drugs. ROS: 23:31 Constitutional: Negative for fever, chills, and weight loss. kb 23:31 Psych: Positive for anxiety, Negative for depression, drug dependence, alcohol dependence, auditory hallucinations, visual hallucinations, homicidal ideation, insomnia, suicide gesture, suicidal ideation. 23:31 All other systems are negative. Exam: 23:31 Constitutional: This is a well developed, well nourished patient who is awake, alert, kb and in no acute distress. Head/Face: Normocephalic, atraumatic. ENT: Moist Mucous membranes Respiratory: Respirations even and unlabored. No increased work of breathing, no retractions or nasal flaring. Skin: Warm, dry with normal turgor. Normal color. MS/ Extremity: Pulses equal, no cyanosis. Neurovascular intact. Full, normal range of motion. Neuro: Awake and alert, GCS 15, oriented to person, place, time, and situation. Moves all extremities. Normal gait. 23:31 Psych: Behavior/mood is pleasant, cooperative, Affect is animated, Oriented to person, place, time, Patient has no thoughts/intents to harm self or others. Judgement / Insight is normal. Memory is normal. Delusions/hallucinations are not present. Vital Signs: 23:19 BP 156 / 108; Pulse 135; Resp 26; Temp 97.5(TE); Pulse Ox 100% on R/A; Weight 68.04 kg; ld1 Height 5 ft. 3 in. (160.02 cm); Pain 0/10; 07/04 00:16 BP 249 / 173; Pulse 135; Resp 24; Pulse Ox 99% on R/A; kd3 00:56 BP 114 / 90; Pulse 78; Resp 18; Pulse Ox 100% ; kd3 07/03 23:19 Body Mass Index 26.57 (68.04 kg, 160.02 cm) ld1 MDM: 07/03 23:24 Patient medically screened. kb 23:31 Data reviewed: vital signs, nurses notes. Data interpreted: Pulse oximetry: on room air kb is 100 %. Interpretation: normal. Counseling: I had a detailed discussion with the patient and/or guardian regarding: the historical points, exam findings, and any diagnostic results supporting the discharge/admit diagnosis, the need for outpatient follow up, a family practitioner, a psychiatrist, to return to the emergency department if symptoms worsen or persist or if there are any questions or concerns that arise at home. 07/04 00:53 ED course: Pt states she is feeling better now and wants to go home. . kb 07/04 00:14 Order name: Vital Signs; Complete Time: 00:17 kb Administered Medications: 07/03 23:41 Drug: Ativan (LORazepam) 2 mg Route: IM; Site: left deltoid; kd3 11/29 00:38 Follow up: Response: No change in condition bb 00:57 Follow up: Response: No adverse reaction kd3 00:32 CANCELLED (Duplicate Order): Ativan (LORazepam) 2 mg IVP once kb 00:36 Drug: Ativan (LORazepam) 2 mg Route: IM; Site: left ventrogluteal; kd3 00:56 Follow up: Response: No adverse reaction kd3 00:58 Follow up: Response: Marked relief of symptoms bb Disposition: 01:30 Co-signature as Attending Physician, Wild Hanks MD. [email or web address] Disposition Summary: 07/04/21 00:52 Discharge Ordered Location: Home kb Condition: Stable kb Diagnosis - Anxiety disorder, unspecified kb Followup: kb - With: Emergency Department - When: As needed - Reason: Worsening of condition Followup: kb - With: Private Physician - When: 2 - 3 days - Reason: Recheck today's complaints, Continuance of care, Re-evaluation by your physician Discharge Instructions: - Discharge Summary Sheet kb - Panic Attack, [id number] kb Forms: - Medication Reconciliation Form kb - Thank You Letter kb - Antibiotic Education kb - Prescription Opioid Use kb Signatures: Angelika Eduardo, CERTIFIED EXECUTIVE CHEF-C CERTIFIED EXECUTIVE CHEF-Wild Toro MD MD mh7 Vannessa Worthy RN RN ld1 Phylicia Wilkinson RN RN kd3 Kathryn Pollock RN bb Corrections: (The following items were deleted from the chart) 00:32 00:29 Ativan (LORazepam) 2 mg IVP once ordered. kb kb
--- NOTE | 2021-07-04 00:53 | ER ---
Nurse's Notes [facility] Name: Edelmira Pal Age: 36 yrs Sex: Female : 1985 Arrival Date: 07/03/2021 Time: 23:12 Bed 17 Private MD: Diagnosis: Anxiety disorder, unspecified Presentation: 07/03 23:19 Chief complaint: Patient states: I am having an anxiety attack again, I was here on ld1 Sunday and I was supposed to go see a psychiatrist but the earliest appointment July 06 and I just can't get it under control. Coronavirus screen: At this time, the client does not indicate any symptoms associated with coronavirus-19. Ebola Screen: No symptoms or risks identified at this time. Initial Sepsis Screen: Does the patient meet any 2 criteria? No. Patient's initial sepsis screen is negative. Does the patient have a suspected source of infection? No. Patient's initial sepsis screen is negative. Risk Assessment: Do you want to hurt yourself or someone else? Patient reports no desire to harm self or others. Onset of symptoms was July 03, 2021 at 23:21. 23:19 Method Of Arrival: Ambulatory ld1 23:19 Acuity: BELTRAN 4 ld1 Triage Assessment: 23:22 General: Appears in no apparent distress. uncomfortable, Behavior is anxious, crying, ld1 fussy. Pain: Denies pain. EENT: No signs and/or symptoms were reported regarding the EENT system. Neuro: Level of Consciousness is awake, alert, obeys commands, Oriented to person, place, time, situation, Appropriate for age. Cardiovascular: Capillary refill < 3 seconds Patient's skin is warm and dry. Respiratory: Airway is patent Respiratory effort is even, labored, Respiratory pattern is regular, symmetrical. GI: Abdomen is flat, non-distended. : No signs and/or symptoms were reported regarding the genitourinary system. Derm: No signs and/or symptoms reported regarding the dermatologic system. Musculoskeletal: No signs and/or symptoms reported regarding the musculoskeletal system. 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 - Social history:: Smoking status: Patient reports the use of cigarette tobacco products, smokes one-half pack cigarettes per day, Patient uses alcohol, occasionally. Patient/guardian denies using street drugs. Screenin/29 00:33 Abuse screen: Denies threats or abuse. Denies injuries from another. Nutritional kd3 screening: No deficits noted. Tuberculosis screening: No symptoms or risk factors identified. Fall Risk None identified. Assessment: 00:33 Reassessment: pt seen in bed, having trouble being still, stating that she is anxious kd3 and "having an anxiety attack. vital signs taken, pt unable to be still for vitals. General: Behavior is anxious, restless. Neuro: No deficits noted. Level of Consciousness is awake, alert, obeys commands, Oriented to person, place, time, situation. Cardiovascular: Patient's skin is warm and dry. Respiratory: No deficits noted. 00:36 Reassessment: ED provider at bedside for pt evaluation, pt shaking uncontrollably, bb crying, states she doesn't know what to do she can't control her anxiety. Unable to obtain accurate blood pressure reading pt unable to be still. New orders received pt medicated see OCT. 00:56 Reassessment: Patient is alert, oriented x 3, equal unlabored respirations, skin bb warm/dry/pink. pt is now sitting quietly states she is ready to go she is feeling much better now Angelika Eduardo COAT AGENT notified. Pt verbalized understanding of and agrees to plan of care discharge instructions given pt ambulated with steady gait to exit. Vital Signs: 07/03 23:19 BP 156 / 108; Pulse 135; Resp 26; Temp 97.5(TE); Pulse Ox 100% on R/A; Weight 68.04 kg; ld1 Height 5 ft. 3 in. (160.02 cm); Pain 0/10; 07/04 00:16 BP 249 / 173; Pulse 135; Resp 24; Pulse Ox 99% on R/A; kd3 00:56 BP 114 / 90; Pulse 78; Resp 18; Pulse Ox 100% ; kd3 07/03 23:19 Body Mass Index 26.57 (68.04 kg, 160.02 cm) ld1 ED Course: 07/03 23:12 Patient arrived in ED. bp1 23:21 Triage completed. ld1 23:22 Arm band placed on right wrist. ld1 23:24 Angel[facility] Edu[facility]C [facility] kb 23:24 Wild Hanks MD is Attending Physician. kb 23:30 Phylicia Wilkinson, RN is Primary Nurse. kd3 07/04 00:33 Patient has correct armband on for positive identification. Bed in low position. Call kd3 light in reach. Side rails up X 1. 00:55 No provider procedures requiring assistance completed. Patient did not have IV access kd3 during this emergency room visit. Administered Medications: 07/03 23:41 Drug: Ativan (LORazepam) 2 mg Route: IM; Site: left deltoid; kd3 07/04 00:38 Follow up: Response: No change in condition bb 00:57 Follow up: Response: No adverse reaction kd3 00:32 CANCELLED (Duplicate Order): Ativan (LORazepam) 2 mg IVP once kb 00:36 Drug: Ativan (LORazepam) 2 mg Route: IM; Site: left ventrogluteal; kd3 00:56 Follow up: Response: No adverse reaction kd3 00:58 Follow up: Response: Marked relief of symptoms bb Outcome: 00:52 Discharge ordered by . kb 00:55 Discharged to home ambulatory. kd3 00:55 Condition: stable 00:55 Discharge instructions given to patient, Instructed on discharge instructions, follow up and referral plans. Demonstrated understanding of instructions, follow-up care. 00:59 Patient left the ED. bb Signatures: Angelika Eduardo FNP-C FNP-Ckb Ballard, Brenda, RN RN bb Ana Paulino Lauren, RN RN ld1 Phylicia Wilkinson, RN RN kd3 Corrections: (The following items were deleted from the chart) 00:36 07/03 23:55 Reassessment: kd3 kd3
[2021-07-04 01:07] VITALS: TEMP 97.5
[2021-07-04 01:10] VITALS: BP 114/90; O2SAT 100
== END 2021-07-04 00:59 | disposition home or self-care (01) ==
LOC: ER 23:10
DX: F41.9 Anxiety disorder, unspecified (principal); Z88.1 Allergy status to other antibiotic agents; F17.210 Nicotine dependence, cigarettes, uncomplicated
CPT/HCPCS: 96372; 99283

== ENCOUNTER 2021-07-10 18:07 | Emergency (ER) | payer OTHER ==
[2021-07-10] MEDS ORDERED: LORazepam 2 MG/ML VIAL ONE ×2 (20:00→21:02)
[2021-07-10] MEDS ORDERED: ONDANSETRON 4 MG (ODT) TAB ONE (20:00)
--- NOTE | 2021-07-10 21:53 | EDPHYS ---
Physician Documentation [facility] Name: Edelmira Pal Age: 36 yrs Sex: Female : 1985 Arrival Date: 07/10/2021 Time: 18:08 Bed 11 Private MD: ED Physician Wild Hanks HPI: 07/10 19:57 This 36 yrs old Female presents to ER via EMS with complaints of Anxiety, Alcohol pm1 Withdrawal. 19:57 The patient presents to the emergency department with anxiety. Onset: The pm1 symptoms/episode began/occurred today. Past psychiatric history: Prior diagnosis: Anxiety, Psychiatric medications include: Valium, Primary psychiatric physician: Dr. March. Associated signs and symptoms: Pertinent positives; anxiety, chest pain, nausea, vomiting, Pertinent negatives: abdominal pain, fever, hallucinations, headache, shortness of breath. Severity of symptoms: in the emergency department the symptoms are worse. The patient has experienced similar episodes in the past, multiple times. The patient has been recently seen by a physician: Dr. Zambrano a psychiatrist, with similar presenting complaints, prescribed Valium 10 mg TID on 07/06/2021. Patient reports that Valium does not feel like it is working for her anxiety. Last drank alcohol yesterday when she went out with her friends. 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 - Social history:: Smoking status: Patient reports the use of cigarette tobacco products, smokes one-half pack cigarettes per day. ROS: 19:57 Constitutional: Negative for fever, chills, and weight loss, Respiratory: Negative for pm1 shortness of breath, cough, wheezing, and pleuritic chest pain. 19:57 Back: Negative for injury and pain, MS/Extremity: Negative for injury and deformity, Skin: Negative for injury, rash, and discoloration, Neuro: Negative for headache, weakness, numbness, tingling, and seizure. 19:57 Cardiovascular: Positive for chest pain. 19:57 Abdomen/GI: Positive for nausea and vomiting, Negative for abdominal pain, diarrhea. 19:57 Psych: Positive for anxiety. Exam: 19:57 Head/Face: Normocephalic, atraumatic. pm1 19:57 Back: No spinal tenderness. No costovertebral tenderness. Full range of motion. Skin: Warm, dry with normal turgor. Normal color with no rashes, no lesions, and no evidence of cellulitis. MS/ Extremity: Pulses equal, no cyanosis. Neurovascular intact. Full, normal range of motion. 19:57 Constitutional: The patient appears in no acute distress, alert, awake, non-toxic, well developed, well hydrated, well groomed, well nourished, anxious. 19:57 Eyes: Exam is negative for acute changes, Extraocular movements: no acute changes, Conjunctiva: normal, no acute changes, no injection, Sclera: no acute changes, icterus, is not appreciated. 19:57 ENT: Exam is negative for acute changes, Mouth: no acute changes, Lips: normal, moist, Oral mucosa: normal, pink and intact, moist. 19:57 Cardiovascular: Rate: tachycardic, Rhythm: regular, Pulses: no pulse deficits are appreciated. 19:57 Respiratory: Exam negative for acute changes, respiratory distress, shortness of breath. 19:57 Abdomen/GI: Exam negative for acute changes, Inspection: abdomen appears normal, Palpation: abdomen is soft and non-tender, in all quadrants. 19:57 Neuro: Exam negative for acute changes, Orientation: is normal, Mentation: is normal, Motor: is normal, moves all fours. Vital Signs: 18:19 BP 114 / 95; Pulse 120; Resp 18; Temp 97.8; Pulse Ox 98% ; Weight 63.5 kg; Height 5 ft. vg1 3 in. (160.02 cm); Pain 8/10; 20:07 Pulse 125; Resp 20; Pulse Ox 98% on R/A; lp1 21:49 BP 128 / 91; Pulse 112; Resp 18; Pulse Ox 99% on R/A; lp1 18:19 Body Mass Index 24.80 (63.50 kg, 160.02 cm) vg1 MDM: 19:57 Refusal of service: The patient/guardian displays adequate decision making capability pm1 and despite a detailed discussion of alternatives, benefits, risks, and consequences refuses: all lab tests, IV fluids. Explained to the patient that she has an elevated heart rate and that I would like blood work and IV fluids to get her vitals normal. She does not want an IV, labs or any work up. She just wants Ativan IM and zofran. 19:59 Patient medically screened. pm1 20:40 ED course: PMPAware reviewed and patient prescribed 80 pills of 10 mg Valium 3 times pm1 daily on 07/06/2021. 21:51 Data reviewed: vital signs. Data interpreted: Pulse oximetry: on room air is 99 %. pm1 Interpretation: normal. Counseling: I had a detailed discussion with the patient and/or guardian regarding: the historical points, exam findings, and any diagnostic results supporting the discharge/admit diagnosis, the need for outpatient follow up, a psychiatrist, to return to the emergency department if symptoms worsen or persist or if there are any questions or concerns that arise at home. Administered Medications: 20:06 Drug: Zofran (Ondansetron) 4 mg Route: PO; lp1 21:05 Follow up: Response: Marked relief of symptoms lp1 20:06 Drug: Ativan (LORazepam) 2 mg Route: IM; Site: left gluteus; lp1 21:05 Follow up: Response: No change in condition lp1 21:05 Drug: Ativan (LORazepam) 2 mg {Note: Verbal order per Markus Chow PATHOLOGY TRANSCRIPTIONIST; .} Route: IM; lp1 Site: right gluteus; Disposition: 07/11 04:36 Co-signature as Attending Physician, Wild Hanks MD. mh7 Disposition Summary: 07/10/21 21:52 Discharge Ordered Location: Home pm1 Problem: new pm1 Symptoms: have improved pm1 Condition: Stable pm1 Diagnosis - Anxiety disorder, unspecified pm1 Followup: pm1 - With: Emergency Department - When: As needed - Reason: Worsening of condition Followup: pm1 - With: Wilfrid Hogan MD - When: 2 - 3 days - Reason: Recheck today's complaints, Continuance of care, Re-evaluation by your physician Discharge Instructions: - Discharge Summary Sheet pm1 - Alcohol Use Disorder pm1 - Generalized Anxiety Disorder, Adult pm1 - Managing Anxiety, Adult pm1 Forms: - Medication Reconciliation Form pm1 - Thank You Letter pm1 - Antibiotic Education pm1 - Prescription Opioid Use pm1 Signatures: Alissa Zepeda RN RN lp1 Alec Chow NP PATHOLOGY TRANSCRIPTIONIST pm1 Shira Philippe RN RN vg1 Wild Hanks MD MD mh7
--- NOTE | 2021-07-10 21:53 | ER ---
Nurse's Notes [facility] Name: Edelmira Pal Age: 36 yrs Sex: Female : 1985 Arrival Date: 07/10/2021 Time: 18:08 Bed 11 Private MD: Diagnosis: Anxiety disorder, unspecified Presentation: 07/10 18:19 Chief complaint: Patient states: Pt states anxiety began this morning and states "I vg1 took too much Valium this morning, I took five 10 mg pills total" states is feeling dizzy and the Valium isnt working. States 'can yall just give my a shot of Ativan so I can just go home'. States nausea and vomiting. Coronavirus screen: Vaccine status: Patient reports receiving the 2nd dose of the covid vaccine. Client denies travel out of the [place] in the last 14 days. Ebola Screen: Patient negative for fever greater than or equal to 101.5 degrees Fahrenheit, and additional compatible Ebola Virus Disease symptoms. Initial Sepsis Screen: Does the patient meet any 2 criteria? RR > 20 per min. Does the patient have a suspected source of infection? No. Patient's initial sepsis screen is negative. Risk Assessment: Do you want to hurt yourself or someone else? Patient reports no desire to harm self or others. Onset of symptoms was July 10, 2021. 18:19 Method Of Arrival: EMS: [facility] 1 18:19 Acuity: BELTRAN 3 vg1 Triage Assessment: 18:22 General: Appears in no apparent distress. uncomfortable, Behavior is anxious, crying. vg1 Pain: Complains of pain in chest Pain currently is 8 out of 10 on a pain scale. 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 - Social history:: Smoking status: Patient reports the use of cigarette tobacco products, smokes one-half pack cigarettes per day. Screenin:07 Abuse screen: Denies threats or abuse. Denies injuries from another. Nutritional lp1 screening: No deficits noted. Tuberculosis screening: No symptoms or risk factors identified. Fall Risk None identified. Assessment: 20:06 General: Appears unkempt, Behavior is anxious, crying, restless. Pain: Denies pain. lp1 Neuro: Level of Consciousness is awake, alert, obeys commands, Oriented to person, place, time, situation, Gait is steady, Speech is normal. Cardiovascular: Patient's skin is warm and dry. Rhythm is sinus tachycardia. Respiratory: Respiratory effort is even, unlabored. GI: Reports nausea. : No signs and/or symptoms were reported regarding the genitourinary system. EENT: No signs and/or symptoms were reported regarding the EENT system. Derm: Skin is pink, warm \\T\\ dry. Musculoskeletal: No deficits noted. 21:49 Reassessment: Patient appears more calm at this time, does not appear to be restless in lp1 stretcher, asking for another dose of Ativan, Provider notified. 21:50 Reassessment: Patient reports readiness for discharge, states "my mom is outside in the lp1 care waiting for me". 21:55 Reassessment: Patient is alert, oriented x 3, equal unlabored respirations, skin lp1 warm/dry/pink. Neuro: Gait is steady. Vital Signs: 18:19 BP 114 / 95; Pulse 120; Resp 18; Temp 97.8; Pulse Ox 98% ; Weight 63.5 kg; Height 5 ft. vg1 3 in. (160.02 cm); Pain 8/10; 20:07 Pulse 125; Resp 20; Pulse Ox 98% on R/A; lp1 21:49 BP 128 / 91; Pulse 112; Resp 18; Pulse Ox 99% on R/A; lp1 18:19 Body Mass Index 24.80 (63.50 kg, 160.02 cm) vg1 ED Course: 18:08 Patient arrived in ED. ds1 18:22 Triage completed. vg1 18:22 Arm band placed on. EKG completed in triage. Results shown to MD. vg1 19:51 Alec Chow NP is PHCP. pm1 19:51 Wild Hanks MD is Attending Physician. pm1 19:59 Zepeda, Alissa, RN is Primary Nurse. lp1 20:07 Patient has correct armband on for positive identification. lp1 20:07 Door closed. Noise minimized. Lights dimmed. Warm blanket given. lp1 21:50 No provider procedures requiring assistance completed. Patient did not have IV access lp1 during this emergency room visit. 21:52 Wilfrid Hogan MD is Referral Physician. pm1 Administered Medications: 20:06 Drug: Zofran (Ondansetron) 4 mg Route: PO; lp1 21:05 Follow up: Response: Marked relief of symptoms lp1 20:06 Drug: Ativan (LORazepam) 2 mg Route: IM; Site: left gluteus; lp1 21:05 Follow up: Response: No change in condition lp1 21:05 Drug: Ativan (LORazepam) 2 mg {Note: Verbal order per Markus Chow NP; .} Route: IM; lp1 Site: right gluteus; Outcome: 21:52 Discharge ordered by MD. pm1 21:55 Discharged to home ambulatory, with family. lp1 21:55 Condition: good 21:55 Discharge instructions given to patient, Instructed on discharge instructions, follow up and referral plans. Demonstrated understanding of instructions, follow-up care. 21:55 Patient left the ED. lp1 Signatures: Josie Encarnacion ds1 Alissa Zepeda RN RN lp1 Alec Chow NP SALES REPRESENTATIVE GROCERIES pm1 Shira Philippe RN RN vg1
[2021-07-10 22:05] VITALS: TEMP 97.8
[2021-07-10 22:07] VITALS: BP 128/91; O2SAT 99
== END 2021-07-10 21:55 | disposition home or self-care (01) ==
LOC: ER 18:07
DX: F41.9 Anxiety disorder, unspecified (principal); F17.210 Nicotine dependence, cigarettes, uncomplicated; Z88.1 Allergy status to other antibiotic agents
CPT/HCPCS: 93005; 96372; 99284

== ENCOUNTER 2021-07-16 06:29 | Emergency (ER) | payer OTHER ==
[2021-07-16 07:27] LABS: Urine Blood 3+ (Negative); Urine Glucose Negative (Negative); Urine Protein Negative (Negative); Urine Specific Gravity <=1.005 (1.005-1.030)
[2021-07-16 07:37] LABS: Basophils % 0.6 % (0-1.3); Hematocrit 34.7 % (36.0-45.0); Lymphocytes % 24.5 % (15.3-44.8); MPV 7.6 fL (7.6-11.3); RBC Red Blood Cell Count 3.81 M/uL (3.86-4.86)
[2021-07-16 07:53] LABS: Urine Bacteria <20 /HPF (<20); Urine Mucus 1+ /HPF (NONE SEEN); Urine Trichomonas PRESENT (NONE SEEN); Urine Urothelial Cells <5 /HPF (NONE SEEN)
[2021-07-16 08:02] LABS: ALT/SGPT 12 U/L (12-78); AST/SGOT 17 U/L (15-37); Albumin 1.5 g/dL (3.4-5.0); Alkaline Phosphatase 35 U/L (45-117); BUN Blood Urea Nitrogen 6 mg/dL (7-18); Bicarbonate 16 mmol/L (21-32); Glucose Level 103 mg/dL (74-106); Protein, Total 4.1 g/dL (6.4-8.2); Sodium Level 145 mmol/L (136-145)
[2021-07-16 08:05] LABS: Bilirubin Total < 0.1 mg/dL (0.2-1.0)
[2021-07-16 08:06] LABS: Potassium 2.5 mmol/L (3.5-5.1)
[2021-07-16] MEDS ORDERED: AZITHROMYCIN 1 GM PACKET ONE (08:56)
[2021-07-16] MEDS ORDERED: CEFTRIAXONE 250 MG/VIAL ONE (08:56)
[2021-07-16] MEDS ORDERED: metroNIDAZOLE 500 MG TABLET ONE (08:57)
[2021-07-16 09:01] LABS: BUN Blood Urea Nitrogen 8 mg/dL (7-18); Bicarbonate 26 mmol/L (21-32); Glucose Level 145 mg/dL (74-106); Magnesium 1.7 mg/dL (1.8-2.4); Potassium 3.7 mmol/L (3.5-5.1); Sodium Level 140 mmol/L (136-145)
[2021-07-16] MEDS ORDERED: MAGNESIUM OXIDE 400 MG TAB ONE (09:38)
--- NOTE | 2021-07-16 09:46 | EDPHYS ---
Physician Documentation [facility] Name: Edelmira Pal Age: 36 yrs Sex: Female : 1985 Arrival Date: 07/16/2021 Time: 06:42 Bed 13 Private MD: ED Physician Chapito Sanders HPI: 07/16 07:06 This 36 yrs old Female presents to ER via Unassigned with complaints of Blood Pressure pm1 Problem. 07:06 Hypotension while she was at alcohol rehabilitation [place]. Per EMS report patient had pm1 82/57 blood pressure and was given 2 L IV fluids prior to EMS arrival at rehabilitation center. On EMS arrival BP within normal limits. Patient without any complaints. She has been at rehabilitation for alcohol starting Sunday and has been taking oral medications on a taper for her alcohol abuse. Onset: The symptoms/episode began/occurred this morning. Severity of symptoms: in the emergency department the symptoms have improved Pain is currently a 0 / 10. The patient has been recently seen by a physician: in alcohol rehabilitation center. 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 - Social history:: Smoking status: Patient denies any tobacco usage or history of. ROS: 07:11 Constitutional: Negative for fever, chills, and weight loss. pm1 07:11 Cardiovascular: Negative for chest pain, palpitations, and edema, Respiratory: Negative pm1 for shortness of breath, cough, wheezing, and pleuritic chest pain, Abdomen/GI: Negative for abdominal pain, nausea, vomiting, diarrhea, and constipation, MS/Extremity: Negative for injury and deformity, Skin: Negative for injury, rash, and discoloration, Neuro: Negative for headache, weakness, numbness, tingling, and seizure. 07:11 : Positive for darkened urine, rehabilitation facility reports possible early UTI. Did not give her any antibiotics. 07:11 All other systems are negative. Exam: 07:11 Constitutional: This is a well developed, well nourished patient who is awake, alert, pm1 and in no acute distress. Head/Face: Normocephalic, atraumatic. 07:11 Back: No spinal tenderness. No costovertebral tenderness. Full range of motion. Skin: Warm, dry with normal turgor. Normal color with no rashes, no lesions, and no evidence of cellulitis. MS/ Extremity: Pulses equal, no cyanosis. Neurovascular intact. Full, normal range of motion. 07:11 Eyes: Exam is negative for acute changes, Extraocular movements: no acute changes, Conjunctiva: normal, no injection. 07:11 ENT: Exam is negative for acute changes, Mouth: no acute changes, Lips: normal, moist, Oral mucosa: normal, pink and intact, moist. 07:11 Cardiovascular: Exam negative for acute changes, Rate: normal, Rhythm: regular, Pulses: no pulse deficits are appreciated, Heart sounds: normal. 07:11 Respiratory: Exam negative for acute changes, respiratory distress, shortness of breath, Breath sounds: are clear throughout. 07:11 Abdomen/GI: Inspection: abdomen appears normal, Palpation: abdomen is soft and non-tender, in all quadrants. 07:11 Neuro: Exam negative for acute changes, Orientation: is normal, Mentation: is normal, Motor: is normal, moves all fours, Sensation: is normal, no obvious gross deficits. Vital Signs: 06:43 BP 107 / 79; Pulse 73; Resp 16; Temp 97.4(TE); Pulse Ox 100% ; lt3 07:15 BP 105 / 70; Pulse 70; Resp 13 S; Pulse Ox 65% on R/A; mr2 08:15 BP 93 / 62; Pulse 72; Resp 14 S; Pulse Ox 100% on R/A; mr2 08:45 BP 109 / 84; Pulse 74; Resp 14 S; Pulse Ox 99% on R/A; mr2 09:30 BP 110 / 73; Pulse 69; Resp 14 S; Pulse Ox 98% on R/A; mr2 MDM: 06:58 Patient medically screened. pm1 09:44 Data reviewed: vital signs. Data interpreted: Pulse oximetry: on room air is 98 %. pm1 Interpretation: normal. Counseling: I had a detailed discussion with the patient and/or guardian regarding: the historical points, exam findings, and any diagnostic results supporting the discharge/admit diagnosis, lab results, the need for outpatient follow up, to return to the emergency department if symptoms worsen or persist or if there are any questions or concerns that arise at home. 07/16 06:52 Order name: CBC with Diff pm1 07/16 06:52 Order name: CMP pm1 07/16 06:53 Order name: CBC with Automated Diff; Complete Time: 08:00 EDMS 07/16 06:53 Order name: Comprehensive Metabolic Panel; Complete Time: 08:11 EDMS 07/16 07:27 Order name: Urine Dipstick-Ancillary; Complete Time: 08:00 EDMS 07/16 07:36 Order name: Urine Microscopic Only; Complete Time: 08:00 pm1 07/16 07:58 Order name: Urine Culture EDMS 07/16 08:01 Order name: Test, Serum; Complete Time: 09:17 pm1 07/16 08:11 Order name: BMP; Complete Time: 09:17 pm1 07/16 08:36 Order name: Magnesium pm1 07/16 08:36 Order name: Magnesium; Complete Time: 09:17 EDMS 07/16 06:52 Order name: Urine Dipstick-Ancillary (obtain specimen); Complete Time: 07:25 pm1 07/16 06:52 Order name: Urine Test (obtain specimen); Complete Time: 07:25 pm1 07/16 06:52 Order name: EKG; Complete Time: 06:53 pm1 07/16 06:52 Order name: EKG - Nurse/Tech; Complete Time: 07:25 pm1 07/16 08:28 Order name: Labs - recollect needed: recollect preg and basic; Complete Time: 08:53 eb Administered Medications: 09:00 Drug: Flagyl (metroNIDAZOLE) 1 grams Route: PO; mr2 09:39 Follow up: Response: No adverse reaction mr2 09:00 Drug: AZITHromycin 1 grams Route: PO; mr2 09:39 Follow up: Response: No adverse reaction mr2 09:05 Drug: Rocephin (cefTRIAXone) 250 mg Route: IM; Site: right vastus lateralis; mr2 09:39 Follow up: Response: No adverse reaction mr2 09:39 Follow up: Response: No adverse reaction mr2 09:14 Not Given (repeat potassium 3.77): Potassium Effervescent Tablet 50 mEq PO once; mr2 dissolve in 4 ounces of water or juice 09:15 Not Given (repeat potassium 3.77): Potassium Chloride 20 mEq IV at calculated rate mr2 once; administer over 1-2 hours 09:39 Drug: Magnesium 400 mg Route: PO; mr2 Disposition Summary: 07/16/21 09:45 Discharge Ordered Location: Home pm1 Problem: new pm1 Symptoms: have improved pm1 Condition: Stable pm1 Diagnosis - Trichomoniasis, unspecified pm1 - Hypotension, unspecified pm1 Followup: pm1 - With: Emergency Department - When: As needed - Reason: Worsening of condition Followup: pm1 - With: Private Physician - When: 2 - 3 days - Reason: Recheck today's complaints, Continuance of care, Re-evaluation by your physician Discharge Instructions: - Discharge Summary Sheet pm1 - Hypotension pm1 - Trichomoniasis pm1 Forms: - Medication Reconciliation Form pm1 - Thank You Letter pm1 - Antibiotic Education pm1 - Prescription Opioid Use pm1 Addendum: 07/18/2021 11:07 Co-signature as Attending Physician, Chapito Sanders MD I agree with the assessment and c champion plan of care. Signatures: Dispatcher [employer] EDChapito lOiva MD MD cha Marinas, Patrick, STEEL HANGER STEEL HANGER pm1 Ara Bhagat Mike, RN RN mr2 Corrections: (The following items were deleted from the chart) 07/16 07:16 07:15 PSHx: R ankle; mr2 mr2 07:16 07:15 PSHx: Tonsillectomy; mr2 mr2
--- NOTE | 2021-07-16 09:46 | ER ---
Nurse's Notes [facility] Name: Edelmira Pal Age: 36 yrs Sex: Female : 1985 Arrival Date: 07/16/2021 Time: 06:42 Bed 13 Private MD: Diagnosis: Trichomoniasis, unspecified;Hypotension, unspecified Presentation: 07/16 07:00 Chief complaint: Patient states: pt staying in[facility] and had systolic bp in mr2 70's. rn in rehab started iv and admined 2l ns upon arrival bp had risen to 107/79 no other complaints. Coronavirus screen: Vaccine status: Patient reports receiving the 2nd dose of the covid vaccine. Ebola Screen: No symptoms or risks identified at this time. Initial Sepsis Screen: Does the patient meet any 2 criteria? No. Patient's initial sepsis screen is negative. Does the patient have a suspected source of infection? No. Patient's initial sepsis screen is negative. Risk Assessment: Do you want to hurt yourself or someone else? Patient reports no desire to harm self or others. Onset of symptoms was July 16, 2021 at 05:00. 07:00 Method Of Arrival: EMS: [facility] mr2 07:00 Acuity: BELTRAN 3 mr2 Triage Assessment: 07:15 General: Appears in no apparent distress. Behavior is calm, cooperative. Pain: Denies mr2 pain. 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 - Social history:: Smoking status: Patient denies any tobacco usage or history of. Screenin:00 Abuse screen: Denies threats or abuse. Denies injuries from another. Nutritional mr2 screening: No deficits noted. Tuberculosis screening: No symptoms or risk factors identified. Fall Risk None identified. Assessment: 07:00 Reassessment: Patient appears in no apparent distress at this time. Patient states mr2 symptoms have improved. General: Appears in no apparent distress. Behavior is calm, cooperative, appropriate for age. Pain: Denies pain. Neuro: No deficits noted. Cardiovascular: No deficits noted. Respiratory: No deficits noted. GI: No deficits noted. : No deficits noted. EENT: No deficits noted. Derm: No deficits noted. Musculoskeletal: No deficits noted. 08:30 Reassessment: Patient reports that he is starting to feel like "crap" again, c/o severe mr2 headache, 1g tylenol PO given. Vital Signs: 06:43 BP 107 / 79; Pulse 73; Resp 16; Temp 97.4(TE); Pulse Ox 100% ; lt3 07:15 BP 105 / 70; Pulse 70; Resp 13 S; Pulse Ox 65% on R/A; mr2 08:15 BP 93 / 62; Pulse 72; Resp 14 S; Pulse Ox 100% on R/A; mr2 08:45 BP 109 / 84; Pulse 74; Resp 14 S; Pulse Ox 99% on R/A; mr2 09:30 BP 110 / 73; Pulse 69; Resp 14 S; Pulse Ox 98% on R/A; mr2 Vitals: 07:15 Cardiac Rhythm Assessment Sinus rhythm. mr2 ED Course: 06:42 Patient arrived in ED. bb 06:46 Alec Chow, CINDY is PHCP. pm1 06:46 Chapito Sanders MD is Attending Physician. pm1 07:00 Leopoldo Crump, RN is Primary Nurse. mr2 07:00 Patient has correct armband on for positive identification. Bed in low position. Call mr2 light in reach. 07:06 Leopoldo Crump, RN is Primary Nurse. mr2 07:14 Triage completed. mr2 07:15 Arm band placed on. mr2 07:25 CMP Sent. mr2 07:25 CBC with Diff Sent. mr2 07:30 No apparent distress. asking for phone to call mom. Awaiting lab results, Awaiting mr2 disposition. phone to call mom. 07:43 Urine Microscopic Only Sent. mb7 08:00 Resting quietly. Awaiting lab results, Awaiting disposition. mr2 08:18 BMP Sent. kj1 08:18 Test, Serum Sent. kj1 08:21 BMP Sent. mr2 08:54 Magnesium Sent. mr2 Administered Medications: 09:00 Drug: Flagyl (metroNIDAZOLE) 1 grams Route: PO; mr2 09:39 Follow up: Response: No adverse reaction mr2 09:00 Drug: AZITHromycin 1 grams Route: PO; mr2 09:39 Follow up: Response: No adverse reaction mr2 09:05 Drug: Rocephin (cefTRIAXone) 250 mg Route: IM; Site: right vastus lateralis; mr2 09:39 Follow up: Response: No adverse reaction mr2 09:39 Follow up: Response: No adverse reaction mr2 09:14 Not Given (repeat potassium 3.77): Potassium Effervescent Tablet 50 mEq PO once; mr2 dissolve in 4 ounces of water or juice 09:15 Not Given (repeat potassium 3.77): Potassium Chloride 20 mEq IV at calculated rate mr2 once; administer over 1-2 hours 09:39 Drug: Magnesium 400 mg Route: PO; mr2 Outcome: 09:45 Discharge ordered by . pm1 09:57 Patient left the ED. kj1 Signatures: Kathryn Pollock RN RN bb Alec Chow NP MOTHER REPAIRER pm1 Diane Eduardo kj1 Leopoldo Crump RN RN mr2 Grace Terrell 7 Lora Covarrubias 3 Corrections: (The following items were deleted from the chart) 07:16 07:15 PSHx: R ankle; mr2 mr2 07:16 07:15 PSHx: Tonsillectomy; mr2 mr2
[2021-07-16 10:06] VITALS: TEMP 97.4
[2021-07-16 10:12] VITALS: BP 110/73; O2SAT 98
== END 2021-07-16 09:57 | disposition home or self-care (01) ==
LOC: ER 06:29
DX: I95.9 Hypotension, unspecified (principal); A59.9 Trichomoniasis, unspecified; E11.9 Type 2 diabetes mellitus without complications
CPT/HCPCS: 93005; 87088; 85025; 87086; 80048; 36415; 83735; 84703; 80053; 96372; 99284; J0696; 81003; 81015

== ENCOUNTER 2021-10-20 08:12 | Emergency (ER) | payer OTHER ==
--- NOTE | 2021-10-20 08:19 | EDPHYS ---
Physician Documentation [facility] Name: Edelmira Pal Age: 36 yrs Sex: Female : 1985 Arrival Date: 10/20/2021 Time: 08:13 Bed Waiting Private MD: YIMI AMARO ED Physician Edgardo Arellano HPI: 10/20 08:24 This 36 yrs old Female presents to ER via Ambulatory with complaints of Ear Pain. kb 08:24 The patient presents with drainage, a fullness, pain. The complaints affect the right kb ear. Onset: The symptoms/episode began/occurred last night. Modifying factors: The symptoms are alleviated by nothing, the symptoms are aggravated by nothing. Associated signs and symptoms: The patient has no apparent associated signs or symptoms. Severity of symptoms: At their worst the symptoms were moderate in the emergency department the symptoms are unchanged. The patient has not experienced similar symptoms in the past. The patient has not recently seen a physician. Pt reports right ear pain, drainage and muffled sound that started last night. Historical: - Allergies: 08:15 Ceclor; aa5 - PMHx: 08:15 Alcoholism; Anxiety; Asthma; diabetes mellitus; aa5 ROS: 08:23 Constitutional: Negative for fever, chills, and weight loss. kb 08:23 ENT: Positive for drainage from ear(s), ear pain. 08:23 All other systems are negative. Exam: 08:23 Constitutional: This is a well developed, well nourished patient who is awake, alert, kb and in no acute distress. Head/Face: Normocephalic, atraumatic. Respiratory: Respirations even and unlabored. No increased work of breathing. Talking in full sentences Skin: Warm, dry with normal turgor. Normal color. MS/ Extremity: Pulses equal, no cyanosis. Neurovascular intact. Full, normal range of motion. Neuro: Awake and alert, GCS 15, oriented to person, place, time, and situation. Moves all extremities. Normal gait. Psych: Awake, alert, with orientation to person, place and time. Behavior, mood, and affect are within normal limits. 08:23 ENT: External ear(s): are unremarkable, Ear canal(s): purulent discharge, that is minimal, in the right canal, swelling, that is moderate, of the right canal, TM's: are normal. Vital Signs: 08:15 BP 99 / 79; Pulse 88; Resp 16 S; Temp 98.1(TE); Pulse Ox 100% on R/A; Weight 59.42 kg aa5 (R); Height 5 ft. 4 in. (162.56 cm) (R); 08:15 Body Mass Index 22.49 (59.42 kg, 162.56 cm) aa5 MDM: 08:18 Patient medically screened. kb 08:23 Data reviewed: vital signs, nurses notes. Data interpreted: Pulse oximetry: on room air kb is 100 %. Interpretation: normal. Counseling: I had a detailed discussion with the patient and/or guardian regarding: the historical points, exam findings, and any diagnostic results supporting the discharge/admit diagnosis, the need for outpatient follow up, an ENT specialist, to return to the emergency department if symptoms worsen or persist or if there are any questions or concerns that arise at home. Administered Medications: 08:29 Drug: Ibuprofen 600 mg Route: PO; aa5 08:30 Follow up: Response: Medication administered at discharge. aa5 Disposition: 08:38 Co-signature as Attending Physician, Edgardo Arellano DO I agree with the assessment and ms3 plan of care. Disposition Summary: 10/20/21 08:19 Discharge Ordered Location: Home kb Condition: Stable kb Diagnosis - Other otitis externa, right ear kb Followup: kb - With: Emergency Department - When: As needed - Reason: Worsening of condition Followup: kb - With: Private Physician - When: 2 - 3 days - Reason: Recheck today's complaints, Continuance of care, Re-evaluation by your physician Discharge Instructions: - Discharge Summary Sheet kb - Otitis Externa, [id number] kb - Ear Drops, Adult, [id number] kb Forms: - Medication Reconciliation Form kb - Thank You Letter kb - Antibiotic Education kb - Prescription Opioid Use kb - Work release form aa5 Prescriptions: - Ciprodex 0.3-0.1 % Otic Drops, Suspension - instill 4 drops by OTIC route every 12 hours for 7 days , for ears ONLY; 1 kb Container; Refills: 0, Product Selection Permitted Signatures: Angelika Eduardo, Bridgett Kelsey RN RN aa5 Arellano, Edgardo, DO DO ms3
--- NOTE | 2021-10-20 08:19 | ER ---
Nurse's Notes [facility] Name: Edelmira Pal Age: 36 yrs Sex: Female : 1985 Arrival Date: 10/20/2021 Time: 08:13 Bed Waiting Private MD: YIMI AMARO Diagnosis: Other otitis externa, right ear Presentation: 10/20 08:15 Chief complaint: Patient states: right ear pain that began yesterday after getting her aa5 hair washed. Coronavirus screen: At this time, the client does not indicate any symptoms associated with coronavirus-19. Ebola Screen: No symptoms or risks identified at this time. Initial Sepsis Screen: Does the patient meet any 2 criteria? No. Patient's initial sepsis screen is negative. Does the patient have a suspected source of infection? No. Patient's initial sepsis screen is negative. Risk Assessment: Do you want to hurt yourself or someone else? Patient reports no desire to harm self or others. Onset of symptoms was October 2020. 08:15 Method Of Arrival: Ambulatory aa5 08:15 Acuity: BELTRAN 5 aa5 Triage Assessment: 08:17 General: Appears uncomfortable, Behavior is calm, cooperative. Pain: Complains of pain aa5 in right ear. EENT: Reports pain in right ear. Neuro: Level of Consciousness is awake, alert, obeys commands, Oriented to person, place, time, situation. Cardiovascular: Patient's skin is warm and dry. Respiratory: Airway is patent Respiratory effort is even, unlabored, Respiratory pattern is regular, symmetrical. GI: No signs and/or symptoms were reported involving the gastrointestinal system. : No signs and/or symptoms were reported regarding the genitourinary system. Derm: Skin is pink, warm \T\ dry. Musculoskeletal: Range of motion: intact in all extremities. Historical: - Allergies: 08:15 Ceclor; aa5 - PMHx: 08:15 Alcoholism; Anxiety; Asthma; diabetes mellitus; aa5 Screenin:29 Abuse screen: Denies threats or abuse. Nutritional screening: No deficits noted. aa5 Tuberculosis screening: No symptoms or risk factors identified. Fall Risk None identified. Assessment: 08:20 Reassessment: See triage assessment. aa5 Vital Signs: 08:15 BP 99 / 79; Pulse 88; Resp 16 S; Temp 98.1(TE); Pulse Ox 100% on R/A; Weight 59.42 kg aa5 (R); Height 5 ft. 4 in. (162.56 cm) (R); 08:15 Body Mass Index 22.49 (59.42 kg, 162.56 cm) aa5 ED Course: 08:13 Patient arrived in ED. ds1 08:14 Angelika Eduardo FNP-C is [facility]. kb 08:14 Edgardo Arellano DO is Attending Physician. kb 08:14 YIMI AMARO is Private Physician. ds1 08:15 Arm band placed on. aa5 08:15 Patient has correct armband on for positive identification. aa5 08:16 Triage completed. aa5 08:29 No provider procedures requiring assistance completed. Patient did not have IV access aa5 during this emergency room visit. Administered Medications: 08:29 Drug: Ibuprofen 600 mg Route: PO; aa5 08:30 Follow up: Response: Medication administered at discharge. aa5 Outcome: 08:19 Discharge ordered by MD. kb 08:29 Discharged to home ambulatory. aa5 08:29 Condition: stable 08:29 Discharge instructions given to patient, Instructed on discharge instructions, follow up and referral plans. medication usage, Demonstrated understanding of instructions, follow-up care, medications, Prescriptions given X 1. 08:30 Patient left the ED. aa5 Signatures: Angelika Eduardo FNP-C FNP-Shahnaz Encarnacion Josie ds1 Bridgett Goldman, RN RN aa5 Corrections: (The following items were deleted from the chart) 08:17 08:15 Resp 16bpm; Spontaneous; Temp 98.1F Temporal; 59.42 kg Reported; Height 5 ft. 4 aa5 in. Reported; BMI: 22.4; aa5
[2021-10-20] MEDS ORDERED: IBUPROFEN 400 MG TAB ONE (08:22)
[2021-10-20] MEDS ORDERED: IBUPROFEN 200 MG TAB PO ONE (08:23)
[2021-10-20 10:22] VITALS: BP 99/79; TEMP 98.1; O2SAT 100
== END 2021-10-20 08:30 | disposition home or self-care (01) ==
LOC: ER 08:12
DX: H60.8X1 Other otitis externa, right ear (principal); E11.9 Type 2 diabetes mellitus without complications; F10.20 Alcohol dependence, uncomplicated; Z88.8 Allergy status to other drugs, medicaments and biological substances
CPT/HCPCS: 99283

== ENCOUNTER 2021-10-25 19:37 | Emergency (ER) | payer OTHER ==
[2021-10-25] MEDS ORDERED: HYDROCODONE/APAP 10/325 TAB ONE (20:38)
[2021-10-25] MEDS ORDERED: CLINDAMYCIN IV 150 MG/ML (4 mL) VIAL ONE (20:38)
[2021-10-25] MEDS ORDERED: AMOX/K CLAV 875 MG TAB ONE (20:38)
[2021-10-25] MEDS ORDERED: ONDANSETRON 4 MG (ODT) TAB ONE (20:38)
--- NOTE | 2021-10-25 20:57 | EDPHYS ---
Physician Documentation [facility] Name: Edelmira Pal Age: 36 yrs Sex: Female : 1985 Arrival Date: 10/25/2021 Time: 19:40 Bed 7 Private MD: ED Physician Chapito Sanders HPI: 10/25 23:59 This 36 yrs old Female presents to ER via Ambulatory with complaints of Ear Pain. jr8 23:59 The patient presents with pain. The complaints affect the right ear. Onset: The jr8 symptoms/episode began/occurred suddenly. Modifying factors: The symptoms are alleviated by nothing, the symptoms are aggravated by touching. Associated signs and symptoms: Pertinent negatives: fever. Severity of symptoms: At their worst the symptoms were moderate in the emergency department the symptoms are unchanged. The patient has not experienced similar symptoms in the past. The patient has been recently seen by a physician:. Patient stated that she was seen in the other day for right ear pain and put on Ciprodex drops. Stated that she continues to have pain to the right ear that is now intensifying. Came back to the emergency room for reevaluation.. Historical: - Allergies: 19:51 Ceclor; ab2 - PMHx: 19:51 Alcoholism; Anxiety; Asthma; diabetes mellitus; ab2 - Immunization history:: Adult Immunizations up to date. - Social history:: Smoking status: Patient reports the use of cigarette tobacco products, denies chronic smoking, but will smoke occasionally. ROS: 23:59 Eyes: Negative for injury, pain, redness, and discharge, Neck: Negative for injury, jr8 pain, and swelling, Cardiovascular: Negative for chest pain, palpitations, and edema, Respiratory: Negative for shortness of breath, cough, wheezing, and pleuritic chest pain, Abdomen/GI: Negative for abdominal pain, nausea, vomiting, diarrhea, and constipation, Back: Negative for injury and pain, MS/Extremity: Negative for injury and deformity, Skin: Negative for injury, rash, and discoloration, Neuro: Negative for headache, weakness, numbness, tingling, and seizure. 23:59 ENT: Positive for drainage from ear(s), ear pain. Exam: 23:59 Constitutional: This is a well developed, well nourished patient who is awake, alert, jr8 and in no acute distress. Eyes: Pupils equal round and reactive to light, extra-ocular motions intact. Lids and lashes normal. Conjunctiva and sclera are non-icteric and not injected. Cornea within normal limits. Periorbital areas with no swelling, redness, or edema. Neck: Trachea midline, no thyromegaly or masses palpated, and no cervical lymphadenopathy. Supple, full range of motion without nuchal rigidity, or vertebral point tenderness. No Meningismus. Cardiovascular: Regular rate and rhythm with a normal S1 and S2. No gallops, murmurs, or rubs. Normal PMI, no JVD. No pulse deficits. Respiratory: Lungs have equal breath sounds bilaterally, clear to auscultation and percussion. No rales, rhonchi or wheezes noted. No increased work of breathing, no retractions or nasal flaring. Skin: Warm, dry with normal turgor. Normal color with no rashes, no lesions, and no evidence of cellulitis. MS/ Extremity: Pulses equal, no cyanosis. Neurovascular intact. Full, normal range of motion. Neuro: Awake and alert, GCS 15, oriented to person, place, time, and situation. Cranial nerves II-XII grossly intact. Motor strength 5/5 in all extremities. Sensory grossly intact. 23:59 ENT: External ear(s): are unremarkable, Ear canal(s): purulent discharge, that is minimal, in the right canal, TM's: erythema, that is moderate, on the right, fluid levels, on the right, Nose: is normal, Mouth: is normal, Posterior pharynx: is normal. Vital Signs: 19:48 BP 125 / 71; Pulse 91; Resp 16; Temp 97.9(TE); Pulse Ox 100% ; Weight 59.42 kg; Height ab2 5 ft. 4 in. (162.56 cm); Pain 10/10; 20:43 BP 127 / 86; Pulse 75; Resp 18 S; Pulse Ox 98% on R/A; as6 19:48 Body Mass Index 22.49 (59.42 kg, 162.56 cm) ab2 MDM: 20:06 Patient medically screened. [facility] 20:55 Data reviewed: vital signs, nurses notes, and as a result, I will discharge patient. jr8 Data interpreted: Pulse oximetry: on room air is 98 %. Interpretation: normal. Counseling: I had a detailed discussion with the patient and/or guardian regarding: the historical points, exam findings, and any diagnostic results supporting the discharge/admit diagnosis, the need for outpatient follow up, an ENT specialist, to return to the emergency department if symptoms worsen or persist or if there are any questions or concerns that arise at home. Administered Medications: 20:42 Drug: Ondansetron 4 mg Route: PO; as6 21:05 Follow up: Response: No adverse reaction as6 20:42 Drug: Clindamycin 600 mg Route: IM; Site: left ventrogluteal; as6 21:05 Follow up: Response: No adverse reaction as6 20:42 Drug: [place] (HYDROcodone-acetaminophen) 10 mg-325 mg 1 tabs Route: PO; as6 21:05 Follow up: Response: No adverse reaction; RASS: Alert and Calm (0) as6 20:42 Drug: Augmentin (Amoxicillin-Clavulanate) 875 mg Route: PO; as6 21:04 Follow up: Response: No adverse reaction as6 Disposition: 10/26 07:09 Co-signature as Attending Physician, Chapito Sanders MD I agree with the assessment and jamel plan of care. Disposition Summary: 10/25/21 20:56 Discharge Ordered Location: Home jr8 Problem: new jr8 Symptoms: have improved jr8 Condition: Stable jr8 Diagnosis - Acute suppurative otitis media jr8 Followup: jr8 - With: Verona Almonte MD - When: 1 week - Reason: Recheck today's complaints, Continuance of care, Re-evaluation by your physician Discharge Instructions: - Discharge Summary Sheet jr8 - Otitis Media, Adult jr8 Forms: - Medication Reconciliation Form jr8 - Thank You Letter jr8 - Antibiotic Education jr8 - Prescription Opioid Use jr8 Prescriptions: - Augmentin 875-125 mg Oral Tablet - take 1 tablet by ORAL route every 12 hours for 10 days; 20 tablet; Refills: 0, jr8 Product Selection Permitted - Ibuprofen 800 mg Oral Tablet - take 1 tablet by ORAL route every 12 hours As needed take with food; 20 tablet; jr8 Refills: 0, Product Selection Permitted - Tylenol-Codeine #3 300 mg-30 mg Oral - take 2 tablet by ORAL route every 8 hours As needed; 20 tablet; Refills: 0, jr8 Product Selection Permitted - ondansetron 4 mg Oral tablet,disintegrating - take 1 tablet by ORAL route every 8 hours As needed; 12 tablet; Refills: 0, jr8 Product Selection Permitted Signatures: Chapito Sanders MD MD cha Roszak, Josh, PA PA jr8 Giovanni Godinez RN RN as6 Arnol Salter2
--- NOTE | 2021-10-25 20:57 | ER ---
Nurse's Notes [facility] Name: Edelmira Pal Age: 36 yrs Sex: Female : 1985 Arrival Date: 10/25/2021 Time: 19:40 Bed 7 Private MD: Diagnosis: Acute suppurative otitis media Presentation: 10/25 19:48 Chief complaint: Patient states: "I was here last week for an ear infection. I was ab2 given antibiotics and drops, but they aren't helping. The pain is worse now, I cant hear out of it. I cant eat because I am so nauseated.". Coronavirus screen: Vaccine status: Patient reports receiving the 2nd dose of the covid vaccine. Client denies travel out of the [place] in the last 14 days. At this time, the client does not indicate any symptoms associated with coronavirus-19. Ebola Screen: Patient negative for fever greater than or equal to 101.5 degrees Fahrenheit, and additional compatible Ebola Virus Disease symptoms Patient denies exposure to infectious person. Patient denies travel to an Ebola-affected area in the 21 days before illness onset. No symptoms or risks identified at this time. Initial Sepsis Screen: Does the patient meet any 2 criteria? No. Patient's initial sepsis screen is negative. Does the patient have a suspected source of infection? No. Patient's initial sepsis screen is negative. Risk Assessment: Do you want to hurt yourself or someone else? Patient reports no desire to harm self or others. Onset of symptoms is unknown. 19:48 Method Of Arrival: Ambulatory ab2 19:48 Acuity: BELTRAN 4 ab2 Triage Assessment: 19:51 General: Appears in no apparent distress. uncomfortable, Behavior is calm, cooperative, ab2 appropriate for age. Pain: Complains of pain in right ear Pain currently is 10 out of 10 on a pain scale. EENT: Reports pain in right ear. Historical: - Allergies: 19:51 Ceclor; ab2 - PMHx: 19:51 Alcoholism; Anxiety; Asthma; diabetes mellitus; ab2 - Immunization history:: Adult Immunizations up to date. - Social history:: Smoking status: Patient reports the use of cigarette tobacco products, denies chronic smoking, but will smoke occasionally. Screenin:45 Abuse screen: Denies threats or abuse. Denies injuries from another. Nutritional as6 screening: No deficits noted. Tuberculosis screening: No symptoms or risk factors identified. Fall Risk None identified. Assessment: 20:44 General: Appears in no apparent distress. uncomfortable, Behavior is calm, cooperative. as6 Pain: Complains of pain in right ear. EENT: Reports pain in right ear. Vital Signs: 19:48 BP 125 / 71; Pulse 91; Resp 16; Temp 97.9(TE); Pulse Ox 100% ; Weight 59.42 kg; Height ab2 5 ft. 4 in. (162.56 cm); Pain 10/10; 20:43 BP 127 / 86; Pulse 75; Resp 18 S; Pulse Ox 98% on R/A; as6 19:48 Body Mass Index 22.49 (59.42 kg, 162.56 cm) ab2 ED Course: 19:40 Patient arrived in ED. ja2 19:50 Triage completed. ab2 19:54 Giovanni Godinez, ISSA is Primary Nurse. as6 19:59 Mitch Greenfield PA is PHCP. jr8 19:59 Chapito Sanders MD is Attending Physician. jr8 20:28 Arm band placed on. as6 20:45 Bed in low position. Call light in reach. Pulse ox on. NIBP on. as6 20:56 Verona Almonte MD is Referral Physician. jr8 21:05 No provider procedures requiring assistance completed. Patient did not have IV access as6 during this emergency room visit. Administered Medications: 20:42 Drug: Ondansetron 4 mg Route: PO; as6 21:05 Follow up: Response: No adverse reaction as6 20:42 Drug: Clindamycin 600 mg Route: IM; Site: left ventrogluteal; as6 21:05 Follow up: Response: No adverse reaction as6 20:42 Drug: [place] (HYDROcodone-acetaminophen) 10 mg-325 mg 1 tabs Route: PO; as6 21:05 Follow up: Response: No adverse reaction; RASS: Alert and Calm (0) as6 20:42 Drug: Augmentin (Amoxicillin-Clavulanate) 875 mg Route: PO; as6 21:04 Follow up: Response: No adverse reaction as6 Outcome: 20:56 Discharge ordered by . 8 21:05 Discharged to home ambulatory. as6 21:05 Condition: stable 21:05 Discharge instructions given to patient, Instructed on discharge instructions, follow up and referral plans. medication usage, Demonstrated understanding of instructions, follow-up care, medications, Prescriptions given X 4. 21:05 Patient left the ED. as6 Signatures: Mitch Greenfield PA PA jr8 Kiara Pressley Ashby, RN RN as6 Arnol Salter
[2021-10-25 23:15] VITALS: TEMP 97.9
[2021-10-25 23:16] VITALS: BP 127/86; O2SAT 98
== END 2021-10-25 21:05 | disposition home or self-care (01) ==
LOC: ER 19:37
DX: H66.001 Acute suppurative otitis media without spontaneous rupture of ear drum, right ear (principal); E11.9 Type 2 diabetes mellitus without complications; F10.20 Alcohol dependence, uncomplicated; F17.210 Nicotine dependence, cigarettes, uncomplicated; Z88.1 Allergy status to other antibiotic agents
CPT/HCPCS: 96372; 99283; S0077

== ENCOUNTER 2021-11-04 06:35 | Emergency (ER) | payer OTHER ==
[2021-11-04] MEDS ORDERED: LORazepam 2 MG/ML VIAL ONE (07:14)
[2021-11-04] MEDS ORDERED: ONDANSETRON 4 MG/2 ML VIAL ONE (07:15)
[2021-11-04] MEDS ORDERED: NA CHLORIDE 0.9% 500 ML ONE (07:15)
--- NOTE | 2021-11-04 07:28 | ER ---
Nurse's Notes [facility] [place] [place] Name: Edelmira Pal Age: 36 yrs Sex: Female : 1985 Arrival Date: 11/04/2021 Time: 06:36 Bed 5 Private MD: Diagnosis: Anxiety disorder, unspecified Presentation: 11/04 06:42 Chief complaint: Patient states: "I drank some wine, I am not suppose to drink wine. I tw5 had been to detox! I am so sorry, I just really need an IV and some Ativan. Please hurry! I cannot breath!". Coronavirus screen: Vaccine status: Patient reports receiving the 2nd dose of the covid vaccine. Doesn't remember the brand. Ebola Screen: Patient negative for fever greater than or equal to 101.5 degrees Fahrenheit, and additional compatible Ebola Virus Disease symptoms Patient denies exposure to infectious person. Patient denies travel to an Ebola-affected area in the 21 days before illness onset. Initial Sepsis Screen: Does the patient meet any 2 criteria? HR > 90 bpm. Does the patient have a suspected source of infection? No. Patient's initial sepsis screen is negative. Risk Assessment: Do you want to hurt yourself or someone else? Patient reports no desire to harm self or others. Onset of symptoms was November 04, 2021 at 05:44. 06:42 Method Of Arrival: Wheelchair tw5 06:42 Acuity: BELTRAN 3 tw5 Triage Assessment: 06:44 General: Appears distressed, Behavior is agitated, anxious. Pain: Denies pain. tw5 Respiratory: Reports shortness of breath at rest Onset: The symptoms/episode began/occurred this morning, the patient has moderate shortness of breath. 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 - Social history:: Smoking status: Patient reports the use of cigarette tobacco products, pack a week. - Family history:: not pertinent. - Hospitalizations: : No recent hospitalization is reported. Screenin:15 Abuse screen: Denies threats or abuse. Denies injuries from another. Nutritional jl7 screening: No deficits noted. Tuberculosis screening: No symptoms or risk factors identified. Fall Risk IV access (20 points). Total Strauss Fall Scale indicates No Risk (0-24 pts). Assessment: 07:00 General: Appears in no apparent distress. uncomfortable, Behavior is cooperative, jl7 anxious. Pain: Denies pain. Neuro: Level of Consciousness is awake, alert, obeys commands, Oriented to person, place, time, situation. Cardiovascular: Rhythm is regular. Respiratory: Airway is patent Respiratory effort is even, unlabored, Respiratory pattern is regular, symmetrical, Breath sounds are clear. GI: Reports nausea. Derm: Skin is pink, warm \\T\\ dry. Vital Signs: 06:42 BP 127 / 99; Pulse 108; Resp 20; Temp 98.1; Pulse Ox 98% on R/A; Weight 59.42 kg; tw5 Height 5 ft. 3 in. (160.02 cm); Pain 0/10; 07:00 BP 119 / 77; Pulse 95; Resp 15; Pulse Ox 99% ; jl7 06:42 Body Mass Index 23.21 (59.42 kg, 160.02 cm) tw5 ED Course: 06:36 Patient arrived in ED. kc5 06:44 Triage completed. tw5 06:44 Arm band placed on left wrist. tw5 06:52 Giovanni Godinez, ISSA is Primary Nurse. as6 06:56 Jeff Waggoner MD is Attending Physician. rn 07:15 Patient has correct armband on for positive identification. Bed in low position. Call jl7 light in reach. Side rails up X 1. Pulse ox on. NIBP on. 07:15 Inserted saline lock: 22 gauge in right hand, using aseptic technique. Blood collected. jl7 07:49 Cory Damon, ISSA is Primary Nurse. jl7 08:17 No provider procedures requiring assistance completed. IV discontinued, intact, jl7 bleeding controlled, No redness/swelling at site. Pressure dressing applied. Administered Medications: 07:15 Drug: NS 0.9% 500 ml Route: IV; Rate: bolus; Site: right hand; jl7 07:45 Follow up: Response: No adverse reaction; IV Status: Completed infusion; IV Intake: jl7 500ml 07:15 Drug: Zofran (Ondansetron) 4 mg Route: IVP; Site: right hand; jl7 07:40 Follow up: Response: No adverse reaction; Nausea is decreased jl7 07:17 Drug: Ativan (LORazepam) 1 mg Route: IVP; Site: right hand; jl7 07:40 Follow up: Response: No adverse reaction; Anxiety unchanged jl7 07:50 Drug: Benadryl (diphenhydrAMINE) 25 mg Route: IVP; Site: right hand; jl7 08:10 Follow up: Response: No adverse reaction; Anxiety decreased jl7 Intake: 07:45 IV: 500ml; Total: 500ml. 7 Outcome: 07:27 Discharge ordered by . rn 08:17 Discharged to home ambulatory. jl7 08:17 Condition: stable 08:17 Discharge instructions given to patient, Instructed on discharge instructions, follow up and referral plans. Demonstrated understanding of instructions, follow-up care. 08:18 Patient left the ED. jl7 Signatures: Jeff Waggoner MD MD rn Leal, Jahala, RN RN jl7 Leatha Oneill tw5 Giovanni Godinez RN RN as6 Mahogany Puckett kc5
--- NOTE | 2021-11-04 07:28 | EDPHYS ---
Physician Documentation [facility] Name: Edelmira Pal Age: 36 yrs Sex: Female : 1985 Arrival Date: 11/04/2021 Time: 06:36 Bed 5 Private MD: ED Physician Jeff Waggoner HPI: 11/04 07:07 This 36 yrs old Female presents to ER via Wheelchair with complaints of Breathing rn Difficulty. 07:07 The patient has shortness of breath at rest. Onset: The symptoms/episode began/occurred rn this morning. Duration: The symptoms are continuous. The patient's shortness of breath is aggravated by nothing, is alleviated by nothing. Associated signs and symptoms: Pertinent negatives: chest pain, non-productive cough, productive cough, fever, hemoptysis. Severity of symptoms: At their worst the symptoms were moderate in the emergency department the symptoms are unchanged. The patient has experienced similar episodes in the past. The patient has not recently seen a physician. Pt reports was doing well, not drinking, relapsed and had half a bottle of wine last night, now having a panic attack, states identical to previous panic attacks, states needs ativan. Also reports nausea. No chest pain. . 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 - Social history:: Smoking status: Patient reports the use of cigarette tobacco products, pack a week. - Family history:: not pertinent. - Hospitalizations: : No recent hospitalization is reported. ROS: 07:07 Constitutional: Negative for fever, chills, and weight loss, Eyes: Negative for injury, rn pain, redness, and discharge, Neck: Negative for injury, pain, and swelling, Cardiovascular: + palpitations Respiratory: negative for cough or hemoptysis Abdomen/GI: Negative for abdominal pain, nausea, vomiting, diarrhea, and constipation, Back: Negative for injury and pain, : Negative for injury, bleeding, discharge, and swelling, MS/Extremity: Negative for injury and deformity, Skin: Negative for injury, rash, and discoloration, Neuro: Negative for headache, weakness, and seizure Exam: 07:07 Constitutional: This is a well developed, well nourished patient who is awake, alert, rn tearful, rocking back and forth, hyperventilating Head/Face: Normocephalic, atraumatic. Eyes: Periorbital areas with no swelling, redness, or edema. ENT: dry MM, no stridor Cardiovascular: Tachycardic, regular Respiratory: Mild hyperventilation, no wheezing, able to slow her breathing and speak full sentences. Abdomen/GI: soft, non-tender Skin: Warm, dry MS/ Extremity: Pulses equal, no cyanosis. Neuro: Awake and alert, GCS 15 Vital Signs: 06:42 BP 127 / 99; Pulse 108; Resp 20; Temp 98.1; Pulse Ox 98% on R/A; Weight 59.42 kg; tw5 Height 5 ft. 3 in. (160.02 cm); Pain 0/10; 07:00 BP 119 / 77; Pulse 95; Resp 15; Pulse Ox 99% ; jl7 06:42 Body Mass Index 23.21 (59.42 kg, 160.02 cm) tw5 MDM: 06:56 Patient medically screened. rn 07:26 Differential diagnosis: Anxiety Reaction Psychogenic. Differential diagnosis: rn dehydration. Data reviewed: vital signs, nurses notes. Counseling: I had a detailed discussion with the patient and/or guardian regarding: the historical points, exam findings, and any diagnostic results supporting the discharge/admit diagnosis, the need for outpatient follow up, to return to the emergency department if symptoms worsen or persist or if there are any questions or concerns that arise at home. Response to treatment: the patient's symptoms have mildly improved after treatment, and as a result, I will discharge patient. Special discussion: I discussed with the patient/guardian in detail that at this point there is no indication for admission to the hospital. It is understood, however, that if the symptoms persist or worsen the patient needs to return immediately for re-evaluation. 11/04 07:07 Order name: IV Start; Complete Time: 07:48 rn Administered Medications: 07:15 Drug: NS 0.9% 500 ml Route: IV; Rate: bolus; Site: right hand; jl7 07:45 Follow up: Response: No adverse reaction; IV Status: Completed infusion; IV Intake: jl7 500ml 07:15 Drug: Zofran (Ondansetron) 4 mg Route: IVP; Site: right hand; jl7 07:40 Follow up: Response: No adverse reaction; Nausea is decreased jl7 07:17 Drug: Ativan (LORazepam) 1 mg Route: IVP; Site: right hand; jl7 07:40 Follow up: Response: No adverse reaction; Anxiety unchanged jl7 07:50 Drug: Benadryl (diphenhydrAMINE) 25 mg Route: IVP; Site: right hand; jl7 08:10 Follow up: Response: No adverse reaction; Anxiety decreased jl7 Disposition Summary: 11/04/21 07:27 Discharge Ordered Location: Home rn Problem: an acute exacerbation rn Symptoms: have improved rn Condition: Stable rn Diagnosis - Anxiety disorder, unspecified rn Followup: rn - With: Private Physician - When: As needed - Reason: Recheck today's complaints, Re-evaluation by your physician Discharge Instructions: - Discharge Summary Sheet rn - Panic Attack rn - Generalized Anxiety Disorder, Adult rn Forms: - Medication Reconciliation Form rn - Thank You Letter rn - 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
[2021-11-04] MEDS ORDERED: DIPHENHYDRAMINE 50 MG/ML VIAL ONE (07:53)
[2021-11-04 08:24] VITALS: TEMP 98.1
[2021-11-04 08:25] VITALS: BP 119/77; O2SAT 99
== END 2021-11-04 08:18 | disposition home or self-care (01) ==
LOC: ER 06:35
DX: F41.9 Anxiety disorder, unspecified (principal); E11.9 Type 2 diabetes mellitus without complications; F10.20 Alcohol dependence, uncomplicated; F17.210 Nicotine dependence, cigarettes, uncomplicated; Z91.09 Other allergy status, other than to drugs and biological substances
CPT/HCPCS: 96375; 96374; 99284; J1200; J7050; J2405

== ENCOUNTER 2023-07-15 08:22 | Emergency (ER) | payer OTHER ==
[2023-07-15 08:57] LABS: Hematocrit 37.2 % (36.0-45.0); Lymphocytes % 5.9 % (15.3-44.8); MCV 94.4 fL (80-100); MPV 6.4 fL (7.6-11.3); Platelets 587 thou/uL (152-406); RBC Red Blood Cell Count 3.95 M/uL (3.86-4.86)
[2023-07-15] MEDS ORDERED: MORPHINE 4 MG/ML SYR ONE ×2 (09:02→11:49)
[2023-07-15] MEDS ORDERED: KETOROLAC 30 MG/ML INJ ONE (09:02)
[2023-07-15] MEDS ORDERED: FAMOTIDINE 20 MG/2 ML VIAL IV ONE (09:02)
[2023-07-15 09:26] LABS: Albumin 3.5 g/dL (3.4-5.0); Bilirubin Total 0.7 mg/dL (0.2-1.0); Potassium 3.1 mEq/L (3.5-5.1)
[2023-07-15] MEDS ORDERED: NA CHLORIDE 0.9% 1,000 ML ONE (10:09)
[2023-07-15] MEDS ORDERED: ONDANSETRON 4 MG/2 ML VIAL ONE (10:19)
--- NOTE | 2023-07-15 10:30 | RAD REPORT ---
EXAM DESCRIPTION: CTAbdomen Pelvis W Contrast - 07/15/2023 9:56 am CLINICAL HISTORY: Abdominal pain. ABD PAIN COMPARISON: <Comparisons> TECHNIQUE: Biphasic CT imaging of the abdomen and pelvis was performed with 100 ml non-ionic IV cont rast. All CT scans are performed using dose optimization technique as appropriate and may include automated exposure control or mA/KV adjustment according to patient size. FINDINGS: The lung bases are clear.Cholelithiasis. The liver, spleen, pancreas, adrenal glands and left kidney are within normal limits. The right kidne y appears enlarged with moderate surrounding inflammation. Enhancement is seen of the right ureter ur oepithelial. Mild dilatation of the right renal collecting system. No bowel obstruction, free air, free fluid or abscess. The appendix is normal. No evidence of signi ficant lymphadenopathy. No suspicious bony findings. IMPRESSION: Ascending right-sided urinary tract infection suspected. Early right pyelonephritis is l ikely present. Mild dilatation of the right-sided collecting system is seen without definitive stone visualized. Cholelithiasis.
--- NOTE | 2023-07-15 10:31 | RAD REPORT ---
EXAM DESCRIPTION: US - Abdomen Exam Limited - 07/15/2023 9:48 am CLINICAL HISTORY: ABD PAIN COMPARISON: <Comparisons> FINDINGS: The gallbladder demonstrates several shadowing gallstones. No pericholecystic fluid or gal lbladder wall thickening. The common bile duct is normal measuring 4 mm. The liver demonstrates no findings of intrahepatic biliary dilatation. IMPRESSION: Cholelithiasis.
[2023-07-15 10:36] LABS: Specific Gravity ND (1.005-1.030); Urine Bilirubin NEGATIVE (Negative); Urine Blood Negative (Negative); Urine Clarity Clear (Clear); Urine Color Light-Yellow (Yellow); Urine Glucose 4+ (Over) (Negative); Urine Protein NEGATIVE (Negative); Urine Urobilinogen Normal (Normal); Urine pH 7.5 (5.0-7.0)
[2023-07-15 10:37] LABS: Specific Gravity ND (1.005-1.030)
[2023-07-15 10:50] LABS: Blood Morphology Comment NOT SEEN (NOT SEEN); Platelet Estimate INCR
[2023-07-15 12:16] LABS: Protime INR 1.07
[2023-07-15] MEDS ORDERED: SMZ./TMP. 800/160 MG TABLET ONE (12:44)
--- NOTE | 2023-07-15 12:46 | ER ---
Nurse's Notes [facility] Name: Edelmira Pal Age: 38 yrs Sex: Female : 1985 Arrival Date: 07/15/2023 Time: 08:22 Bed 7 Private MD: Diagnosis: Pyelonephritis acute;Right flank pain;Nausea with vomiting, unspecified;Hypokalemia;Elevated blood-pressure reading, without diagnosis of hypertension;Thrombocytosis Presentation: 07/15 08:27 Chief complaint: Patient states: RLQ abdominal pain started this morning. Coronavirus rs5 screen: At this time, the client does not indicate any symptoms associated with coronavirus-19. Ebola Screen: No symptoms or risks identified at this time. Initial Sepsis Screen: Does the patient meet any 2 criteria? No. Patient's initial sepsis screen is negative. Does the patient have a suspected source of infection? No. Patient's initial sepsis screen is negative. Risk Assessment: Do you want to hurt yourself or someone else? Patient reports no desire to harm self or others. Onset of symptoms was July 15, 2023. Care prior to arrival: Medication(s) given: zofran 4 mg. 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 - Social history:: Smoking status: Patient denies any tobacco usage or history of. Screenin:30 [facility] ED Fall Risk Assessment (Adult) History of falling in the last 3 months, ko1 including since admission No falls in past 3 months (0 pts) Confusion or Disorientation No (0 pts) Intoxicated or Sedated No (0 pts) Impaired Gait No (0 pts) Mobility Assist Device Used No (0 pt) Altered Elimination No (0 pt) Score/Fall Risk Level 0 - 2 = Low Risk Oriented to surroundings, Maintained a safe environment, Educated pt \T\ family on fall prevention, incl call for assistance when getting out of bed, Assessed \T\ reinforced patient's understanding of fall precautions, Provided non-skid footwear, Hourly rounding (assess needs \T\ fall precautionary measures) done, Used ambulatory aids as needed (educated on \T\ assisted with), Used gait belt as appropriate. Abuse screen: Denies threats or abuse. Denies injuries from another. Nutritional screening: No deficits noted. Tuberculosis screening: No symptoms or risk factors identified. Assessment: 08:30 General: Appears distressed, uncomfortable, Behavior is cooperative, anxious. Pain: rs5 Complains of pain in right lower quadrant Pain radiates to lower back Pain currently is 10 out of 10 on a pain scale. Quality of pain is described as burning, aching, Pain began 3 hours ago. Is continuous. Pain: Noted to be agitated, guarding, moaning. Neuro: Level of Consciousness is awake, alert, obeys commands, Oriented to person, place, time, situation. Cardiovascular: Heart tones S1 S2 present Rhythm is regular. Respiratory: Airway is patent Respiratory effort is even, unlabored, Respiratory pattern is regular, symmetrical, Breath sounds are clear bilaterally. GI: Bowel sounds present X 4 quads. Abd is soft and non tender X 4 quads. Reports. GI: Reports nausea. : No signs and/or symptoms were reported regarding the genitourinary system. EENT: No signs and/or symptoms were reported regarding the EENT system. Derm: Skin is pink, warm \T\ dry. Musculoskeletal: Range of motion: intact in all extremities. 08:50 Reassessment: Patient and/or family updated on plan of care and expected duration. Pain rs5 level reassessed. Patient is alert, oriented x 3, equal unlabored respirations, skin warm/dry/pink. Patient states feeling better. Patient states symptoms have improved. Pain: Complains of pain in right lower quadrant Pain does not radiate. Pain currently is 2 out of 10 on a pain scale. Quality of pain is described as burning, aching, Is continuous. GI: Patient currently denies nausea, vomiting. 09:37 Reassessment: No changes from previously documented assessment. rs5 12:40 Pain: Denies pain. rs5 12:40 Reassessment: Patient and/or family updated on plan of care and expected duration. Pain rs5 level reassessed. Patient is alert, oriented x 3, equal unlabored respirations, skin warm/dry/pink. GI: Patient currently denies nausea. 13:20 Reassessment: No changes from previously documented assessment. rs5 07/16 06:57 Reassessment: Received positive Blood culture of gram negative rods in aerobic bottle pf1 per Wilson from lab. Vital Signs: 07/15 08:27 BP 152 / 100; Pulse 94; Resp 19; Pulse Ox 99% on R/A; rs5 09:30 BP 134 / 94; Pulse 80; Resp 16; Pulse Ox 96% on R/A; ko1 11:36 BP 132 / 99; Pulse 76; Resp 15; Pulse Ox 99% ; ko1 13:30 BP 136 / 91; Pulse 89; Resp 14; Pulse Ox 99% ; ko1 ED Course: 08:26 Patient arrived in ED. iw 08:26 Shalom Fine, RN is Primary Nurse. rs5 08:27 Edgardo Arellano DO is Attending Physician. ms3 08:28 Triage completed. rs5 08:30 Emesis basin given. rs5 08:45 CBC with Diff Sent. ko1 08:45 CMP Sent. ko1 08:45 Lipase Sent. ko1 08:45 Inserted saline lock: 24 gauge in right antecubital area, using aseptic technique. ko1 Blood collected. 09:30 Patient has correct armband on for positive identification. Bed in low position. Call ko1 light in reach. Side rails up X2. Provided Education on: na. Client placed on continuous cardiac and pulse oximetry monitoring. NIBP monitoring applied. pvc monitor on. Door closed. Noise minimized. Lights dimmed. Warm blanket given. 09:50 US Abdomen Limited In Process Unspecified. EDMS 09:58 CT Abd/Pelvis - IV Contrast Only In Process Unspecified. EDMS 10:23 Test, Urine Sent. ko1 10:23 Urinalysis w/ reflexes Sent. ko1 12:45 Dustin Zavaleta MD is Referral Physician. ms3 13:30 No provider procedures requiring assistance completed. IV discontinued, intact, ko1 bleeding controlled, No redness/swelling at site. Pressure dressing applied. Administered Medications: 08:30 Drug: Famotidine IVP 20 mg IVP once; dilute with 10 mL 0.9% NaCl; give over 2 minutes rs5 Route: IVP; Site: right antecubital; 08:50 Follow up: Response: No adverse reaction rs5 08:30 Drug: TORadol - Ketorolac IVP 15 mg IVP once Route: IVP; Site: right antecubital; rs5 08:50 Follow up: Response: No adverse reaction rs5 08:30 Drug: morphine IVP or IV 4 mg IVP once over 4 mins Route: IVP; Infused Over: 4 mins; rs5 Site: right antecubital; 08:50 Follow up: Response: No adverse reaction; Pain is decreased rs5 09:57 Drug: NS 0.9% IV 1000 ml IV at 1 bolus Per protocol; 1000 mL bolus Route: IV; Rate: 1 ko1 bolus; Site: right antecubital; 10:11 Drug: Ondansetron IVP 4 mg IVP once; over 2 minutes Route: IVP; Site: right antecubital;ko1 11:39 Not Given (Patient Refused): [id number] mg IM once rs5 11:57 CANCELLED (Physician Discretion; MD varela): [id number] mg 200 ml IVPB once over 60 ko1 mins 12:20 Drug: morphine IVP or IV 4 mg IVP once over 4 mins Route: IVP; Infused Over: 4 mins; rs5 Site: right antecubital; 12:40 Follow up: Response: No adverse reaction; Pain is decreased rs5 12:27 Drug: Trimethoprim-Sulfamethoxazole PO (160 mg-800 mg (DS) 1 tablet PO once Route: PO; rs5 13:10 Follow up: Response: No adverse reaction rs5 Medication: 09:37 VIS not applicable for this client. rs5 Outcome: 12:45 Discharge ordered by . ms3 13:40 Discharged to home ambulatory, rs5 13:40 Condition: stable 13:40 Discharge instructions given to patient, Instructed on discharge instructions, follow up and referral plans. medication usage, Demonstrated understanding of instructions, follow-up care, medications, Prescriptions given X 2, 13:43 Patient left the ED. rs5 Signatures: Dispatcher [employer] EDMS Charis Baires RN RN iw Sims, Marcus, DO DO ms3 Shirley Brown RN RN ko1 Naheed Dickens RN RN pf1 Shalom Fine RN RN rs5
--- NOTE | 2023-07-15 12:46 | EDPHYS ---
Physician Documentation [facility] Name: Edelmira Pal Age: 38 yrs Sex: Female : 1985 Arrival Date: 07/15/2023 Time: : Bed 7 Private MD: ED Physician Edgardo Arellano HPI: 07/15 08:28 This 38 yrs old Female presents to ER via Unassigned with complaints of abdominal pain. ms3 08:28 38-year-old female with past medical history of diabetes mellitus type 1, anxiety ms3 presents to the emergency department via [facility] for right-sided abdominal pain that began at 2:30 AM. Patient rates the pain a /10 describes the pain as burning and located on the right side. Patient states the pain radiates to her back. Patient endorses nausea, vomiting. Patient denies any alleviating or inciting factors. 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 - Social history:: Smoking status: Patient denies any tobacco usage or history of. ROS: 08:28 Constitutional: Negative for fever, and chills. Neck: Negative for injury, pain, and ms3 swelling, Cardiovascular: Negative for chest pain, and palpitations. Respiratory: Negative for shortness of breath, cough, wheezing, and pleuritic chest pain, 08:28 MS/Extremity: Negative for injury and deformity, Skin: Negative for injury, rash, and discoloration, 08:28 Abdomen/GI: Positive for abdominal pain, nausea and vomiting, 08:28 All other systems are negative, Exam: 08:28 Constitutional: This is a well developed, well nourished patient who is awake, alert, ms3 and in no acute distress. Head/Face: Normocephalic, atraumatic. Neck: Trachea midline, no cervical lymphadenopathy. Supple, full range of motion without nuchal rigidity, or vertebral point tenderness. No Meningismus. Chest/axilla: Normal chest wall appearance and motion. Nontender with no deformity. Cardiovascular: Regular rate and rhythm with a normal S1 and S2. No gallops, murmurs, or rubs. Normal PMI, no JVD. No pulse deficits. 08:28 Skin: Warm, dry with normal turgor. Normal color with no rashes, no lesions, and no evidence of cellulitis. MS/ Extremity: Pulses equal, no cyanosis. Neurovascular intact. Full, normal range of motion. 08:28 Respiratory: 08:28 Abdomen/GI: Inspection: abdomen appears normal, Bowel sounds: normal, Palpation: moderate abdominal tenderness, in the right upper quadrant, 14:31 ECG was reviewed by the Attending Physician. ms3 Vital Signs: 08:27 BP 152 / 100; Pulse 94; Resp 19; Pulse Ox 99% on R/A; rs5 09:30 BP 134 / 94; Pulse 80; Resp 16; Pulse Ox 96% on R/A; ko1 11:36 BP 132 / 99; Pulse 76; Resp 15; Pulse Ox 99% ; ko1 13:30 BP 136 / 91; Pulse 89; Resp 14; Pulse Ox 99% ; ko1 MDM: 08:28 Differential diagnosis: appendicitis, bowel obstruction, cholecystitis, Cholelithiasis, ms3 gastritis, non-specific abd pain, pancreatitis. 08:31 Patient medically screened. ms3 12:48 Data reviewed: vital signs, nurses notes, lab test result(s), radiologic studies, and ms3 as a result, I will discharge patient. Consideration of Admission/Observation Escalation of care including admission/observation considered. Discussed admission with patient and patient declined. Discussed risks of discharge with patient and patient states she cannot stay. Patient understands and is able to repeat risks of discharge back.. I considered the following discharge prescriptions or medication management in the emergency department Medications were administered in the Emergency Department. See MAR. Historians other than the Patient: EMS: [facility]. Care significantly affected by the following chronic conditions: Diabetes. Counseling: I had a detailed discussion with the patient and/or guardian regarding the historical points, exam findings, and any diagnostic results supporting the discharge/admit diagnosis, lab results, radiology results, the need for outpatient follow up, to return to the emergency department if symptoms worsen or persist or if there are any questions or concerns that arise at home. Response to treatment: the patient's symptoms have mildly improved after treatment, and as a result, I will discharge patient. Refusal of service: The patient/guardian displays adequate decision making capability and despite a detailed discussion of alternatives, benefits, risks, and consequences refuses: Admission to the hospital for further work-up and treatment. ED course: Discussed necessity for admission with patient. Patient declines admission. Patient is alert and orient x 4, in no apparent distress, nontoxic-appearing. Patient to follow-up Dr. Zavaleta in 2 to 3 days. Patient understands and agrees with plan. All questions were answered. Return precautions discussed include worsening symptoms, or any other concerns. 07/15 08:27 Order name: CBC with Diff; Complete Time: 11:29 ms3 07/15 08:27 Order name: CMP; Complete Time: 09:33 ms3 07/15 08:27 Order name: Lipase; Complete Time: 09:33 ms3 07/15 08:27 Order name: Test, Urine; Complete Time: 11:29 ms3 07/15 08:27 Order name: Urinalysis w/ reflexes; Complete Time: 11:29 ms3 07/15 10:33 Order name: Blood Culture Adult (2) ms3 07/15 10:33 Order name: Lactate w/ 2H reflex if indic.; Complete Time: 12:16 ms3 07/15 10:33 Order name: Protime (+inr); Complete Time: 12:16 ms3 07/15 10:33 Order name: Ptt, Activated; Complete Time: 12:16 ms3 07/15 10:51 Order name: Manual Differential; Complete Time: 11:29 EDMS 07/15 08:27 Order name: CT Abd/Pelvis - IV Contrast Only; Complete Time: 10:31 ms3 07/15 09:36 Order name: US Abdomen Limited; Complete Time: 10:31 ms3 07/15 10:33 Order name: EKG; Complete Time: 10:33 ms3 07/15 08:27 Order name: IV Saline Lock; Complete Time: 08:45 ms3 07/15 08:27 Order name: Labs collected and sent; Complete Time: 08:45 ms3 07/15 10:33 Order name: Accucheck; Complete Time: 10:52 ms3 07/15 10:33 Order name: Cardiac monitoring; Complete Time: 10:33 ms3 07/15 10:33 Order name: EKG - Nurse/Tech; Complete Time: 11:13 ms3 07/15 10:33 Order name: IV Saline Lock - Large Bore; Complete Time: 10:33 ms3 07/15 10:33 Order name: O2 Per Protocol; Complete Time: 10:33 ms3 07/15 10:33 Order name: O2 Sat Monitoring; Complete Time: 10:33 ms3 07/15 10:33 Order name: Vital Signs; Complete Time: 10:33 ms3 EC:31 Rate is 78 beats/min. Rhythm is regular. QRS [place] is Normal. ME interval is normal. QRS ms3 interval is normal. Clinical impression: Normal ECG and Prolonged QT. Interpreted by me. Administered Medications: 08:30 Drug: Famotidine IVP 20 mg IVP once; dilute with 10 mL 0.9% NaCl; give over 2 minutes rs5 Route: IVP; Site: right antecubital; 08:50 Follow up: Response: No adverse reaction rs5 08:30 Drug: TORadol - Ketorolac IVP 15 mg IVP once Route: IVP; Site: right antecubital; rs5 08:50 Follow up: Response: No adverse reaction rs5 08:30 Drug: morphine IVP or IV 4 mg IVP once over 4 mins Route: IVP; Infused Over: 4 mins; rs5 Site: right antecubital; 08:50 Follow up: Response: No adverse reaction; Pain is decreased rs5 09:57 Drug: NS 0.9% IV 1000 ml IV at 1 bolus Per protocol; 1000 mL bolus Route: IV; Rate: 1 ko1 bolus; Site: right antecubital; 10:11 Drug: Ondansetron IVP 4 mg IVP once; over 2 minutes Route: IVP; Site: right antecubital;ko1 11:39 Not Given (Patient Refused): [id number] mg IM once rs5 11:57 CANCELLED (Physician Discretion; MD varela): [id number] mg 200 ml IVPB once over 60 ko1 mins 12:20 Drug: morphine IVP or IV 4 mg IVP once over 4 mins Route: IVP; Infused Over: 4 mins; rs5 Site: right antecubital; 12:40 Follow up: Response: No adverse reaction; Pain is decreased rs5 12:27 Drug: Trimethoprim-Sulfamethoxazole PO (160 mg-800 mg (DS) 1 tablet PO once Route: PO; rs5 13:10 Follow up: Response: No adverse reaction rs5 Disposition Summary: 07/15/23 12:45 Discharge Ordered Notes: Location: Home ms3 Condition: Stable ms3 Diagnosis - Pyelonephritis acute ms3 - Right flank pain ms3 - Nausea with vomiting, unspecified ms3 - Hypokalemia ms3 - Elevated blood-pressure reading, without diagnosis of hypertension ms3 - Thrombocytosis ms3 Followup: ms3 - With: Dustin Zavaleta MD - When: 2 - 3 days - Reason: Recheck today's complaints Discharge Instructions: - Discharge Summary Sheet ms3 - Nausea and Vomiting, Adult ms3 - Pyelonephritis, Adult, [id number] ms3 Forms: - Medication Reconciliation Form ms3 - Thank You Letter ms3 - Antibiotic Education ms3 - Prescription Opioid Use ms3 - Patient Portal Instructions ms3 - Leadership Thank You Letter ms3 Prescriptions: - promethazine 25 mg Rectal suppository - insert 1 suppository RECTAL route every 4 to 6 hours as needed for nausea and ms3 vomiting; 15 suppository; Refills: 0, Product Selection Permitted - Bactrim DS 800-160 mg Oral Tablet - take 1 tablet ORAL route every 12 hours for 7 days; 14 tablet; Refills: 0, ms3 Product Selection Permitted Signatures: Dispatcher [employer] Edgardo Hernandez DO DO ms3 Shirley Brown, RN RN ko1 Shalom Fine, RN RN rs5 Corrections: (The following items were deleted from the chart) 11:57 11:34 Ciprofloxacin IVPB 400 mg 200 ml IVPB once over 60 mins ordered. ms3 ko1 11:57 11:57 Ciprofloxacin IVPB 400 mg 200 ml IVPB once over 60 mins ordered. ko1 ko1
[2023-07-15 14:11] VITALS: BP 136/91; O2SAT 99
--- NOTE | 2023-07-17 13:50 | EKG ---
Test Date: 2023-07-15 Test Time: 11:05:24 Die Designer: BROOK MEASUREMENT RESULTS: Intervals: Rate: 78 OR: 156 QRSD: 74 QT: 438 QTc: 499 [place]: P: 63 OR: 156 QRS: 78 T: 90 INTERPRETIVE STATEMENTS: Normal sinus rhythm Prolonged QT Abnormal ECG Compared to ECG 11/17/2021 16:09:32 Prolonged QT interval now present Sinus tachycardia no longer present Atrial abnormality no longer present T-wave abnormality no longer present Electronically Signed On 07-17-23 13:41:46 EQUAL OPPORTUNITY OFFICER by Jason Cope
== END 2023-07-15 13:43 | disposition home or self-care (01) ==
LOC: ER 08:22
DX: N10 Acute pyelonephritis (principal); R10.31 Right lower quadrant pain; R11.2 Nausea with vomiting, unspecified; E87.6 Hypokalemia; R03.0 Elevated blood-pressure reading, without diagnosis of hypertension; D75.839 Thrombocytosis, unspecified; E10.9 Type 1 diabetes mellitus without complications; F41.9 Anxiety disorder, unspecified; Z88.8 Allergy status to other drugs, medicaments and biological substances
CPT/HCPCS: 93005; 87040 ×2; 85025; 36415; 87205 ×2; 81025; 85610; 83605; 85730; 81003; 83690; 80053; 74177; 76705; 96375; 96374; 99285; Q9967; J2405; J7030

== ENCOUNTER 2023-12-04 17:09 | Emergency (ER) | payer OTHER ==
[2023-12-04] MEDS ORDERED: NA CHLORIDE 0.9% 1,000 ML ONE ×2 (17:44→19:14)
[2023-12-04 17:56] LABS: Absolute Basophils 0.1 K/uL (0-0.5); Absolute Eosinophils 0.4 K/uL (0-0.5); Absolute Lymphocytes (CBC) 1.8 K/uL (0.7-4.9); Absolute Monocytes 1.1 K/uL (0.1-1.3); Absolute Neutrophil 21.3 K/uL (1.8-8.0); Basophils % 0.4 % (0-1.3); Eosinophils % 1.5 % (0-4.4); Hematocrit 37.1 % (36.0-45.0); Hemoglobin 12.7 g/dL (12.0-15.0); Lymphocytes % 7.5 % (15.3-44.8); MCHC 34.2 g/dL (32.0-36.0); MCV 102.2 fL (80-100); MPV 6.5 fL (7.6-11.3); Monocytes % 4.5 % (3.3-12.3); Neutrophils % 86.1 % (41.7-73.7); Nucleated RBC Absolute Count 0.1 (0-0); Nucleated Red Blood Cells % 0.3 % (0-0); Platelets 461 thou/uL (152-406); RBC Red Blood Cell Count 3.63 M/uL (3.86-4.86); Red Cell Distribution Width 13.2 % (12.1-15.2)
--- NOTE | 2023-12-04 18:05 | RAD REPORT ---
EXAM DESCRIPTION: RAD - Chest Single View - 12/04/2023 5:53 pm CLINICAL HISTORY: CHEST PAIN Chest pain. COMPARISON: Chest Single View dated 04/22/2021; Chest Single View dated 03/27/2021 FINDINGS: Portable technique limits examination quality. The lungs are grossly clear. The heart is normal in size. No displaced fractures. IMPRESSION: No acute intrathoracic process suspected.
[2023-12-04 18:17] LABS: Albumin 3.3 g/dL (3.4-5.0); Albumin/Globulin Ratio 0.7 (1.1-1.8); Bilirubin Direct 0.1 mg/dL (0-0.2); Bilirubin Indirect, Calculated 0.3 mg/dL (0.2-0.8); Bilirubin Total 0.4 mg/dL (0.2-1.0); Globulin 4.5 g/dL (2.3-3.5); Magnesium 1.6 mg/dL (1.6-2.4); Protein, Total 7.8 g/dL (6.4-8.2); Troponin High Sensitivity 4.3 pg/mL (<58.9)
[2023-12-04 19:28] LABS: Band Neutrophils 1 % (0-1); Differential Total Cells Count 100; Eosinophils 5 % (0-3); Lymphocytes 7 % (15-42); Monocytes 3 % (0-10); Segmented Neutrophils 84 % (40-80); Toxic Granulation 1+
[2023-12-04 19:29] LABS: Blood Morphology Comment NOT SEEN (NOT SEEN); Platelet Estimate INCR
--- NOTE | 2023-12-04 19:34 | RAD REPORT ---
EXAM DESCRIPTION: CT - Head Brain Wo Cont - 12/04/2023 7:16 pm CLINICAL HISTORY: MENTAL STATUS CHANGE Headache, drowsiness COMPARISON: No comparisons TECHNIQUE: All CT scans are performed using dose optimization technique as appropriate and may inclu de automated exposure control or mA/KV adjustment according to patient size. FINDINGS: No intracranial hemorrhage, hydrocephalus or extra-axial fluid collection.No areas of brai n edema or evidence of midline shift. Left mastoid effusion noted. The paranasal sinuses and mastoids are otherwise clear. The calvarium is intact. IMPRESSION: No acute intracranial abnormality. Left mastoid effusion.
[2023-12-04 20:19] LABS: Specific Gravity 1.015 (1.005-1.030)
[2023-12-04 20:20] LABS: Specific Gravity 1.015 (1.005-1.030); Sqamous Epithelial <5 /HPF (None Seen); Urine Bacteria 20-50 /HPF (<20); Urine Bilirubin NEGATIVE (Negative); Urine Blood Negative (Negative); Urine Clarity Extremely Turbid (Clear); Urine Color Light-Yellow (Yellow); Urine Culture Reflex Order REFLEXED; Urine Glucose 4+ (Negative); Urine Ketones NEGATIVE (Negative); Urine Micro Reflex YN NO BILL MICROSCOPIC; Urine Mucus Slight /HPF (None Seen); Urine Nitrite 2+ (Negative); Urine Protein NEGATIVE (Negative); Urine RBC <5 /HPF (None Seen); Urine Urobilinogen Normal (Normal); Urine pH 5.5 (5.0-7.0)
[2023-12-04 20:26] LABS: Barbiturates NEGATIVE (NEGATIVE); Benzodiazepines POSITIVE (NEGATIVE); Cocaine NEGATIVE (NEGATIVE); METHAMPHETAM POSITIVE (NEGATIVE); Methadone NEGATIVE (NEGATIVE); Opiates NEGATIVE (NEGATIVE); Phencyclidine NEGATIVE (NEGATIVE); THC Cannibis NEGATIVE (NEGATIVE)
--- NOTE | 2023-12-04 22:08 | RAD REPORT ---
EXAM DESCRIPTION: CTAbdomen Pelvis W Contrast - 12/04/2023 10:01 pm CLINICAL HISTORY: Abdominal pain. abdominal tenderness COMPARISON: Abdomen Pelvis W Contrast dated 07/15/2023; Abdomen Pelvis W Contrast dated ; Abdomen Pelvis W Contrast dated 06/20/2020 TECHNIQUE: Biphasic CT imaging of the abdomen and pelvis was performed with 100 ml non-ionic IV cont rast. All CT scans are performed using dose optimization technique as appropriate and may include automated exposure control or mA/KV adjustment according to patient size. FINDINGS: Mild linear atelectasis is present in both lung bases. Small hiatal hernia. The liver demonstrates diffuse fatty liver infiltration. The spleen, pancreas, adrenal glands and kid neys are within normal limits. Cholelithiasis suspected. No bowel obstruction, free air, free fluid or abscess. The appendix is normal. No evidence of signi ficant lymphadenopathy. No suspicious bony findings. IMPRESSION: Cholelithiasis. Fatty liver.
[2023-12-04] MEDS ORDERED: NA CHLORIDE 0.9% 100 ML ONE (22:54)
[2023-12-04] MEDS ORDERED: PIPERACIL/TAZO 3.375 GM VIAL IV ONE (22:55)
--- NOTE | 2023-12-04 23:34 | EDPHYS ---
Physician Documentation [facility] Name: Edelmira Pal Age: 38 yrs Sex: Female : 1985 Arrival Date: 12/04/2023 Time: 17:09 Bed 18 Private MD: ED Physician Chapito Sanders HPI: 12/03 17:33 This 38 yrs old Female presents to ER via EMS with complaints of Low Blood Sugar. cp 17:33 The patient or guardian reports hypoglycemia, that was potentially precipitated by not cp eating since yesterday and taking insulin today. Associated signs and symptoms: Pertinent positives: chest pain, Pertinent negatives: diarrhea, vomiting. Current symptoms: In the emergency department the patient's symptoms have improved, mildly. EMS reports initial blood glucose upon their arrival was in 30's. Patient reports injecting 9 units today and not eating since yesterday. Also reports taking prescribed Valium and Neurontin. Historical: - Allergies: 17:27 Ceclor; rs5 - PMHx: 17:27 Alcoholism; Anxiety; Asthma; diabetes mellitus; rs5 - PSHx: 17:27 None; rs5 - Immunization history:: Adult Immunizations up to date. - Infectious Disease History:: Denies. - Social history:: Smoking status: Patient denies any tobacco usage or history of. ROS: 18:00 Eyes: Negative for injury, pain, redness, and discharge, cp 18:00 Constitutional: Negative for body aches, chills, fever, 18:00 ENT: Negative for drainage from ear(s), ear pain, sore throat, difficulty swallowing, difficulty handling secretions, 18:00 Cardiovascular: Positive for chest pain, Negative for edema, palpitations, 18:00 Respiratory: Negative for cough, shortness of breath, wheezing, 18:00 Abdomen/GI: Negative for abdominal pain, vomiting, diarrhea, constipation, 18:00 Back: Negative for pain at rest, pain with movement, 18:00 : Negative for urinary symptoms, vaginal bleeding, 18:00 Skin: Negative for rash, 18:00 Neuro: Positive for altered mental status, weakness, Negative for headache, 18:00 All other systems are negative, Exam: 18:05 Constitutional: The patient appears in no acute distress, non-diaphoretic, non-toxic, cp well developed, well nourished, drowsy 18:05 Head/Face: Normocephalic, atraumatic. cp 18:05 Eyes: Periorbital structures: appear normal, Conjunctiva: normal, no exudate, no injection, Sclera: no appreciated abnormality, Lids and lashes: appear normal, bilaterally, 18:05 ENT: External ear(s): are unremarkable, Nose: is normal, Mouth: Lips: moist, Oral mucosa: pink and intact, moist, Posterior pharynx: is normal, airway is patent, no erythema, no exudate, 18:05 Neck: ROM/movement: is normal, is supple, without pain, no range of motions limitations, no meningismus, no nuchal rigidity, 18:05 Chest/axilla: Inspection: normal, Palpation: is normal, no crepitus, no tenderness, 18:05 Cardiovascular: Rate: normal, Rhythm: regular, Edema: is not appreciated, JVD: is not appreciated, 18:05 Respiratory: the patient does not display signs of respiratory distress, Respirations: normal, no use of accessory muscles, no retractions, labored breathing, is not present, Breath sounds: are clear throughout, no decreased breath sounds, no stridor, no wheezing, 18:05 Abdomen/GI: Inspection: abdomen appears normal, Bowel sounds: active, all quadrants, Palpation: soft, in all quadrants, mild abdominal tenderness, in the right upper quadrant, rebound tenderness, is not appreciated, involuntary guarding, is not appreciated, 18:05 Back: CVA tenderness, is absent, 18:05 Skin: cellulitis, is not appreciated, no rash present. 18:05 Neuro: Orientation: to person, place, situation, Mentation: able to follow commands, slow to respond, sleepy, Motor: moves all fours, no focal deficits, Sensation: no obvious gross deficits, Vital Signs: 17:22 BP 114 / 75; Pulse 77; Resp 18; Pulse Ox 99% on R/A; rs5 18:07 BP 94 / 70; Pulse 78; Resp 16; Pulse Ox 99% on R/A; rs5 18:14 BP 102 / 76; Pulse 71; Resp 18; Pulse Ox 99% ; rs5 18:57 BP 100 / 72; Pulse 76; Resp 18; Pulse Ox 99% on R/A; rs5 19:15 BP 96 / 74; Pulse 79; Resp 17; Pulse Ox 100% ; jj7 20:00 BP 119 / 88; Pulse 72; Resp 16; Pulse Ox 100% ; jj7 21:00 BP 123 / 85; Pulse 83; Resp 20; Pulse Ox 100% ; jj7 22:00 BP 102 / 91; Pulse 60; Resp 17; Pulse Ox 99% ; jj7 23:03 BP 103 / 67; Pulse 77; Resp 18; Pulse Ox 100% ; jj7 23:56 BP 102 / 69; Pulse 89; Resp 16; Temp 97.9; Pulse Ox 100% ; Pain 0/10; jj7 23:56 Pain Scale: Adult jj7 MDM: 17:24 Patient medically screened. [facility] 23:32 Data reviewed: vital signs, nurses notes, lab test result(s), EKG, radiologic studies, cp CT scan, plain films. 23:32 Differential diagnosis: DKA, sepsis, uti, electrolyte abnormality, cardiac arrythmia. cp Consideration of Admission/Observation Escalation of care including admission/observation considered. I considered the following discharge prescriptions or medication management in the emergency department Medications were administered in the Emergency Department. See MAR. Independent interpretation of the following test(s) in the Emergency Department EKG: See my EKG interpretation above. Care significantly affected by the following chronic conditions: Diabetes. Counseling: I had a detailed discussion with the patient and/or guardian regarding the historical points, exam findings, and any diagnostic results supporting the discharge/admit diagnosis, lab results, radiology results, the need for further work-up and treatment in the hospital. Response to treatment: the patient's symptoms have mildly improved after treatment. Refusal of service: The patient/guardian displays adequate decision making capability and despite a detailed discussion of alternatives, benefits, risks, and consequences refuses: Admission to the hospital for further work-up and treatment. 12/03 17:29 Order name: Basic Metabolic Panel; Complete Time: 19:04 cp 12/03 19:05 Interpretation: Normal except: K 3.0; GLUC 158; GFR 79; CA 8.4. cp 12/03 17:29 Order name: CBC with Diff; Complete Time: 21:05 cp 12/03 19:06 Interpretation: Normal except: WBC 24.70; RBC 3.63; MCV 102.2; PLT 461; MPV 6.5; RENE% cp 86.1; LYM% 7.5; NEUT A 21.3. 12/03 17:29 Order name: LFT's; Complete Time: 19:04 cp 12/03 19:05 Interpretation: Normal except: AST 72; ALT 65; ALB 3.3; GLOB 4.5; A/G 0.7. cp 12/03 17:29 Order name: Magnesium; Complete Time: 19:04 cp 12/03 17:29 Order name: Troponin HS; Complete Time: 19:04 cp 12/03 17:31 Order name: Glucose, Ancillary Testing; Complete Time: 18:02 EDMS 12/03 18:04 Order name: ETOH Level; Complete Time: 19:04 cp 12/03 19:05 Interpretation: Abnormal: ETOH 83. cp 12/03 18:04 Order name: UDS; Complete Time: 21:05 cp 12/03 21:06 Interpretation: Normal except: BZO POSITIVE; METHAMPHETAMINE POSITIVE. cp 12/03 18:04 Order name: Urinalysis W/Microscopic; Complete Time: 21:05 12/03 18:04 Order name: Test, Urine; Complete Time: 21:05 cp 12/03 18:19 Order name: Glucose, Ancillary Testing; Complete Time: 19:04 EDMS 12/03 19:29 Order name: Manual Differential; Complete Time: 21:05 EDMS 12/03 20:29 Order name: Urine Culture EDMD 12/03 23:30 Order name: Glucose, Ancillary Testing; Complete Time: 23:30 EDMS 12/03 17:29 Order name: XRAY Chest (1 view); Complete Time: 19:04 12/03 18:04 Order name: CT Head Brain wo Cont; Complete Time: 21:05 cp 12/03 21:09 Order name: CT Abd/Pelvis - IV Contrast Only; Complete Time: 22:34 cp 12/03 17:29 Order name: EKG; Complete Time: 17:30 cp 12/03 17:29 Order name: Cardiac monitoring; Complete Time: 18:15 cp 12/03 17:29 Order name: EKG - Nurse/Tech; Complete Time: 18:15 cp 12/03 17:29 Order name: IV Saline Lock; Complete Time: 18:15 cp 12/03 17:29 Order name: Labs collected and sent; Complete Time: 18:15 cp 12/03 17:29 Order name: O2 Per Protocol; Complete Time: 18:15 cp 12/03 17:29 Order name: O2 Sat Monitoring; Complete Time: 18:15 cp 12/03 22:59 Order name: Accucheck Blood Glucose; Complete Time: 23:18 cp Administered Medications: 18:10 Drug: NS 0.9% IV 1000 ml IV at 1 bolus Per protocol; 1000 mL bolus Route: IV; Rate: 1 rs5 bolus; Site: right antecubital; 18:18 Follow up: Response: No adverse reaction rs5 19:08 Follow up: IV Status: Completed infusion j7 19:17 Drug: NS 0.9% IV 1000 ml IV at 1 bolus Per protocol; 1000 mL bolus Route: IV; Rate: 1 jj7 bolus; Site: right antecubital; 20:10 Follow up: IV Status: Completed infusion j7 23:11 Drug: Piperacillin-Tazobactam IVPB 3.375 grams IVPB once over 60 mins; (mix in NS 100 jj7 mL) Route: IVPB; Infused Over: 60 mins; Site: right antecubital; 12/04 00:00 Follow up: IV Status: Completed infusion 7 12/03 23:56 Drug: Potassium PO Effervescent Tablet 50 mEq PO once; dissolve in 4 ounces of water or jj7 juice Route: PO; 12/04 00:00 Follow up: Response: No adverse reaction 7 12/03 23:56 Drug: Potassium PO Effervescent Tablet 25 mEq PO once; dissolve in 4 ounces of water or jj7 juice Route: PO; 12/04 00:00 Follow up: Response: No adverse reaction jj7 Disposition Summary: 12/04/23 23:33 Discharge Ordered Notes: Location: Home cp Problem: new cp Symptoms: have improved cp Condition: Stable cp Diagnosis - Other cholelithiasis without obstruction cp - UTI/ Urinary tract infection, site not specified cp - Hypokalemia cp - Drug-induced hypoglycemia without coma cp Followup: cp - With: Private Physician - When: 1 - 2 days - Reason: Recheck today's complaints Followup: cp - With: Jose Jj MD - When: 2 - 3 days - Reason: gallstones Discharge Instructions: - Discharge Summary Sheet cp - Potassium Content of Foods cp - Urinary Tract Infection, Adult cp - Cholelithiasis cp - Hypokalemia cp Forms: - Medication Reconciliation Form cp - Antibiotic Education cp - Prescription Opioid Use cp - Patient Portal Instructions cp - Leadership Thank You Letter cp Prescriptions: - Augmentin 875-125 mg Oral Tablet - take 1 tablet ORAL route every 12 hours for 10 days; 20 tablet; Refills: 0, cp Product Selection Permitted - Zofran 4 mg Oral Tablet - take 1 tablet ORAL route every 12 hours As needed; 20 tablet; Refills: 0, cp Product Selection Permitted Signatures: Dispatcher [employer] EDMS Chapito Sanders MD MD cha Page, Corey, PA PA cp Johnson, Juwairiyah, RN RN jj7 Shalom Fine RN RN rs5 Corrections: (The following items were deleted from the chart) 12/03 18:04 18:04 Head Brain Wo Cont+CT.RAD.BRZ ordered. EDMS EDMS 18:04 18:04 ETHANOL+C.LAB.BRZ ordered. EDMS EDMS 18:04 18:04 URINE DRUG SCREEN+UC.LAB.BRZ ordered. EDMS EDMS 18:04 18:04 Urinalysis W/Microscopic+U.LAB.BRZ ordered. EDMS EDMS 18:04 18:04 Test, Urine+UC.LAB.BRZ ordered. EDMS EDMS
--- NOTE | 2023-12-04 23:34 | ER ---
Nurse's Notes [facility] Name: Edelmira Pal Age: 38 yrs Sex: Female : 1985 Arrival Date: 12/04/2023 Time: 17:09 Bed 18 Private MD: Diagnosis: Other cholelithiasis without obstruction;UTI/ Urinary tract infection, site not specified;Hypokalemia;Drug-induced hypoglycemia without coma Presentation: 12/03 17:22 Chief complaint: EMS states: "Family toned out EMS for low blood sugars. Pt took 9 rs5 units of fast acting insulin and hadn't eaten, she had also taken diazepam for anxiety. BS were in the 30's on seen, one bag of 250 ml D10W was adm, blood sugars are now 74". Coronavirus screen: At this time, the client does not indicate any symptoms associated with coronavirus-19. Ebola Screen: No symptoms or risks identified at this time. Initial Sepsis Screen: Does the patient meet any 2 criteria? No. Patient's initial sepsis screen is negative. Does the patient have a suspected source of infection? No. Patient's initial sepsis screen is negative. Risk Assessment: Do you want to hurt yourself or someone else? Patient reports no desire to harm self or others. Onset of symptoms was December 04, 2023. 17:22 Method Of Arrival: EMS: [facility] rs5 17:22 Acuity: BELTRAN 2 rs5 17:22 Care prior to arrival: IV initiated. 20 GA, in the right antecubital area. rs5 17:22 Care prior to arrival: Medication(s) given: 250 ml bag of D10W IV. rs5 Triage Assessment: 17:22 General: Appears in no apparent distress. uncomfortable, Behavior is cooperative. Pain: rs5 Denies pain. Historical: - Allergies: 17:27 Ceclor; rs5 - PMHx: 17:27 Alcoholism; Anxiety; Asthma; diabetes mellitus; rs5 - PSHx: 17:27 None; rs5 - Immunization history:: Adult Immunizations up to date. - Infectious Disease History:: Denies. - Social history:: Smoking status: Patient denies any tobacco usage or history of. Screenin:25 [facility] ED Fall Risk Assessment (Adult) History of falling in the last 3 months, rs5 including since admission No falls in past 3 months (0 pts) Confusion or Disorientation No (0 pts) Intoxicated or Sedated No (0 pts) Impaired Gait No (0 pts) Mobility Assist Device Used No (0 pt) Altered Elimination No (0 pt) Score/Fall Risk Level 0 - 2 = Low Risk Oriented to surroundings, Maintained a safe environment. Abuse screen: Denies threats or abuse. Nutritional screening: No deficits noted. Tuberculosis screening: No symptoms or risk factors identified. Assessment: 17:24 General: Appears uncomfortable, Behavior is cooperative, drowsy. Pain: Denies pain. rs5 Neuro: Level of Consciousness is awake, alert, obeys commands, Oriented to person, place, time, situation. Cardiovascular: Patient's skin is warm and dry. Rhythm is regular. Respiratory: Airway is patent Respiratory effort is even, unlabored, Respiratory pattern is regular, symmetrical. GI: Abdomen is round non-distended, Bowel sounds present X 4 quads. : No signs and/or symptoms were reported regarding the genitourinary system. EENT: No signs and/or symptoms were reported regarding the EENT system. Derm: Skin is intact, Skin is pink, warm \\T\\ dry. 17:24 Musculoskeletal: Range of motion: intact in all extremities. rs5 18:05 Reassessment: Provider notified of low BP. rs5 18:17 Reassessment: Patient and/or family updated on plan of care and expected duration. Pain rs5 level reassessed. Patient is alert, oriented x 3, equal unlabored respirations, skin warm/dry/pink. 18:56 Reassessment: No changes from previously documented assessment. rs5 19:15 Reassessment: ASSUMED CARE OF PT. PT SITTING IN BED TALKING TO BF. NO PAIN OR DISTRESS jj7 NOTED. VS STABLE. NO NEEDS AT THIS TIME. INFORMED PT. UA NEEDED. PT STATES SHE FEELS LIKE SHE CAN GIVE ONE SHORTLY ONCE SHE GETS MORE FLUIDS. Vital Signs: 17:22 BP 114 / 75; Pulse 77; Resp 18; Pulse Ox 99% on R/A; rs5 18:07 BP 94 / 70; Pulse 78; Resp 16; Pulse Ox 99% on R/A; rs5 18:14 BP 102 / 76; Pulse 71; Resp 18; Pulse Ox 99% ; rs5 18:57 BP 100 / 72; Pulse 76; Resp 18; Pulse Ox 99% on R/A; rs5 19:15 BP 96 / 74; Pulse 79; Resp 17; Pulse Ox 100% ; jj7 20:00 BP 119 / 88; Pulse 72; Resp 16; Pulse Ox 100% ; jj7 21:00 BP 123 / 85; Pulse 83; Resp 20; Pulse Ox 100% ; jj7 22:00 BP 102 / 91; Pulse 60; Resp 17; Pulse Ox 99% ; jj7 23:03 BP 103 / 67; Pulse 77; Resp 18; Pulse Ox 100% ; jj7 23:56 BP 102 / 69; Pulse 89; Resp 16; Temp 97.9; Pulse Ox 100% ; Pain 0/10; jj7 23:56 Pain Scale: Adult j7 ED Course: 17:22 Patient arrived in ED. rs5 17:23 Chapito Sanders MD is Attending Physician. jamel 17:25 No provider procedures requiring assistance completed. rs5 17:25 Patient has correct armband on for positive identification. Placed in gown. Bed in low rs5 position. Call light in reach. Side rails up X2. 17:27 Triage completed. rs5 17:29 Chapito Whipple PA is PHCP. cp 17:36 Shalom Fine, ISSA is Primary Nurse. rs5 17:55 XRAY Chest (1 view) In Process Unspecified. EDMS 19:00 Maintain EMS IV. Dressing intact. Good blood return noted. Site clean \\T\\ dry. Gauge \\T\\ jj 7 site: 20G RIGHT AC. 19:15 Provided Education on: CALL RIOS USE. jj7 19:15 Arm band placed on left wrist. jj7 19:16 CT Head Brain wo Cont In Process Unspecified. EDMS 20:07 UDS Sent. jj7 20:07 Urinalysis W/Microscopic Sent. jj7 20:07 Test, Urine Sent. jj7 22:02 CT Abd/Pelvis - IV Contrast Only In Process Unspecified. EDMS 23:32 Jose Jj MD is Referral Physician. cp 23:56 IV discontinued, intact, bleeding controlled, No redness/swelling at site. Pressure jj7 dressing applied. Administered Medications: 18:10 Drug: NS 0.9% IV 1000 ml IV at 1 bolus Per protocol; 1000 mL bolus Route: IV; Rate: 1 rs5 bolus; Site: right antecubital; 18:18 Follow up: Response: No adverse reaction rs5 19:08 Follow up: IV Status: Completed infusion j 19:17 Drug: NS 0.9% IV 1000 ml IV at 1 bolus Per protocol; 1000 mL bolus Route: IV; Rate: 1 jj7 bolus; Site: right antecubital; 20:10 Follow up: IV Status: Completed infusion j7 23:11 Drug: Piperacillin-Tazobactam IVPB 3.375 grams IVPB once over 60 mins; (mix in NS 100 jj7 mL) Route: IVPB; Infused Over: 60 mins; Site: right antecubital; 12/04 00:00 Follow up: IV Status: Completed infusion j7 12/03 23:56 Drug: Potassium PO Effervescent Tablet 50 mEq PO once; dissolve in 4 ounces of water or jj7 juice Route: PO; 12/04 00:00 Follow up: Response: No adverse reaction jj7 12/03 23:56 Drug: Potassium PO Effervescent Tablet 25 mEq PO once; dissolve in 4 ounces of water or jj7 juice Route: PO; 12/04 00:00 Follow up: Response: No adverse reaction j7 Medication: 12/03 18:17 VIS not applicable for this client. rs5 Outcome: 23:33 Discharge ordered by . mary kay 23:56 Discharged to home ambulatory, with significant other, jj7 23:56 Condition: improved 23:56 Discharge instructions given to patient, significant other, Instructed on discharge instructions, follow up and referral plans. medication usage, Demonstrated understanding of instructions, follow-up care, medications, Prescriptions given X 2, 12/04 00:01 Patient left the ED. jj7 Addendum: 12/08/2023 08:04 Addendum: Culture Results: Positive urine culture. No further action required. Bacteria h b sensitive to prescribed antibiotic. Signatures: Dispatcher [employer] EDNH Chapito Sanders MD MD cha Page, Corey, PA PA cp Baxter, Heather, RN RN hb Johnson, Juwairiyah, RN RN jj7 Sotelo, Ricky, RN RN rs5 Corrections: (The following items were deleted from the chart) 12/03 18:17 18:05 Reassessment: Provider notified of low BP. rs5 rs5
[2023-12-04] MEDS ORDERED: POTASSIUM 25 MEQ EFFERV TAB ONE (23:41)
[2023-12-05 00:36] VITALS: BP 102/69; TEMP 97.9; O2SAT 100
--- NOTE | 2023-12-05 13:08 | EKG ---
Test Date: 2023-12-04 Test Time: 17:33:22 Protective Signal Repairer: STARLA MEASUREMENT RESULTS: Intervals: Rate: 76 UT: 154 QRSD: 76 QT: 452 QTc: 508 [place]: P: 66 UT: 154 QRS: 67 T: 87 INTERPRETIVE STATEMENTS: Normal sinus rhythm Prolonged QT Abnormal ECG Compared to ECG 07/15/2023 11:05:24 No significant changes Electronically Signed On 12-05-23 13:05:53 CDT by Jason Cope
== END 2023-12-05 00:01 | disposition home or self-care (01) ==
LOC: ER 17:09
DX: K80.80 Other cholelithiasis without obstruction (principal); N39.0 Urinary tract infection, site not specified; E87.6 Hypokalemia; E11.649 Type 2 diabetes mellitus with hypoglycemia without coma; F10.20 Alcohol dependence, uncomplicated; Z88.1 Allergy status to other antibiotic agents
CPT/HCPCS: 93005; 87088; 85025; 81001; 87086; 80048; 36415; 83735; 81025; 82947 ×3; 80076; 84484; 80307; 70450; 74177; 71045; 82077; Q9967; J2543; J7030 ×2; 87077; 87186; 96361; 96365; 99284